=== PATIENT | male | born 1940 | race Caucasian/White ===

== ENCOUNTER 2020-01-28 07:56 | Outpatient (REF) | payer MEDICARE, SELFPAY ==
[2020-01-28 08:43] LABS: MANUAL DIFF FLAG NO
[2020-01-28 08:47] LABS: Basophils Percent Auto 0.5 % (0-2); Eosinophils Absolute Auto 0.6 X10*3/uL (0.0-0.4); Eosinophils Percent Auto 8.1 % (0-4); Hematocrit 43.6 % (42-52); Hemoglobin 14.6 g/dl (14.0-18.0); Imm Gran Abs Auto 0.02 X10*3/uL (0.00-0.03); Imm Gran Pct Auto 0.3 % (0.0-0.4); Lymphocytes Absolute Auto 0.9 X10*3/uL (1.2-4.9); Lymphocytes Percent Auto 12.3 % (20-40); Mean Corpuscular HGB Conc 33.5 g/dl (31.0-36.0); Mean Corpuscular Volume 92.6 fL (80-98); Mean Platelet Volume 9.8 fL (9.4-12.4); Monocytes Absolute Auto 0.7 X10*3/uL (0.1-1.2); Monocytes Percent Auto 8.6 % (2-11); Neutrophils Absolute Auto 5.4 X10*3/uL (2.0-8.3); Neutrophils Percent Auto 70.2 % (45-73); Platelet Count 147 X10*3/uL (160-400); Red Blood Count 4.71 X10*6/uL (4.60-5.80); Red Cell Distribution Width 13.3 % (11.0-16.0); White Blood Count 7.7 X10*3/uL (4.8-10.8)
[2020-01-28 09:14] LABS: Alanine Aminotransferase 16 U/L (0-40); Albumin Level 4.1 g/dL (3.5-5.0); Alkaline Phosphatase 67 U/L (39-117); Anion Gap 10 (12-20); Aspartate Amino Transferase 16 U/L (5-37); Bilirubin Total 0.7 mg/dL (0.0-1.0); Blood Urea Nitrogen 16 mg/dL (9-16); Calcium 8.6 mg/dL (8.4-10.2); Carbon Dioxide 29 mmol/L (22-29); Chloride 103 mmol/L (96-108); Cholesterol 102 mg/dL; Estimated Glomerular Filt Rate > 60; Glucose Fasting 113 mg/dL (60-99); HDL Cholesterol 24 mg/dL; LDL Cholesterol Calculated 62 mg/dl; Potassium 5.1 mmol/l (3.3-5.1); Sodium 137 mmol/L (135-145); Total Protein 6.3 g/dL (6.5-8.0); Triglycerides 81 mg/dL
== END 2020-01-28 07:57 | disposition home or self-care (01) ==
LOC: HO.LAB 07:56
PROVIDERS: Visit Provider Internal Medicine Medical Oncology
DX: I48.0 Paroxysmal atrial fibrillation (principal); E78.2 Mixed hyperlipidemia; I10 Essential (primary) hypertension
CPT/HCPCS: 36415; 80053; 80061; 85025

== ENCOUNTER 2020-05-11 07:51 | Outpatient (REF) | payer MEDICARE, SELFPAY ==
[2020-05-11 09:18] LABS: MANUAL DIFF FLAG NO
[2020-05-11 09:25] LABS: Basophils Percent Auto 0.5 % (0-2); Eosinophils Absolute Auto 0.7 X10*3/uL (0.0-0.4); Eosinophils Percent Auto 11.3 % (0-4); Hematocrit 42.9 % (42-52); Hemoglobin 14.3 g/dl (14.0-18.0); Imm Gran Abs Auto 0.04 X10*3/uL (0.00-0.03); Imm Gran Pct Auto 0.6 % (0.0-0.4); Lymphocytes Absolute Auto 0.9 X10*3/uL (1.2-4.9); Lymphocytes Percent Auto 13.7 % (20-40); Mean Corpuscular HGB Conc 33.3 g/dl (31.0-36.0); Mean Corpuscular Hemoglobin 31.3 pg (27.0-33.0); Mean Corpuscular Volume 93.9 fL (80-98); Mean Platelet Volume 9.9 fL (9.4-12.4); Monocytes Absolute Auto 0.6 X10*3/uL (0.1-1.2); Neutrophils Absolute Auto 4.3 X10*3/uL (2.0-8.3); Neutrophils Percent Auto 64.9 % (45-73); Platelet Count 130 X10*3/uL (160-400); Red Blood Count 4.57 X10*6/uL (4.60-5.80); Red Cell Distribution Width 13.2 % (11.0-16.0); White Blood Count 6.6 X10*3/uL (4.8-10.8)
[2020-05-11 10:05] LABS: Alanine Aminotransferase 20 U/L (0-40); Albumin Level 4.1 g/dL (3.5-5.0); Alkaline Phosphatase 65 U/L (39-117); Anion Gap 11 (12-20); Aspartate Amino Transferase 17 U/L (5-37); Bilirubin Total 0.8 mg/dL (0.0-1.0); Blood Urea Nitrogen 15 mg/dL (9-16); Calcium 8.5 mg/dL (8.4-10.2); Carbon Dioxide 28 mmol/L (22-29); Chloride 106 mmol/L (96-108); Cholesterol 104 mg/dL; Estimated Glomerular Filt Rate > 60; Glucose Random 110 mg/dL (60-115); HDL Cholesterol 24 mg/dL; LDL Cholesterol Calculated 62 mg/dl; Potassium 4.9 mmol/L (3.3-5.1); Sodium 140 mmol/L (135-145); Total Protein 6.4 g/dL (6.5-8.0); Triglycerides 94 mg/dL
== END 2020-05-11 07:52 | disposition home or self-care (01) ==
LOC: HO.LAB 07:51
PROVIDERS: PCP Internal Medicine Medical Oncology; Visit Provider Internal Medicine Medical Oncology
DX: I10 Essential (primary) hypertension (principal); E78.2 Mixed hyperlipidemia
CPT/HCPCS: 36415; 80053; 80061; 85025

== ENCOUNTER 2020-09-09 07:24 | Outpatient (REF) | payer MEDICARE, SELFPAY ==
[2020-09-09 08:01] LABS: MANUAL DIFF FLAG NO
[2020-09-09 08:05] LABS: Basophils Percent Auto 0.4 % (0-2); Eosinophils Absolute Auto 0.8 X10*3/uL (0.0-0.4); Eosinophils Percent Auto 11.8 % (0-4); Hemoglobin 15.2 g/dl (14.0-18.0); Imm Gran Abs Auto 0.05 X10*3/uL (0.00-0.03); Imm Gran Pct Auto 0.7 % (0.0-0.4); Lymphocytes Absolute Auto 0.9 X10*3/uL (1.2-4.9); Lymphocytes Percent Auto 12.9 % (20-40); Mean Corpuscular HGB Conc 33.8 g/dl (31.0-36.0); Mean Corpuscular Hemoglobin 30.6 pg (27.0-33.0); Mean Corpuscular Volume 90.7 fL (80-98); Mean Platelet Volume 9.4 fL (9.4-12.4); Monocytes Absolute Auto 0.6 X10*3/uL (0.1-1.2); Monocytes Percent Auto 8.5 % (2-11); Neutrophils Absolute Auto 4.6 X10*3/uL (2.0-8.3); Neutrophils Percent Auto 65.7 % (45-73); Platelet Count 132 X10*3/uL (160-400); Red Blood Count 4.96 X10*6/uL (4.60-5.80); Red Cell Distribution Width 13.2 % (11.0-16.0)
[2020-09-09 08:33] LABS: Alanine Aminotransferase 14 U/L (0-40); Albumin Level 4.1 g/dL (3.5-5.0); Alkaline Phosphatase 65 U/L (39-117); Anion Gap 11 (12-20); Aspartate Amino Transferase 16 U/L (5-37); Bilirubin Total 0.9 mg/dL (0.0-1.0); Blood Urea Nitrogen 11 mg/dL (9-16); Calcium 8.9 mg/dL (8.4-10.2); Carbon Dioxide 27 mmol/L (22-29); Chloride 106 mmol/L (96-108); Cholesterol 106 mg/dL; Estimated Glomerular Filt Rate > 60; Glucose Fasting 113 mg/dL (60-99); HDL Cholesterol 27 mg/dL; LDL Cholesterol Calculated 63 mg/dl; Potassium 4.9 mmol/L (3.3-5.1); Sodium 139 mmol/L (135-145); Total Protein 6.5 g/dL (6.5-8.0); Triglycerides 83 mg/dL
== END 2020-09-09 07:25 | disposition home or self-care (01) ==
LOC: HO.LAB 07:24
PROVIDERS: PCP Internal Medicine Medical Oncology; Visit Provider Internal Medicine Medical Oncology
DX: I10 Essential (primary) hypertension (principal); I48.0 Paroxysmal atrial fibrillation; E78.2 Mixed hyperlipidemia
CPT/HCPCS: 36415; 80053; 80061; 85025

== ENCOUNTER → 2020-10-06 10:00 | Outpatient (REF) | payer MEDICARE, SELFPAY ==
--- NOTE | 2020-10-06 10:04 | CA_ITS ---
Transthoracic Echocardiogram Patient (Last, First, Middle): Cholo Simmons J Gender: Male Date of : 1940 Age: 80 Procedure Date: 10/06/2020 Procedure Type: Transthoracic Echocardiogram Location: OP Height: 177.8 cm Weight: 100.7 kg BSA: 2.18 m2 Heart Rate: bpm BP: 126 / 80 mmHg Acid Retort Operator: MODESTA Referring MD: Milan Mccoy MD Symptoms: I48.1 PERSISTENT AFIB, I10 HTN, I51.7 LVH Study Quality: Fair Conclusions: - Normal left ventricular size, thickness, systolic function, and wall motion. - Normal right ventricular cavity size and systolic function. - Mildly elevated right atrial pressure. Mild pulmonary hypertension is present. Findings Left Ventricle Normal left ventricular size, thickness, systolic function, and wall motion. The visually estimated ejection fraction is between 55-60%. Diastolic function is indeterminate on the basis of available data. Right Ventricle Normal right ventricular cavity size and systolic function. Atria The left atrium is mildly dilated. The right atrium is normal in size. Aortic Valve Normal aortic valve structure and function. There is no aortic valve stenosis. There is no aortic valve regurgitation. Mitral Valve Normal mitral valve structure and function. There is trace mitral valve regurgitation. There is no mitral valve stenosis. Pulmonic Valve Normal pulmonic valve structure and function. There is trace pulmonic valve regurgitation. Tricuspid Valve Normal tricuspid valve structure. There is trace tricuspid valve regurgitation. Mildly elevated right atrial pressure. Mild pulmonary hypertension is present. Great Vessels All visible segments of the aorta are normal in size. The visualized portions of the pulmonary artery and branches are normal. Venous The inferior vena cava is dilated and collapses greater than 50% with inspiration. Pericardium/Pleural There is no evidence of pericardial effusion. Prior Study Comparison Changes noted compared to prior study dated: 10/20/2018. Mildly elevated PA pressures. Measurements 2D Linear Measurements IVSd: 1.09 0.6-0.9/0.6-1.0 cm LVIDd: 4.66 3.9-5.3/4.2-5.9 cm LVIDd Index: 2.14 2.4-3.2/2.2-3.1 cm/m2 LVIDs: 2.70 2.0-3.6 cm LVPWd: 1.00 0.7-1.1 cm Ao Root: 3.50 2.1-3.5 cm LA Diam: 4.40 2.7-3.8/3.0-4.0 cm LAIDs Index: 2.02 1.5-2.3 cm/m2 LV Mass: 214.61 67-162/88-224 g LV Mass Index: 98.44 43-95/49-115 g/m2 LVOT Diam: 2.10 3.0+(-)1.3 cm 2D Systolic Function EF 4C: 53.90 >55% EF 2C: 61.00 >55% EF BiP: 57.00 >55% Aortic Valve AoV Pk Bertram: 1.03 AoV Mn Bertram: 0.71 AoV VTI: 0.23 AoV Pk Grad: 4.00 Aov Mn Grad: 2.00 NALINI Cont.VTI: 2.79 LVOT LVOT Pk Bertram: 0.92 LVOT Mn Bertram: 0.62 LVOT VTI: 0.18 LVOT Pk Grad: 3.00 LVOT Mn Grad: 2.00 LVOT Diam: 2.10 LVOT Area: 3.46 Right Ventricle TAPSE (mm): 1.99 Tricuspid Valve TR Pk Bertram: 2.77 TR Pk Grad: 31.00 RA Press: 8.00 RVSP: 40.00 Great Vessels Aorta Ao Root-2D: 3.50 2.0-3.7 cm Ao Asc: 3.30 2.1-3.4 cm Ao Arch: 3.40 Updated in Other Vendor System with Status of Final Merrill Ordonez MD electronically signed on 10/08/2020 4:45:10 PM with status of Final
== END ==
LOC: HO.CARD 10:00
PROVIDERS: Visit Provider Internal Medicine Cardiovascular Disease
DX: I10 Essential (primary) hypertension (principal); I51.7 Cardiomegaly
CPT/HCPCS: 93306

== ENCOUNTER → 2020-11-09 12:18 | Outpatient (BNVA) | payer MEDICARE, SELFPAY | PROVIDERS: PCP Internal Medicine Medical Oncology; Visit Provider Internal Medicine Cardiovascular Disease | DX: I48.20 Chronic atrial fibrillation, unspecified (principal); I10 Essential (primary) hypertension | CPT/HCPCS: 93005; 99212 ==

== ENCOUNTER 2021-01-02 07:20 | Outpatient (REF) | payer MEDICARE, SELFPAY ==
[2021-01-02 08:07] LABS: Basophils Percent Auto 0.5 % (0-2); Imm Gran Abs Auto 0.04 X10*3/uL (0.00-0.03); Imm Gran Pct Auto 0.7 % (0.0-0.4); Red Cell Distribution Width 13.7 % (11.0-16.0)
[2021-01-02 08:09] LABS: Eosinophils Absolute Auto 0.7 X10*3/uL (0.0-0.4); Eosinophils Percent Auto 12.5 % (0-4); Hematocrit 42.7 % (42.0-52.0); Hemoglobin 14.5 g/dl (14.0-18.0); Lymphocytes Absolute Auto 0.9 X10*3/uL (1.2-4.9); Lymphocytes Percent Auto 15.7 % (20-40); Mean Corpuscular Hemoglobin 31.3 pg (27.0-33.0); Mean Corpuscular Volume 92.2 fL (80.0-98.0); Mean Platelet Volume 9.5 fL (9.4-12.4); Monocytes Absolute Auto 0.5 X10*3/uL (0.1-1.2); Monocytes Percent Auto 8.1 % (2-11); Neutrophils Absolute Auto 3.61 x10*3/uL (2.0-8.3); Neutrophils Percent Auto 62.5 % (45-73); Platelet Count 120 X10*3/uL (160-400); Red Blood Count 4.63 X10*6/uL (4.60-5.80); White Blood Count 5.8 X10*3/uL (4.8-10.8)
[2021-01-02 08:10] LABS: MANUAL DIFF FLAG NO
[2021-01-02 08:39] LABS: Alanine Aminotransferase 15 U/L (0-40); Albumin Level 3.9 g/dL (3.5-5.0); Alkaline Phosphatase 61 U/L (39-117); Anion Gap 9 (12-20); Aspartate Amino Transferase 16 U/L (5-37); Bilirubin Total 0.8 mg/dL (0.0-1.0); Blood Urea Nitrogen 17 mg/dL (9-16); Calcium 8.7 mg/dL (8.4-10.2); Carbon Dioxide 29 mmol/L (22-29); Chloride 106 mmol/L (96-108); Cholesterol 108 mg/dL; Estimated Glomerular Filt Rate > 60; Glucose Fasting 110 mg/dL (60-99); HDL Cholesterol 25 mg/dL; LDL Cholesterol Calculated 68 mg/dl; Potassium 4.7 mmol/L (3.3-5.1); Sodium 139 mmol/L (135-145); Total Protein 6.1 g/dL (6.5-8.0); Triglycerides 77 mg/dL
== END 2021-01-02 07:21 | disposition home or self-care (01) ==
LOC: HO.LAB 07:20
PROVIDERS: Absent Provider Physician Assistant Surgical; PCP Internal Medicine Medical Oncology; Visit Provider Internal Medicine Medical Oncology
DX: N20.0 Calculus of kidney (principal); I10 Essential (primary) hypertension; E66.9 Obesity, unspecified; E78.2 Mixed hyperlipidemia
CPT/HCPCS: 36415; 80053; 80061; 85025

== ENCOUNTER 2021-01-04 14:55 | Outpatient (REF) | payer MEDICARE, SELFPAY ==
[2021-01-04 16:11] LABS: Creatinine, mg/dL 88.08; Phosphorus mg/dL 44.2 mg/dL
[2021-01-04 16:21] LABS: Creatinine, mg/dL 85.31
[2021-01-04 16:25] LABS: Creatinine, 24Hr Urine 1.7 G/Day (1.0-2.0); Phosphorus, 24 Hr Urine 0.8 G/Day (0.4-1.3); Total Volume 24 Hour Urine 1875 mL; Uric Acid, mg/dL 29.5 mg/dL
[2021-01-04 16:26] LABS: Creatinine, 24Hr Urine 1.6 G/Day (1.0-2.0); Sodium 24 Hr Urine 99.4 mmol/Day (40-220); Total Volume 24 Hour Urine 1875 mL; Uric Acid, 24 Hr Urine 553.1 mg/Day (250-750)
[2021-01-06 18:22] LABS: Calcium, 24 Hr Urine 86 mg/24 h; Calcium/Creatinine Ratio 57 mg/g creat (30-210); Creatinine 24Hr Urine 1.52 g/24 h (0.50-2.15)
[2021-01-10 16:15] LABS: 24hr Urine Total Volume 1875 mL/24 h; Creatinine, 24U 1.52 g/24 h (0.50-2.15); Oxalic Acid 24 Urine 31.9 mg/24 h (3.6-38.0)
[2021-01-12 12:41] LABS: Citric Acid, 24hr Urine 658 mg/24 h (100-1300); Citric Acid/Creat Ratio 24U 426 mg/g creat (60-660)
== END 2021-01-04 14:56 | disposition home or self-care (01) ==
LOC: HO.LNP 14:55
PROVIDERS: Visit Provider Physician Assistant Surgical
DX: N20.0 Calculus of kidney (principal)
CPT/HCPCS: 82340; 82507; 83945; 84105; 84300; 84560

== ENCOUNTER 2021-04-18 06:13 | Outpatient (REF) | payer MEDICARE, SELFPAY ==
[2021-04-18 06:28] LABS: MANUAL DIFF FLAG NO
[2021-04-18 08:26] LABS: Basophils Percent Auto 0.3 % (0-2); Eosinophils Absolute Auto 0.5 X10*3/uL (0.0-0.4); Eosinophils Percent Auto 7.1 % (0-4); Hemoglobin 14.4 g/dl (14.0-18.0); Imm Gran Abs Auto 0.06 X10*3/uL (0.00-0.03); Imm Gran Pct Auto 0.9 % (0.0-0.4); Lymphocytes Absolute Auto 0.8 X10*3/uL (1.2-4.9); Lymphocytes Percent Auto 12.3 % (20-40); Mean Corpuscular HGB Conc 33.5 g/dl (31.0-36.0); Mean Corpuscular Hemoglobin 31.4 pg (27.0-33.0); Mean Corpuscular Volume 93.9 fL (80.0-98.0); Mean Platelet Volume 9.6 fL (9.4-12.4); Monocytes Absolute Auto 0.6 X10*3/uL (0.1-1.2); Monocytes Percent Auto 8.3 % (2-11); Neutrophils Absolute Auto 4.7 x10*3/uL (2.0-8.3); Neutrophils Percent Auto 71.1 % (45-73); Platelet Count 150 X10*3/uL (160-400); Red Blood Count 4.58 X10*6/uL (4.60-5.80); White Blood Count 6.6 X10*3/uL (4.8-10.8)
[2021-04-18 09:15] LABS: Alanine Aminotransferase 12 U/L (0-40); Albumin Level 3.9 g/dL (3.5-5.0); Alkaline Phosphatase 75 U/L (39-117); Anion Gap 10 (12-20); Aspartate Amino Transferase 16 U/L (5-37); Blood Urea Nitrogen 16 mg/dL (9-16); Carbon Dioxide 29 mmol/L (22-29); Chloride 106 mmol/L (96-108); Cholesterol 109 mg/dL; Estimated Glomerular Filt Rate > 60; Glucose Fasting 101 mg/dL (60-99); HDL Cholesterol 24 mg/dL; LDL Cholesterol Calculated 67 mg/dl; Potassium 4.8 mmol/L (3.3-5.1); Sodium 140 mmol/L (135-145); Total Protein 6.4 g/dL (6.5-8.0); Triglycerides 90 mg/dL
[2021-04-18 09:45] LABS: Bilirubin Total 0.8 mg/dL (0.0-1.0)
== END 2021-04-18 06:14 | disposition home or self-care (01) ==
LOC: HO.LAB 06:13
PROVIDERS: PCP Internal Medicine Medical Oncology; Visit Provider Internal Medicine Medical Oncology
DX: I10 Essential (primary) hypertension (principal); E78.2 Mixed hyperlipidemia
CPT/HCPCS: 36415; 80053; 80061; 85025

== ENCOUNTER 2021-09-14 06:07 | Outpatient (REF) | payer MEDICARE, SELFPAY ==
[2021-09-14 06:14] LABS: MANUAL DIFF FLAG NO
[2021-09-14 07:18] LABS: Basophils Percent Auto 0.7 % (0-2); Eosinophils Absolute Auto 0.6 X10*3/uL (0.0-0.4); Eosinophils Percent Auto 10.3 % (0-4); Hematocrit 42.5 % (42.0-52.0); Hemoglobin 14.5 g/dl (14.0-18.0); Imm Gran Abs Auto 0.03 X10*3/uL (0.00-0.03); Imm Gran Pct Auto 0.5 % (0.0-0.4); Lymphocytes Absolute Auto 0.9 X10*3/uL (1.2-4.9); Mean Corpuscular HGB Conc 34.1 g/dl (31.0-36.0); Mean Corpuscular Hemoglobin 31.6 pg (27.0-33.0); Mean Corpuscular Volume 92.6 fL (80.0-98.0); Monocytes Absolute Auto 0.5 X10*3/uL (0.1-1.2); Monocytes Percent Auto 9.4 % (2-11); Neutrophils Absolute Auto 3.6 x10*3/uL (2.0-8.3); Neutrophils Percent Auto 64.1 % (45-73); Platelet Count 116 X10*3/uL (160-400); Red Blood Count 4.59 X10*6/uL (4.60-5.80); Red Cell Distribution Width 13.2 % (11.0-16.0); White Blood Count 5.7 X10*3/uL (4.8-10.8)
[2021-09-14 07:54] LABS: Alanine Aminotransferase 14 U/L (0-40); Albumin Level 3.8 g/dL (3.5-5.0); Alkaline Phosphatase 65 U/L (39-117); Anion Gap 11 (12-20); Aspartate Amino Transferase 15 U/L (5-37); Bilirubin Total 0.8 mg/dL (0.0-1.0); Blood Urea Nitrogen 11 mg/dL (9-16); Calcium 8.6 mg/dL (8.4-10.2); Carbon Dioxide 25 mmol/L (22-29); Chloride 107 mmol/L (96-108); Cholesterol 102 mg/dL; Estimated Glomerular Filt Rate > 60; Glucose Fasting 108 mg/dL (60-99); HDL Cholesterol 25 mg/dL; LDL Cholesterol Calculated 58 mg/dl; Potassium 4.4 mmol/L (3.3-5.1); Sodium 139 mmol/L (135-145); Total Protein 6.3 g/dL (6.5-8.0); Triglycerides 96 mg/dL
== END 2021-09-14 06:08 | disposition home or self-care (01) ==
LOC: HO.LAB 06:07
PROVIDERS: PCP Internal Medicine Medical Oncology; Visit Provider Internal Medicine Medical Oncology
DX: I10 Essential (primary) hypertension (principal); E66.9 Obesity, unspecified; E78.2 Mixed hyperlipidemia
CPT/HCPCS: 36415; 80053; 80061; 85025

== ENCOUNTER 2021-11-12 12:31 | Outpatient (REF) | payer MEDICARE, SELFPAY ==
--- NOTE | ~2021-11-12 | XR_ITS ---
EXAMINATION: CHEST RADIOGRAPH, RIGHT KNEE CLINICAL INFORMATION: Shortness of breath and right knee pain and swelling COMPARISON: Chest radiograph 09/05/2010 TECHNIQUE: 2 view chest, 4 views right FINDINGS: Chest: Heart size within normal limits. There is no evidence of CHF. There is a suggestion of COPD with flattening of the diaphragms. Left basilar atelectasis is present. No pleural effusions or lung masses. Degenerative changes are present in the spine. The aorta is unfolded. A small hiatal hernia may be present. Right knee: Marked predominantly single compartmental degenerative changes are present in the medial compartment with marked joint space narrowing and some osteophyte formation and sclerosis. Lateral compartment is well maintained. The patellofemoral compartment appears unremarkable without joint effusion. XR/XR chest 2V IMPRESSION: 1. No acute intrathoracic disease. Question of underlying COPD 2. Degenerative changes with marked narrowing of the medial compartment and in the
[2021-11-12 14:25] LABS: B Type Natriuretic Peptide 124 pg/mL (<100)
== END 2021-11-12 12:32 | disposition home or self-care (01) ==
LOC: HO.LAB 12:31
PROVIDERS: PCP Internal Medicine Medical Oncology; Referring Provider Internal Medicine Medical Oncology; Visit Provider Internal Medicine Cardiovascular Disease
DX: R06.02 Shortness of breath (principal); I48.20 Chronic atrial fibrillation, unspecified
CPT/HCPCS: 36415; 71046; 83880; 93005; 99212

== ENCOUNTER 2021-11-12 20:27 | Emergency (ER) | payer MEDICARE, SELFPAY ==
--- NOTE | ~2021-11-12 | XR_ITS ---
EXAMINATION: CHEST RADIOGRAPH, RIGHT KNEE CLINICAL INFORMATION: Shortness of breath and right knee pain and swelling COMPARISON: Chest radiograph 09/05/2010 TECHNIQUE: 2 view chest, 4 views right FINDINGS: Chest: Heart size within normal limits. There is no evidence of CHF. There is a suggestion of COPD with flattening of the diaphragms. Left basilar atelectasis is present. No pleural effusions or lung masses. Degenerative changes are present in the spine. The aorta is unfolded. A small hiatal hernia may be present. Right knee: Marked predominantly single compartmental degenerative changes are present in the medial compartment with marked joint space narrowing and some osteophyte formation and sclerosis. Lateral compartment is well maintained. The patellofemoral compartment appears unremarkable without joint effusion. XR/XR knee LT 3V IMPRESSION: 1. No acute intrathoracic disease. Question of underlying COPD 2. Degenerative changes with marked narrowing of the medial compartment and in the
[2021-11-12 22:52] VITALS: BP 153/99; PULSE 68; RESP 18; TEMP 35.9; O2SAT 99; BMI 32.3
[2021-11-13] VITALS: BP 153/91; PULSE 71; RESP 16; TEMP 36.7; O2SAT 97
--- NOTE | 2021-11-13 00:37 | ED.GENADULT ---
HPI - General Adult General Chief complaint: General Medical Stated complaint: left knee swollen,painful Time Seen by Provider: 11/12/21 23:48 Source: patient and family Mode of arrival: ambulatory Limitations: no limitations History of Present Illness HPI narrative: This is a 81-year-old male with a history of AFib on Pradaxa, hypertension, gout who presents with left knee pain, swelling and redness since this morning. Patient denies any injury or trauma. No fevers or chills. Patient has been compliant with his Pradaxa and has not missed any doses. Of note, the patient has had complaints of shortness of breath for many months. He was seen this morning by his metal grader for this same thing. He had outpatient labs and chest x-ray. Patient tells me he was called by his Cardiology office around 18:00 and informed that his BNP was elevated and that they sent in a prescription for Lasix which he plans on starting tomorrow. Related Data Home Medications Medication Instructions Recorded Confirmed bimatoprost 0.01 % eye drops 1 drp ophthalmic (eye) DAILY 11/09/20 11/12/21 (Lumigan) dorzolamide 22.3 mg-timolol 6.8 1 drp ophthalmic (eye) BID 11/09/20 11/12/21 mg/mL eye drops finasteride 5 mg tablet 5 mg PO DAILY 11/09/20 11/12/21 multivitamin 1 tab PO DAILY 11/09/20 11/12/21 netarsudil 0.02 % eye drops 1 drp ophthalmic (eye) ONCE 11/09/20 11/12/21 (Rhopressa) omega-3 fatty acids 1,000 mg 1,000 mg PO DAILY 11/09/20 11/12/21 capsule (Fish Oil Concentrate) brimonidine 0.2 % eye drops 0 drp ophthalmic (eye) 11/12/21 11/12/21 Previous Rx's Medication Instructions Recorded dabigatran etexilate 150 mg 150 mg PO BID #180 caps 02/22/21 capsule (Pradaxa) metoprolol succinate 100 mg 100 mg PO DAILY #90 tabs 09/06/21 tablet,extended release 24 hr lisinopril 5 mg tablet 5 mg PO DAILY #90 tabs 11/09/21 furosemide 20 mg tablet (Lasix) 20 mg PO DAILY #30 tabs 11/12/21 prednisone 20 mg tablet 40 mg PO DAILY #10 tabs 11/13/21 Allergies Allergy/AdvReac Type Severity Reaction Status Date / Time Iodinated Contrast Media Allergy Severe HIVES Unverified 10/02/21 16:26 [IV Dye, Iodine Containing] IVP dye Allergy Unknown hives Uncoded 10/02/21 16:26 Review of Systems Review of Systems: Yes all other systems are reviewed and are negative Constitutional: Constitutional: Reports no additional constitutional complaints, Denies body ache(s), Denies chills, Denies fever(s), Denies headache(s) and Denies weakness Eyes: Eyes: Reports no additional eye complaints and Denies change in vision ENT: Reports system reviewed and no additional complaints, except as documented, Denies dizziness, Denies headache(s), Denies nasal congestion, Denies nasal discharge and Denies neck pain Cardiovascular: Cardiovascular: Reports no additional cardiovascular complaints, Denies chest pain, Denies leg edema and Reports dyspnea Respiratory: Respiratory: Reports no additional respiratory complaints, Denies cough and Reports dyspnea Gastrointestinal: Gastrointestinal: Reports no additional gastrointestinal complaints, Denies abdominal pain, Denies diarrhea, Denies nausea and Denies vomiting Genitourinary: Genitourinary: Denies urinary incontinence Musculoskeletal: Musculoskeletal: Reports no additional musculoskeletal complaints, Denies back pain, Reports arthralgias, Reports joint swelling, Denies neck pain, Denies numbness and Denies tingling Integumentary/Breasts: Skin/Breast: Reports system reviewed and no additional complaints, except as docu, Reports swelling, Reports erythema and Denies rash Neurologic: Reports system reviewed and no additional complaints, except as documented, Denies dizziness, Denies headache(s), Denies numbness, Denies tingling and Denies weakness [facility] Past Medical History Attestation statement: The following information was validated with the patient. Source: old records reviewed and nursing notes reviewed Medical History Chronic atrial fibrillation HTN (hypertension) Social History Social History Advance Directives: No Physical Exam ED Vital Signs: Vital Signs - 24 hr 11/12/21 22:52 11/13/21 00:00 Temperature 96.6 F L 98.1 F Pulse Rate 68 71 Respiratory Rate 18 16 Blood Pressure 153/99 H 153/91 H Pulse Oximetry 99 97 Oxygen Delivery Method Room Air Room Air BMI result Body Mass Index 32.3 Const General: cooperative, healthy appearing and comfortable Orientation/consciousness: patient oriented x3 Limitations: no limitations [facility] Head: Yes normal to inspection Ears: hearing grossly normal bilaterally Eyes General: appearance normal, both eyes and all related structures Pupils: Equal, round and reactive pupils present Neck Neck: Yes normal visual inspection Chest Chest palpation & inspection: normal inspection of the chest Resp Other: Mild tachypnea with talking Cardio Rate: regular rate Rhythm: regular rhythm Peripheral pulses: Peripheral pulses 2+ throughout GI Inspection: Yes normal to inspection Back/Spine/Pelvis Thoracic/Lumbar Spine: thoracic and lumbar spine normal to inspection Skin General skin exam: no rashes or lesions noted Neuro General: patient oriented x3 and moves all extremities Cranial nerves: Yes Equal, round and reactive pupils present Cognition (Neuro): normal cognition Gait exam (Neuro): Normal gait present Extrem Other: To the left knee there is swelling, there is warmth and there is redness. Patient has no difficulty with flexion or extension of the knee. Course Course Course Narrative: X-ray of the knee shows degenerative changes consistent with arthritis. Labs show no leukocytosis with normal inflammatory markers and elevated uric acid consistent with a gouty flare. Patient will be treated with prednisone as he is on Pradaxa and is not a candidate for colchicine or indomethacin. Recommend following a low purine diet. Follow-up with primary care as needed. I reviewed the patient's elevated BNP with him as well as his chest x-ray findings from earlier today by Dr. Mccoy. He tells me that he has a prescription for Lasix waiting at the pharmacy for him which he plans on picking up in the morning. His oxygen saturation is stable. Reviewed worrisome signs and symptoms of when to return to the emergency room. Comfortable discharge home. Medical Decision Making MDM Narrative Medical decision making narrative: 81-year-old male here with taking with left knee swelling, redness and pain. Low concern for septic joint with full range of motion Consider bursitis, gout Will obtain labs, x-ray Medical Records Medical records reviewed: Yes I reviewed the patient's medical records. Lab Data Lab results reviewed: Yes I reviewed the patient's lab results. Result diagrams: 11/13/21 01:15 Labs: Lab Results 11/13/21 11/13/21 11/13/21 Range/Units 01:15 01:15 01:15 WBC 8.0 (4.8-10.8) X10*3/uL RBC 4.72 (4.60-5.80) X10*6/uL Hgb 14.7 (14.0-18.0) g/dl Hct 42.5 (42.0-52.0) % MCV 90.0 (80.0-98.0) fL MCH 31.1 (27.0-33.0) pg MCHC 34.6 (31.0-36.0) g/dl RDW 13.2 (11.0-16.0) % Plt Count 120 L (160-400) X10*3/uL MPV 9.7 (9.4-12.4) fL Absolute Nucleated RBC 0.000 (0.0-0.012) X10*3/uL Nucleated RBC % (auto) 0.0 (0.0-0.2) /100WBC ESR 6 (0-15) MM/HR Uric Acid 7.2 H (3.4-7.0) mg/dL C-Reactive Protein 0.19 (< or = 0.50) mg/dL Imaging Data knee xray: Attestation: I personally reviewed and interpreted this imaging study as follows: Radiologist's impression: Right knee: Marked predominantly single compartmental degenerative changes are present in the medial compartment with marked joint space narrowing and some osteophyte formation and sclerosis. Lateral compartment is well maintained. The patellofemoral compartment appears unremarkable without joint effusion. Discharge Plan Discharge Clinical Impression: Gout Patient Disposition: Home, Self-Care Instructions: Low Purine Diet (ED), Gout (ED) Additional Instructions: Seek care in the ER for fever >100.4, inability to extend the knee supervisor [employer] your prescription from Dr Mccoy X-ray show some arthritis in your knee. No fluid. Labs show no signs of infection but your uric acid level is elevated which is likely from gout Prescriptions: New prednisone 20 mg tablet 40 mg PO DAILY Qty: 10 0RF No Action Pradaxa 150 mg capsule 150 mg PO BID Qty: 180 3RF metoprolol succinate 100 mg tablet extended release 24 hr 100 mg PO DAILY Qty: 90 3RF lisinopril 5 mg tablet 5 mg PO DAILY Qty: 90 0RF furosemide [Lasix] 20 mg tablet 20 mg PO DAILY Qty: 30 3RF brimonidine 0.2 % drops 0 drp ophthalmic (eye) finasteride 5 mg tablet 5 mg PO DAILY Rhopressa 0.02 % drops 1 drp ophthalmic (eye) ONCE Lumigan 0.01 % drops 1 drp ophthalmic (eye) DAILY dorzolamide-timolol 22.3-6.8 mg/mL drops 1 drp ophthalmic (eye) BID omega-3 fatty acids [Fish Oil Concentrate] 1,000 mg capsule 1,000 mg PO DAILY multivitamin Tablet 1 tab PO DAILY Referrals: Iggy Bear MD [Primary Care Provider] - 5 days
[2021-11-13 01:20] LABS: Hematocrit 42.5 % (42.0-52.0); Hemoglobin 14.7 g/dl (14.0-18.0); Mean Corpuscular HGB Conc 34.6 g/dl (31.0-36.0); Mean Corpuscular Hemoglobin 31.1 pg (27.0-33.0); Mean Platelet Volume 9.7 fL (9.4-12.4); Platelet Count 120 X10*3/uL (160-400); Red Blood Count 4.72 X10*6/uL (4.60-5.80); Red Cell Distribution Width 13.2 % (11.0-16.0)
[2021-11-13 01:49] LABS: C Reactive Protein 0.19 mg/dL (< or = 0.50); Uric Acid 7.2 mg/dL (3.4-7.0)
[2021-11-13 01:55] LABS: Erythrocyte Sedimentation Rate 6 MM/HR (0-15)
== END 2021-11-13 02:03 | disposition home or self-care (01) ==
PROVIDERS: Nurse Practitioner Family; Emergency Provider Internal Medicine; PCP Internal Medicine Medical Oncology
DX: M10.9 Gout, unspecified (principal); M25.562 Pain in left knee; I10 Essential (primary) hypertension; I48.20 Chronic atrial fibrillation, unspecified; Z79.01 Long term (current) use of anticoagulants; Z79.899 Other long term (current) drug therapy
CPT/HCPCS: 36415; 71046; 73562; 83880; 84550; 85027; 85652; 86140; 93005; 99212; 99283

== ENCOUNTER → 2021-12-13 14:29 | Outpatient (REF) | payer MEDICARE, SELFPAY ==
--- NOTE | 2021-12-13 14:32 | CA_ITS ---
Transthoracic Echocardiogram Patient (Last, First, Middle): Cholo Simmons J Gender: Male Date of : 1940 Age: 81 Procedure Date: 12/13/2021 Procedure Type: Transthoracic Echocardiogram Location: OP Height: 177.8 cm Weight: 104.33 kg BSA: 2.22 m2 Heart Rate: bpm BP: 152 / 84 mmHg Metal Filer: TANI Referring MD: Milan Mccoy MD Symptoms: R06.02 - Shortness of breath Study Quality: Adequate w contrast ECG Rhythm: Atrial Fibrillation Conclusions: - The left ventricular systolic function is normal. The visually estimated ejection fraction is between 60-65%. - There is mildly decreased right ventricular systolic function. - No obvious valvular pathology seen on this study. Findings Procedure Information Contrast agent, definity, is being given per protocol without apparent complications. Left Ventricle Normal left ventricular cavity size. There is normal left ventricular wall thickness. The left ventricular systolic function is normal. The visually estimated ejection fraction is between 60-65%. There is no evidence of regional wall motion abnormalities. Diastolic function is indeterminate on the basis of available data. Right Ventricle Normal right ventricular cavity size. There is mildly decreased right ventricular systolic function. Atria Both atria are normal in size. Aortic Valve There is a normal trileaflet aortic valve. There is no aortic valve stenosis. There is no aortic valve regurgitation. Mitral Valve The mitral valve appears normal. There is trace mitral valve regurgitation. There is no mitral valve stenosis. Pulmonic Valve The pulmonic valve is likely normal. Tricuspid Valve Normal tricuspid valve structure. There is trace tricuspid valve regurgitation. There is no evidence of pulmonary hypertension. Great Vessels The aortic annulus, sinuses of valsalva, and asc aorta are normal in size. Venous The inferior vena cava is normal in size and collapses greater than 50% with inspiration. Pericardium/Pleural There is no evidence of pericardial effusion. Prior Study Comparison Changes noted compared to prior study dated: 10/06/2020. Possibly slight change in RV systolic function based on TAPSE, but could also be technical. Recommendations, Care & Conclusions No obvious valvular pathology seen on this study. Measurements 2D Linear Measurements IVSd: 0.95 0.6-0.9/0.6-1.0 cm LVIDd: 4.79 3.9-5.3/4.2-5.9 cm LVIDd Index: 2.16 2.4-3.2/2.2-3.1 cm/m2 LVIDs: 3.54 2.0-3.6 cm LVPWd: 0.63 0.7-1.1 cm LA Diam: 4.00 2.7-3.8/3.0-4.0 cm LAIDs Index: 1.80 1.5-2.3 cm/m2 LV Mass: 155.02 67-162/88-224 g LV Mass Index: 69.83 43-95/49-115 g/m2 LVOT Diam: 2.10 3.0+(-)1.3 cm 2D Systolic Function EF 4C: 66.80 >55% EF 2C: 71.80 >55% EF BiP: 69.90 >55% Mitral Valve MV Pk E: 0.73 Aortic Valve AoV Pk Bertram: 0.95 AoV Mn Bertram: 0.70 AoV VTI: 0.18 AoV Pk Grad: 4.00 Aov Mn Grad: 2.00 NALINI Cont.VTI: 2.95 LVOT LVOT Pk Bertram: 0.84 LVOT Mn Bertram: 0.58 LVOT VTI: 0.15 LVOT Pk Grad: 3.00 LVOT Mn Grad: 2.00 LVOT Diam: 2.10 LVOT Area: 3.46 Diastolic Function MV Pk E: 0.73 Right Ventricle TAPSE (mm): 16.00 TVS' Bertram: 9.90 Tricuspid Valve TR Pk Bertram: 2.39 TR Pk Grad: 23.00 RA Press: 3.00 RVSP: 26.00 Great Vessels Aorta Sinus of Valsalva: 3.40 2.0-3.5 cm Ao Asc: 3.40 2.1-3.4 cm Pulmonary Valve PV Pk Bertram: 1.26 Peak PV Grad: 6.00 Updated in Other Vendor System with Status of Final Jose Hendrix MD electronically signed on 12/14/2021 1:51:47 PM with status of Final
== END ==
LOC: HO.CARD 14:29
PROVIDERS: PCP Internal Medicine Medical Oncology; Visit Provider Internal Medicine Cardiovascular Disease
DX: R06.02 Shortness of breath (principal)
CPT/HCPCS: 93306; Q9957

== ENCOUNTER 2021-12-25 07:34 | Outpatient (REF) | payer MEDICARE, SELFPAY ==
[2021-12-25 07:46] LABS: MANUAL DIFF FLAG NO
[2021-12-25 08:08] LABS: Basophils Percent Auto 0.5 % (0-2); Eosinophils Absolute Auto 0.4 X10*3/uL (0.0-0.4); Eosinophils Percent Auto 5.4 % (0-4); Hematocrit 42.6 % (42.0-52.0); Hemoglobin 14.5 g/dl (14.0-18.0); Imm Gran Abs Auto 0.04 X10*3/uL (0.00-0.03); Imm Gran Pct Auto 0.5 % (0.0-0.4); Lymphocytes Absolute Auto 0.9 X10*3/uL (1.2-4.9); Lymphocytes Percent Auto 11.8 % (20-40); Mean Corpuscular Hemoglobin 30.9 pg (27.0-33.0); Mean Corpuscular Volume 90.8 fL (80.0-98.0); Mean Platelet Volume 9.3 fL (9.4-12.4); Monocytes Absolute Auto 0.5 X10*3/uL (0.1-1.2); Monocytes Percent Auto 7.3 % (2-11); Neutrophils Absolute Auto 5.5 x10*3/uL (2.0-8.3); Neutrophils Percent Auto 74.5 % (45-73); Platelet Count 132 X10*3/uL (160-400); Red Blood Count 4.69 X10*6/uL (4.60-5.80); Red Cell Distribution Width 13.7 % (11.0-16.0); White Blood Count 7.4 X10*3/uL (4.8-10.8)
[2021-12-25 08:31] LABS: Alanine Aminotransferase 14 U/L (0-40); Alkaline Phosphatase 62 U/L (39-117); Anion Gap 15 (12-20); Aspartate Amino Transferase 19 U/L (5-37); Bilirubin Total 1.1 mg/dL (0.0-1.0); Blood Urea Nitrogen 13 mg/dL (9-16); Calcium 8.9 mg/dL (8.4-10.2); Carbon Dioxide 26 mmol/L (22-29); Chloride 104 mmol/L (96-108); Cholesterol 119 mg/dL; Estimated Glomerular Filt Rate > 60; Glucose Fasting 113 mg/dL (60-99); HDL Cholesterol 26 mg/dL; LDL Cholesterol Calculated 71 mg/dl; Potassium 5.1 mmol/L (3.3-5.1); Sodium 140 mmol/L (135-145); Total Protein 6.4 g/dL (6.5-8.0); Triglycerides 112 mg/dL
== END 2021-12-25 07:35 | disposition home or self-care (01) ==
LOC: HO.LAB 07:34
PROVIDERS: PCP Internal Medicine Medical Oncology; Visit Provider Internal Medicine Medical Oncology
DX: I10 Essential (primary) hypertension (principal); E66.9 Obesity, unspecified; E78.2 Mixed hyperlipidemia; D69.6 Thrombocytopenia, unspecified
CPT/HCPCS: 36415; 80053; 80061; 85025

== ENCOUNTER 2022-01-22 15:30 | Outpatient (REF) | payer MEDICARE, SELFPAY ==
[2022-01-22 17:02] LABS: Anion Gap 11 (12-20); Blood Urea Nitrogen 13 mg/dL (9-16); Calcium 9.1 mg/dL (8.4-10.2); Carbon Dioxide 29 mmol/L (22-29); Chloride 102 mmol/L (96-108); Estimated Glomerular Filt Rate > 60; Glucose Random 100 mg/dL (60-115); Potassium 4.2 mmol/L (3.3-5.1); Sodium 138 mmol/L (135-145)
[2022-01-22 17:09] LABS: B Type Natriuretic Peptide 76 pg/mL (<100)
== END 2022-01-22 15:31 | disposition home or self-care (01) ==
LOC: HO.LAB 15:30
PROVIDERS: PCP Internal Medicine Medical Oncology; Visit Provider Internal Medicine Cardiovascular Disease
DX: I11.0 Hypertensive heart disease with heart failure (principal); I50.30 Unspecified diastolic (congestive) heart failure; I48.20 Chronic atrial fibrillation, unspecified; R06.02 Shortness of breath
CPT/HCPCS: 36415; 80048; 83880; 99212

== ENCOUNTER → 2022-04-29 15:09 | Outpatient (BNVA) | payer MEDICARE, SELFPAY | PROVIDERS: PCP Internal Medicine Medical Oncology; Referring Provider Internal Medicine Medical Oncology; Visit Provider Internal Medicine Cardiovascular Disease | DX: I50.30 Unspecified diastolic (congestive) heart failure (principal); I48.20 Chronic atrial fibrillation, unspecified | CPT/HCPCS: 93005; 99212 ==

== ENCOUNTER 2022-05-09 07:22 | Outpatient (REF) | payer MEDICARE, SELFPAY ==
[2022-05-09 07:39] LABS: MANUAL DIFF FLAG NO
[2022-05-09 08:21] LABS: Basophils Percent Auto 0.4 % (0-2); Eosinophils Absolute Auto 0.6 X10*3/uL (0.0-0.4); Eosinophils Percent Auto 9.1 % (0-4); Hemoglobin 14.8 g/dl (14.0-18.0); Imm Gran Abs Auto 0.04 X10*3/uL (0.00-0.03); Imm Gran Pct Auto 0.6 % (0.0-0.4); Lymphocytes Absolute Auto 0.9 X10*3/uL (1.2-4.9); Mean Corpuscular HGB Conc 34.4 g/dl (31.0-36.0); Mean Corpuscular Hemoglobin 31.3 pg (27.0-33.0); Mean Corpuscular Volume 90.9 fL (80.0-98.0); Mean Platelet Volume 9.6 fL (9.4-12.4); Monocytes Absolute Auto 0.6 X10*3/uL (0.1-1.2); Monocytes Percent Auto 8.5 % (2-11); Neutrophils Absolute Auto 4.6 x10*3/uL (2.0-8.3); Neutrophils Percent Auto 68.4 % (45-73); Platelet Count 125 X10*3/uL (160-400); Red Blood Count 4.73 X10*6/uL (4.60-5.80); Red Cell Distribution Width 13.4 % (11.0-16.0); White Blood Count 6.7 X10*3/uL (4.8-10.8)
[2022-05-09 09:08] LABS: Alanine Aminotransferase 18 U/L (0-40); Albumin Level 3.8 g/dL (3.5-5.0); Alkaline Phosphatase 66 U/L (39-117); Anion Gap 12 (12-20); Aspartate Amino Transferase 18 U/L (5-37); Bilirubin Total 0.8 mg/dL (0.0-1.0); Blood Urea Nitrogen 15 mg/dL (9-16); Calcium 8.4 mg/dL (8.4-10.2); Carbon Dioxide 29 mmol/L (22-29); Chloride 104 mmol/L (96-108); Cholesterol 113 mg/dL; Estimated Glomerular Filt Rate > 60; Glucose Fasting 107 mg/dL (60-99); HDL Cholesterol 26 mg/dL; LDL Cholesterol Calculated 69 mg/dl; Potassium 4.5 mmol/L (3.3-5.1); Sodium 140 mmol/L (135-145); Total Protein 5.9 g/dL (6.5-8.0); Triglycerides 93 mg/dL
[2022-05-09 09:27] LABS: Prostate Specific Antigen 0.12 ng/mL (<0.05-4.0)
== END 2022-05-09 07:23 | disposition home or self-care (01) ==
LOC: HO.LAB 07:22
PROVIDERS: PCP Internal Medicine Medical Oncology; Visit Provider Internal Medicine Medical Oncology
DX: Z12.5 Encounter for screening for malignant neoplasm of prostate (principal); I10 Essential (primary) hypertension; E66.9 Obesity, unspecified; E78.2 Mixed hyperlipidemia
CPT/HCPCS: 36415; 80053; 80061; 84153; 85025

== ENCOUNTER 2022-05-10 09:33 | Outpatient (REF) | payer MEDICARE, SELFPAY ==
--- NOTE | 2022-05-10 13:08 | PFT_ITS ---
INDICATION: Shortness of breath. SPIROMETRY: FEV1 to FVC of 66% with an FEV1 of 2.3 L, which is 79% predicted, and FVC of 3.48 L, which is 86% predicted. Post bronchodilators, there was significant improvement of the FVC by 14%. The maximum voluntary ventilation 58% predicted. LUNG VOLUMES: Total lung capacity 85% predicted with an expiratory residual volume of only 11% predicted. DIFFUSION CAPACITY: DLCO 64% predicted, although it does correct to 92% when correcting for the alveolar volume. COMPARISON: None. INTERPRETATION: There is an obstructive ventilatory defect, consistent with [id number] COPD. There was also significant response to bronchodilator noted. The patient has a moderate decrease in maximum voluntary ventilation which could be secondary to deconditioning, although neuromuscular condition cannot be ruled out. Lung volumes are low normal in a significant decrease expiratory residual volume secondary to an elevated BMI. Diffusion capacity also has a mild decrease. Clinical correlation warranted. MD NAOMI Bess/MODGeorge / [id number] MTDD
== END 2022-05-10 09:34 | disposition home or self-care (01) ==
LOC: HO.RESP 09:33
PROVIDERS: PCP Internal Medicine Medical Oncology; Visit Provider Internal Medicine Cardiovascular Disease
DX: R06.02 Shortness of breath (principal)
CPT/HCPCS: 94060; 94727; 94729

== ENCOUNTER → 2022-07-18 14:51 | Outpatient (BNVA) | payer MEDICARE, SELFPAY | PROVIDERS: PCP Internal Medicine Medical Oncology; Visit Provider Hospitalist | DX: J44.9 Chronic obstructive pulmonary disease, unspecified (principal); R06.00 Dyspnea, unspecified | CPT/HCPCS: 99202 ==

== ENCOUNTER 2022-10-09 08:23 | Outpatient (AMB) | payer MEDICARE, SELFPAY ==
--- NOTE | 2022-10-09 08:27 | MHC.OFFVIS ---
Intake Vital Signs 10/09/22 08:28 Height 5 ft 10 in Weight 220 lb 0.341 oz BMI 31.6 BP 112/72 Blood Pressure Location Lt brachial Position Sitting Pulse 62 Pulse Source Monitor Intake Visit Reasons: 6 month f/u after pft Intake Note: 6 month follow up with EKG after PFT. Soccer Commentator Required: No Accompanied by: Daughter Allergies Iodinated Contrast Media [IV Dye, Iodine Containing] Allergy (Severe, Verified 10/09/22 08:29) HIVES IVP dye Allergy (Unknown, Uncoded 10/09/22 08:29) hives Medication List - Last Reconciled 10/09/22 by Milan Mccoy MD bimatoprost 0.01% (Lumigan) 1 drp ophthalmic (eye) DAILY brimonidine 0.2% 0 drps ophthalmic (eye) dabigatran etexilate (Pradaxa) 150 mg PO BID dorzolamide-timolol 22.3-6.8 mg/mL 1 drp ophthalmic (eye) BID escitalopram oxalate 10 mg PO DAILY finasteride 5 mg PO DAILY fluticasone propion-salmeterol 250-50 mcg/dose (Wixela Inhub) 1 inh inhalation Q12H 30 days furosemide 20 mg PO DAILY lisinopril 5 mg PO DAILY metoprolol succinate ER 100 mg PO DAILY multivitamin 1 tab PO DAILY netarsudil 0.02% (Rhopressa) 1 drp ophthalmic (eye) ONCE omega-3 fatty acids (Fish Oil Concentrate) 1,000 mg PO DAILY HPI HPI Comments History of Present Illness Details Cholo comes for follow-up. He has been doing well. He has no worsening symptoms. As per the daughter is lost about 10-15 lb of the last 6 months. Not had much leg edema. Denies orthopnea, PND. Does have exertional shortness of breath. Goals for short walks without any issues. No bleeding issues or neurologic events. No pulmonary issues. Denies lightheadedness, syncope. Taking all his medications. [facility] Medical History Chronic atrial fibrillation COPD (chronic obstructive pulmonary disease) Dyspnea HTN (hypertension) Surgical History History of eye surgery History of hernia repair History of right hip replacement Social History Alcohol intake: never Patient Tobacco Use Status: Former Tobacco user Quit Date: 1974 Years Smoked: 10 +/- Review of Systems Const Denies weakness ENT Denies dizziness Card Denies chest pain, Denies chest pain with activity, Denies syncope, Denies rapid heart rate, Denies pedal edema, Denies edema, Denies leg edema, Denies lightheadedness, Denies palpitations, Denies dyspnea, Denies dyspnea on exertion and Denies orthopnea Resp Denies cough, Denies dyspnea and Denies dyspnea on exertion GI Denies hematochezia and Denies change in stool character Musc Denies abnormal gait, Denies muscle cramps, Denies muscle weakness, Denies numbness, Denies radiating pain into limb and Denies tingling Neuro Denies abnormal gait, Denies dizziness, Denies syncope, Denies numbness, Denies tingling and Denies weakness Endo Denies palpitations Physical Exam Vital Signs: Last Vital Signs Pulse 62 10/09/22 08:28 BP 112/72 10/09/22 08:28 BMI result Body Mass Index 31.6 Const General: cooperative, comfortable, no acute distress, alert and awake Nutritional Appearance: obese Orientation/consciousness: patient oriented x3 Limitations: no limitations Neck Neck: Yes trachea midline, Yes supple and Yes other (Difficult to evaluate JVD) Resp Effort & Inspection: normal respiratory effort Auscultation: clear to auscultation bilaterally and crackles (Coarse ) bilateral at the base Cardio Jugular venous distension: no JVD Palpation: normal PMI Rate: regular rate Rhythm: abnormal rhythm irregularly irregular Heart sounds: S1 normal heart sound present, S2 normal heart sound present, no click, no gallops and no murmurs GI Inspection: Yes obesity Auscultation: normal bowel sounds Skin General skin exam: no rashes or lesions noted and ecchymosis Neuro General: patient oriented x3 and no focal motor deficits Extrem General: No clubbing, No cyanosis and Yes edema Psych Appearance: grossly normal Office Procedures EKG Details: EKG shows atrial fibrillation with right bundle-branch block 76539-[id number], Complete Assessment & Plan Assessment & Plan (1) (HFpEF) heart failure with preserved ejection fraction: Code(s): I50.30 - Unspecified diastolic (congestive) heart failure Plan: Heart failure preserved ejection fraction, clinically euvolemic and well compensated on current low-dose diuretic therapy. Continue the same. Encouraged to increase activity level. Heart failure management was discussed. Daily weight monitoring avoidance of salt loading was discussed in general losing weight with diet modification was discussed. Blood pressure is currently well optimized. Continue current rate control strategy for AFib. Advised to call me with worsening symptoms. Follow-up echocardiogram in 6 months time. (2) Chronic atrial fibrillation: Code(s): I48.20 - Chronic atrial fibrillation, unspecified Plan: Atrial fibrillation which is chronic and has failed rhythm control approach. Will continue rate control approach at this point time. Has tolerated metoprolol therapy well. Continue the same. Continue full oral anticoagulation, currently on Pradaxa 150 mg b.i.d.. Semi annual renal function test is recommended. Will follow up in the clinic in 6 months time, sooner p.r.n.. Thank you for allowing me to partake in his care Orders: Orders Basic Metabolic Panel Today I50.30 - Unspecified diastolic (congestive) heart failure B Type Natriuretic Peptide Today I50.30 - Unspecified diastolic (congestive) heart failure Complete Blood Count no Diff Today I50.30 - Unspecified diastolic (congestive) heart failure Coding Level of Care Code Est Pt Level 4 (41646) Diagnoses (HFpEF) heart failure with preserved ejection fraction I50.30 Chronic atrial fibrillation I48.20 CPT Codes EKG - CPT: 27567-[id number], Complete ([id number])
[2022-10-09 08:28] VITALS: BP 112/72; PULSE 62; BMI 31.6
== END 2022-10-09 08:46 | disposition home or self-care (01) ==
PROVIDERS: PCP Internal Medicine Medical Oncology; Referring Provider Internal Medicine Medical Oncology; Visit Provider Internal Medicine Cardiovascular Disease
DX: I50.30 Unspecified diastolic (congestive) heart failure (principal); I48.20 Chronic atrial fibrillation, unspecified
CPT/HCPCS: 93010; 99214

== ENCOUNTER → 2022-10-09 08:23 | Outpatient (BNVA) | payer MEDICARE, SELFPAY | PROVIDERS: PCP Internal Medicine Medical Oncology; Referring Provider Internal Medicine Medical Oncology; Visit Provider Internal Medicine Cardiovascular Disease | DX: I50.30 Unspecified diastolic (congestive) heart failure (principal); I48.20 Chronic atrial fibrillation, unspecified | CPT/HCPCS: 93005; 99212 ==

== ENCOUNTER 2022-12-11 07:43 | Outpatient (REF) | payer MEDICARE, SELFPAY | END 2022-12-11 07:44 | disposition home or self-care (01) | LOC: HO.LAB 07:43 | PROVIDERS: PCP Internal Medicine Medical Oncology; Visit Provider Internal Medicine Medical Oncology | DX: I11.0 Hypertensive heart disease with heart failure (principal); I50.9 Heart failure, unspecified; E66.9 Obesity, unspecified; N40.0 Benign prostatic hyperplasia without lower urinary tract symptoms; D69.6 Thrombocytopenia, unspecified; Z12.5 Encounter for screening for malignant neoplasm of prostate | CPT/HCPCS: 36415; 80053; 80061; 84153; 85025 ==

== ENCOUNTER 2023-01-16 15:38 | Outpatient (AMB) | payer MEDICARE, SELFPAY ==
[2023-01-16 15:48] VITALS: BP 118/60; PULSE 67; O2SAT 95; BMI 31.6
--- NOTE | 2023-01-16 15:48 | A.OFFVIS_ITS ---
Intake Vital Signs 01/16/23 15:48 Height 5 ft 10 in Weight 220 lb BMI 31.6 BP 118/60 Blood Pressure Location Lt brachial Position Sitting Pulse 67 Pulse Source Pulse Oximeter Pulse Oximetry (%) 95 Oxygen Delivery Method Room Air Intake Visit Reasons: Shortness of breath Oracle Manager Required: No Allergies Iodinated Contrast Media [IV Dye, Iodine Containing] Allergy (Severe, Verified 01/16/23 15:49) HIVES IVP dye Allergy (Unknown, Uncoded 01/16/23 15:49) hives HPI HPI Comments History of Present Illness Details The patient is a 82-year-old gentleman with known atrial fibrillation and HFPEF who is here for further evaluation for ongoing dyspnea. Patient was a long-time smoker. He also has significant allergies. He is still getting allergy shots. But in view of his ongoing dyspnea after her optimization of his cardiac medications the patient had a chest x-ray. I personally reviewed the x- ray with the family. Appears to be hyperinflated with flattened diaphragms consistent with COPD. Therefore the patient underwent pulmonary function studies sometime in May 2022 which I personally reviewed demonstrating a mild degree of COPD with significant response to bronchodilators. The patient was given a rescue inhaler he does feel that the inhaler helps. He does use it at times once or twice a day. Although with a history to fibrillation the short- acting beta agonist may be problematic with the atrial fibrillation. Also, it difficult for him to know and when to use it. I believe he will be better off with a maintenance inhaler to minimize the adverse beta effect and also to improve his compliance. During the office visit we did go for brief walking oximetry maintain a pulse ox of 96% and his heart rate was around 80 beats per minute. He did well without any significant shortness of breath. Seems like his dyspnea on exertion is mainly when going up a flight of stairs when exerting herself to a great degree. Will plan to start maintenance inhaler I did teach him and use it in the office and will follow-up sometime in the fall. If the patient has any issues prior to that he is to call the office for an earlier assessment. 01/16/2023 the patient is here for pulmonary follow-up visit. Overall the patient is doing better. He is responded well to the Wixela inhaler. He is only using it once a day. He understands he can always increase it to twice a day if his symptoms worsen. I do believe with his cardiac issue that once a day is preferred. we did be his pulmonary function studies. Again he knows he has COPD. We talked about the importance of pulmonary rehabilitation. He is not interested in in-person pulmonary rehabilitation at this time. Although he will consider online pulmonary rehabilitation. I did give more information about it. His respiratory exam is reassuring. He also had a chest x-ray back in January 2022 which was also reassuring without any disease. Therefore no further imaging warranted at this time. Will plan to follow-up sometime in late summer early fall and will repeat his pulmonary function studies at that time. If the patient has any issues prior to that he will call the office for an earlier assessment. ON LICENSE OF [facility] Medical History Chronic atrial fibrillation COPD (chronic obstructive pulmonary disease) Dyspnea HTN (hypertension) Surgical History History of eye surgery History of hernia repair History of right hip replacement Social History Alcohol intake: never Patient Tobacco Use Status: Former Tobacco user Quit Date: 1974 Years Smoked: 10 +/- Review of Systems Const Denies chills, Denies fatigue, Denies fever(s), Denies frequent falls, Denies weakness, Denies weight gain and Denies weight loss ENT Denies dizziness Card Denies chest pain, Denies leg edema, Denies lightheadedness, Denies palpitations, Denies dyspnea, Reports dyspnea on exertion, Denies orthopnea and Denies other (loss of consciousness) Resp Reports cough, Denies dyspnea and Reports dyspnea on exertion GI Denies hematochezia and Denies change in stool character Musc Denies abnormal gait, Denies muscle weakness, Denies numbness, Denies radiating pain into limb and Denies tingling Neuro Denies abnormal gait, Denies dizziness, Denies frequent falls, Denies numbness, Denies tingling and Denies weakness Endo Denies fatigue and Denies palpitations Physical Exam Vital Signs: Last Vital Signs Pulse 67 01/16/23 15:48 BP 118/60 01/16/23 15:48 Pulse Ox 95 11/16/23 15:48 Oxygen Delivery Method Room Air 01/16/23 15:48 BMI result Body Mass Index 31.6 Const General: cooperative, comfortable, no acute distress, alert and awake Nutritional Appearance: obese Orientation/consciousness: patient oriented x3 Limitations: no limitations Neck Neck: Yes trachea midline, Yes supple and Yes other (Difficult to evaluate JVD) Resp Effort & Inspection: normal respiratory effort Auscultation: no wheezes and diminished lung sounds Cardio Jugular venous distension: no JVD Palpation: normal PMI Rate: regular rate Rhythm: abnormal rhythm irregularly irregular Heart sounds: S1 normal heart sound present, S2 normal heart sound present, no click, no gallops and no murmurs GI Inspection: Yes obesity Auscultation: normal bowel sounds Skin General skin exam: no rashes or lesions noted and ecchymosis Neuro General: patient oriented x3 and no focal motor deficits Extrem General: No clubbing, No cyanosis and Yes edema Psych Appearance: grossly normal Assessment & Plan Assessment & Plan (1) COPD (chronic obstructive pulmonary disease): Code(s): J44.9 - Chronic obstructive pulmonary disease, unspecified Qualifiers: COPD type: chronic bronchitis Chronic bronchitis type: simple Qualified Code(s): J41.0 - Simple chronic bronchitis (2) Dyspnea: Code(s): R06.00 - Dyspnea, unspecified Qualifiers: Dyspnea type: dyspnea on exertion Qualified Code(s): R06.09 - Other forms of dyspnea Plan continue Wixela daily MYA as needed diuresis as tolerated start online pulmonary rehab, consider in person F/U 10-12 months with PFTs Orders: Orders PFT pulmonary function test 10 Months J41.0 - Simple chronic bronchitis Coding Level of Care Code Est Pt Level 4 (55063) Diagnoses Simple chronic bronchitis J41.0 COPD type: chronic bronchitis Chronic bronchitis type: simple Dyspnea on exertion R06.09 Dyspnea type: dyspnea on exertion Time Spent (min) 16
== END 2023-01-16 16:08 | disposition home or self-care (01) ==
PROVIDERS: PCP Internal Medicine Medical Oncology; Visit Provider Hospitalist
DX: J41.0 Simple chronic bronchitis (principal); R06.09 Other forms of dyspnea
CPT/HCPCS: 99214

== ENCOUNTER → 2023-01-16 15:38 | Outpatient (BNVA) | payer MEDICARE, SELFPAY | PROVIDERS: PCP Internal Medicine Medical Oncology; Visit Provider Hospitalist | DX: J41.0 Simple chronic bronchitis (principal); R06.09 Other forms of dyspnea | CPT/HCPCS: 99212 ==

== ENCOUNTER 2023-03-06 08:52 | Outpatient (REF) | payer MEDICARE, SELFPAY | END 2023-03-06 08:53 | disposition home or self-care (01) | LOC: HO.LAB 08:52 | PROVIDERS: PCP Internal Medicine Medical Oncology; Visit Provider Internal Medicine Medical Oncology | DX: I11.0 Hypertensive heart disease with heart failure (principal); I50.9 Heart failure, unspecified; E78.2 Mixed hyperlipidemia; D69.6 Thrombocytopenia, unspecified; R41.3 Other amnesia | CPT/HCPCS: 36415; 80053; 80061; 82607; 84443; 85025 ==

== ENCOUNTER → 2023-03-25 15:49 | Outpatient (REF) | payer MEDICARE, SELFPAY ==
--- NOTE | 2023-03-25 15:52 | CA_ITS ---
Transthoracic Echocardiogram Amended Patient (Last, First, Middle): Cholo Simmons J Gender: Male Date of : 1940 Age: 82 Procedure Date: 03/25/2023 Procedure Type: Transthoracic Echocardiogram Location: OP Height: 177.8 cm Weight: 99.79 kg BSA: 2.17 m2 Heart Rate: 68 bpm BP: 134 / 80 mmHg Call Center Receptionist: Referring MD: Milan Mccoy MD Symptoms: I50.30 - Unspecified diastolic (congestive) heart failure Study Quality: Adequate ECG Rhythm: Atrial Fibrillation Conclusions: - The left ventricular systolic function is low normal. The visually estimated ejection fraction is between 50-55%. - No obvious valvular pathology seen on this study. Findings Left Ventricle Normal left ventricular cavity size. There is mildly increased left ventricular wall thickness. The left ventricular systolic function is low normal. The visually estimated ejection fraction is between 50-55%. There is no evidence of regional wall motion abnormalities. Diastolic function is indeterminate on the basis of available data. Right Ventricle Normal right ventricular cavity size and systolic function. Atria The left atrium is mildly dilated. The right atrium is normal in size. Aortic Valve There is a normal trileaflet aortic valve. There is no aortic valve stenosis. There is no aortic valve regurgitation. Mitral Valve The mitral valve appears normal. There is no mitral valve regurgitation. There is no mitral valve stenosis. Pulmonic Valve The pulmonic valve is likely normal. Tricuspid Valve Normal tricuspid valve structure. There is trace tricuspid valve regurgitation. There is no evidence of pulmonary hypertension. Great Vessels The asc aorta is normal in size. Venous The inferior vena cava is normal in size and collapses greater than 50% with inspiration. Pericardium/Pleural There is no evidence of pericardial effusion. Prior Study Comparison Changes noted compared to prior study dated: 12/13/2021. LVEF is slightly lower. Recommendations, Care & Conclusions No obvious valvular pathology seen on this study. Measurements 2D Linear Measurements IVSd: 1.08 0.6-0.9/0.6-1.0 cm LVIDd: 4.88 3.9-5.3/4.2-5.9 cm LVIDd Index: 2.25 2.4-3.2/2.2-3.1 cm/m2 LVIDs: 3.19 2.0-3.6 cm LVPWd: 1.17 0.7-1.1 cm Ao Root: 3.50 2.1-3.5 cm LA Diam: 4.00 2.7-3.8/3.0-4.0 cm LAIDs Index: 1.84 1.5-2.3 cm/m2 LV Mass: 256.10 67-162/88-224 g LV Mass Index: 118.02 43-95/49-115 g/m2 LVOT Diam: 2.20 3.0+(-)1.3 cm 2D Volumes LA Vol: 35.50 2D Systolic Function EF 4C: 44.40 >55% EF 2C: 46.10 >55% EF BiP: 44.80 >55% Mitral Valve MV Pk E: 0.75 MV Decel Time: 161.00 E'Lateral: 12.50 E'Medial: 6.85 E/E' Med: 10.90 E/E' Lat: 6.00 PHT: 47.00 MVA PHT: 4.68 Decel Appling: 4.64 Aortic Valve AoV Pk Bertram: 0.99 AoV Mn Bertram: 0.71 AoV VTI: 0.25 AoV Pk Grad: 4.00 Aov Mn Grad: 2.00 NALINI Cont.VTI: 2.21 LVOT LVOT Pk Bertram: 0.69 LVOT Mn Bertram: 0.46 LVOT VTI: 0.15 LVOT Pk Grad: 2.00 LVOT Mn Grad: 1.00 LVOT Diam: 2.20 LVOT Area: 3.80 Diastolic Function MV Pk E: 0.75 E'Medial: 6.85 E/E' Med: 10.90 E' Laterial: 12.50 E/E' Lat: 6.00 Right Ventricle TAPSE (mm): 23.00 Tricuspid Valve TR Pk Bertram: 2.51 TR Pk Grad: 25.00 RA Press: 3.00 RVSP: 28.00 Great Vessels Aorta Ao Root-2D: 3.50 2.0-3.7 cm Ao Asc: 3.30 2.1-3.4 cm Pulmonary Valve PV Pk Bertram: 1.26 Peak PV Grad: 6.00 Updated in Other Vendor System with Status of Final Jose Hendrix MD electronically signed on 03/26/2023 11:55:29 AM with status of Final
== END ==
LOC: HO.CARD 15:49
PROVIDERS: PCP Internal Medicine Medical Oncology; Visit Provider Internal Medicine Cardiovascular Disease
DX: I11.0 Hypertensive heart disease with heart failure (principal); I50.30 Unspecified diastolic (congestive) heart failure
CPT/HCPCS: 93306

== ENCOUNTER → 2023-03-25 15:52 | Outpatient (BNV) | payer MEDICARE, SELFPAY | PROVIDERS: PCP Internal Medicine Medical Oncology; Visit Provider Internal Medicine | DX: I50.30 Unspecified diastolic (congestive) heart failure (principal) | CPT/HCPCS: 93306 ==

== ENCOUNTER 2023-04-14 15:07 | Outpatient (AMB) | payer MEDICARE, SELFPAY ==
[2023-04-14 15:11] VITALS: BP 116/76; PULSE 76; BMI 32.9
--- NOTE | 2023-04-14 15:11 | A.OFFVIS_ITS ---
Intake Vital Signs 04/14/23 15:11 Height 5 ft 10 in Weight 229 lb 4.492 oz BMI 32.9 BP 116/76 Blood Pressure Location Lt brachial Position Sitting Pulse 76 Intake Visit Reasons: 6 mth f/up Intake Note: 6 month follow-up feeling good Electronics Engineering Manager Required: No Allergies Iodinated Contrast Media [IV Dye, Iodine Containing] Allergy (Severe, Verified 01/16/23 15:49) HIVES IVP dye Allergy (Unknown, Uncoded 01/16/23 15:49) hives Medication List - Last Reconciled 04/14/23 by Milan Mccoy MD bimatoprost 0.01% (Lumigan) 1 drp ophthalmic (eye) DAILY brimonidine 0.2% 0 drps ophthalmic (eye) dabigatran etexilate 150 mg PO BID dorzolamide-timolol 22.3-6.8 mg/mL 1 drp ophthalmic (eye) BID escitalopram oxalate 10 mg PO DAILY finasteride 5 mg PO DAILY fluticasone propion-salmeterol 250-50 mcg/dose (Wixela Inhub) 1 inh inhalation Q12H 30 days furosemide 20 mg PO DAILY lisinopril 5 mg PO DAILY metoprolol succinate ER 100 mg PO DAILY multivitamin 1 tab PO DAILY netarsudil 0.02% (Rhopressa) 1 drp ophthalmic (eye) ONCE omega-3 fatty acids (Fish Oil Concentrate) 1,000 mg PO DAILY HPI HPI Comments History of Present Illness Details Cholo comes for follow-up. He is accompanied by his daughter. He said he has been gaining weight due to eating and also has not been part icipating regular physical activity. Daughter notices increasing shortness of breath. No worsening leg edema, abdominal distension, orthopnea, PND. No prolonged palpitation irregular heartbeat. Recent blood work looks within normal limits. Echocardiogram shows no significant changes [facility] Medical History Dyspnea COPD (chronic obstructive pulmonary disease) HTN (hypertension) Chronic atrial fibrillation Surgical History History of eye surgery History of right hip replacement History of hernia repair Social History Alcohol intake: never Patient Tobacco Use Status: Former Tobacco user Quit Date: 1974 Years Smoked: 10 +/- Review of Systems Const Denies chills, Denies fatigue, Denies fever(s), Denies frequent falls, Denies weakness, Denies weight gain and Denies weight loss ENT Denies dizziness Card Denies chest pain, Denies leg edema, Denies lightheadedness, Denies palpitati ons, Denies dyspnea, Denies dyspnea on exertion, Denies orthopnea and Denies other (loss of consciousness) Resp Denies cough, Denies dyspnea and Denies dyspnea on exertion GI Denies hematochezia and Denies change in stool character Musc Denies abnormal gait, Denies muscle weakness, Denies numbness, Denies radiating pain into limb and Denies tingling Neuro Denies abnormal gait, Denies dizziness, Denies frequent falls, Denies numbness, Denies tingling and Denies weakness Endo Denies fatigue and Denies palpitations Physical Exam Vital Signs: Last Vital Signs Pulse 76 04/14/23 15:11 BP 116/76 04/14/23 15:11 BMI result Body Mass Index 32.9 Const General: cooperative, comfortable, no acute distress, alert and awake Nutritional Appearance: obese Orientation/consciousness: patient oriented x3 Limitations: no limitations Neck Neck: Yes trachea midline, Yes supple and Yes other (Difficult to evaluate JVD) Resp Effort & Inspection: normal respiratory effort Auscultation: clear to auscultation bilaterally and crackles (Coarse ) bilateral at the base Cardio Jugular venous distension: no JVD Palpation: normal PMI Rate: regular rate Rhythm: abnormal rhythm irregularly irregular Heart sounds: S1 normal heart sound present, S2 normal heart sound present, no click, no gallops and no murmurs GI Inspection: Yes obesity Auscultation: normal bowel sounds Skin General skin exam: no rashes or lesions noted and ecchymosis Neuro General: patient oriented x3 and no focal motor deficits Extrem General: No clubbing, No cyanosis and Yes edema Psych Appearance: grossly normal Assessment & Plan Assessment & Plan (1) (HFpEF) heart failure with preserved ejection fraction: Code(s): I50.30 - Unspecified diastolic (congestive) heart failure Plan: Heart failure preserved ejection fraction, clinically euvolemic and well compensated. Continue current low-dose diuretic therapy. His worsening exertional shortness of breath is most likely due to deconditioning as well as weight gain. Recommend to increase his activity level to improve aerobic capacity. This will help his heart failure symptoms. Daily weight monitoring avoidance of salt loading was discussed. Additional diuretics as need be. Continue aggressive blood pressure control. Continue aggressive heart rate control. Overall goals of therapy were discussed. (2) Chronic atrial fibrillation: Code(s): I48.20 - Chronic atrial fibrillation, unspecified Plan: Chronic atrial fibrillation, rate control on metoprolol therapy. Has failed rhythm control approach. Overall symptoms have remained stable. Continue current rate control strategy. Currently on full oral anticoagulation with Pradaxa 150 mg b.i.d.. Quarterly renal function test should be pursued. Will follow up in the clinic in 6 months time, sooner p.r.n.. Thank you for allowing me to partake in his care Coding Level of Care Code Est Pt Level 4 (79845) Diagnoses (HFpEF) heart failure with preserved ejection fraction I50.30 Chronic atrial fibrillation I48.20
== END 2023-04-14 15:28 | disposition home or self-care (01) ==
PROVIDERS: PCP Internal Medicine Medical Oncology; Visit Provider Internal Medicine Cardiovascular Disease
DX: I50.30 Unspecified diastolic (congestive) heart failure (principal); I48.20 Chronic atrial fibrillation, unspecified
CPT/HCPCS: 99214

== ENCOUNTER → 2023-04-14 15:07 | Outpatient (BNVA) | payer MEDICARE, SELFPAY | PROVIDERS: PCP Internal Medicine Medical Oncology; Visit Provider Internal Medicine Cardiovascular Disease | DX: I50.30 Unspecified diastolic (congestive) heart failure (principal); I48.20 Chronic atrial fibrillation, unspecified | CPT/HCPCS: 99212 ==

== ENCOUNTER 2023-09-09 08:41 | Outpatient (REF) | payer MEDICARE, SELFPAY ==
[2023-09-09 08:56] LABS: MANUAL DIFF FLAG NO
[2023-09-09 09:29] LABS: Basophils Percent Auto 0.4 % (0-2); Eosinophils Absolute Auto 0.7 X10*3/uL (0.0-0.4); Eosinophils Percent Auto 10.2 % (0-4); Hematocrit 42.8 % (42.0-52.0); Hemoglobin 14.5 g/dl (14.0-18.0); Imm Gran Abs Auto 0.05 X10*3/uL (0.00-0.03); Imm Gran Pct Auto 0.7 % (0.0-0.4); Lymphocytes Absolute Auto 0.8 X10*3/uL (1.2-4.9); Lymphocytes Percent Auto 11.6 % (20-40); Mean Corpuscular HGB Conc 33.9 g/dl (31.0-36.0); Mean Corpuscular Hemoglobin 30.7 pg (27.0-33.0); Mean Corpuscular Volume 90.7 fL (80.0-98.0); Mean Platelet Volume 9.4 fL (9.4-12.4); Monocytes Absolute Auto 0.5 X10*3/uL (0.1-1.2); Monocytes Percent Auto 6.7 % (2-11); Neutrophils Absolute Auto 4.9 x10*3/uL (2.0-8.3); Neutrophils Percent Auto 70.4 % (45-73); Platelet Count 123 X10*3/uL (160-400); Red Blood Count 4.72 X10*6/uL (4.60-5.80); Red Cell Distribution Width 13.5 % (11.0-16.0)
[2023-09-09 10:09] LABS: Erythrocyte Sedimentation Rate 6 MM/HR (0-15)
[2023-09-09 10:12] LABS: Alanine Aminotransferase 10 U/L (0-40); Albumin Level 4.1 g/dL (3.5-5.0); Alkaline Phosphatase 67 U/L (39-117); Anion Gap 11 (12-20); Aspartate Amino Transferase 14 U/L (5-37); Bilirubin Total 0.7 mg/dL (0.0-1.0); Blood Urea Nitrogen 23 mg/dL (9-16); Calcium 8.9 mg/dL (8.4-10.2); Carbon Dioxide 27 mmol/L (22-29); Chloride 108 mmol/L (96-108); Cholesterol 115 mg/dL (<200); Estimated Glomerular Filt Rate > 60; Glucose Fasting 103 mg/dL (60-99); HDL Cholesterol 27 mg/dL (>40); LDL Cholesterol Calculated 71 mg/dL (<100); Potassium 3.9 mmol/L (3.3-5.1); Sodium 142 mmol/L (135-145); Total Protein 6.6 g/dL (6.5-8.0); Triglycerides 86 mg/dL (<150)
[2023-09-09 10:29] LABS: Free T4 (Free Thyroxine) 0.95 ng/dL (0.71-1.85); Thyroid Stimulating Hormone 2.84 uIU/mL (0.32-4.0)
[2023-09-09 11:33] LABS: Prostate Specific Antigen 0.23 ng/mL (<0.05-4.0); Vitamin B12 238 pg/mL (200-900)
== END 2023-09-09 08:42 | disposition home or self-care (01) ==
LOC: HO.LAB 08:41
PROVIDERS: PCP Internal Medicine Medical Oncology; Visit Provider Internal Medicine Medical Oncology
DX: Z00.00 Encounter for general adult medical examination without abnormal findings (principal); I10 Essential (primary) hypertension; Z12.5 Encounter for screening for malignant neoplasm of prostate; E78.2 Mixed hyperlipidemia; N40.0 Benign prostatic hyperplasia without lower urinary tract symptoms; E03.9 Hypothyroidism, unspecified
CPT/HCPCS: 36415; 80053; 80061; 82607; 84153; 84439; 84443; 85025; 85652

== ENCOUNTER 2023-10-15 08:26 | Outpatient (AMB) | payer MEDICARE, SELFPAY ==
[2023-10-15 08:28] VITALS: BP 120/80; PULSE 77; BMI 31.9
--- NOTE | 2023-10-15 08:28 | MHC.OFFVIS ---
Vital Signs 10/15/23 08:28 Height 5 ft 10 in Weight 222 lb 10.67 oz BMI 31.9 BP 120/80 Blood Pressure Location Lt brachial Position Sitting Pulse 77 Intake Visit Reasons: 6 mth f/up Intake Note: 6 month follow-up with ekg feeling ok Children'S Entertainer Required: No Vulcanizer Operator: Vulcanizer Operator Present Accompanied by: Daughter Allergies Iodinated Contrast Media [IV Dye, Iodine Containing] Allergy (Severe, Verified 01/16/23 15:49) HIVES IVP dye Allergy (Unknown, Uncoded 01/16/23 15:49) hives Medication List - Last Reconciled 10/15/23 by Milan Mccoy MD bimatoprost 0.01% (Lumigan) 1 drp ophthalmic (eye) DAILY brimonidine 0.2% 0 drps ophthalmic (eye) dabigatran etexilate 150 mg PO BID dorzolamide-timolol 22.3-6.8 mg/mL 1 drp ophthalmic (eye) BID escitalopram oxalate 10 mg PO DAILY finasteride 5 mg PO DAILY fluticasone propion-salmeterol 250-50 mcg/dose (Wixela Inhub) 1 inh inhalation Q12H 90 days furosemide 20 mg PO DAILY lisinopril 5 mg PO DAILY metoprolol succinate ER 100 mg PO DAILY multivitamin 1 tab PO DAILY netarsudil 0.02% (Rhopressa) 1 drp ophthalmic (eye) ONCE omega-3 fatty acids (Fish Oil Concentrate) 1,000 mg PO DAILY HPI Comments Details: Narciso comes for follow-up. He is accompanied by his daughter. The complain of leg swelling bilaterally mostly below knee, right greater than left. Does not wear compression stockings. Also does not exercise. He says when he goes up an incline he gets short of breath. As per the daughter he also has wheezing. Takes all his inhalers regularly. Takes his diuretics. No clear orthopnea, PND, abdominal distension. His weight has remained stable. Denies any chest pain. No lightheadedness, syncope. Taking all other medications regularly. No bleeding issues or neurologic events. Recent renal functions are within adequate limits FOR[facility]LY [facility], [facility] Medical History Dyspnea COPD (chronic obstructive pulmonary disease) HTN (hypertension) Chronic atrial fibrillation Surgical History History of eye surgery History of right hip replacement History of hernia repair Social History Alcohol intake: never Patient Tobacco Use Status: Former Tobacco user Years Smoked: 10 +/- Review of Systems Const Denies chills, Denies fatigue, Denies fever(s), Denies frequent falls, Denies weakness, Denies weight gain and Denies weight loss ENT Denies dizziness Card Denies chest pain, Denies leg edema, Denies lightheadedness, Denies palpitations, Denies dyspnea, Denies dyspnea on exertion, Denies orthopnea and Denies other (loss of consciousness) Resp Denies cough, Denies dyspnea and Denies dyspnea on exertion GI Denies hematochezia and Denies change in stool character Musc Denies abnormal gait, Denies muscle weakness, Denies numbness, Denies radiating pain into limb and Denies tingling Neuro Denies abnormal gait, Denies dizziness, Denies frequent falls, Denies numbness, Denies tingling and Denies weakness Endo Denies fatigue and Denies palpitations Physical Exam Vital Signs: Last Vital Signs Pulse 77 10/15/23 08:28 BP 120/80 10/15/23 08:28 BMI result Body Mass Index 31.9 Const General: cooperative, comfortable, no acute distress, alert and awake Nutritional Appearance: obese Orientation/consciousness: patient oriented x3 Limitations: no limitations Neck Neck: Yes trachea midline, Yes supple and Yes no JVD Resp Effort & Inspection: normal respiratory effort Auscultation: clear to auscultation bilaterally Cardio Jugular venous distension: no JVD Palpation: normal PMI Rate: regular rate Rhythm: abnormal rhythm irregularly irregular Heart sounds: S1 normal heart sound present, S2 normal heart sound present, no click, no gallops and no murmurs GI Inspection: Yes obesity Auscultation: normal bowel sounds Skin General skin exam: no rashes or lesions noted and ecchymosis Neuro General: patient oriented x3 and no focal motor deficits Extrem General: No clubbing, No cyanosis and Yes edema Psych Appearance: grossly normal Office Procedures EKG Details: EKG shows atrial fibrillation with right bundle-branch block at 77 beats per minute [id number], Complete Assessment & Plan Assessment & Plan (1) (HFpEF) heart failure with preserved ejection fraction: Code(s): I50.30 - Unspecified diastolic (congestive) heart failure Category: Medical Plan: Heart failure with preserved ejection fraction with NYHA class 2-3 symptoms. Clinically does not appear to be significantly fluid overloaded. His leg edema appears to be due to venous insufficiency. Will check BNP. Otherwise continue current furosemide dose. Importance of daily weight monitoring avoidance of salt loading was discussed. Additional diuretics as need be. Goals of therapy were discussed including avoidance of hospitalization. Understands agrees. Continue current rate control and blood pressure control. Follow-up echocardiogram 6 months time. (2) Chronic atrial fibrillation: Code(s): I48.20 - Chronic atrial fibrillation, unspecified Category: Medical Plan: Chronic atrial fibrillation, has failed rhythm control approach will continue pursue rate control approach with metoprolol therapy. Continue full oral anticoagulation has been on Pradaxa for very long time and has tolerated this well. Quarterly renal function test should be pursued. Continue aggressive blood pressure control. Encouraged to increase activity level which could explain his worsening shortness of breath. Will follow up in the clinic in 6 months time, sooner p.r.n.. Thank you for allowing me to partake in his care Orders: Orders B Type Natriuretic Peptide Today I50.30 - Unspecified diastolic (congestive) heart failure CA echo transthoracic complete 5 Months I50.30 - Unspecified diastolic (congestive) heart failure Coding Level of Care Code Est Pt Level 4 (63729) Diagnoses (HFpEF) heart failure with preserved ejection fraction I50.30 Chronic atrial fibrillation I48.20 CPT Codes EKG - CPT: 94822-Mtefnvaxyuznvikld, Complete ([id number])
== END 2023-10-15 09:29 | disposition home or self-care (01) ==
PROVIDERS: PCP Internal Medicine Medical Oncology; Visit Provider Internal Medicine Cardiovascular Disease
DX: I50.30 Unspecified diastolic (congestive) heart failure (principal); I48.20 Chronic atrial fibrillation, unspecified
CPT/HCPCS: 93010; 99214

== ENCOUNTER → 2023-10-15 08:26 | Outpatient (BNVA) | payer MEDICARE, SELFPAY | PROVIDERS: PCP Internal Medicine Medical Oncology; Visit Provider Internal Medicine Cardiovascular Disease | DX: I48.20 Chronic atrial fibrillation, unspecified (principal); I50.30 Unspecified diastolic (congestive) heart failure; R60.0 Localized edema | CPT/HCPCS: 93005; 99212 ==

== ENCOUNTER 2023-10-16 10:24 | Outpatient (REF) | payer MEDICARE, SELFPAY ==
[2023-10-16 11:59] LABS: B Type Natriuretic Peptide 77 pg/mL (<100)
== END 2023-10-16 10:25 | disposition home or self-care (01) ==
LOC: HO.LAB 10:24
PROVIDERS: PCP Internal Medicine Medical Oncology; Visit Provider Internal Medicine Cardiovascular Disease
DX: I50.30 Unspecified diastolic (congestive) heart failure (principal)
CPT/HCPCS: 36415; 83880

== ENCOUNTER 2023-12-01 15:17 | Outpatient (AMB) | payer MEDICARE, SELFPAY ==
[2023-12-01 15:25] VITALS: BP 100/60; PULSE 63; O2SAT 97; BMI 32.0
--- NOTE | 2023-12-01 15:25 | A.OFFVIS_ITS ---
Vital Signs 12/01/23 15:25 Height 5 ft 10 in Weight 222 lb 14.197 oz BMI 32.0 BP 100/60 Blood Pressure Location Lt brachial Position Sitting Pulse 63 Pulse Source Pulse Oximeter Pulse Oximetry (%) 97 Oxygen Delivery Method Room Air Intake Visit Reasons: Shortness of breath Executive Officer Required: No Allergies Iodinated Contrast Media [IV Dye, Iodine Containing] Allergy (Severe, Verified 12/01/23 15:28) HIVES IVP dye Allergy (Unknown, Uncoded 12/01/23 15:28) hives HPI Comments Details: The patient is a 83-year-old gentleman with known atrial fibrillation and HFPEF who is here for further evaluation for ongoing dyspnea. Patient was a long-time smoker. He also has significant allergies. He is still getting allergy shots. But in view of his ongoing dyspnea after her optimization of his cardiac medications the patient had a chest x-ray. I personally reviewed the x-ray with the family. Appears to be hyperinflated with flattened diaphragms consistent with COPD. Therefore the patient underwent pulmonary function studies sometime in May 2022 which I personally reviewed demonstrating a mild degree of COPD with significant response to bronchodilators. The patient was given a rescue inhaler he does feel that the inhaler helps. He does use it at times once or twice a day. Although with a history to fibrillation the short-acting beta agonist may be problematic with the atrial fibrillation. Also, it difficult for him to know and when to use it. I believe he will be better off with a maintenance inhaler to minimize the adverse beta effect and also to improve his compliance. During the office visit we did go for brief walking oximetry maintain a pulse ox of 96% and his heart rate was around 80 beats per minute. He did well without any significant shortness of breath. Seems like his dyspnea on exertion is mainly when going up a flight of stairs when exerting herself to a great degree. Will plan to start maintenance inhaler I did teach him and use it in the office and will follow-up sometime in the fall. If the patient has any issues prior to that he is to call the office for an earlier assessment. 01/16/2023 the patient is here for pulmonary follow-up visit. Overall the patient is doing better. He is responded well to the Wixela inhaler. He is only using it once a day. He understands he can always increase it to twice a day if his symptoms worsen. I do believe with his cardiac issue that once a day is preferred. we did be his pulmonary function studies. Again he knows he has COPD. We talked about the importance of pulmonary rehabilitation. He is not interested in in-person pulmonary rehabilitation at this time. Although he will consider online pulmonary rehabilitation. I did give more information about it. His respiratory exam is reassuring. He also had a chest x-ray back in January 2022 which was also reassuring without any disease. Therefore no further imaging warranted at this time. Will plan to follow-up sometime in late summer early fall and will repeat his pulmonary function studies at that time. If the patient has any issues prior to that he will call the office for an earlier assessment. 12/01/2023 the patient is here for a pulmonary follow-up visit. The patient overall has been doing well. Using the Wixela twice a day. We did look at allergy testing. His eosinophils continue to be elevated throughout the year. Therefore continuing the Wixela twice a day is very reasonable. The patient is also getting allergy shots that also been affecting beneficial. He did not perform the rehabilitation. He has been dealing with other issues. Has not had an x-ray since 2021. At this time he is asymptomatic so will hold off on any imaging. However, the patient is aware that if he develops any respiratory symptoms he can always come in for chest x-ray. I did put in the order in. Will follow in a year. If he has any issues prior to that he will call for an earlier assessment. [facility] Medical History Dyspnea COPD (chronic obstructive pulmonary disease) HTN (hypertension) Chronic atrial fibrillation Surgical History History of eye surgery History of right hip replacement History of hernia repair Social History Alcohol intake: never Patient Tobacco Use Status: Former Tobacco user Years Smoked: 10 +/- Review of Systems Const Denies chills, Denies fatigue, Denies fever(s), Denies frequent falls, Denies weakness, Denies weight gain and Denies weight loss ENT Denies dizziness Card Denies chest pain, Denies leg edema, Denies lightheadedness, Denies palpitations, Denies dyspnea, Reports dyspnea on exertion, Denies orthopnea and Denies other (loss of consciousness) Resp Reports cough, Denies dyspnea and Reports dyspnea on exertion GI Denies hematochezia and Denies change in stool character Musc Denies abnormal gait, Denies muscle weakness, Denies numbness, Denies radiating pain into limb and Denies tingling Neuro Denies abnormal gait, Denies dizziness, Denies frequent falls, Denies numbness, Denies tingling and Denies weakness Endo Denies fatigue and Denies palpitations Physical Exam Vital Signs: Last Vital Signs Pulse 63 12/01/23 15:25 BP 100/60 12/01/23 15:25 Pulse Ox 97 12/01/23 15:25 Oxygen Delivery Method Room Air 12/01/23 15:25 BMI result Body Mass Index 32.0 Const General: cooperative, comfortable, no acute distress, alert and awake Nutritional Appearance: obese Orientation/consciousness: patient oriented x3 Limitations: no limitations Neck Neck: Yes trachea midline, Yes supple and Yes other (Difficult to evaluate JVD) Resp Effort & Inspection: normal respiratory effort Auscultation: no wheezes and diminished lung sounds Cardio Jugular venous distension: no JVD Palpation: normal PMI Rate: regular rate Rhythm: abnormal rhythm irregularly irregular Heart sounds: S1 normal heart sound present, S2 normal heart sound present, no click, no gallops and no murmurs GI Inspection: Yes obesity Auscultation: normal bowel sounds Skin General skin exam: no rashes or lesions noted and ecchymosis Neuro General: patient oriented x3 and no focal motor deficits Extrem General: No clubbing, No cyanosis and Yes edema Psych Appearance: grossly normal Assessment & Plan Assessment & Plan (1) COPD (chronic obstructive pulmonary disease): Code(s): J44.9 - Chronic obstructive pulmonary disease, unspecified Category: Medical Qualifiers: COPD type: chronic bronchitis Chronic bronchitis type: simple Qualified Code(s): J41.0 - Simple chronic bronchitis (2) Dyspnea: Code(s): R06.00 - Dyspnea, unspecified Category: Medical Qualifiers: Dyspnea type: dyspnea on exertion Qualified Code(s): R06.09 - Other forms of dyspnea Plan continue Wixela BID MYA as needed diuresis as tolerated CXR F/U 10-12 months Orders: Orders XR chest 2V Today J41.0 - Simple chronic bronchitis Coding Level of Care Code Est Pt Level 4 (41432) Diagnoses Simple chronic bronchitis J41.0 COPD type: chronic bronchitis Chronic bronchitis type: simple Dyspnea on exertion R06.09 Dyspnea type: dyspnea on exertion Time Spent (min) 16
== END 2023-12-01 15:41 | disposition home or self-care (01) ==
PROVIDERS: PCP Internal Medicine Medical Oncology; Visit Provider Hospitalist
DX: J41.0 Simple chronic bronchitis (principal); R06.09 Other forms of dyspnea
CPT/HCPCS: 99214

== ENCOUNTER → 2023-12-01 15:17 | Outpatient (BNVA) | payer MEDICARE, SELFPAY | PROVIDERS: PCP Internal Medicine Medical Oncology; Visit Provider Hospitalist | DX: J41.0 Simple chronic bronchitis (principal); R06.09 Other forms of dyspnea | CPT/HCPCS: 99212 ==

== ENCOUNTER 2024-02-27 13:41 | Outpatient (REF) | payer MEDICARE, SELFPAY ==
--- NOTE | ~2024-02-27 | XR_ITS ---
EXAMINATION: XR HAND, RIGHT CLINICAL INFORMATION: Pain. COMPARISON: None available. TECHNIQUE: PA, lateral, and oblique views of the right hand. FINDINGS: Severe circumferential soft tissue swelling at the 2nd digit without radiopaque foreign body. No acute fracture or dislocation. No cortical erosion or periosteal reaction to suggest acute osteomyelitis. Rfvijoxa-qn-yjrzad joint space narrowing with marginal osteophytes within the interphalangeal joints, most prominent at the 2nd and 3rd digits. 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 No osseous erosion. XR/XR hand RT min 3V IMPRESSION: 1. Severe circumferential soft tissue swelling at the 2nd digit without radiopaque foreign body. 2. No acute fracture or dislocation. No cortical erosion or periosteal reaction to suggest acute osteomyelitis. 3. Uwyveomo-ix-stxxwl degenerative arthritis within the interphalangeal joints, most prominent at the 2nd and 3rd digits. Electronically signed by: Mark Hollins MD 02/27/2024 03:01 PM [facility]
== END 2024-02-27 13:42 | disposition home or self-care (01) ==
LOC: HO.XRAY 13:41
PROVIDERS: PCP Internal Medicine Medical Oncology; Visit Provider Internal Medicine Medical Oncology
DX: M79.644 Pain in right finger(s) (principal)
CPT/HCPCS: 73130

== ENCOUNTER 2024-03-05 14:32 | Outpatient (REF) | payer MEDICARE, SELFPAY ==
[2024-03-05 14:49] LABS: MANUAL DIFF FLAG NO
[2024-03-05 15:32] LABS: Basophils Absolute Auto 0.1 X10*3/uL (0.0-0.2); Basophils Percent Auto 0.9 % (0-2); Eosinophils Absolute Auto 0.4 X10*3/uL (0.0-0.4); Hematocrit 42.1 % (42.0-52.0); Hemoglobin 13.7 g/dl (14.0-18.0); Imm Gran Abs Auto 0.13 X10*3/uL (0.00-0.03); Imm Gran Pct Auto 1.6 % (0.0-0.4); Lymphocytes Percent Auto 12.4 % (20-40); Mean Corpuscular HGB Conc 32.5 g/dl (31.0-36.0); Mean Corpuscular Hemoglobin 30.2 pg (27.0-33.0); Mean Corpuscular Volume 92.9 fL (80.0-98.0); Mean Platelet Volume 9.4 fL (9.4-12.4); Monocytes Absolute Auto 0.7 X10*3/uL (0.1-1.2); Monocytes Percent Auto 8.5 % (2-11); Neutrophils Absolute Auto 5.9 x10*3/uL (2.0-8.3); Neutrophils Percent Auto 71.6 % (45-73); Platelet Count 133 X10*3/uL (160-400); Red Blood Count 4.53 X10*6/uL (4.60-5.80); Red Cell Distribution Width 13.3 % (11.0-16.0); White Blood Count 8.2 X10*3/uL (4.8-10.8)
[2024-03-05 16:19] LABS: PSA,Total (Free>4and<10) 0.27 ng/mL (0.00-4.00)
[2024-03-05 17:32] LABS: Alanine Aminotransferase 15 U/L (0-40); Albumin Level 3.8 g/dL (3.5-5.0); Alkaline Phosphatase 77 U/L (39-117); Anion Gap 15 (12-20); Aspartate Amino Transferase 18 U/L (5-37); Bilirubin Total 0.4 mg/dL (0.0-1.0); Blood Urea Nitrogen 18 mg/dL (9-16); Calcium 8.7 mg/dL (8.4-10.2); Carbon Dioxide 25 mmol/L (22-29); Chloride 105 mmol/L (96-108); Estimated Glomerular Filt Rate > 60; Glucose Random 138 mg/dL (60-115); Potassium 4.1 mmol/L (3.3-5.1); Sodium 141 mmol/L (135-145); Total Protein 6.4 g/dL (6.5-8.0)
== END 2024-03-05 14:33 | disposition home or self-care (01) ==
LOC: HO.LAB 14:32
PROVIDERS: PCP Internal Medicine Medical Oncology; Visit Provider Internal Medicine Medical Oncology
DX: E66.9 Obesity, unspecified (principal)
CPT/HCPCS: 36415; 80053; 84153; 85025

== ENCOUNTER → 2024-03-05 14:50 | Outpatient (REF) | payer MEDICARE, SELFPAY ==
--- NOTE | 2024-03-05 14:52 | CA_ITS ---
Transthoracic Echocardiogram Patient (Last, First, Middle): Cholo Simmons J Gender: Male Date of : 1940 Age: 83 Procedure Date: 03/05/2024 Procedure Type: Transthoracic Echocardiogram Location: OP Height: 177.8 cm Weight: 99.79 kg BSA: 2.17 m2 Heart Rate: bpm BP: 132 / 80 mmHg Men'S Designer: Referring MD: Milan Mccoy MD Body Line Finisher: Milan Mccoy MD Symptoms: I50.30 - Unspecified diastolic (congestive) heart failure Study Quality: Adequate ECG Rhythm: Atrial Fibrillation Conclusions: - 1. Low normal LV ejection fraction 50-55% 2. Mildly dilated right ventricular with preserved contractility 3. Mild biatrial enlargement 4. Normal cardiac valvular Dopplers 5. No gross pericardial effusion Findings Left Ventricle Normal left ventricular cavity size. There is normal left ventricular wall thickness. The left ventricular systolic function is low normal. The visually estimated ejection fraction is between 50-55%. Diastolic function is indeterminate on the basis of available data. Right Ventricle Mildly increased right ventricular cavity size. There is normal right ventricular systolic function. Atria Mild biatrial enlargement. There is no evidence of interatrial shunt. Aortic Valve The aortic valve structure and function is likely normal. There is no aortic valve stenosis. There is no aortic valve regurgitation. Mitral Valve There is mild anterior and posterior mitral leaflet thickening. There is trace mitral valve regurgitation. There is no mitral valve stenosis. Pulmonic Valve The pulmonic valve was not well visualized. Tricuspid Valve Likely normal tricuspid valve structure and function. There is trace tricuspid valve regurgitation. Tricuspid regurgitation envelope is inadequate for calculation of right ventricular systolic pressure. Normal right atrial pressure. Great Vessels All visible segments of the aorta are normal in size. The pulmonary artery was not well visualized. There is no dilatation of the ascending aorta measuring 3.30 cm. Pericardium/Pleural There is no evidence of pericardial effusion. Measurements 2D Linear Measurements IVSd: 1.17 0.6-0.9/0.6-1.0 cm LVIDd: 4.87 3.9-5.3/4.2-5.9 cm LVIDd Index: 2.24 2.4-3.2/2.2-3.1 cm/m2 LVIDs: 3.43 2.0-3.6 cm LVPWd: 1.16 0.7-1.1 cm Ao Root: 3.40 2.1-3.5 cm LA Diam: 4.50 2.7-3.8/3.0-4.0 cm LAIDs Index: 2.07 1.5-2.3 cm/m2 LV Mass: 268.06 67-162/88-224 g LV Mass Index: 123.53 43-95/49-115 g/m2 LVOT Diam: 2.30 3.0+(-)1.3 cm 2D Systolic Function EF 4C: 52.10 >55% EF 2C: 53.60 >55% EF BiP: 53.30 >55% Mitral Valve MV Pk E: 0.70 MV Decel Time: 201.00 E'Lateral: 14.60 E'Medial: 7.29 E/E' Med: 9.60 E/E' Lat: 4.80 PHT: 59.00 MVA PHT: 3.73 Decel Pepin: 3.48 Aortic Valve AoV Pk Bertram: 0.72 AoV Mn Bertram: 0.74 AoV VTI: 0.22 AoV Pk Grad: 2.00 Aov Mn Grad: 3.00 NALINI Cont.VTI: 2.91 LVOT LVOT Pk Bertram: 0.77 LVOT Mn Bertram: 0.52 LVOT VTI: 0.15 LVOT Pk Grad: 2.00 LVOT Mn Grad: 2.00 LVOT Diam: 2.30 LVOT Area: 4.15 Diastolic Function MV Pk E: 0.70 E'Medial: 7.29 E/E' Med: 9.60 E' Laterial: 14.60 E/E' Lat: 4.80 Right Ventricle TAPSE (mm): 19.40 TVS' Bertram: 10.00 Tricuspid Valve TR Pk Bertram: 2.26 TR Pk Grad: 20.00 Great Vessels Aorta Ao Root-2D: 3.40 2.0-3.7 cm Ao Asc: 3.30 2.1-3.4 cm Pulmonary Valve PV Pk Bertram: 1.06 Peak PV Grad: 4.00 Updated in Other Vendor System with Status of Final Milan Mccoy MD electronically signed on 03/06/2024 2:43:00 PM with status of Final
--- NOTE | 2024-03-05 16:25 | PFT_ITS ---
Indication bronchitis Spirometry [FEV1 to FVC 63%; FEV1 2.21 L; FVC 3.4 L. no significant response to bronchodilators noted.] Lung Volumes [Total lung capacity 85% predicted; expiratory reserve volume 26% predicted] Diffusion Capacity [DLCO 75% predicted] Comparisons [None] Interpretation [There is an obstructive ventilatory defect consistent with mild COPD. No significant response to bronchodilators noted. Lung volumes are normal except for expiratory reserve volume decreased secondary to an elevated BMI. Patient has a mild diffusion impairment. Clinical correlation warranted. MTDD
== END ==
LOC: HO.CARD 14:50
PROVIDERS: PCP Internal Medicine Medical Oncology; Visit Provider Internal Medicine Cardiovascular Disease
DX: J41.0 Simple chronic bronchitis (principal); I50.30 Unspecified diastolic (congestive) heart failure
CPT/HCPCS: 93306

== ENCOUNTER → 2024-03-05 14:52 | Outpatient (BNV) | payer MEDICARE, SELFPAY | PROVIDERS: PCP Internal Medicine Medical Oncology; Visit Provider Internal Medicine Cardiovascular Disease | DX: I50.30 Unspecified diastolic (congestive) heart failure (principal); I51.7 Cardiomegaly | CPT/HCPCS: 93306 ==

== ENCOUNTER → 2024-03-05 16:25 | Outpatient (BNV) | payer MEDICARE, SELFPAY | PROVIDERS: PCP Internal Medicine Medical Oncology; Visit Provider Hospitalist | DX: J41.0 Simple chronic bronchitis (principal) | CPT/HCPCS: 94060; 94727; 94729 ==

== ENCOUNTER 2024-03-22 10:00 | Emergency (ER) | payer MEDICARE, SELFPAY ==
--- NOTE | ~2024-03-22 | XR_ITS ---
EXAMINATION: XR KNEE 4 OR MORE VIEWS RIGHT HISTORY: pain, redness, swelling COMPARISON: There are no prior studies available for comparison. FINDINGS: Four views of the right knee are submitted. Osseous mineralization is normal. There is no fracture or dislocation. There is mild osteoarthritis of the medial and patellofemoral compartments with joint space narrowing and osteophyte formation. There is calcification of the popliteal artery. 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 Electronically signed by: Iggy Gupta MD 03/22/2024 11:17 AM [facility]
--- NOTE | ~2024-03-22 | XR_ITS ---
EXAMINATION: XR hip RT w PEL 1V HISTORY: pain, h/o replacement COMPARISON: Comparison is made with the prior examination dated 08/20/2010. FINDINGS: A single AP view of the pelvis and two views of the right hip are submitted. The patient is status post right total hip arthroplasty. The orthopedic elements are in anatomic alignment. There is no radiographic evidence of loosening. There is no fracture or dislocation. The soft tissues are unremarkable. XR/XR hip RT w PEL 1V IMPRESSION: Status post right total hip arthroplasty. Electronically signed by: Iggy Gupta MD 03/22/2024 11:16 AM [facility]
[2024-03-22 10:17] VITALS: BP 127/73; PULSE 81; RESP 18; TEMP 36.8; O2SAT 97; BMI 29.0
--- NOTE | 2024-03-22 10:29 | ED_ITS ---
HPI - General Adult General Chief complaint: General Medical Stated complaint: R knee infection Time Seen by Provider: 03/22/24 16:22 Source: patient and family Mode of arrival: ambulatory Limitations: no limitations History of Present Illness ED Provider: HPI narrative: Patient with history of arthritis noticed pain in the right thumb and right knee about 2 weeks ago taken the course of prednisone and feeling better currently taking a 2nd course of prednisone and swelling and pain has improved in the right knee no trauma no fever no history of gout in the past Related Data Home Medications ?Medication ?Instructions ?Recorded ?Confirmed bimatoprost 0.01 % eye drops 1 drp ophthalmic (eye) DAILY 11/09/20 10/15/23 (Lumigan) dorzolamide 22.3 mg-timolol 6.8 1 drp ophthalmic (eye) BID 11/09/20 10/15/23 mg/mL eye drops finasteride 5 mg tablet 5 mg PO DAILY 11/09/20 10/15/23 multivitamin 1 tab PO DAILY 11/09/20 10/15/23 netarsudil 0.02 % eye drops 1 drp ophthalmic (eye) ONCE 11/09/20 10/15/23 (Rhopressa) omega-3 fatty acids 1,000 mg 1,000 mg PO DAILY 11/09/20 10/15/23 capsule (Fish Oil Concentrate) brimonidine 0.2 % eye drops 0 drp ophthalmic (eye) 11/12/21 10/15/23 escitalopram oxalate 10 mg tablet 10 mg PO DAILY 10/09/22 10/15/23 Previous Rx's ?Medication ?Instructions ?Recorded metoprolol succinate 100 mg 100 mg PO DAILY #90 tabs 05/22/23 tablet,extended release 24 hr fluticasone 250 mcg-salmeterol 50 1 inh inhalation Q12H 90 days #3 ea 06/09/23 mcg/dose blistr powdr for inhalation (Wixela Inhub) lisinopril 5 mg tablet 5 mg PO DAILY #90 tabs 11/17/23 dabigatran etexilate 150 mg capsule 150 mg PO BID #180 caps 02/09/24 allopurinol 100 mg tablet 100 mg PO DAILY #30 tabs 03/22/24 furosemide 20 mg tablet 20 mg PO DAILY #90 tabs 03/22/24 Allergies Allergy/AdvReac Type Severity Reaction Status Date / Time Iodinated Contrast Media Allergy Severe HIVES Verified 03/22/24 10:20 [IV Dye, Iodine Containing] IVP dye Allergy Unknown hives Uncoded 12/01/23 15:28 Review of Systems 2 Review of Systems: Yes all other systems are reviewed and are negative [facility] Past Medical History Medical History Dyspnea COPD (chronic obstructive pulmonary disease) HTN (hypertension) Chronic atrial fibrillation Surgical History History of eye surgery History of right hip replacement History of hernia repair Social History Social History Alcohol intake: never Patient Tobacco Use Status: Former Tobacco user Years Smoked: 10 +/- Advance Directives: No Advance Directives Information Provided: Yes Physical Exam ED Vital Signs: Vital Signs - 24 hr 03/22/24 10:17 03/22/24 14:38 03/22/24 17:22 Temperature 98.2 F 97.7 F 98.5 F Pulse Rate 81 80 78 Respiratory Rate 18 16 16 Blood Pressure 127/73 122/84 136/78 Pulse Oximetry 97 97 98 Oxygen Delivery Method Room Air Room Air Room Air BMI result Body Mass Index 29.0 Appearance: Alert. Oriented X3. No acute distress. Eyes: PERRLA, No Nystagmus ENT: Pharynx normal. Oral Mucosa moist Neck: Normal inspection. Neck supple. CVS: Normal heart rate and rhythm. Pulses normal. Respiratory: No respiratory distress. Equal air entry bilateral, no wheezing/rales/rhonchi Abdomen: Soft and nontender. Bowel sounds are present, no mass palpable, no CVA tenderness Skin: Skin warm and dry. Normal skin color. Normal skin turgor. Extremities: No lower extremity edema. No calf tenderness slight tenderness in the right knee patient is able to stand without significant pain mild effusion good range of movement Neuro: Oriented X 3. No motor deficit. No sensory deficit.No cerebellar signs , cranial nerves II-XII intact Course Course Course Narrative: 1030 -- I received expect from Dr. Romero. patient recently had acute gout attack in right hand (1 wk ago), treated with NSAIDS and steroids with improvement. today presented with right knee pain/ swelling. Dr. Romero has lower suspicion for gout in right knee as he has been on treatment for this without improvement in knee swelling/ redness. he was ultimately sent here for further work up to r/o infectious process. of note, he has been off of his lasix x1 week as his prescription ran out. 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 03/22/24 10:30 03/22/24 10:30 Labs: Lab Results 03/22/24 03/22/24 Range/Units 10:30 10:31 WBC 8.1 (4.8-10.8) X10*3/uL RBC 4.20 L (4.60-5.80) X10*6/uL Hgb 13.0 L (14.0-18.0) g/dl Hct 38.3 L (42.0-52.0) % MCV 91.2 (80.0-98.0) fL MCH 31.0 (27.0-33.0) pg MCHC 33.9 (31.0-36.0) g/dl RDW 13.2 (11.0-16.0) % Plt Count 154 L (160-400) X10*3/uL MPV 9.0 L (9.4-12.4) fL Immature Gran % (Auto) 1.0 H (0.0-0.4) % Neut % (Auto) 82.4 H (45-73) % Lymph % (Auto) 6.7 L (20-40) % Wilkes % (Auto) 7.9 (2-11) % Eos % (Auto) 1.9 (0-4) % Baso % (Auto) 0.1 (0-2) % Lymph # (Auto) 0.5 L (1.2-4.9) X10*3/uL Wilkes # (Auto) 0.6 (0.1-1.2) X10*3/uL Eos # (Auto) 0.2 (0.0-0.4) X10*3/uL Baso # (Auto) 0.0 (0.0-0.2) X10*3/uL Abs Immat Gran (auto) 0.08 H (0.00-0.03) X10*3/uL Absolute Neuts (auto) 6.7 (2.0-8.3) x10*3/uL Absolute Nucleated RBC 0.000 (0.0-0.012) X10*3/uL Nucleated RBC % (auto) 0.0 (0.0-0.2) /100WBC ESR 22 H (0-15) MM/HR Sodium 141 (135-145) mmol/L Potassium 4.5 (3.3-5.1) mmol/L Chloride 106 (96-108) mmol/L Carbon Dioxide 25 (22-29) mmol/L Anion Gap 15 (12-20) BUN 19 H (9-16) mg/dL Creatinine 0.81 (0.5-1.4) mg/dL Estim Creat Clear Calc 81.3 Estimated GFR > 60 Random Glucose 102 (60-115) mg/dL Uric Acid 7.3 H (3.4-7.0) mg/dL Calcium 8.6 (8.4-10.2) mg/dL Total Bilirubin 0.5 (0.0-1.0) mg/dL AST 22 (5-37) U/L ALT 10 (0-40) U/L Alkaline Phosphatase 66 (39-117) U/L C-Reactive Protein 0.72 H (< or = 0.50) mg/dL Total Protein 6.8 (6.5-8.0) g/dL Albumin 3.8 (3.5-5.0) g/dL Influenza Type A (PCR) NEGATIVE (Negative) Influenza Type B (PCR) NEGATIVE (Negative) RSV RNA Qual (PCR) NEGATIVE (Negative) SARS-CoV-2 RNA (RT-PCR) NEGATIVE (Negative) Independent Interpretation I performed an independent interpretation of an: Plain X-Ray Radiology Impression Discussion of test interpretation with radiology: I have reviewed the radiologist's reading. Radiologist Impression: [address] [address] XRay Report Signed Patient: Cholo Simmons MR#: [id number] : 1940 Acct:[id number] Age/Sex: 83 / M ADM Date: 03/22/24 Loc: HO.ED Attending Dr: Ordering Physician: Sagrario Jiang NP Date of Service: 03/22/24 Procedure(s): XR knee RT 4V Accession Number(s): [id number] cc: Iggy Bear MD; Sagrario Jiang NP~ EXAMINATION: XR KNEE 4 OR MORE VIEWS RIGHT HISTORY: pain, redness, swelling COMPARISON: There are no prior studies available for comparison. FINDINGS: Four views of the right knee are submitted. Osseous mineralization is normal. There is no fracture or dislocation. There is mild osteoarthritis of the medial and patellofemoral compartments with joint space narrowing and osteophyte formation. There is calcification of the popliteal artery. 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 Electronically signed by: Iggy Gupta MD 03/22/2024 11:17 AM [facility] [place] Discharge Clinical Impression: Gouty arthritis Patient Disposition: Home, Self-Care Instructions: Low Purine Diet (ED), Gout (ED) Additional Instructions: Likely have gout causing the swelling and pain in the right Finished course of prednisone as prescribed by your primary care physician Ibuprofen for pain Start taking allopurinol daily Follow up with Orthopedics for further management Prescriptions: New allopurinol 100 mg tablet 100 mg PO DAILY Qty: 30 0RF No Action metoprolol succinate 100 mg tablet extended release 24 hr 100 mg PO DAILY Qty: 90 3RF fluticasone propion-salmeterol [Wixela Inhub] 250-50 mcg/dose blister with device 1 inh inhalation Q12H 90 Days Qty: 3 3RF lisinopril 5 mg tablet 5 mg PO DAILY Qty: 90 3RF dabigatran etexilate 150 mg capsule 150 mg PO BID Qty: 180 3RF furosemide 20 mg tablet 20 mg PO DAILY Qty: 90 3RF brimonidine 0.2 % drops 0 drp ophthalmic (eye) finasteride 5 mg tablet 5 mg PO DAILY Rhopressa 0.02 % drops 1 drp ophthalmic (eye) ONCE Lumigan 0.01 % drops 1 drp ophthalmic (eye) DAILY dorzolamide-timolol 22.3-6.8 mg/mL drops 1 drp ophthalmic (eye) BID omega-3 fatty acids [Fish Oil Concentrate] 1,000 mg capsule 1,000 mg PO DAILY multivitamin Tablet 1 tab PO DAILY escitalopram oxalate 10 mg tablet 10 mg PO DAILY Referrals: Nabeel Edmond MD [Physician] - 5 days Interventions: ED Discharge Assessment Last Done: 03/22/24 17:22 Discharge Date/Time: 03/22/24 17:23 Print Language: Armenian
[2024-03-22 10:36] LABS: MANUAL DIFF FLAG NO
[2024-03-22 10:51] LABS: Basophils Percent Auto 0.1 % (0-2); Eosinophils Absolute Auto 0.2 X10*3/uL (0.0-0.4); Eosinophils Percent Auto 1.9 % (0-4); Hematocrit 38.3 % (42.0-52.0); Imm Gran Abs Auto 0.08 X10*3/uL (0.00-0.03); Lymphocytes Absolute Auto 0.5 X10*3/uL (1.2-4.9); Lymphocytes Percent Auto 6.7 % (20-40); Mean Corpuscular HGB Conc 33.9 g/dl (31.0-36.0); Mean Corpuscular Volume 91.2 fL (80.0-98.0); Monocytes Absolute Auto 0.6 X10*3/uL (0.1-1.2); Monocytes Percent Auto 7.9 % (2-11); Neutrophils Absolute Auto 6.7 x10*3/uL (2.0-8.3); Neutrophils Percent Auto 82.4 % (45-73); Platelet Count 154 X10*3/uL (160-400); Red Cell Distribution Width 13.2 % (11.0-16.0); White Blood Count 8.1 X10*3/uL (4.8-10.8)
[2024-03-22 11:03] LABS: Alanine Aminotransferase 10 U/L (0-40); Albumin Level 3.8 g/dL (3.5-5.0); Alkaline Phosphatase 66 U/L (39-117); Anion Gap 15 (12-20); Aspartate Amino Transferase 22 U/L (5-37); Bilirubin Total 0.5 mg/dL (0.0-1.0); Blood Urea Nitrogen 19 mg/dL (9-16); C Reactive Protein 0.72 mg/dL (< or = 0.50); Calcium 8.6 mg/dL (8.4-10.2); Carbon Dioxide 25 mmol/L (22-29); Chloride 106 mmol/L (96-108); Creatinine Clr Calc Pharmacy 81.3; Estimated Glomerular Filt Rate > 60; Glucose Random 102 mg/dL (60-115); Potassium 4.5 mmol/L (3.3-5.1); Sodium 141 mmol/L (135-145); Total Protein 6.8 g/dL (6.5-8.0); Uric Acid 7.3 mg/dL (3.4-7.0)
[2024-03-22 11:14] LABS: Influenza A PCR NEGATIVE (Negative); Influenza B PCR NEGATIVE (Negative); Resp Syncy Virus RNA Qual PCR NEGATIVE (Negative); SARS COV2 PCR INHOUSE NEGATIVE (Negative)
[2024-03-22 11:43] LABS: Erythrocyte Sedimentation Rate 22 MM/HR (0-15)
[2024-03-22 14:38] VITALS: BP 122/84; PULSE 80; RESP 16; TEMP 36.5; O2SAT 97
[2024-03-22 17:22] VITALS: BP 136/78; PULSE 78; RESP 16; TEMP 36.9; O2SAT 98
== END 2024-03-22 17:23 | disposition home or self-care (01) ==
PROVIDERS: Nurse Practitioner Family; Emergency Provider Internal Medicine; PCP Internal Medicine Medical Oncology
DX: M10.9 Gout, unspecified (principal); M25.561 Pain in right knee; M79.644 Pain in right finger(s); I10 Essential (primary) hypertension; J44.9 Chronic obstructive pulmonary disease, unspecified; I48.91 Unspecified atrial fibrillation; Z03.818 Encounter for observation for suspected exposure to other biological agents ruled out; Z79.899 Other long term (current) drug therapy
CPT/HCPCS: 0241U; 36415; 73502; 73564; 80053; 84550; 85025; 85652; 86140; 99283

== ENCOUNTER → 2024-03-22 10:24 | Outpatient (BNV) | payer MEDICARE, SELFPAY | PROVIDERS: PCP Internal Medicine Medical Oncology; Visit Provider Radiology Diagnostic Radiology | DX: M25.561 Pain in right knee (principal); M25.551 Pain in right hip | CPT/HCPCS: 73502; 73564 ==

== ENCOUNTER 2024-04-05 09:02 | Emergency (ER) | payer MEDICARE, SELFPAY ==
--- NOTE | ~2024-04-05 | XR_ITS ---
EXAMINATION: XR CHEST 1 VIEW HISTORY: weakness COMPARISON: Comparison is made with the prior examination dated 11/12/2021. FINDINGS: Two AP portable views of the chest performed at 10:26 AM is submitted. The lungs are expanded and clear. There is no pleural effusion, pneumothorax, or pulmonary vascular congestion. The heart is normal in size. Again seen is a probable small hiatal hernia. There is degenerative disc disease of the spine. XR/XR chest 1V IMPRESSION: Probable small hiatal hernia. No acute cardiopulmonary abnormality. Electronically signed by: Iggy Gupta MD 04/05/2024 10:54 AM [facility]
--- NOTE | ~2024-04-05 | CT_ITS ---
EXAMINATION: CT HEAD WITHOUT CONTRAST CLINICAL INFORMATION: dizziness, weakness, fall COMPARISON: CT dated November 27, 2010. TECHNIQUE: Contiguous axial imaging was performed from the skull base to vertex without intravenous administration of contrast. This CT examination was performed using dose optimization techniques as appropriate, variously including the following: *Automated exposure control *Adjustment of mA and/or kV according to patient size (this includes techniques or standardized protocols for targeted exams where dose is matched to indication/reason for exam; i.e. extremities or head) *Use of iterative reconstruction technique DLP: 776 mGy-cm FINDINGS: Bony calvarium is intact. No acute intracranial hemorrhage, mass effect, midline shift, hydrocephalus or herniation. Dewitt-white matter differentiation is normal. Bilateral multifocal patchy deep periventricular white matter hypodensities involving centrum semiovale and chow radiata. Calcified plaques in the V4 segments of the vertebral arteries and the cavernous supracavernous segments both ICAs. Prominence of the extra-axial CSF spaces cerebral sulci and ventricles. Increased density in the left tympanic cavity mastoid antrum and mastoid air cells. Poor pneumatization of the mastoid air cells. Increased density in the right mastoid air cells mastoid antrum. Polypoid mucosal thickening, maxillary sinuses Probable old traumatic deformities in the nasal bones CT/CT head/brain wo IV con IMPRESSION: No acute fracture, bony calvarium. No acute intracranial hemorrhage. 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 Electronically signed by: King Craig MD 04/05/2024 10:43 AM [facility]
--- NOTE | ~2024-04-05 | CT_ITS ---
EXAMINATION: CT CERVICAL SPINE WITHOUT CONTRAST CLINICAL INFORMATION: Dizziness, weakness and fall COMPARISON: None available. TECHNIQUE: Axial 3 mm thin and reformatted 2 mm thin sagittal and coronal images of cervical spine were obtained without contrast. This CT examination was performed using dose optimization techniques as appropriate, variously including the following: *Automated exposure control *Adjustment of mA and/or kV according to patient size (this includes techniques or standardized protocols for targeted exams where dose is matched to indication/reason for exam; i.e. extremities or head) *Use of iterative reconstruction technique DLP: 1365 mGy/cm. FINDINGS: Normal cervical lordosis. The vertebral heights and alignment is normal. There is loss of C6-7 disc heights with ventral and posterior spondylosis. The disc heights are normal. The craniovertebral junction and C1-C2 alignment is normal. There is moderate left C3-4, C4-5 and C5-C6 facet joint arthropathy and hypertrophy. The prevertebral and paravertebral soft tissues are normal. Pharyngeal and tracheal airway is widely patent. Mild emphysematous changes both upper lobes but without any focal lesion. Bilateral thyroid lobes are asymmetrical but otherwise unremarkable. CT/CT cervical spine wo IV con IMPRESSION: No acute fracture or dislocation. 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 Fleischner guidelines were followed. Electronically signed by: Steve Gutiérrez MD 04/05/2024 10:58 AM [facility]
[2024-04-05 09:22] VITALS: BP 132/84; BP 133/79; PULSE 80; PULSE 84; RESP 16; TEMP 36.7; O2SAT 96; BMI 28.7
--- NOTE | 2024-04-05 09:33 | ECG_ITS ---
Test Reason : fall Blood Pressure : */* mmHG Vent. Rate : 79 BPM Atrial Rate : * BPM P-R Int : * ms QRS Dur : 140 ms QT Int : 424 ms P-R-T Axes : * 14 -12 degrees QTcB Int : 486 ms Atrial fibrillation Right bundle branch block Abnormal ECG When compared with ECG of 27-Nov-2010 15:25, Atrial fibrillation has replaced Sinus rhythm Right bundle branch block is now Present Referred By: Elda Gates Electronically Signed By: Merrill Ordonez
--- NOTE | 2024-04-05 09:35 | ED_ITS ---
HPI - General Adult General Chief complaint: Fall Stated complaint: WEAK,SLID TO FLOOR FROM BED,NO INJURY PER EMS Time Seen by Provider: 04/05/24 09:34 Source: patient, family (patient's daughter) and EMS Mode of arrival: EMS Limitations: no limitations History of Present Illness ED Provider: Elda Gates PA-C HPI narrative: Patient is an 83 year old assigned male at with a history of COPD, HFpEF, atrial fibrillation, and HTN presenting to the emergency department today after a slip and fall. Patient states that he has been feeling more dizzy / weak and woke up this morning as he was sliding out of bed. Patient denies any head strike with the incident, loss of consciousness with the incident, abdominal pain, nausea, vomiting, fever, chills, blurry vision, double vision, loss of vision, chest pain, difficulty breathing, shortness of breath, back pain, night sweats, pain with urination, increased urinary frequency, increased urinary urgency, blood in his urine or stool, syncope or a near syncopal episode, bowel incontinence, bladder incontinence, or any other complaints at this time. Relieving factors: none Exacerbating factors: none Associated symptoms: weakness Treatments prior to arrival: none Related Data Home Medications ?Medication ?Instructions ?Recorded ?Confirmed bimatoprost 0.01 % eye drops 1 drp ophthalmic-Right DAILY 11/09/20 04/05/24 (Lumigan) dorzolamide 22.3 mg-timolol 6.8 1 drp ophthalmic (eye) BID 11/09/20 04/05/24 mg/mL eye drops finasteride 5 mg tablet 5 mg PO DAILY 11/09/20 04/05/24 netarsudil 0.02 % eye drops 1 drp ophthalmic-Right DAILY 11/09/20 04/05/24 (Rhopressa) omega-3 fatty acids 1,000 mg 1,000 mg PO DAILY 11/09/20 04/05/24 capsule (Fish Oil Concentrate) brimonidine 0.2 % eye drops 1 drp ophthalmic-Right BID 11/12/21 04/05/24 escitalopram oxalate 10 mg tablet 10 mg PO DAILY 10/09/22 04/05/24 docusate sodium 100 mg capsule 100 mg PO DAILY PRN Constipation 04/05/24 04/05/24 vit C 250 mg-vit E 90 mg-zinc 40 1 tab PO BID 04/05/24 04/05/24 mg-copper 1 [id number] capsule (PreserVision AREDS-2) Previous Rx's ?Medication ?Instructions ?Recorded lisinopril 5 mg tablet 5 mg PO DAILY #90 tabs 11/17/23 dabigatran etexilate 150 mg capsule 150 mg PO BID #180 caps 02/09/24 furosemide 20 mg tablet 20 mg PO DAILY #90 tabs 03/22/24 fluticasone 250 mcg-salmeterol 50 1 inh inhalation Q12H 90 days #3 ea 04/05/24 mcg/dose blistr powdr for inhalation (Wixela Inhub) metoprolol succinate 100 mg 100 mg PO DAILY #90 tabs 04/05/24 tablet,extended release 24 hr Allergies Allergy/AdvReac Type Severity Reaction Status Date / Time Iodinated Contrast Media Allergy Severe HIVES Verified 04/05/24 09:24 [IV Dye, Iodine Containing] IVP dye Allergy Unknown hives Uncoded 04/05/24 09:24 Review of Systems 2 Constitutional: Constitutional: Reports no additional constitutional complaints, Denies chills, Denies fever(s), Denies night sweats and Reports weakness Eyes: Eyes: Reports no additional eye complaints, Denies blurry vision, Denies change in vision, Denies diplopia, Denies eye discharge, Denies loss of vision and Denies eye pain ENT: Reports dizziness Cardiovascular: Cardiovascular: Reports no additional cardiovascular complaints, Denies chest pain, Denies lightheadedness, Denies Loss of Consciousness and Denies dyspnea Respiratory: Respiratory: Reports no additional respiratory complaints and Denies dyspnea Gastrointestinal: Gastrointestinal: Reports no additional gastrointestinal complaints, Denies abdominal pain, Denies melena, Denies hematochezia, Denies change in bowel habits and Denies change in stool character Genitourinary: Genitourinary: Reports no additional male genitourinary complaints, Denies hematuria, Denies oliguria, Denies difficulty urinating, Denies dysuria, Denies urinary frequency, Denies urinary hesitancy, Denies urinary incontinence and Denies urinary urgency Musculoskeletal: Musculoskeletal: Reports no additional musculoskeletal complaints, Denies numbness and Denies tingling Neurologic: Reports dizziness, Denies loss of vision, Denies numbness, Denies tingling and Reports weakness Psychiatric: Psychiatric: Reports no additional psychiatric complaints Endocrine: Endocrine: Reports no additional endocrine complaints Hematologic/Lymphatic: Hematologic/Lymphatic: Reports no additional hematologic/lymphatic complaints Allergic/Immunologic: Allergic/Immunologic: Reports no additional allergic/immunologic complaints [facility] Past Medical History Medical History Dyspnea COPD (chronic obstructive pulmonary disease) HTN (hypertension) Chronic atrial fibrillation Surgical History History of eye surgery History of right hip replacement History of hernia repair Social History Social History Alcohol intake: never Patient Tobacco Use Status: Former Tobacco user Years Smoked: 10 +/- Smoked in Last 30 Days: No Use of substances other than those prescribed or required for medical reasons: No Advance Directives: No Advance Directives Information Provided: Yes Do you have a plan to hurt others: No Plan Physical Exam ED Vital Signs: Vital Signs - 24 hr 04/05/24 09:22 04/05/24 13:42 04/05/24 17:09 Temperature 98.0 F 98.2 F 98.2 F Pulse Rate 80 72 82 Respiratory Rate 16 18 18 Blood Pressure 133/79 126/75 137/75 Pulse Oximetry 96 98 96 Oxygen Delivery Method Room Air Room Air Room Air BMI result Body Mass Index 28.7 Const General: cooperative, no acute distress, alert and awake Nutritional Appearance: well nourished Orientation/consciousness: patient oriented x3 Limitations: no limitations [facility] Head: Yes normal to inspection and Yes atraumatic Ears: hearing grossly normal bilaterally and external ears normal General nose exam: Normal external nose present, no nasal discharge noted and no epistaxis Face and sinus: Yes normal facial exam, No abrasion and No laceration Mouth: Normal oral and palatal mucosa present, no drooling and no muffled voice Eyes General: appearance normal, both eyes and all related structures Periorbital: periorbital findings normal Eyelids: Yes eyelids normal Conjunctivae: conjunctivae normal Pupils: Equal, round and reactive pupils present EOM: EOMs intact bilaterally Neck Neck: Yes normal visual inspection, Yes full ROM and Yes no lymphadenopathy Chest Chest palpation & inspection: normal inspection of the chest Resp Effort & Inspection: normal respiratory effort and able to speak in complete sentences GI Inspection: Yes normal to inspection Neuro General: patient oriented x3 and moves all extremities Cranial nerves: Yes Equal, round and reactive pupils present Cognition (Neuro): normal cognition Extrem General: Yes normal to inspection, Yes full ROM and Yes capillary refill normal Psych Appearance: grossly normal Mental Status: mental status grossly normal Affect: normal affect Attitude: cooperative Thought process: Normal thought process present Thought content: Normal thought content present Insight: Good insight present (Psych) Medications Administered Discontinued Medications Generic Name Dose Route Start Last Admin Trade Name Freq PRN Reason Stop Dose Admin Sodium Chloride 500 mls @ 500 mls/hr 04/05/24 13:45 04/05/24 15:49 Ns IV 04/05/24 14:44 Infused .Q1H PATRICIA Infusion Medical Decision Making Medical Decision Making [facility] [place] Narrative: Patient is an 83 year old assigned male at with a history of COPD, HFpEF, atrial fibrillation, and HTN presenting to the emergency department today after a slip and fall. Patient's physical exam was unremarkable. Patient's blood work was unremarkable. Patient's urine showed no acute process. Patient's EKG was unremarkable. Patient's chest x-ray, head CT, and c-spine CT showed no acute process. I explained my physical exam findings as well as all test results to the patient and the patient's daughter. I answered all questions asked by the patient and the patient's daughter. I had a lengthy conversation with the patient and his daughter regarding disposition. Patient's daughter is in the process of readying her house for the patient to move in, including awaiting a hospital bed being delivered. Patient's daughter agreed to physical therapy and case management evaluation for the patient. Patient and the patient's daughter are unsure of their decision regarding the patient's code status at this time - will make patient full code until either a MOLST is provided or the patient expresses otherwise. Differential Diagnosis Differential Diagnoses: The differential diagnosis associated with the presentation includes Weakness Physical deconditioning Admission/Observation Consideration of admission/observation: Escalation of care including admission/observation considered Patient would have been admitted to the hospital had his work up had any findings where hospital admission was appropriate and his clinical presentation warranted hospital admission. Lab Data [facility] [place] Lab Attestation statement: I reviewed the patient's lab results. My interpretation of these results are in the [facility] Rationale portion of this note. 04/05/24 11:24 04/05/24 11:24 Labs: Lab Results 04/05/24 04/05/24 Range/Units 11:24 15:33 WBC 7.7 (4.8-10.8) X10*3/uL RBC 4.34 L (4.60-5.80) X10*6/uL Hgb 13.1 L (14.0-18.0) g/dl Hct 38.3 L (42.0-52.0) % MCV 88.2 (80.0-98.0) fL MCH 30.2 (27.0-33.0) pg MCHC 34.2 (31.0-36.0) g/dl RDW 13.7 (11.0-16.0) % Plt Count 127 L (160-400) X10*3/uL MPV 9.3 L (9.4-12.4) fL Immature Gran % (Auto) 0.7 H (0.0-0.4) % Neut % (Auto) 82.5 H (45-73) % Lymph % (Auto) 7.9 L (20-40) % Mcintosh % (Auto) 6.0 (2-11) % Eos % (Auto) 2.5 (0-4) % Baso % (Auto) 0.4 (0-2) % Lymph # (Auto) 0.6 L (1.2-4.9) X10*3/uL Mcintosh # (Auto) 0.5 (0.1-1.2) X10*3/uL Eos # (Auto) 0.2 (0.0-0.4) X10*3/uL Baso # (Auto) 0.0 (0.0-0.2) X10*3/uL Abs Immat Gran (auto) 0.05 H (0.00-0.03) X10*3/uL Absolute Neuts (auto) 6.3 (2.0-8.3) x10*3/uL Absolute Nucleated RBC 0.000 (0.0-0.012) X10*3/uL Nucleated RBC % (auto) 0.0 (0.0-0.2) /100WBC PT 13.4 H (10.9-12.4) SEC INR 1.2 H (0.9-1.1) APTT 49.4 H (26.0-36.8) SEC Sodium 139 (135-145) mmol/L Potassium 4.1 (3.3-5.1) mmol/L Chloride 108 (96-108) mmol/L Carbon Dioxide 24 (22-29) mmol/L Anion Gap 11 L (12-20) BUN 22 H (9-16) mg/dL Creatinine 0.76 (0.5-1.4) mg/dL Estim Creat Clear Calc 86.3 Estimated GFR > 60 Random Glucose 118 H (60-115) mg/dL Calcium 8.6 (8.4-10.2) mg/dL Magnesium 1.9 (1.6-2.6) mg/dL Total Bilirubin 0.7 (0.0-1.0) mg/dL AST 19 (5-37) U/L ALT 8 (0-40) U/L Alkaline Phosphatase 63 (39-117) U/L Troponin I High Sens < 2.7 (<3.5-35.0) ng/L Total Protein 6.3 L (6.5-8.0) g/dL Albumin 3.6 (3.5-5.0) g/dL Urine Color Yellow Urine Appearance Clear Urine pH 6.0 (5.0-9.0) Ur Specific Bon[place]el 1.025 (1.005-1.025) Urine Protein Trace (Neg-Trace) mg/dL Urine Glucose (UA) Negative (Negative) mg/dL Urine Ketones 15 (Negative) mg/dL Urine Blood Negative (Negative) Urine Nitrite Negative (Negative) Ur Leukocyte Esterase Negative (Negative) Influenza Type A (PCR) NEGATIVE (Negative) Influenza Type B (PCR) NEGATIVE (Negative) RSV RNA Qual (PCR) NEGATIVE (Negative) SARS-CoV-2 RNA (RT-PCR) NEGATIVE (Negative) Independent Interpretation I performed an independent interpretation of an: EKG, Plain X-Ray and CT Scan Interpretation: My interpretation is in agreement with the radiologist's impression of these imaging studies. L Report Number: [id number]: Total DLP = 776.00 mGy-cm EXAMINATION: CT HEAD WITHOUT CONTRAST CLINICAL INFORMATION: dizziness, weakness, fall COMPARISON: CT dated November 27, 2010. TECHNIQUE: Contiguous axial imaging was performed from the skull base to vertex without intravenous administration of contrast. This CT examination was performed using dose optimization techniques as appropriate, variously including the following: *Automated exposure control *Adjustment of mA and/or kV according to patient size (this includes techniques or standardized protocols for targeted exams where dose is matched to indication/reason for exam; i.e. extremities or head) *Use of iterative reconstruction technique DLP: 776 mGy-cm FINDINGS: Bony calvarium is intact. No acute intracranial hemorrhage, mass effect, midline shift, hydrocephalus or herniation. Dewitt-white matter differentiation is normal. Bilateral multifocal patchy deep periventricular white matter hypodensities involving centrum semiovale and chow radiata. Calcified plaques in the V4 segments of the vertebral arteries and the cavernous supracavernous segments both ICAs. Prominence of the extra-axial CSF spaces cerebral sulci and ventricles. Increased density in the left tympanic cavity mastoid antrum and mastoid air cells. Poor pneumatization of the mastoid air cells. Increased density in the right mastoid air cells mastoid antrum. Polypoid mucosal thickening, maxillary sinuses Probable old traumatic deformities in the nasal bones CT/CT head/brain wo IV con IMPRESSION: No acute fracture, bony calvarium. No acute intracranial hemorrhage. 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 Electronically signed by: King Craig MD 04/05/2024 10:43 AM [facility] Dictated By: King Keenan MD Signed By: Electronically signed by King Tejeda MD 04/05/24 1043 Report Number: [id number]: Total DLP = 588.00 mGy-cm EXAMINATION: CT CERVICAL SPINE WITHOUT CONTRAST CLINICAL INFORMATION: Dizziness, weakness and fall COMPARISON: None available. TECHNIQUE: Axial 3 mm thin and reformatted 2 mm thin sagittal and coronal images of cervical spine were obtained without contrast. This CT examination was performed using dose optimization techniques as appropriate, variously including the following: *Automated exposure control *Adjustment of mA and/or kV according to patient size (this includes techniques or standardized protocols for targeted exams where dose is matched to indication/reason for exam; i.e. extremities or head) *Use of iterative reconstruction technique DLP: 1365 mGy/cm. FINDINGS: Normal cervical lordosis. The vertebral heights and alignment is normal. There is loss of C6-7 disc heights with ventral and posterior spondylosis. The disc heights are normal. The craniovertebral junction and C1-C2 alignment is normal. There is moderate left C3-4, C4-5 and C5-C6 facet joint arthropathy and hypertrophy. The prevertebral and paravertebral soft tissues are normal. Pharyngeal and tracheal airway is widely patent. Mild emphysematous changes both upper lobes but without any focal lesion. Bilateral thyroid lobes are asymmetrical but otherwise unremarkable. CT/CT cervical spine wo IV con IMPRESSION: No acute fracture or dislocation. Degenerative facet joint arthropathy left C3- 4, C4-5 and C5-6 disc levels.. Fleischner guidelines were followed. Electronically signed by: Steve Gutiérrez MD 04/05/2024 10:58 AM [facility] Dictated By: Steve Gutiérrez MD Signed By: Electronically signed by Steve Gutiérrez MD 04/05/24 1058 EXAMINATION: XR CHEST 1 VIEW HISTORY: weakness COMPARISON: Comparison is made with the prior examination dated 11/12/2021. FINDINGS: Two AP portable views of the chest performed at 10:26 AM is submitted. The lungs are expanded and clear. There is no pleural effusion, pneumothorax, or pulmonary vascular congestion. The heart is normal in size. Again seen is a probable small hiatal hernia. There is degenerative disc disease of the spine. XR/XR chest 1V IMPRESSION: Probable small hiatal hernia. No acute cardiopulmonary abnormality. Electronically signed by: Iggy Gupta MD 04/05/2024 10:54 AM EST Dictated By: Iggy Gupta MD Signed By: Electronically signed by Iggy Gupta MD 04/05/24 1054 I independently interpreted this EKG and am in agreement with the below findings: Vent. Rate: 79 BPM Atrial Rate: * BPM P-R Int: * ms QRS Dur: 140 ms QT Int: 424 ms P-R-T Axes: * 14 -12 degrees QTcB Int: 486 ms Atrial fibrillation Right bundle branch block When compared with ECG of 27-Nov-2010 15:25, Atrial fibrillation has replaced Sinus rhythm Right bundle branch block is now Present Referred By: Elda Gates Electronically Signed By: Merrill Ordonez Dictated By: Merrill Ordonez MD Signed By: Electronically signed by Merrill Ordonez MD 04/05/24 1452 Radiology Impression Discussion of test interpretation with radiology: I have reviewed the radiologist's reading. Independent Historian Clinical information obtained from an independent historian. History obtained from or confirmed by: EMS (EMS provided additional history and confirmed the history provided by the patient.) and Other (patient's daughter provided additional history and confirmed the history provided by the patient.) Discharge Plan Discharge Clinical Impression: Weakness Patient Disposition: Still a Patient Prescriptions: No Action lisinopril 5 mg tablet 5 mg PO DAILY Qty: 90 3RF dabigatran etexilate 150 mg capsule 150 mg PO BID Qty: 180 3RF furosemide 20 mg tablet 20 mg PO DAILY Qty: 90 3RF metoprolol succinate 100 mg tablet extended release 24 hr 100 mg PO DAILY Qty: 90 3RF fluticasone propion-salmeterol [Wixela Inhub] 250-50 mcg/dose blister with device 1 inh inhalation Q12H 90 Days Qty: 3 0RF docusate sodium 100 mg Capsule 100 mg PO DAILY PRN (Reason: Constipation) PreserVision AREDS-2 250-90-40-1 mg Capsule 1 tab PO BID brimonidine 0.2 % drops 1 drp ophthalmic-Right BID finasteride 5 mg tablet 5 mg PO DAILY Rhopressa 0.02 % drops 1 drp ophthalmic-Right DAILY Lumigan 0.01 % drops 1 drp ophthalmic-Right DAILY dorzolamide-timolol 22.3-6.8 mg/mL drops 1 drp ophthalmic (eye) BID omega-3 fatty acids [Fish Oil Concentrate] 1,000 mg capsule 1,000 mg PO DAILY escitalopram oxalate 10 mg tablet 10 mg PO DAILY Print Language: Greenlandic
[2024-04-05 11:28] LABS: MANUAL DIFF FLAG NO
[2024-04-05 11:31] LABS: Basophils Percent Auto 0.4 % (0-2); Eosinophils Absolute Auto 0.2 X10*3/uL (0.0-0.4); Eosinophils Percent Auto 2.5 % (0-4); Hematocrit 38.3 % (42.0-52.0); Hemoglobin 13.1 g/dl (14.0-18.0); Imm Gran Abs Auto 0.05 X10*3/uL (0.00-0.03); Imm Gran Pct Auto 0.7 % (0.0-0.4); Lymphocytes Absolute Auto 0.6 X10*3/uL (1.2-4.9); Lymphocytes Percent Auto 7.9 % (20-40); Mean Corpuscular HGB Conc 34.2 g/dl (31.0-36.0); Mean Corpuscular Hemoglobin 30.2 pg (27.0-33.0); Mean Corpuscular Volume 88.2 fL (80.0-98.0); Mean Platelet Volume 9.3 fL (9.4-12.4); Monocytes Absolute Auto 0.5 X10*3/uL (0.1-1.2); Neutrophils Absolute Auto 6.3 x10*3/uL (2.0-8.3); Neutrophils Percent Auto 82.5 % (45-73); Platelet Count 127 X10*3/uL (160-400); Red Blood Count 4.34 X10*6/uL (4.60-5.80); Red Cell Distribution Width 13.7 % (11.0-16.0); White Blood Count 7.7 X10*3/uL (4.8-10.8)
[2024-04-05 11:37] LABS: INTERNATIONAL NORM RATIO 1.2 (0.9-1.1); Prothrombin Time 13.4 SEC (10.9-12.4)
[2024-04-05 11:40] LABS: Partial Thromboplastin Time 49.4 SEC (26.0-36.8)
[2024-04-05 11:51] LABS: Alanine Aminotransferase 8 U/L (0-40); Albumin Level 3.6 g/dL (3.5-5.0); Alkaline Phosphatase 63 U/L (39-117); Anion Gap 11 (12-20); Aspartate Amino Transferase 19 U/L (5-37); Bilirubin Total 0.7 mg/dL (0.0-1.0); Blood Urea Nitrogen 22 mg/dL (9-16); Calcium 8.6 mg/dL (8.4-10.2); Carbon Dioxide 24 mmol/L (22-29); Chloride 108 mmol/L (96-108); Creatinine Clr Calc Pharmacy 86.3; Estimated Glomerular Filt Rate > 60; Glucose Random 118 mg/dL (60-115); Magnesium 1.9 mg/dL (1.6-2.6); Potassium 4.1 mmol/L (3.3-5.1); Sodium 139 mmol/L (135-145); Total Protein 6.3 g/dL (6.5-8.0)
[2024-04-05 12:00] LABS: Troponin-I High Sensitivity < 2.7 ng/L (<3.5-35.0)
[2024-04-05 12:34] LABS: Influenza A PCR NEGATIVE (Negative); Influenza B PCR NEGATIVE (Negative); Resp Syncy Virus RNA Qual PCR NEGATIVE (Negative); SARS COV2 PCR INHOUSE NEGATIVE (Negative)
[2024-04-05 13:42] VITALS: BP 126/75; PULSE 72; RESP 18; TEMP 36.8; O2SAT 98
--- NOTE | 2024-04-05 13:45 | PC.NURSE ---
Pt up at side of the bed with assistance from this RN and Tech to use urinal. Pt unable to void. Bladder scan 176 ml, Elda CORONA made aware.
--- NOTE | 2024-04-05 14:00 | PHA.MEDREC ---
Pharmacy Consult ? Medication Reconciliation Pharmacy has completed the medication reconciliation, utilized list brought in with patient.
[2024-04-05] MEDS: 0.9 % Sodium Chloride 500 ML IV (14:22)
[2024-04-05 15:45] LABS: Appearance Urine Clear; Color Urine Yellow; Glucose Urine UA Negative (Negative); Leukocyte Esterase Urine Negative (Negative); Nitrite Urine Negative (Negative); Specific Gravity - Urine 1.025 (1.005-1.025); Urine Blood Negative (Negative); Urine Ketones 15 mg/dL (Negative); Urine Protein Trace mg/dL (Neg-Trace)
[2024-04-05 17:09] VITALS: BP 137/75; PULSE 82; RESP 18; TEMP 36.8; O2SAT 96
--- NOTE | 2024-04-05 18:21 | MHC.CM.ED ---
CM met with patient at the request of Elda CORONA. Pt lives alone in his own home. 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 He does not have any services. Has no DME. Pt has not driven in the past year due to visual difficulties. His HCP is at home. His daughter is his HCP-Stacey Smith ([phone]). Pt tells CM that he will move in with his daughter this week. Daughter is readying her home for her father to move in. Pt is agreeable to PT evaluation in the morning. Pt is hoping to go home, so no referrals have been placed. He may be agreeable to home services if needed. Pt states he rolled out of bed while sleeping, but then could not get himself up. CM will follow for discharge planning.
--- NOTE | 2024-04-05 19:38 | PC.NURSE ---
pt alert, able to communicate his needs, pt assisted with a walker to bathroom, pt assisted back in bed with bed alarm on.
[2024-04-05 20:46] VITALS: BP 98/61; PULSE 80; RESP 20; TEMP 36.6; O2SAT 95
[2024-04-05] MEDS: Dabigatran Etexilate Mesylate 150 MG CAPSULE PO (21:00)
[2024-04-05] MEDS: Latanoprost 0.005 % Ophth Sol 2.5 ML DROPS 1 DROP EYE-BOTH (21:02)
[2024-04-05] MEDS: Brimonidine Tartrate 0.2% Oph 5 ML BOTTLE 1 DROP EYE-RIGHT (21:03)
[2024-04-05] MEDS: Dorzolamide/Timolo 2.23%/0.68% 10 ML DRBTL 1 DROP EYE-BOTH (21:04)
--- NOTE | 2024-04-05 21:06 | PC.NURSE ---
medicated per mar.
[2024-04-05 23:14] VITALS: BP 103/57; PULSE 63; RESP 18; TEMP 36.8; O2SAT 96
--- NOTE | 2024-04-06 03:02 | PC.NURSE ---
pt given drink tolerated well, no n/v
--- NOTE | 2024-04-06 06:01 | PC.NURSE ---
Pt resting in bed, pt assisted with walker to bathroom.
[2024-04-06 06:26] VITALS: BP 110/69; PULSE 92; RESP 16; TEMP 36.3; O2SAT 95
[2024-04-06 07:12] VITALS: BP 110/69; PULSE 92; O2SAT 95
[2024-04-06] MEDS: Fluticasone/Vilanterol 100/25 BLST.W.DEV 1 PUFF INHALE (08:18)
[2024-04-06 08:20] VITALS: PULSE 87; RESP 18; O2SAT 95
[2024-04-06 08:30] VITALS: BP 121/76; PULSE 80; RESP 18; O2SAT 98
[2024-04-06] MEDS: Dorzolamide/Timolo 2.23%/0.68% 10 ML DRBTL 1 DROP EYE-BOTH ×2 (08:31→20:46)
[2024-04-06] MEDS: Escitalopram Oxalate 10 MG TABLET PO (08:32)
[2024-04-06] MEDS: Metoprolol Succinate ER 100 MG TAB.ER.24H PO (08:32)
[2024-04-06] MEDS: Finasteride 5 MG TABLET PO (08:33)
[2024-04-06] MEDS: Furosemide 20 MG TABLET PO (08:33)
[2024-04-06] MEDS: lisinopriL 5 MG TABLET PO (08:33)
[2024-04-06] MEDS: Dabigatran Etexilate Mesylate 150 MG CAPSULE PO ×2 (08:33→20:39)
[2024-04-06] MEDS: Brimonidine Tartrate 0.2% Oph 5 ML BOTTLE 1 DROP EYE-RIGHT ×2 (08:34→20:39)
--- NOTE | 2024-04-06 09:08 | MHC.CM.PN ---
Addendum entered by Dionne Sky 04/06/24 10:02: All 3 acute rehabs have denied the pt as he lacks the medical complexity for an acute rehab stay. This CM called pts daughter Stacey to update her, she states she plans to pick him up and bring him home today around 5:30pm. She will be staying with him at his home tonight and tomorrow night, and plans for him to move in with her this . Stacey would like VNA services set up for her father, [facility]. Addendum entered by Dionne Sky 04/06/24 09:16: Per pts request, this CM called and spoke with his daughter Stacey to update her, acute rehab recommendations and facility options reviewed with her, she states [facility] would be her first choice due to a more convenient location for her. Acute rehab referrals have been placed, awaiting bed offers at this time. Original Note: PT has evaluated pt and are recommending acute rehab. This CM met with pt to discuss acute rehab and review the options. Pt is agreeable this CM placing acute rehab referrals and then reviewing bed options with him.
[2024-04-06 13:40] VITALS: BP 116/83; PULSE 72; RESP 16; O2SAT 99
[2024-04-06 17:08] LABS: MANUAL DIFF FLAG NO
--- NOTE | 2024-04-06 17:12 | MHC.CM.ED ---
Family feels patient is more confused today. Concerns about taking him home. Will place referrals for private pay STR. Pt does not have a qualifying stay for medicare. Referrals given to daughter for local [place] private pay home care. Referral to [facility] made. ANA LILIA on hold via [facility]. Pt will remain overnight. Ultimately, patient will be moving into his daughter's home. She is working on home care services, hospital bed etc. Suggested she consider FMLA. CM will follow for safe discharge plan.
[2024-04-06 17:15] LABS: Basophils Percent Auto 0.3 % (0-2); Eosinophils Absolute Auto 0.2 X10*3/uL (0.0-0.4); Hematocrit 38.6 % (42.0-52.0); Hemoglobin 12.9 g/dl (14.0-18.0); Imm Gran Abs Auto 0.03 X10*3/uL (0.00-0.03); Imm Gran Pct Auto 0.4 % (0.0-0.4); Lymphocytes Absolute Auto 0.9 X10*3/uL (1.2-4.9); Lymphocytes Percent Auto 11.9 % (20-40); Mean Corpuscular HGB Conc 33.4 g/dl (31.0-36.0); Mean Corpuscular Hemoglobin 29.9 pg (27.0-33.0); Mean Corpuscular Volume 89.6 fL (80.0-98.0); Mean Platelet Volume 9.2 fL (9.4-12.4); Monocytes Absolute Auto 0.7 X10*3/uL (0.1-1.2); Monocytes Percent Auto 9.3 % (2-11); Neutrophils Absolute Auto 5.4 x10*3/uL (2.0-8.3); Neutrophils Percent Auto 75.1 % (45-73); Platelet Count 138 X10*3/uL (160-400); Red Blood Count 4.31 X10*6/uL (4.60-5.80); Red Cell Distribution Width 13.6 % (11.0-16.0); White Blood Count 7.2 X10*3/uL (4.8-10.8)
[2024-04-06 17:28] LABS: Alanine Aminotransferase 7 U/L (0-40); Albumin Level 3.5 g/dL (3.5-5.0); Alkaline Phosphatase 62 U/L (39-117); Anion Gap 15 (12-20); Aspartate Amino Transferase 22 U/L (5-37); Bilirubin Total 0.7 mg/dL (0.0-1.0); Blood Urea Nitrogen 14 mg/dL (9-16); Calcium 8.6 mg/dL (8.4-10.2); Carbon Dioxide 26 mmol/L (22-29); Chloride 104 mmol/L (96-108); Creatinine Clr Calc Pharmacy 76.3; Estimated Glomerular Filt Rate > 60; Glucose Random 104 mg/dL (60-115); Lipase 16 U/L (8-78); Potassium 4.3 mmol/L (3.3-5.1); Sodium 141 mmol/L (135-145); Total Protein 6.1 g/dL (6.5-8.0)
--- NOTE | 2024-04-06 19:16 | PC.NURSE ---
Patient arrived to the [facility] at 1745 in hospital bed with family at bedside. Patient's daughter brought requested eyedrops Rhopressa, pharmacy was called and made aware, and medication was picked up by pharmacy informatics manager. Patient did not have dinner in ED, kitchen called and tray ordered. Patient offered no complaints, resting in bed, daughter at bedside.
[2024-04-06] MEDS: Latanoprost 0.005 % Ophth Sol 2.5 ML DROPS 1 DROP EYE-BOTH (20:48)
[2024-04-06 21:33] VITALS: BP 128/76; PULSE 78; RESP 15; TEMP 36.2; O2SAT 95
[2024-04-07 05:54] VITALS: BP 148/75; PULSE 78; RESP 16; TEMP 36.7; O2SAT 96
[2024-04-07] MEDS: Dabigatran Etexilate Mesylate 150 MG CAPSULE PO ×2 (10:32→22:50)
[2024-04-07] MEDS: Escitalopram Oxalate 10 MG TABLET PO (10:32)
[2024-04-07 10:33] VITALS: BP 148/75
[2024-04-07] MEDS: Furosemide 20 MG TABLET PO (10:33)
[2024-04-07] MEDS: Finasteride 5 MG TABLET PO (10:33)
[2024-04-07] MEDS: Dorzolamide/Timolo 2.23%/0.68% 10 ML DRBTL 1 DROP EYE-BOTH ×2 (10:35→22:50)
[2024-04-07] MEDS: NETARSUDIL 0.02% 1 EACH EYE-RIGHT ×2 (10:35→22:50)
[2024-04-07] MEDS: Brimonidine Tartrate 0.2% Oph 5 ML BOTTLE 1 DROP EYE-RIGHT ×2 (10:36→22:50)
[2024-04-07 10:46] VITALS: BP 148/75; PULSE 78
[2024-04-07] MEDS: Metoprolol Succinate ER 100 MG TAB.ER.24H PO (10:46)
[2024-04-07] MEDS: lisinopriL 5 MG TABLET PO (10:46)
--- NOTE | 2024-04-07 10:55 | MHC.CM.ED ---
Patient remains in ER overflow. Received telephone call from daughter, Stacey. Stacey is concerned about patient getting confused at night in the hospital and the potential of the same thing happening at a short term rehab. Stacey wants patient to d/c to her home: [address]. Alejandro has arranged for a hospital bed to be delivered tomorrow afternoon. That is the earliest delivery is available. Stacey is also arranging private pay help for home. Patient can safely d/c home with Stacey on Friday. Dirk AZEVEDO booked for 04/09 at 10am. [facility] with chart. Patient, Stacey, Dwight RN and Dionne VALLE aware. Ela BROWN made aware. Continue to monitor for d/c needs.
--- NOTE | 2024-04-07 11:14 | PC.NURSE ---
pt lay in bed in the dark for the first couple hours [id number]. pt was awake and confused, holding phone and daughter had just called and he did not answer, he said that someone was blocking the calls, i answered the call for him the next time and he spoke briefly with his daughter. and now sitting up watching tv , medicated as ordered, plan to go to daughters home friday per case management
[2024-04-07 18:22] VITALS: BP 113/68; PULSE 73; RESP 18; TEMP 37.1; O2SAT 96
--- NOTE | 2024-04-07 21:07 | PC.NURSE ---
hx of dementia/mental status at baseline, breathing easy/non labored. waiting for placement.
[2024-04-07] MEDS: Latanoprost 0.005 % Ophth Sol 2.5 ML DROPS 1 DROP EYE-BOTH (22:50)
--- NOTE | 2024-04-08 05:11 | PC.NURSE ---
assisted to bedside commode without incident. calm/pleasant to staff. bed alarm on for safety. to be dc to daughter's home on friday with VNA
[2024-04-08 06:19] VITALS: BP 142/70; PULSE 87; RESP 16; TEMP 36.7; O2SAT 97
[2024-04-08 08:25] VITALS: PULSE 69; RESP 16; O2SAT 95
[2024-04-08] MEDS: Fluticasone/Vilanterol 100/25 BLST.W.DEV 1 PUFF INHALE (08:25)
[2024-04-08] MEDS: Furosemide 20 MG TABLET PO (08:38)
[2024-04-08] MEDS: lisinopriL 5 MG TABLET PO (08:38)
[2024-04-08] MEDS: Finasteride 5 MG TABLET PO (08:38)
--- NOTE | 2024-04-08 08:51 | PC.NURSE ---
Awaiting missing 09:00 Metoprolol, Escitalopram, Alphagan eye drops, Pradaxa, Cosopt eye drops per pharmacy at this time.
[2024-04-08] MEDS: Escitalopram Oxalate 10 MG TABLET PO (10:21)
[2024-04-08] MEDS: Dorzolamide/Timolo 2.23%/0.68% 10 ML DRBTL 1 DROP EYE-BOTH ×2 (10:21→21:14)
[2024-04-08] MEDS: Brimonidine Tartrate 0.2% Oph 5 ML BOTTLE 1 DROP EYE-RIGHT ×2 (10:21→21:14)
[2024-04-08] MEDS: Metoprolol Succinate ER 100 MG TAB.ER.24H PO (10:21)
[2024-04-08] MEDS: Dabigatran Etexilate Mesylate 150 MG CAPSULE PO ×2 (10:21→21:14)
[2024-04-08 14:26] VITALS: BP 99/55; PULSE 79; RESP 16; TEMP 36.5; O2SAT 96
--- NOTE | 2024-04-08 18:11 | PC.NURSE ---
Patient was assisted to the bathroom, one assist with walker, needed help getting up from the recliner and toilet, ambulated steadily, daughter at beside concerted that patient is c/o chest congestion, runny nose and cough, states symptoms are new. Provider notified. Daughter also requested for patient to shower, but was informed that patient was not steady to be able to shower alone and we did not have extra staff in overflow to be able to stay with patient in the shower (leaving all other patients unattended) daughter was inquiring if maybe arrangement can be made for the shower in the morning before discharge. Plan is to discharge at 1000. Daughter was advised that her request will be reported to the overnight staff but no guarantee can be given it will be possible due to safety or staffing.
--- NOTE | 2024-04-08 19:15 | PC.NURSE ---
Report taken from Letty WEBBER assumed care of pt at 1900. A&O skin pwd respirations even unlabored. Assisted minimally from bedside chair to bed. Offers no complaints. Plan for dc home tomorrow. Will continue to monitor.
[2024-04-08 19:36] LABS: Influenza A PCR POSITIVE (Negative); Influenza B PCR NEGATIVE (Negative); Resp Syncy Virus RNA Qual PCR NEGATIVE (Negative); SARS COV2 PCR INHOUSE NEGATIVE (Negative)
[2024-04-08] MEDS: Latanoprost 0.005 % Ophth Sol 2.5 ML DROPS 1 DROP EYE-BOTH (21:14)
[2024-04-08 22:00] VITALS: BP 119/61; PULSE 91; RESP 20; TEMP 36.7; O2SAT 95
--- NOTE | 2024-04-08 23:21 | PC.NURSE ---
Pt resting in bed eyes closed, skin pwd respirations even unlabored, plan to dc home tomorrow am via BLS at 1000. Will continue to monitor for additional needs.
--- NOTE | 2024-04-09 03:54 | PC.NURSE ---
Pt continues to rest in bed eyes closed, skin pwd respirations even unlabored. Ambulatory earlier to bathroom with steady gait, returned to bed without incident.
[2024-04-09 04:51] VITALS: BP 135/74; PULSE 89; RESP 18; TEMP 36.3; O2SAT 93
[2024-04-09 08:58] VITALS: BP 109/67; PULSE 94; RESP 16; TEMP 36; O2SAT 94
[2024-04-09] MEDS: NETARSUDIL 0.02% 1 EACH EYE-RIGHT (08:59)
--- NOTE | 2024-04-09 08:59 | MHC.CM.ED ---
Patient remains in ER overflow. Will d/c home with daughter to [address] [place] via BLS at 10am. [facility] is with chart. Patient, daughter Marci Ibarra RN and Dionne VALLE aware. NA also made aware. Continue to monitor for d/c needs.
[2024-04-09] MEDS: Dorzolamide/Timolo 2.23%/0.68% 10 ML DRBTL 1 DROP EYE-BOTH (09:00)
[2024-04-09] MEDS: Brimonidine Tartrate 0.2% Oph 5 ML BOTTLE 1 DROP EYE-RIGHT (09:01)
[2024-04-09] MEDS: lisinopriL 5 MG TABLET PO (09:02)
[2024-04-09] MEDS: Furosemide 20 MG TABLET PO (09:02)
[2024-04-09] MEDS: Finasteride 5 MG TABLET PO (09:02)
[2024-04-09] MEDS: Metoprolol Succinate ER 100 MG TAB.ER.24H PO (09:29)
[2024-04-09] MEDS: Escitalopram Oxalate 10 MG TABLET PO (09:29)
[2024-04-09] MEDS: Dabigatran Etexilate Mesylate 150 MG CAPSULE PO (09:29)
--- NOTE | 2024-04-09 09:59 | PC.NURSE ---
assumed care of patient at 0700, patient slept most of morning, woke patient up for breakfast, ate about 75% of breakfast tray. patient medicated per MAY. patient ambulated with steady gait and walker standby assist to the bathroom. PRODUCT SAFETY CONSULTANT washed patient up, patient was changed into personal clothes for d/c. IV removed from patient right hand. EMS given report and patient eye drops for dc. patient transferred onto ems stretcher.
[2024-04-09 10:02] VITALS: BP 109/67; PULSE 94; RESP 16; TEMP 36; O2SAT 94
--- NOTE | 2024-04-09 10:22 | PC.NURSE ---
patient daughter presented at 1015 am looking for patient, she was notified that patient had left on planned bls transfer at 10am. patient daughter became upset with this nurse for dc patient, patient daughter directed to ED case management for assistance. per prev notes in patient chart, daughter was notified about planned bls transfer at 10am. unsure why patient daughter showed up at 10:15.
== END 2024-04-09 10:24 | disposition home or self-care (01) ==
PROVIDERS: Physician Assistant; Physician Assistant Medical; Emergency Provider Emergency Medicine; PCP Internal Medicine Medical Oncology
DX: S09.90XA Unspecified injury of head, initial encounter (principal); R42 Dizziness and giddiness; M54.2 Cervicalgia; R51.9 Headache, unspecified; R53.1 Weakness; R41.0 Disorientation, unspecified; I48.91 Unspecified atrial fibrillation; I10 Essential (primary) hypertension; R26.81 Unsteadiness on feet; I45.10 Unspecified right bundle-branch block; J44.9 Chronic obstructive pulmonary disease, unspecified; W06.XXXA Fall from bed, initial encounter; Y93.9 Activity, unspecified; Y92.003 Bedroom of unspecified non-institutional (private) residence as the place of occurrence of the external cause; Y99.8 Other external cause status; Z87.891 Personal history of nicotine dependence; Z79.899 Other long term (current) drug therapy; Z79.01 Long term (current) use of anticoagulants; Z03.818 Encounter for observation for suspected exposure to other biological agents ruled out
CPT/HCPCS: 0241U; 36415; 70450; 71045; 72125; 80053; 81003; 83690; 83735; 84484; 85025; 85610; 85730; 93005; 94640; 96360; 97162; 99285

== ENCOUNTER → 2024-04-05 09:33 | Outpatient (BNV) | payer MEDICARE, SELFPAY | PROVIDERS: Emergency Provider Emergency Medicine; PCP Internal Medicine Medical Oncology; Visit Provider Radiology Diagnostic Radiology | DX: M46.92 Unspecified inflammatory spondylopathy, cervical region (principal); R42 Dizziness and giddiness; R53.1 Weakness; W19.XXXA Unspecified fall, initial encounter | CPT/HCPCS: 72125 ==

== ENCOUNTER → 2024-04-05 09:33 | Outpatient (BNV) | payer MEDICARE, SELFPAY | PROVIDERS: Emergency Provider Emergency Medicine; PCP Internal Medicine Medical Oncology; Visit Provider Internal Medicine Cardiovascular Disease | DX: R94.31 Abnormal electrocardiogram [ECG] [EKG] (principal) | CPT/HCPCS: 93010 ==

== ENCOUNTER 2024-04-22 14:28 | Outpatient (AMB) | payer MEDICARE, SELFPAY ==
--- NOTE | 2024-04-22 15:19 | MHC.OFFVIS ---
Vital Signs 04/22/24 15:23 Height 5 ft 10 in Weight 205 lb 0.478 oz BMI 29.4 BP 110/70 Blood Pressure Location Lt brachial Position Sitting Pulse 89 Pulse Source Pulse Oximeter Intake Visit Reasons: 6m follow up Intake Note: 6 mth f/up Funeral Car Driver Required: No Accompanied by: Daughter Allergies Iodinated Contrast Media [IV Dye, Iodine Containing] Allergy (Severe, Verified 04/05/24 09:24) HIVES IVP dye Allergy (Unknown, Uncoded 04/05/24 09:24) hives Medication List - Last Reconciled 04/22/24 by Milan Mccoy MD allopurinol 100 mg PO DAILY bimatoprost 0.01% (Lumigan) 1 drp ophthalmic-Right DAILY brimonidine 0.2% 1 drp ophthalmic-Right BID dabigatran etexilate 150 mg PO BID docusate sodium 100 mg PO DAILY PRN dorzolamide-timolol 22.3-6.8 mg/mL 1 drp ophthalmic (eye) BID escitalopram oxalate 10 mg PO DAILY finasteride 5 mg PO DAILY fluticasone propion-salmeterol 250-50 mcg/dose (Wixela Inhub) 1 inh inhalation Q12H 90 days furosemide 20 mg PO DAILY lisinopril 5 mg PO DAILY metoprolol succinate ER 100 mg PO DAILY netarsudil 0.02% (Rhopressa) 1 drp ophthalmic-Right DAILY omega-3 fatty acids (Fish Oil Concentrate) 1,000 mg PO DAILY vit C,T-Lk-vwcob-lutein-zeaxan 250-90-40-1 mg (PreserVision AREDS-2) 1 tab PO BID HPI Comments Details: Narciso comes for follow-up. Recently had accident any ruled out of bed and could not get himself up and was hospitalized for about a week. Since then as per the daughter he he was moved in with her but she was noticed gradual decline in overall health. He has had difficulty with walking and holding himself up. He has not had any falls. He denies any clear cardiovascular symptoms. He has not had any significant worsening orthopnea, PND, leg edema. No prolonged palpitation irregular heartbeat. Echocardiogram at shown preserved LV ejection fraction with mildly dilated right ventricle with preserved contractile function. No bleeding issues or neurologic events. [facility] Medical History Dyspnea COPD (chronic obstructive pulmonary disease) HTN (hypertension) Chronic atrial fibrillation Surgical History History of eye surgery History of right hip replacement History of hernia repair Social History Alcohol intake: never Patient Tobacco Use Status: Former Tobacco user Years Smoked: 10 +/- Review of Systems Const Denies chills, Denies fatigue, Denies fever(s), Denies frequent falls, Denies weakness, Denies weight gain and Denies weight loss ENT Denies dizziness Card Denies chest pain, Denies leg edema, Denies lightheadedness, Denies palpitations, Denies dyspnea and Denies dyspnea on exertion Resp Denies cough, Denies dyspnea and Denies dyspnea on exertion GI Denies hematochezia Musc Denies abnormal gait, Denies muscle weakness, Denies numbness, Denies radiating pain into limb and Denies tingling Neuro Denies abnormal gait, Denies dizziness, Denies frequent falls, Denies numbness, Denies tingling and Denies weakness Endo Denies fatigue and Denies palpitations Physical Exam Vital Signs: Last Vital Signs Pulse 89 04/22/24 15:23 BP 110/70 04/22/24 15:23 BMI result Body Mass Index 29.4 Const General: cooperative, comfortable, no acute distress, alert and awake Nutritional Appearance: obese Orientation/consciousness: patient oriented x3 Limitations: no limitations Neck Neck: Yes trachea midline, Yes supple and Yes no JVD Resp Effort & Inspection: normal respiratory effort Auscultation: clear to auscultation bilaterally and crackles bilateral (Bases, clears with coughing) Cardio Jugular venous distension: no JVD Palpation: normal PMI Rate: regular rate Rhythm: abnormal rhythm irregularly irregular Heart sounds: S1 normal heart sound present, S2 normal heart sound present, no click, no gallops and no murmurs GI Inspection: Yes obesity Auscultation: normal bowel sounds Skin General skin exam: no rashes or lesions noted and ecchymosis Neuro General: patient oriented x3 and no focal motor deficits Extrem General: No clubbing, No cyanosis and Yes edema Psych Appearance: grossly normal Assessment & Plan Assessment & Plan (1) Chronic atrial fibrillation: Code(s): I48.20 - Chronic atrial fibrillation, unspecified Category: Medical Plan: Chronic rate control atrial fibrillation, currently rate control on therapy with metoprolol. Continue the same. Has failed rhythm control approach. Continue full oral anticoagulation, currently on dabigatran 150 mg b.i.d.. Quarterly renal function test should be pursued. (2) (HFpEF) heart failure with preserved ejection fraction: Code(s): I50.30 - Unspecified diastolic (congestive) heart failure Category: Medical Plan: Heart failure preserved ejection fraction, clinically euvolemic and well compensated current low-dose diuretic therapy. Continue the same. Daily weight monitoring avoidance salt loading was discussed. Additional diuretics as need be. Continue rate control as above. Continue aggressive blood pressure control. Heart failure management discussed. His main issue currently deconditioning related to hospitalization has encouraged to increase activity level as tolerated without falling. Follow up in the clinic in 6 months time, sooner p.r.n.. Thank you for allowing me to partake in his care Coding Level of Care Code Est Pt Level 4 (66040) Complex EM visit Add On G2211 Diagnoses Chronic atrial fibrillation I48.20 (HFpEF) heart failure with preserved ejection fraction I50.30
[2024-04-22 15:23] VITALS: BP 110/70; PULSE 89; BMI 29.4
--- OUTSIDE RECORDS SUMMARY | 2024-04-22 15:42 | XMS_ITS | Patient Health Record ---
[facility] Address [address] [place] [address] Care Team Providers Care Logistics Manager Name Role Phone Iggy Bear MD Primary Care Provider Unavailab Manda Cherry Unavailable [phone] Alexi Zuñiga Unavailable [phone] Allergies Allergen (clinical drug ingredient) Drug/Non Drug Allergy documented on EMR Reaction Allergy Type Onset Date Status IVP (uncoded) hard time breathing Allergy Active Reason For Referral No Information Medications Medication SIG (Take, Route, Frequency, Duration) Notes Start Date End Date Status Lumigan 0.01 % Ophthalmic for 50 Days Active Rhopressa 0.02 % Ophthalmic for 90 Days Active Prazolamine 01/10/2023 Active Brimonidine Tartrate 0.2 % PLACE 1 DROP INTO LEFT EYE TWICE A DAY Ophthalmic for 90 Days Active Ciclopirox Olamine 0.77 % 1 application to affected area Externally Twice a day to effected areas on feet for 30 days Active Fish Oil 01/10/2023 Active Voltaren 1 % as directed Externally Active Aredia 01/10/2023 Not-Sidin g Escitalopram Oxalate 10 MG TAKE 1 TABLET BY MOUTH EVERY DAY FOR 30 DAYS Oral for 90 Days Active Finasteride 5 MG TAKE 1 TABLET BY KEAGAN TH EVERY DAY Oral for 90 Days Active Pradaxa 01/10/2023 Active Lisinopril 5 MG Oral for 90 Days Active Metoprolol Succinate ER 100 MG Oral for 90 Days Active Social History Tobacco Use: Social History Observation Description Date Details (start date - stop date) Former Smoker NA - NA Tobacco Use/Smoking Question Answer Notes Are you a: former smoker Additional Findings: Tobacco Non-User Current no n-smoker Alcohol Screen Question Answer Notes Did you have a drink containing alcohol in the p ast year? No Points 0 Interpretation Negative Tobacco use other than smoking: Question Answer Notes Are you an other tobacco user? 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, bilateral legs (I70.203) Active confirmed Problem Acquired hallux valgus (09796982) Hallux valgus (acquired), right foot (M20.11) Active confirmed Problem Atherosclerosis of alturas artery of both lower extremities, with unspecified presence of clinical manifestation (I70.203) Active confirmed Q7(A), Q8(2B), Q9(1B,2C ) Vital Signs Height 5 ft 10 in in 01/26/2024 Weight 220 lbs 01/26/2024 BMI 31.56 kg/m2 01/26/2024 Procedures Procedure Date Ordered Date Performed Result Body Sit e 25113-ZAWX SKIN LESIONS, OVER 4 04/23/2023 N/A 26986-NAJN SKIN LESIONS, OVER 4 07/24/2023 N/A 05023-RIIJKVW NAIL, 6 OR MORE 01/26/2024 N/A 33363-HTRQ SKIN LESIONS, OVER 4 01/26/2024 N/A Encounters Encounter Location Date Provider Diagnosis [address] [address] 04/23/2023 Alexi Zuñiga Tinea unguium B35.1 ; Pain in right toe(s) M79.674 ; Pain in left toe(s) M79.675 ; Skin disease L98.9 ; Unspecified atherosclerosis of alturas arteries of extremities, bilateral legs I70.203 and Tinea pedis B35.[address] [address] 07/24/2023 Alexi Zuñiag Tinea unguium B35.1 ; Pain in right toe(s) M79.674 ; Pain in left toe(s) M79.675 ; Skin disease L98.9 ; Unspecified atherosclerosis of alturas arteries of extremities, bilateral legs I70.203 ; Tinea pedis B35.3 and Hallux valgus (acquired), right foot M20.[address] [facility] [address] 10/22/2023 Alexi Zuñiga Tinea unguium B35.1 ; Pain in right toe(s) M79.674 ; Pain in left toe(s) M79.675 ; Skin disease L98.9 ; Unspecified atherosclerosis of alturas arteries of extremities, bilateral legs I70.203 ; Tinea pedis B35.3 and Hallux valgus (acquired), right foot M20.11 [facility] [address] 01/26/2024 Manda White Atherosclerosis of alturas artery of both lower extremities, with unspecified presence of clinical manifestation I70.203 ; Tinea unguium B35.1 ; Pain in right toe(s) M79.674 and Pain in left toe(s) M79.675 Assessments Encounter Date Diagnosis (ICD Code) Assessment Notes Treatment Notes Treatment Clinical Notes Section Notes 04/23/2023 Tinea unguium (ICD-10 - B35.1) 04/23/2023 Pain in right toe(s) (ICD-10 - M79.674) 07/24/2023 Tinea unguium (ICD-10 - B35.1) 07/24/2023 Pain in right toe(s) (ICD-10 - M79.674) 10/22/2023 Tinea unguium (ICD-10 - B35.1) 10/22/2023 Pain in right toe(s) (ICD-10 - M79.674) 01/26/2024 Atherosclerosis of alturas artery of both lower extremities, with unspecified presence of clinical manifestation (ICD-10 - I70.203) Q7(A), Q8(2B), Q9(1B,2C) 01/26/2024 Tinea unguium (ICD-10 - B35.1) 10/22/2023 Pain in left toe(s) (ICD-10 - M79.675) 07/24/2023 Pain in left toe(s) (ICD-10 - M79.675) 04/23/2023 Pain in left toe(s) (ICD-10 - M79.675) 04/23/2023 Skin disease (ICD-10 - L98.9) 07/24/2023 Skin disease (ICD-10 - L98.9) 10/22/2023 Skin disease (ICD-10 - L98.9) 01/26/2024 Pain in right toe(s) (ICD-10 - M79.674) 01/26/2024 Pain in left toe(s) (ICD-10 - M79.675) 10/22/2023 Unspecified atherosclerosis of alturas arteries of extremities, bilateral legs (ICD-10 - I70.203) 04/23/2023 Unspecified atherosclerosis of alturas arteries of extremities, bilateral legs (ICD-10 - I70.203) 07/24/2023 Unspecified atherosclerosis of alturas arteries of extremities, bilateral legs (ICD-10 - I70.203) 04/23/2023 Tinea pedis (ICD-10 - B35.3) 10/22/2023 Tinea pedis (ICD-10 - B35.3) 07/24/2023 Tinea pedis (ICD-10 - B35.3) 10/22/2023 Hallux valgus (acquired), right foot (ICD-10 - M20.11) 07/24/2023 Hallux valgus (acquired), right foot (ICD-10 - M20.11) Plan Of Treatment Pending Test Test Name Order Date 77283-YLUEFFN NAIL, 6 OR MORE 01/26/2024 01891-HQEZ SKIN LESIONS, OVER 4 01/26/20 21998-OGYP SKIN LESIONS, OVER 4 04/23/19 85839-THLT SKIN LESIONS, OVER 4 07/24/19 24 Next Appt Details Provider Name:Main Kirkpatrick , 04/27/2024 03:30:00 PM, [address] [place] [address], [phone], Insurance Providers Payer Name Payer Address Payer Phone Subscriber Number Group Number Insured Name Patient Relationship to Insured Coverage Start Date Coverage End Date Medicare National [employer] [address] [place] [address] [id number] Cholo Campa Self - patient is the insured Net Transmit & Receive [place] [employer] [address] [place], [place] [address] [id number] Cholo Campa Self - patient is the insured Medical (General) History Medical History History ICD Code Arthritis Back,Hip,and Knee pain Broken bones Cataracts Glaucoma Heart disease Macular degeneration Numbness Measles Mumps Chicken pox Joint implants/screws Surgical History Surgery Date(Month/Year) hip replacement laser eye surgery
--- OUTSIDE RECORDS SUMMARY | 2024-04-22 15:43 | XMS_ITS ---
Author Organization Iggy Bear III, MD Address [address] [place] [address] [place] [address] Care Team Providers Care Product Steward Name Role Phone Iggy Bear Primary Care Provider REASON FOR VISIT Needs call back from Social History Sex Assigned At : Social History Observation Description Sex Assigned At Male Encounters Encounter Location Date Provider Diagnosis Iggy Bear III, MD [address] [place] [address] [place] [address] 04/16/2024 Iggy Bear Plan Of Treatment Next Appt Details Provider Name:Iggy Bear, 07/07/2024 04:00:00 PM, [address] [place] [address] [place], [address], Progress Notes * Cholo ROCKDOB:[birth year] (83 yo M)Acc No.[id number]:04/16/2024 Patient:?Cholo ROCK :1940???Age:83 Y???Sex:Male Phone: Address:[place], [address] * true * Date:? Generated for Printi le/Concepción/eTransmitting on:?04/22/2024 03:42 PM EST
--- OUTSIDE RECORDS SUMMARY | 2024-04-22 15:43 | XMS_ITS ---
Author Organization Iggy Bear III, MD Address [address] [address] Care Team Providers Care Director Traffic And Planning Name Role Phone Iggy Bear Primary Care Provider [phone] REASON FOR VISIT Message Social History Sex Assigned At : Social History Observation Description Sex Assigned At Male Encounters Encounter Location Date Provider Diagnosis Iggy Bear III, MD [address] [place] [address] [place] [address] 04/12/2024 Iggy Bear Plan Of Treatment Next Appt Details Provider Name:Iggy Bear, 07/07/2024 04:00:00 PM, [address] [place] [address] [place], [address], Progress Notes * Cholo ROCKDOB:[birth year] (83 yo M)Acc No.[id number]:04/12/2024 Patient:?Cholo ROCK :1940???Age:83 Y???Sex:Male Phone: Address:[place], [address] * true * Date:? Generated for Printi le/Concepción/eTransmitting on:?04/22/2024 03:43 PM EST
--- OUTSIDE RECORDS SUMMARY | 2024-04-22 15:43 | XMS_ITS ---
Author Organization [facility] Address [address] [place] [address] Care Team Providers Care Waterfront Director Name Role Phone Iggy Bear MD Primary Care Provider Unavailab Manda Cherry Unavailable [phone] Alexi Zuñiga Unavailable [phone] REASON FOR VISIT Painful nail(s) aggrevated by shoes and causing difficulty standing/walking. Medications Medication SIG (Take, Route, Frequency, Duration) Notes Start Date End Date Status Voltaren 1 % as directed Externally Active Ciclopirox Olamine 0.77 % 1 application to affected area Externally Twice a day to effected areas on feet for 30 days Active Encounters Encounter Location Date Provider Diagnosis [facility] [address] [place] [address] 10/23/2023 Alexi Zuñiga Tinea unguium B35.1 ; Pain in right toe(s) M79.674 ; Pain in left toe(s) M79.675 ; Skin disease L98.9 ; Unspecified atherosclerosis of crow arteries of extremities, bilateral legs I70.203 ; [...] (ICD-10 - L98.9) 10/23/2023 Unspecified atherosclerosis of crow arteries of extremities, bilateral legs (ICD-10 - I70.203) 10/23/2023 Tinea pedis (ICD-10 - B35.3) 10/23/2023 Hallux valgus (acquired), right foot (ICD-10 - M20.11) Plan Of Treatment Medication Medication Name Sig Start Date Stop Date Notes Voltaren 1 % as directed Externally Ciclopirox Olamine 0.77 % 1 application to affected area Externally Twice a day to effected areas on feet for 30 days Next Appt Details Follow Up: 3 Months, Reason: Provider Name:Main Kirkpatrick , 04/27/2024 03:30:00 PM, [address] [place] [address], [phone], Procedure Notes * Category Sub-Category Detail Notes [...] as necessary. Patient chooses, no pharmaceutical tx (48579) Keratoma Treatment Parring or Cutting o f Benign Hyperkeratotic Lesion(s) 82753 ( More than 4 Lesions ) - The Benign hyperkeratotic lesions, as described above were pared, and/or cut utilizing a sterile 15 blade, tissue nippers, and/or dremel, Q8 Progress Notes * Cholo OVALLEDOB:[birth year] (83 yo M)Acc No.[id number]:10/23/2023 Progress Note Patient:?Cholo OVALLE Provider:?Alexi Zuñiga DPM :1940???Age:83 Y???Sex:Male Kenneth e:10/23/2023 Address:[address] [place], [place] [id number] Pcp:Iggy Bear MD Subjective: * Chief Complaints: * ???1. Painful nail(s) aggrev ated by shoes and causing difficulty standing/walking.. * HPI: ???Painful Nails:?Pt States Last PCP Visit:?Date:?06/02/2023 ???Skin problems:?Nature:?discolored , dryness , itching.?Location:?B/L , Forefoot , Midfoot , Heel/Rearfoot.?Duration:?several months.?Onset/Cause:?unknown.?Course:?worse.?Severity/Quality:?moderate.?Foot Pain:?Nature:?aching.?Location:?Great toe joint, RIGHT.?Duration:?1 week.?Onset:?unknown, denies trauma.?Course:?intermittent.?Aggravated:?increased pain in am or after rest.?Treatments:?none.?Severity/Quality:?mild.? * ROS:?General/Constitutional:?Nausea?denies.?Vomiting?denies.?Hunger Thirst?denies.?Loss appetite?denies.?Chills?denies.?Fatigue?denies.?Fever?denies.?Night Sweats?denies.?Unexplained weight loss?denies.?Unexplained weight gain?denies.?HEENTM:?Dentures?denies.?Dizziness?denies.?Glasses/contacts?admits.?Retinopathy?de nies.?Blurred/double vision?denies.?TMJ?denies.?Discharge/drainage?denies.?Implants?denies.?Sore throat?denies.?Dental implants?denies.?Hard of hearing ?admits.?Difficulty chewing/swallowing/speaking?denies.?Nose bleeds?denies.?Sore mouth?denies.?Respiratory:?On Oxygen?denies.?Pneumonia/pleurisy?denies.?Bronchitis?denies.?Emphysema?denies.?C oughing?denies.?Cough blood?denies.?Shortness of breath?admits.?Wheezing?admits.?Cardiovascular:?Pacemaker?denies.?MVP?denies.?WPW?denies.?CHF?denies.?Heart attack?denies.?Septal defect?denies.?Rapid beat?denies.?Chest pain ?denies.?Atrial Fib.?admits.?Murmur/Palpitations?denies.?Gastrointestinal:?Hemorrhoids?denies.?Stomach/Abdominal pain?denies.?Dark blood stool?denies.?Irritable bowel ?denies.?Constipation?denies.?Diarrhea?denies.?Hematology:?Swelling?denies.?Clots?denies.?Varicose Veins?denies.?Bruising?denies.?Bleeding problem?denies.?Genitourinary:?Blood urine?denies.?Frequent/Painfu/urination/bladder control?denies.?Kidney stones?admits.?Infection (UTI)?denies.?Nephropathy?denies.?sex trans dis (STD)?denies.?Prostate?denies.?Musculoskeletal:?Hammertoes?denies.?Bunions?denies.?Back Pain?denies.?Muscle Cramps/ Resting?denies.?Muscle cramps / walking?denies.?Generalized aches and pains?admits.?Weakness?denies.?Integ.:?Crooks?denies.?Scars?denies.?Corns/calluses?denies.?Ingrown nails?denies.?Painful nails?denies.?Open Sores?denies.?Rashes?denies.?Neurologic:?Difficulty sleeping?denies.?Brain disorder?denies.?Numbness?admits.?Balance trouble?denies.?Confusion?denies.?Fainting/blackouts?denies.?Tingling?denies.?Tr emors?denies.? * Medical History:? Objective: * Vitals:? * Examination: ???Nails: ?NAILS are:?elongated,overgrown,dystrophic,greater than 3mm thick,discolored and friable with crumbly malodorous subungual debris, with pain on palpation, 1-5 B/L.?General Examination: ?GENERAL APPEARANCE:?pleasant, alert, well nourished, well developed, well hydrated, with good attention to hygene/body habitus, and in no acute distress.?ORIENTED:?person,place, and time.?Neurological: ?SENSORY:?neurological exam reveals intact sensorium, pain sensation normal, vibration sensation intact, pinprick sensation is normal in the lower extremities, anesthesia, burning, tingling, B/L, Neurological exam demonstrates pop dorsum right first mtpj.?Vascular: ?DP PULSES (B):?0/4, B/L.?PT PULSES (B):?0/4, B/L.?CAPILLARY FILL TIME:?delayed, all digits, B/L.?TROPHIC CONDITION-TEXTURE/ELASTICITY/TURGOR/HAIR GROWTH (B):?decreased, B/L.?EDEMA (C):?absent, B/L.?TELANGECTASIA:?absent, B/L.?Dermatologic: ?SKIN FINDINGS:?Skin shows sign(s) of, erythema, scaling, in a moccasin fashion, no fissure(s) present, B/L , Skin exam reveals Keratotic lesion(s) located at , Plantar , Heel(s) , Midfoot , Forefoot , B/L.?Orthopedic: ?MUSCLE STRENGTH:?5/5 all groups in a symmetrical fashion , B/L.? Assessment: * Assessment: 1.?Tinea unguium - B35.1 (Pr imary)???2.?Pain in right toe(s) - M79.674???3.?Pain in left toe(s) - M79.675???4.?Skin disease - L98.9???5.?Unspecified atherosclerosis of crow arteries of extremities, bilateral legs - I70.203???6.?Tinea pedis - B35.3???7.?Hallux valgus (acquired), right foot - M20.11??? Plan: * Treatment: 2.?Tinea pedis? Start Ciclopirox Olamine Cream, 0.77 %, 1 application to affected area, Externally, Twice a day to effected areas on feet, 30 days, 90, Refills 2.?? * Procedures:?Debride Nail 6-10:?Nail debridement?Nail debridement performed extensively to reduce/remove overall nail length and girth, subungual debris, and necrotic tissue, by manual and electrical means with use of a nail nipper and/or dremel, to more viable healthy nail plate or bed tissue 6-10. Silver nitrate used for any petechial bleeding as necessary. Patient chooses, no pharmaceutical tx (31162).?Keratoma Treatment:?Parring or Cutting of Benign Hyperkeratotic Lesion(s)?03088 ( More than 4 Lesions ) - The Benign hyperkeratotic lesions, as described above were pared, and/or cut utilizing a sterile 15 blade, tissue nippers, and/or dremel, Q8.? * Procedure Codes:?06933 DEBRI DE NAIL, 6 OR MORE, Modifiers: XS , 73536 TRIM SKIN LESIONS, OVER 4, Modifiers: XS * Follow Up:?3 Months * Images: * The named appointment provid er may or may not be the originator of this progress note, and it is not deemed complete until electronically signed by the appointment provider. Sign off status: Pending * Provider:Jnoas Zuñiga DPM Date:? 024 Generated for Deena lujan/Concepción/Krystal on:?04/22/2024 03:43 PM EST History and Physical Notes * [...] RIG HT Duration: 1 week Onset: unknown, cayetano hartley ma Course: intermittent Aggravated: increased pain in am [...]
--- OUTSIDE RECORDS SUMMARY | 2024-04-22 15:43 | XMS_ITS ---
Author Organization [facility] Address [address] [facility] [place] [address] Care Team Providers Care Manager Community Relations Name Role Phone Iggy Bear MD Primary Care Provider Unavailab Manda Cherry Unavailable [phone] Alexi Zuñiga Unavailable [phone] Allergies Allergen (clinical drug ingredient) Drug/Non Drug Allergy documented on EMR Reaction Allergy Type Onset Date Status IVP (uncoded) hard time breathing Allergy Active REASON FOR VISIT Painful nail(s) aggrevated by shoes and causing difficulty standing/walking. Medications Medication SIG (Take, Route, Frequency, Duration) Notes Start Date End Date Status Rhopressa 0.02 % Ophthalmic for 90 Days Active Ciclopirox Olamine 0.77 % 1 application to affected area Externally Twice a day to effected areas on feet for 30 days Active Brimonidine Tartrate 0.2 % PLACE 1 DROP INTO LEFT EYE TWICE A DAY Ophthalmic for 90 Days Active Lumigan 0.01 % Ophthalmic for 50 Days Active Prazolamine 01/10/2023 Active Escitalopram Oxalate 10 MG TAKE 1 TABLET BY MOUTH EVERY DAY FOR 30 DAYS Oral for 90 Days Active Fish Oil 01/10/2023 Active Finasteride 5 MG TAKE 1 TABLET BY KEAGAN TH EVERY DAY Oral for 90 Days Active Pradaxa 01/10/2023 Active Aredia 01/10/2023 Not-Takin g Lisinopril 5 MG Oral for 90 Days Active Metoprolol Succinate ER 100 MG Oral for 90 Days Active Voltaren 1 % as directed Externally Active Social History Tobacco Use: Social History [...] Are you an other tobacco user? 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, bilateral legs I70.203 ; Tinea pedis B35.3 and Hallux valgus (acquired), right foot M20.11 Assessments Encounter Date Diagnosis (ICD Code) Assessment Notes Treatment Notes Treatment Clinical Notes Section Notes 10/22/2023 Tinea unguium (ICD-10 - B35.1) 10/22/2023 Pain in right toe(s) (ICD-10 - M79.674) 10/22/2023 Pain in left toe(s) (ICD-10 - M79.675) 10/22/2023 Skin disease (ICD-10 - L98.9) 10/22/2023 Unspecified atherosclerosis of algaaciq arteries of extremities, bilateral legs (ICD-10 - I70.203) 10/22/2023 Tinea pedis (ICD-10 - B35.3) 10/22/2023 Hallux valgus (acquired), right foot (ICD-10 - M20.11) Plan Of Treatment Medication Medication Name Sig Start Date Stop Date Notes Ciclopirox Olamine 0.77 % 1 application to affected area Externally Twice a day to effected areas on feet for 30 days Voltaren 1 % as directed Externally Next Appt Details Follow Up: 3 Months, Reason: Provider Name:Main Kirkpatrick , 04/27/2024 03:30:00 PM, [address] [place], [address], Procedure Notes * Category Sub-Category Detail Notes [...] as necessary. Patient chooses, no pharmaceutical tx (76749) Keratoma Treatment Parring or Cutting o f Benign Hyperkeratotic Lesion(s) 12133 ( More than 4 Lesions ) - The Benign hyperkeratotic lesions, as described above were pared, and/or cut utilizing a sterile 15 blade, tissue nippers, and/or dremel, Q8 Progress Notes * Cholo OVALLEDOB:[birth year] (83 yo M)Acc No.[id number]:10/22/2023 Progress Note Patient:?Cholo Ovalle Provider:?Alexi Zuñiga DPM :1940???Age:83 Y???Sex:Male Kenneth e:10/22/2023 Address:[address] [place] [address] [id number] Pcp:Iggy Bear MD Subjective: * Chief Complaints: * ??? Painful nail(s) aggrevat ed by shoes and causing difficulty standing/walking. * HPI: ???Painful Nails:?Pt States Last PCP Visit:?Date:?06/02/2023 ???Skin problems:?Nature:?discolored , dryness , itching.?Location:?B/L , Forefoot , Midfoot , Heel/Rearfoot.?Duration:?several months.?Onset/Cause:?unknown.?Course:?worse.?Severity/Quality:?moderate.?Foot Pain:?Nature:?aching.?Location:?Great toe joint, RIGHT.?Duration:?1 week.?Onset:?unknown, denies trauma.?Course:?intermittent.?Aggravated:?increased pain in am or after rest.?Treatments:?none.?Severity/Quality:?mild.? * ROS:?General/Constitutional:?Nausea?denies, denies.?Vomiting?denies, denies.?Hunger Thirst?denies, denies.?Loss appetite?denies, denies.?Chills?denies, denies.?Fatigue?denies, denies.?Fever?denies, denies.?Night Sweats denies, denies.?Unexplained weight loss?denies, denies.?Unexplained weight gain?denies, denies.?HEENTM:?Dentures?denies, denies.?Dizziness?denies, denies.?Glasses/contacts?admits, admits.?Retinopathy?denies, denies.?Blurred/double vision?denies, denies.?TMJ?denies, denies.?Discharge/drainage?denies, denies.?Implants?denies, denies.?Sore throat?denies, denies.?Dental implants?denies, denies.?Hard of hearing ?admits, admits.?Difficulty chewing/swallowing/speaking?denies, denies.?Nose bleeds?denies, denies.?Sore mouth?denies, denies.?Respiratory:?On Oxygen?denies, denies.?Pneumonia/pleurisy?denies, denies.?Bronchitis?denies, denies.?Emphysema?denies, denies.?Coughing?denies, denies.?Cough blood?denies, denies.?Shortness of breath?admits, admits.?Wheezing?admits, admits.?Cardiovascular:?Pacemaker?denies, denies.?MVP?denies, denies.?WPW?denies, denies.?CHF?denies, denies.?Heart attack?denies, denies.?Septal defect?denies, denies.?Rapid beat?denies, denies.?Chest pain ?denies, denies.?Atrial Fib.?admits, admits.?Murmur/Palpitations?denies, denies.?Gastrointestinal:?Hemorrhoids?denies, denies.?Stomach/Abdominal pain?denies, denies.?Dark blood stool?denies, denies.?Irritable bowel ?denies, denies.?Constipation?denies, denies.?Diarrhea?denies, denies.?Hematology:?Swelling?denies, denies.?Clots?denies, denies.?Varicose Veins?denies, denies.?Bruising?denies, denies.?Bleeding problem?denies, denies.?Genitourinary:?Blood urine?denies, denies.?Frequent/Painfu/urination/bladder control?denies, denies.?Kidney stones?admits, admits.?Infection (UTI)?denies, denies.?Nephropathy?denies, denies.?sex trans dis (STD)?denies, denies.?Prostate?denies, denies.?Musculoskeletal:?Hammertoes?denies, denies.?Bunions?denies, denies.?Back Pain?denies, denies.?Muscle Cramps/ Resting?denies, denies.?Muscle cramps / walking?denies, denies.?Generalized aches and pains?admits, admits.?Weakness?denies, denies.?Integ.:?Crooks?denies, denies.?Scars?denies, denies.?Corns/calluses?denies, denies.?Ingrown nails?denies, denies.?Painful nails?denies, denies.?Open Sores?denies, denies.?Rashes?denies, denies.?Neurologic:?Difficulty sleeping?denies, denies.?Brain disorder?denies, denies.?Numbness?admits, admits.?Balance trouble?denies, denies.?Confusion?denies, denies.?Fainting/blackouts?denies, denies.?Tingling?denies, denies.?Tremors?denies, denies.? * Medical History:? * Surgical History:?hip replac ement * Hospitalization/Major Diagno stic Procedure:?Denies Past Hospitalization * Family History:?Mother: dece ased.?Father: , stroke.? * Social History:?Tobacco Use:?Tobacco Use/Smoking?Are you a:?former smoker ?Additional Findings: Tobacco Non-User?Current non-smoker ?Tobacco use other than smoking?Are you an other tobacco user??No ???Drugs/Alcohol:?Drugs?Have you used drugs other than those for medical reasons in the past 12 months??No ?Alcohol Screen?Did you have a drink containing alcohol in the past year??No ?Points?0 ?Interpretation?Negative ???Miscellaneous:?Caffeine: yes, 1-2 cups per day. ?Children: yes, 1. ?Exercise: yes, walking. ?Marital status: single. ?Occupation: Retired, machine shop space operations. * Medications:?TakingCiclopiro x Olamine 0.77 % Cream 1 application to affected area Externally Twice a day to effected areas on feetPrazolamine Brimonidine Tartrate 0.2 % Solution PLACE 1 DROP INTO LEFT EYE TWICE A DAY Ophthalmic Lumigan 0.01 % Solution Ophthalmic Rhopressa 0.02 % Solution Ophthalmic Lisinopril 5 MG Tablet Oral Metoprolol Succinate ER 100 MG Tablet Extended Release 24 Hour Oral Finasteride 5 MG Tablet TAKE 1 TABLET BY MOUTH EVERY DAY Oral Pradaxa Escitalopram Oxalate 10 MG Tablet TAKE 1 TABLET BY MOUTH EVERY DAY FOR 30 DAYS Oral Fish Oil Voltaren 1 % Gel as directed Externally Taking Ciclopirox Olamine 0.77 % Cream 1 application to affected area Externally Twice a day to effected areas on feetTaking Prazolamine Taking Brimonidine Tartrate 0.2 % Solution PLACE 1 DROP INTO LEFT EYE TWICE A DAY Ophthalmic Taking Lumigan 0.01 % Solution Ophthalmic Taking Rhopressa 0.02 % Solution Ophthalmic Taking Lisinopril 5 MG Tablet Oral Taking Metoprolol Succinate ER 100 MG Tablet Extended Release 24 Hour Oral Taking Finasteride 5 MG Tablet TAKE 1 TABLET BY MOUTH EVERY DAY Oral Taking Pradaxa Taking Escitalopram Oxalate 10 MG Tablet TAKE 1 TABLET BY MOUTH EVERY DAY FOR 30 DAYS Oral Taking Fish Oil Taking Voltaren 1 % Gel as directed Externally Not-Taking/PRNAredia Medication List reviewed and reconciled with the patientNot-Taking/PRN Aredia Medication List reviewed and reconciled with the patient * Allergies:?IVP: hard time br eathingyes[Allergies Verified] Objective: * Vitals:?Ht: 5 ft 10 in, Wt:2 20, BMI:31.56, Shoe size:9.5. * Examination: ???Nails: ?NAILS are:?elongated,overgrown,dystrophic,greater than 3mm [...] demonstrates pop dorsum right first mtpj.?Vascular: ?DP PULSES:?0/4, B/L.?PT PULSES:?0/4, B/L.?CAPILLARY FILL TIME:?delayed, all digits, B/L.?HAIR GROWTH/TEXTURE/ELASTICITY/TURGOR:?decreased, B/L.?EDEMA:?absent, B/L.?TELANGECTASIA:?absent, B/L.?Dermatologic: ?SKIN FINDINGS:?Skin shows sign(s) of, erythema, scaling, in a moccasin fashion, no fissure(s) present, B/L , Skin exam reveals Keratotic lesion(s) located at , Plantar , Heel(s) , Midfoot , Forefoot , B/L.?Orthopedic: ?MUSCLE STRENGTH:?5/5 all groups in a symmetrical fashion , B/L.? Assessment: * Assessment: 1.?Tinea unguium - B35.1 (Pr imary)?2.?Pain in right toe(s) - M79.674?3.?Pain in left toe(s) - M79.675?4.?Skin disease - L98.9?5.?Unspecified atherosclerosis of algaaciq arteries of extremities, bilateral legs - I70.203?6.?Tinea pedis - B35.3?7.?Hallux valgus (acquired), right foot - M20.11? Plan: * Treatment: 2.?Tinea pedis? Start Ciclopirox [...] as necessary. Patient chooses, no pharmaceutical tx (81798).?Keratoma Treatment:?Parring or Cutting of Benign Hyperkeratotic Lesion(s)?94287 ( More than 4 Lesions ) - The Benign hyperkeratotic lesions, as described above were pared, and/or cut utilizing a sterile 15 blade, tissue nippers, and/or dremel, Q8.? * Procedure Codes:?58494 DEBRI DE NAIL, 6 OR MORE, Modifiers: XS 65382 TRIM SKIN LESIONS, OVER 4, Modifiers: XS * Follow Up:?3 Months * Images: * Sign off status: Completed true * Provider:?Alexi Zuñiga DPM Date:? 024 Generated for Deena lujan/Concepción/eTmelonie on:?04/22/2024 03:43 PM EST History and Physical [...] RIG HT Duration: 1 week Onset: unknown, maryies naeem lou Course: intermittent Aggravated: increased pain [...]
--- OUTSIDE RECORDS SUMMARY | 2024-04-22 15:43 | XMS_ITS ---
Author Organization Iggy Bear III, MD Address [address] [facility] [address] Care Team Providers Care Grinder Set Up Operator Thread Name Role Phone Iggy Bear Primary Care Provider REASON FOR VISIT Message Social History Sex Assigned At : Social History Observation Description Sex Assigned At Male Encounters Encounter Location Date Provider Diagnosis Iggy Bear III, MD [address] [place] [address] [place] [address] 04/22/2024 Iggy Bear Plan Of Treatment Next Appt Details Provider Name:Iggy Bear, 07/07/2024 04:00:00 PM, [address] [place] [address] [place], [address], Progress Notes * Abel MUNIR Cholo Maria MDOB:[birth year] (83 yo M)Acc No.[id number]:04/22/2024 Patient:? MUNIR Cholo J :1940???Age:83 Y???Sex:Male Phone: Address:[place], [address] * * Date:?
--- OUTSIDE RECORDS SUMMARY | 2024-04-22 15:43 | XMS_ITS ---
Author Organization [facility] Address [address] [facility] [place] [address] Care Team Providers Care Paper Rewinder Operator Name Role Phone Iggy Bear MD Primary Care Provider UnavailManda Metcalf Unavailable [phone] Allergies Allergen (clinical drug ingredient) Drug/Non Drug Allergy documented on EMR Reaction Allergy Type Onset Date Status IVP (uncoded) hard time breathing Allergy Active REASON FOR VISIT Pcp-11/24, At Risk Footcare, Painful Nail(s) aggravated by shoes and causing difficulty standing/walking. Medications Medication SIG (Take, Route, Frequency, Duration) Notes Start Date End Date Status Rhopressa 0.02 % Ophthalmic for 90 Days Active Finasteride 5 MG TAKE 1 TABLET BY KEAGAN TH EVERY DAY Oral for 90 Days Active Pradaxa 01/10/2023 Active Lisinopril 5 MG Oral for 90 Days Active Metoprolol Succinate ER 100 MG Oral for 90 Days Active Lumigan 0.01 % Ophthalmic for 50 Days Active Prazolamine 01/10/2023 Active Brimonidine Tartrate 0.2 % PLACE 1 DROP INTO LEFT EYE TWICE A DAY Ophthalmic for 90 Days Active Ciclopirox Olamine 0.77 % 1 application to affected area Externally Twice a day to effected areas on feet for 30 days Active Voltaren 1 % as directed Externally Active Fish Oil 01/10/2023 Active Aredia 01/10/2023 Not-Takin g Escitalopram Oxalate 10 MG TAKE 1 TABLET BY MOUTH EVERY DAY FOR 30 DAYS Oral for 90 Days Active Social History Tobacco Use: Social History Observation Description Date Details (start date - stop date) Former Smoker NA - NA Tobacco Use/Smoking Question Answer Notes Are you a: former smoker Additional Findings: Tobacco Non-User Current no n-smoker Tobacco use other than smoking: Question Answer Notes Are you an other tobacco user? No Problems Problem Type SNOMED Code ICD Code Onset Dates Problem Status W/U Status Risk Notes Problem Atherosclerosis of morongo artery of both lower extremities, with unspecified presence of clinical manifestation (I70.203) Active confirmed Q7(A), Q8(2B), Q9(1B,2C) Vital Signs Height 5 ft 10 in in 01/26/2024 Weight 220 lbs 01/26/2024 BMI 31.56 kg/m2 01/26/2024 Procedures Procedure Date Ordered Date Performed Result Body Sit e 68901-BPVWFXB NAIL, 6 OR MORE 01/26/2024 N/A 70405-KCVU SKIN LESIONS, OVER 4 01/26/2024 N/A Encounters Encounter Location Date Provider Diagnosis [facility] [address] [place] [address] 01/26/2024 Manda Baileyaker Atherosclerosis of morongo artery of both lower extremities, with unspecified presence of clinical manifestation I70.203 ; Tinea unguium B35.1 ; Pain in right toe(s) M79.674 and Pain in left toe(s) M79.675 Assessments Encounter Date Diagnosis (ICD Code) Assessment Notes Treatment Notes Treatment Clinical Notes Section Notes 01/26/2024 Atherosclerosis of morongo artery of both lower extremities, with unspecified presence of clinical manifestation (ICD-10 - I70.203) Q7(A), Q8(2B), Q9(1B,2C) 01/26/2024 Tinea unguium (ICD-10 - B35.1) 01/26/2024 Pain in right toe(s) (ICD-10 - M79.674) 01/26/2024 Pain in left toe(s) (ICD-10 - M79.675) Plan Of Treatment Pending Test Test Name Order Date 14421-XFJBHMW NAIL, 6 OR MORE 01/26/2024 74911-PEUC SKIN LESIONS, OVER 4 01/26/20 24 Next Appt Details Follow Up: prn, Reason: Provider Name:Main Kirkpatrick , 04/27/2024 03:30:00 PM, [address] [place] [address], [phone], Procedure Notes * Category Sub-Category Detail Notes Debride Nail 6-10 Nail debridement Performance o f this nail treatment by a nonprofessional would put this patients foot and overall health at risk. Therefore, debridement to affected nail(s), as described in exam, was performed extensively to reduce/remove overall nail length, girth, thickness, subungual debris, and necrotic tissue, by manual and/or electrical means through the use of a nail nipper and/or dremel-type tool and cutter grinder, to a more viable healthy nail plate or bed tissue 6-10 nails in total. Silver nitrate was used for any petechial bleeding as necessary. Definitive antifungal treatment options, both pharmaceutical and surgical, have been reviewed and discussed with the patient. The patient solely prefers the use of intermittent/as needed professional debridement services for their nail condition and understands the need for additional periodic treatments to maintain effectiveness in symptomatic relief - 16742 Keratoma Treatment Parring or Cutting o f Benign Hyperkeratotic Lesion(s) (-57) More than 4 Lesions - The Benign hyperkeratotic lesions, ( 7) in total, locations as stated and described in exam, were pared, and/or cut utilizing a sterile 15 blade, tissue nippers, and/or power dremel instrumentation - 92103, Q8 Progress Notes * Cholo OVALLEDOB:[birth year] (83 yo M)Acc No.[id number]:01/26/2024 Progress Note Patient:?Cholo OVALLE Provider:?Manda White DPM :1940???Age:83 Y???Sex:Male Kenneth e:01/26/2024 Address:[address] [place], [place] [id number] Pcp:Iggy Bear MD Subjective: * Chief Complaints: * ???Pcp-11/24At Risk Footcare Painful Nail(s) aggravated by shoes and causing difficulty standing/walking. * HPI: ???At Risk footcare:?Pt States Last PCP Visit:?Date?11/13/2023 * ROS:?General/Constitutional:?Nausea?denies.?Vomiting?denies.?Hunger Thirst?denies.?Loss appetite?denies.?Chills?denies.?Fatigue?denies.?Fever?denies.?Night Sweats?denies.?Unexplained weight loss?denies.?Unexplained weight gain?denies.?HEENTM:?Dentures?denies.?Dizziness?denies.?Glasses/contacts?admits.?Retinopathy?de nies.?Blurred/double vision?denies.?TMJ?denies.?Discharge/drainage?denies.?Implants?denies.?Sore throat?denies.?Dental implants?denies.?Hard of hearing ?admits.?Difficulty chewing/swallowing/speaking?denies.?Nose bleeds?denies.?Sore mouth?denies.?Respiratory:?On Oxygen?denies.?Pneumonia/pleurisy?denies.?Bronchitis?denies.?Emphysema?denies.?C oughing?denies.?Cough blood?denies.?Shortness of breath?admits.?Wheezing?admits.?Cardiovascular:?Pacemaker?denies.?MVP?denies.?WPW?denies.?CHF?denies.?Heart attack?denies.?Septal defect?denies.?Rapid beat?denies.?Chest pain ?denies.?Atrial Fib.?admits.?Murmur/Palpitations?denies.?Gastrointestinal:?Hemorrhoids?denies.?Stomach/Abdominal pain?denies.?Dark blood stool?denies.?Irritable bowel ?denies.?Constipation?denies.?Diarrhea?denies.?Hematology:?Swelling?denies.?Clots?denies.?Varicose Veins?denies.?Bruising?denies.?Bleeding problem?denies.?Genitourinary:?Blood urine?denies.?Frequent/Painfu/urination/bladder control?denies.?Kidney stones?admits.?Infection (UTI)?denies.?Nephropathy?denies.?sex trans dis (STD)?denies.?Prostate?denies.?Musculoskeletal:?Hammertoes?denies.?Bunions?denies.?Back Pain?denies.?Muscle Cramps/ Resting?denies.?Muscle cramps / walking?denies.?Generalized aches and pains?admits.?Weakness?denies.?Integ.:?Crooks?denies.?Scars?denies.?Corns/calluses?denies.?Ingrown nails?denies.?Painful nails?denies.?Open Sores?denies.?Rashes?denies.?Neurologic:?Difficulty sleeping?denies.?Brain disorder?denies.?Numbness?admits.?Balance trouble?denies.?Confusion?denies.?Fainting/blackouts?denies.?Tingling?denies.?Tr emors?denies.? * Medical History:? * Surgical History:?hip replac ement laser eye surgery * Hospitalization/Major Diagno stic Procedure:?Denies Past Hospitalization * Family History:?Mother: dece ased.?Father: , stroke.? * Social History:?Tobacco Use:?Tobacco Use/Smoking?Are you a:?former smoker ?Additional Findings: Tobacco Non-User?Current non-smoker ?Tobacco use other than smoking?Are you an other tobacco user??No * Medications:?TakingCiclopiro x Olamine 0.77 % Cream 1 application to affected area Externally Twice a day to effected areas on feet Voltaren 1 % Gel as directed Externally Prazolamine Brimonidine Tartrate 0.2 % Solution PLACE 1 [...] DAY FOR 30 DAYS Oral Fish Oil Taking Ciclopirox Olamine 0.77 % Cream 1 application to affected area Externally Twice a day to effected areas on feet Taking Voltaren 1 % Gel as directed Externally Taking Prazolamine Taking Brimonidine Tartrate 0.2 % Solution [...] FOR 30 DAYS Oral Taking Fish Oil Not-Taking/PRNAredia Medication List reviewed and reconciled with the patientNot-Taking/PRN Aredia Medication List reviewed and reconciled with the patient * Allergies:?IVP: hard time br eathingyes[Allergies Verified] Objective: * Vitals:?Ht: 5 ft 10 in, Wt: 220, BMI: 31.56, Shoe size: 9.5, Ht-cm: 177.8 cm, Wt-k.79 kg. * Examination: ???Vascular: ?DP PULSES(B):?0/4, B/L.?PT PULSES(B):?0/4, B/L.?CAPILLARY FILL TIME:?delayed, all digits, B/L.?TROPHIC CONDITION-TEXTURE/ELASTICITY/TURGOR/HAIR GROWTH(B):?decreased,fragile, thin, shiny skin,?with sparse to absent hair growth, B/L.?EDEMA(C):?absent, B/L.?TELANGECTASIA:?absent, B/L.?Nails: ?NAILS are:?Elongated, overgrown, dystrophic, lytic, greater than 3mm thick, discolored and friable with crumbly malodorous subungual debris, with pain on palpation, 1-5 B/L.?Dermatologic: ?SKIN FINDINGS:?Skin exam reveals keratotic lesion(s) located at, SUB 5th MTBase, B/L, plantar heels bilateral, Lateral rearfoot, LEFT, sub 1st metatarsal head B/L.? Assessment: * Assessment: 1.?Atherosclerosis of morongo artery of both lower extremities, with unspecified presence of clinical manifestation - I70.203 (Primary)???Notes :Q7(A), Q8(2B), Q9(1B,2C)???2.?Tinea unguium - B35.1???3.?Pain in right toe(s) - M79.674???4.?Pain in left toe(s) - M79.675??? Plan: * Treatment: 2.?Tinea unguium?Procedure: 13254-WINRFSZ NAIL, 6 OR MORE * Procedures:?Debride Nail 6-10:?Nail debridement?Performance of this nail treatment by a nonprofessional would put this patients foot and overall health at risk. Therefore, debridement to affected nail(s), as described in exam, was performed extensively to reduce/remove overall nail length, girth, thickness, subungual debris, and necrotic tissue, by manual and/or electrical means through the use of a nail nipper and/or dremel-type tool and cutter grinder, to a more viable healthy nail plate or bed tissue 6-10 nails in total. Silver nitrate was used for any petechial bleeding as necessary. Definitive antifungal treatment options, both pharmaceutical and surgical, have been reviewed and discussed with the patient. The patient solely prefers the use of intermittent/as needed professional debridement services for their nail condition and understands the need for additional periodic treatments to maintain effectiveness in symptomatic relief - 16167.?Keratoma Treatment:?Parring or Cutting of Benign Hyperkeratotic Lesion(s)?(-57) More than 4 Lesions - The Benign hyperkeratotic lesions, ( 7) in total, locations as stated and described in exam, were pared, and/or cut utilizing a sterile 15 blade, tissue nippers, and/or power dremel instrumentation - 81735, Q8.? * Procedure Codes:?68065 DEBRI DE NAIL, 6 OR MORE, Modifiers: XS 42237 TRIM SKIN LESIONS, OVER 4, Modifiers: XS * Follow Up:?prn * Images: * Sign off status: Completed true * Provider:?Manda White DPM Date:?03/27/2023 Generated for Memei ng/Faxochitlg/eTransmitting on:?04/22/2024 03:42 PM EST History and Physical Notes * HPI (History of Present Illness) Category Sub-Category Detail Notes Category Not es At Risk footcare Pt States Last PCP Visit: Date: Examination Category Sub-Category Detail Notes Category Not es Vascular DP PULSES (B): 0/4, B/L PT PULSES (B): 0/4, B/L CAPILLARY FILL TIME: delayed, all digits , B/L TROPHIC CONDITION-TEXTURE/ELASTICITY/TURGOR/HAIR GROWTH (B): decreased,fragile, thin, shiny skin, wit h sparse to absent hair growth, B/L EDEMA (C): absent, B/L TELANGECTASIA: absent, B/L Nails NAILS are: Elongated, overg rown, dystrophic, lytic, greater than 3mm thick, discolored and friable with crumbly malodorous subungual debris, with pain on palpation, 1-5 B/L Dermatologic SKIN FINDINGS: Skin exam reveal s keratotic lesion(s) located at, SUB 5th MTBase, B/L, plantar heels bilateral, Lateral rearfoot, LEFT, sub 1st metatarsal head B/L
== END 2024-04-22 15:45 | disposition home or self-care (01) ==
PROVIDERS: PCP Internal Medicine Medical Oncology; Visit Provider Internal Medicine Cardiovascular Disease
DX: I48.20 Chronic atrial fibrillation, unspecified (principal); I50.30 Unspecified diastolic (congestive) heart failure
CPT/HCPCS: 99214; G2211

== ENCOUNTER → 2024-04-22 14:28 | Outpatient (BNVA) | payer MEDICARE, SELFPAY | PROVIDERS: PCP Internal Medicine Medical Oncology; Visit Provider Internal Medicine Cardiovascular Disease | DX: I48.20 Chronic atrial fibrillation, unspecified (principal); I50.30 Unspecified diastolic (congestive) heart failure | CPT/HCPCS: 99212 ==

== ENCOUNTER 2024-09-30 08:11 | Outpatient (REF) | payer MEDICARE, SELFPAY ==
--- OUTSIDE RECORDS SUMMARY | 2024-07-07 12:00 | XMS_ITS ---
Author Organization Iggy Bear III, MD Address [address] [place] [place] [address] Care Team Providers Care Student Admissions Clerk Name Role Phone Iggy Bear Primary Care [...] Date Provider Diagnosis Iggy Bear III, MD [address] [place] [address] [place] [address] 07/07/2024 Iggy Bear Chronic obstructive pulmonary disease, [...] Reason: ov review labs Provider Name:Iggy Bear, 10/07/2024 10:30:00 AM, [address] [facility] [place], [place], [address], Provider Name:Iggy Bear, 07/13/2025 04:00:00 PM, [address] [facility] [place], [place], [address], Progress Notes * Cholo ROCKDOB:[birth year] (83 yo M)Acc No.[id number]:07/07/2024 Progress Notes Patient: Cholo MORENO Provider: Loc Bear MD :1940 A ge:83 Y S ex:Male Date:07/07/2024 Phone: Address:[address] [place] [address] [place] Subjective: * Chief Complaints: * A nnual [...] M inimal Depression C OVID-19 Screening: [place] [place]. Questions H ave [...] and incarcerated left inguinal hernia, Dr. Smith, [facility] 01/2019double cataract surgery 01/2019glaucoma surgery 03/05/2022Trabeculectomy with Mitomycin and +/- 5FU 03/2022 * Hospitalization/Major Diagno stic Procedure: g out, knee, C * Family History: F ather: 73 yrs, Multiple myocardial infarctions, stroke, coronary artery disease, emphysema, atrial fibrillation, worked at [employer]. M other: 88 yrs, Alzheimer's disease. C [...] 07/07/2024 Generated for Memei le/Concepción/eTransmitting on: 0 09/30/2024 08:20 AM EDT History and Physical Notes * [...]
--- OUTSIDE RECORDS SUMMARY | 2024-09-30 08:21 | XMS_ITS | Patient Health Record ---
[facility] Organization [facility] Address [address] [place] [address] Care Team Providers Care Chief Environmental Commitment Officer Name Role Phone Iggy Bear MD Primary Care Provider Unavailab Manda Cherry Unavailable [phone] Alexi Zuñiga Unavailable [phone] Main Kir[place] Unavailable [phone] Allergies Allergen (clinical drug ingredient) Drug/Non Drug Allergy documented on EMR Reaction Allergy Type Onset Date Status IVP (uncoded) hard time breathing Allergy Active Reason For Referral No Information Medications Medication SIG (Take, Route, Frequency, Duration) Notes Start Date End Date Status Furosemide Active Ketoconazole 2 % 1 application Apply a thin layer of cream externally Twice a day to scaling areas on feet including between the toes; Duration: 30 days 08/04/2024 Active Brimonidine Tartrate 0.2 % PLACE 1 DROP INTO LEFT EYE TWICE A DAY Ophthalmic; Duration: 90 Days Active Wixela Inhub Active Ciclopirox Olamine 0.77 % 1 application Externally Twice a day to skin of feet including between the toes; Duration: 30 days Active Dorzolamide HCl Acti ve Aredia 01/10/2023 Not-Anabel g Escitalopram Oxalate 10 MG TAKE 1 TABLET BY MOUTH EVERY DAY FOR 30 DAYS Oral; Duration: 90 Days Active Allopurinol 100 MG TAKE ONE TABLET BY MOUTH DAILY Oral; Duration: 30 Days Active Metoprolol Succinate ER 100 MG Oral; Duration: 90 Days Acti ve Finasteride 5 MG TAKE 1 TABLET BY KEAGAN TH EVERY DAY Oral; Duration: 90 Days Active Rhopressa 0.02 % Ophthalmic; Duration : 90 Days Active Lisinopril 5 MG Oral; Duration: 90 Days Active Lumigan 0.01 % Ophthalmic; Duration : 50 Days Active Social History Tobacco Use: Social History Observation Description Date Details (start date - stop date) Never Smoker NA - NA Tobacco use other than smoking: Question Answer Notes Are you an other tobacco user? No Tobacco Control (Standard) Question Answer Notes Tobacco use: Nonsmoker Additional Findings: Tobacco non-user Current no nsmoker AUDIT-C (Standard) Question Answer Notes Did you have a drink containing alcohol in the p ast year? No Points 0 Interpretation Negative Problems Problem Type SNOMED Code ICD Code Onset Dates Problem Status W/U Status Risk Notes Problem Bilateral atherosclerosis of arteries of lower limbs (disorder) ([id number] ) Atherosclerosis of telida artery of both lower extremities, with unspecified presence of clinical manifestation (I70.203) Active confirmed Q7(A), Q8(2B), Q9(1B,2 C) Vital Signs Blood pressure diastolic 70 mm Hg 04/27/2024 Height 5 ft 10 in in 04/27/2024 Blood pressure systolic 130 mm Hg 04/27/2024 Weight 204 lbs 04/27/2024 BMI 29.27 kg/m2 04/27/2024 Procedures Procedure Date Ordered Date Performed Result Body Sit e 04463-RBGAEBL NAIL, 6 OR MORE 01/26/2024 N/A 50222-LFXO SKIN LESIONS, OVER 4 01/26/2024 N/A 56185-UPUGEQL NAIL, 6 OR MORE 04/27/2024 N/A 05065-IYYZ SKIN LESIONS, OVER 4 04/27/2024 N/A 09981-DBNHTJY NAIL, 6 OR MORE 08/04/2024 N/A 07568-BFJC SKIN LESIONS, OVER 4 08/04/2024 N/A Encounters Encounter Location Date Provider Diagnosis [facility] [address] [place] [address] 10/22/2023 Alexi Zuñiga Tinea unguium B35.1 ; Pain in right toe(s) M79.674 ; Pain in left toe(s) M79.675 ; Skin disease L98.9 ; Unspecified atherosclerosis of telida arteries of extremities, bilateral legs I70.203 ; Tinea pedis B35.3 and Hallux valgus (acquired), right foot M20.[address] [address] 01/26/2024 Manda White Atherosclerosis of telida artery of both lower extremities, with unspecified presence of clinical manifestation I70.203 ; Tinea unguium B35.1 ; Pain in right toe(s) M79.674 and Pain in left toe(s) M79.[address] [address] 04/27/2024 Main Casimiro Atherosclerosis of telida artery of both lower extremities, with unspecified presence of clinical manifestation I70.203 ; Tinea unguium B35.1 ; Pain in right toe(s) M79.674 ; Pain in left toe(s) M79.675 and Tinea pedis of both feet B35.[address] [address] 08/04/2024 Manda White Atherosclerosis of telida artery of both lower extremities, with unspecified presence of clinical manifestation I70.203 ; Tinea unguium B35.1 ; Pain in right toe(s) M79.674 ; Pain in left toe(s) M79.675 and Tinea pedis of both feet B35.3 Assessments Encounter Date Diagnosis (ICD Code) Assessment Notes Treatment Notes Treatment Clinical Notes Section Notes 10/22/2023 Tinea unguium (ICD-10 - B35.1) 10/22/2023 Pain in right toe(s) (ICD-10 - M79.674) 01/26/2024 Atherosclerosis of telida artery of both lower extremities, with unspecified presence of clinical manifestation (ICD-10 - I70.203) Q7(A), Q8(2B), Q9(1B,2C) 04/27/2024 Atherosclerosis of telida artery of both lower extremities, with unspecified presence of clinical manifestation (ICD-10 - I70.203) Q7(A), Q8(2B), Q9(1B,2C) 08/04/2024 Atherosclerosis of telida artery of both lower extremities, with unspecified presence of clinical manifestation (ICD-10 - I70.203) Q7(A), Q8(2B), Q9(1B,2C) 08/04/2024 Tinea unguium (ICD-10 - B35.1) 04/27/2024 Tinea unguium (ICD-10 - B35.1) 01/26/2024 Tinea unguium (ICD-10 - B35.1) 10/22/2023 Pain in left toe(s) (ICD-10 - M79.675) 10/22/2023 Skin disease (ICD-10 - L98.9) 01/26/2024 Pain in right toe(s) (ICD-10 - M79.674) 04/27/2024 Pain in right toe(s) (ICD-10 - M79.674) 08/04/2024 Pain in right toe(s) (ICD-10 - M79.674) 04/27/2024 Pain in left toe(s) (ICD-10 - M79.675) 08/04/2024 Pain in left toe(s) (ICD-10 - M79.675) 01/26/2024 Pain in left toe(s) (ICD-10 - M79.675) 10/22/2023 Unspecified atherosclerosis of telida arteries of extremities, bilateral legs (ICD-10 - I70.203) 10/22/2023 Tinea pedis (ICD-10 - B35.3) 04/27/2024 Tinea pedis of both feet (ICD-10 - B35.3) 08/04/2024 Tinea pedis of both feet (ICD-10 - B35.3) 10/22/2023 Hallux valgus (acquired), right foot (ICD-10 - M20.11) Plan Of Treatment Pending Test Test Name Order Date 61752-YQVKXWA NAIL, 6 OR MORE 01/26/2024 70181-NNIVVTX NAIL, 6 OR MORE 04/27/2024 81985-ZUOSYIG NAIL, 6 OR MORE 08/04/2024 63389-KZCA SKIN LESIONS, OVER 4 08/05/19 47011-SDON SKIN LESIONS, OVER 4 04/27/19 16698-XMEX SKIN LESIONS, OVER 4 01/26/20 29635-DIKZ SKIN LESIONS, OVER 4 04/23/19 77961-TYMH SKIN LESIONS, OVER 4 07/24/19 Next Appt Details Provider Name:Manda ramirez, 01/03/2025 03:30:00 PM, [address] [facility], [place], [address], Insurance Providers Payer Name Payer Address Payer Phone Subscriber Number Group Number Insured Name Patient Relationship to Insured Coverage Start Date Coverage End Date Medicare National [employer] [address] [place] [address] [id number] Cholo Campa Self - patient is the insured [employer] [address] [place] [address] [id number] Cholo Campa Self - patient is the insured Medical (General) History Medical History History ICD Code Arthritis Back,Hip,and Knee pain Broken bones Cataracts Glaucoma Heart disease Macular degeneration Numbness Measles Mumps Chicken pox Joint implants/screws Surgical History Surgery Date(Month/Year) hip replacement laser eye surgery
[2024-09-30 08:35] LABS: MANUAL DIFF FLAG NO
[2024-09-30 08:57] LABS: Hematocrit 40.6 % (42.0-52.0); Hemoglobin 13.8 g/dl (14.0-18.0); Imm Gran Abs Auto 0.05 X10*3/uL (0.00-0.03); Imm Gran Pct Auto 0.7 % (0.0-0.4); Lymphocytes Absolute Auto 0.9 X10*3/uL (1.2-4.9); Mean Corpuscular HGB Conc 34.0 g/dl (31.0-36.0); Mean Corpuscular Hemoglobin 29.4 pg (27.0-33.0); Mean Corpuscular Volume 86.6 fL (80.0-98.0); NRBC Abs Auto 0.000 X10*3/uL (0.0-0.012); NRBC Pct Auto 0.0 /100WBC (0.0-0.2); Platelet Count 135 X10*3/uL (160-400); Red Blood Count 4.69 X10*6/uL (4.60-5.80); White Blood Count 6.7 X10*3/uL (4.8-10.8)
[2024-09-30 09:22] LABS: Alanine Aminotransferase 17 U/L (0-40); Albumin Level 4.2 g/dL (3.5-5.0); Alkaline Phosphatase 86 U/L (39-117); Anion Gap 11 (12-20); Aspartate Amino Transferase 17 U/L (5-37); B Type Natriuretic Peptide 110 pg/mL (<100); Blood Urea Nitrogen 18 mg/dL (9-16); Calcium 8.7 mg/dL (8.4-10.2); Carbon Dioxide 27 mmol/L (22-29); Chloride 106 mmol/L (96-108); Cholesterol 105 mg/dL (<200); Estimated Glomerular Filt Rate > 60; HDL Cholesterol 27 mg/dL (>40); Potassium 3.9 mmol/L (3.3-5.1); Sodium 140 mmol/L (135-145); Total Protein 6.8 g/dL (6.5-8.0); Triglycerides 94 mg/dL (<150)
[2024-09-30 09:39] LABS: Prostate Specific Antigen 0.10 ng/mL (<0.05-4.0)
== END 2024-09-30 08:12 | disposition home or self-care (01) ==
LOC: HO.LAB 08:11
PROVIDERS: PCP Internal Medicine Medical Oncology; Visit Provider Internal Medicine Medical Oncology
DX: I48.21 Permanent atrial fibrillation (principal); N40.0 Benign prostatic hyperplasia without lower urinary tract symptoms; I50.9 Heart failure, unspecified; J44.9 Chronic obstructive pulmonary disease, unspecified; E66.9 Obesity, unspecified; D69.6 Thrombocytopenia, unspecified
CPT/HCPCS: 36415; 80053; 80061; 83880; 84153; 85025

== ENCOUNTER 2024-10-08 11:35 | Outpatient (REF) | payer MEDICARE, SELFPAY ==
--- OUTSIDE RECORDS SUMMARY | 2024-07-07 12:00 | XMS_ITS ---
Author Organization Iggy Bear III, MD Address [address] [place] [address] Care Team Providers Care Diving Fisher Name Role Phone Iggy Bear Primary Care [...] Date Provider Diagnosis Iggy Bear III, MD [address] [place] [address] [place] [address] 07/07/2024 Iggy Bear Chronic obstructive pulmonary disease, [...] Provider Name:Iggy Bear, 01/12/2025 04:00:00 PM, [address] [facility] [place], [place], [address], Provider Name:Iggy Bear, 07/13/2025 04:00:00 PM, [address] [facility] [place], [place], [address], Progress Notes * Cholo ROCKDOB:[birth year] (83 yo M)Acc No.[id number]:07/07/2024 Progress Notes Patient: Cholo MORENO Provider: Loc Bear MD :1940 A ge:83 Y S ex:Male Date:07/07/2024 Phone: Address:[address] [place] [address] [place], [place] Subjective: * Chief Complaints: * A nnual [...] M inimal Depression C OVID-19 Screening[place] [facility] [place]. Questions H ave [...] and incarcerated left inguinal hernia, Dr. Smith, [facility] 01/2019double cataract surgery 01/2019glaucoma surgery 03/05/2022Trabeculectomy with Mitomycin and +/- 5FU 03/2022 * Hospitalization/Major Diagno stic Procedure: g out, knee, C * Family History: F ather: 73 yrs, Multiple myocardial infarctions, stroke, coronary artery disease, emphysema, atrial fibrillation, worked at [employer]. M other: 86 yrs, Alzheimer's disease. C [...] 07/07/2024 Generated for Memei le/Concepción/eTransmitting on: 0 10/08/2024 11:38 AM EDT History and Physical Notes * HPI [...]
--- NOTE | ~2024-10-08 | XR_ITS ---
EXAMINATION: XR SHOULDER 2 OR MORE VIEWS RIGHT HISTORY: PAIN IN RIGHT SHOULDER COMPARISON: There are no prior studies available for comparison. FINDINGS: Four views of the right shoulder are submitted. Osseous mineralization is normal. There is no fracture or dislocation. There is severe osteoarthritis of the glenohumeral and acromioclavicular joints with joint space narrowing and osteophyte formation. The soft tissues are unremarkable. XR/XR shoulder RT min 2V IMPRESSION: Severe osteoarthritis of the right shoulder as described. Electronically signed by: Iggy Gupta MD 10/08/2024 01:29 PM EDT
--- OUTSIDE RECORDS SUMMARY | 2024-10-08 11:38 | XMS_ITS | Patient Health Record ---
Author Organization [facility] Address [address] [place] [address] Care Team Providers Care Fresh Foods Clerk Name Role Phone Iggy Bear MD Primary Care Provider Unavailab Manda Cherry Unavailable [phone] Alexi Zuñiga Unavailable [phone] Main Kirkpatrick Unavailable [phone] Allergies Allergen (clinical drug ingredient) Drug/Non Drug [...] atherosclerosis of arteries of lower limbs (disorder) (19148923368633152 ) Atherosclerosis of [place] artery of both lower extremities, with unspecified presence of clinical manifestation (I70.203) Active confirmed Q7(A), Q8(2B), Q9(1B,2 C) Vital Signs Blood pressure diastolic 70 mm Hg 04/27/2024 Height 5 ft 10 in in 04/27/2024 Blood pressure systolic 130 mm Hg 04/27/2024 Weight 204 lbs 04/27/2024 BMI 29.27 kg/m2 04/27/2024 Procedures Procedure Date Ordered Date Performed Result Body Sit e 92031-NTWZQPM NAIL, 6 OR MORE 01/26/2024 N/A 57452-JQFA SKIN LESIONS, OVER 4 01/26/2024 N/A 53074-HXCXOII NAIL, 6 OR MORE 04/27/2024 N/A 34481-GCVR SKIN LESIONS, OVER 4 04/27/2024 N/A 60061-EGYNRZT NAIL, 6 OR MORE 08/04/2024 N/A 75575-GKOY SKIN LESIONS, OVER 4 08/04/2024 N/A Encounters Encounter Location Date Provider Diagnosis [facility] [address] [place] [address] 10/22/2023 Alexi Zuñiga Tinea unguium B35.1 ; Pain in right toe(s) M79.674 ; Pain in left toe(s) M79.675 ; Skin disease L98.9 ; Unspecified atherosclerosis of [place] arteries of extremities, bilateral legs I70.203 ; Tinea pedis B35.3 and Hallux valgus (acquired), right foot M20.[address] [address] 01/26/2024 Manda White Atherosclerosis of [place] artery of both lower extremities, with unspecified presence of clinical manifestation I70.203 ; Tinea unguium B35.1 ; Pain in right toe(s) M79.674 and Pain in left toe(s) M79.[address] [address] 04/27/2024 Main Casimiro Atherosclerosis of [place] artery of both lower extremities, with unspecified presence of clinical manifestation I70.203 ; Tinea unguium B35.1 ; Pain in right toe(s) M79.674 ; Pain in left toe(s) M79.675 and Tinea pedis of both feet B35.[address] [address] 08/04/2024 Manda White Atherosclerosis of [place] artery of both lower extremities, with unspecified [...] toe(s) (ICD-10 - M79.674) 01/26/2024 Atherosclerosis of [place] artery of both lower extremities, with unspecified presence of clinical manifestation (ICD-10 - I70.203) Q7(A), Q8(2B), Q9(1B,2C) 04/27/2024 Atherosclerosis of [place] artery of both lower extremities, with unspecified presence of clinical manifestation (ICD-10 - I70.203) Q7(A), Q8(2B), Q9(1B,2C) 08/04/2024 Atherosclerosis of [place] artery of both lower extremities, with unspecified [...] (ICD-10 - M79.675) 10/22/2023 Unspecified atherosclerosis of [place] arteries of extremities, bilateral legs (ICD-10 - I70.203) 10/22/2023 Tinea pedis (ICD-10 - B35.3) 04/27/2024 Tinea pedis of both feet (ICD-10 - B35.3) 08/04/2024 Tinea pedis of both feet (ICD-10 - B35.3) 10/22/2023 Hallux valgus (acquired), right foot (ICD-10 - M20.11) Plan Of Treatment Pending Test Test Name Order Date 05290-KYWUNNQ NAIL, 6 OR MORE 01/26/2024 53454-ZVNPFTE NAIL, 6 OR MORE 04/27/2024 61711-CPKDQCZ NAIL, 6 OR MORE 08/04/2024 41687-WWSE SKIN LESIONS, OVER 4 08/05/19 06230-KFMM SKIN LESIONS, OVER 4 04/27/19 23405-NHGQ SKIN LESIONS, OVER 4 01/26/20 74465-CFCY SKIN LESIONS, OVER 4 04/23/19 49509-MRJG SKIN LESIONS, OVER 4 07/24/19 Next Appt Details Provider Name:Manda ramirez, 01/03/2025 03:30:00 PM, [address] [facility] [address] [facility], [place], [address], Insurance Providers Payer Name Payer Address Payer Phone Subscriber Number Group Number Insured Name Patient Relationship to Insured Coverage Start Date Coverage End Date Medicare National Govt Svcs Inc [address] [place] [address] [id number] Cholo Campa Self - patient is the insured [employer] Blue Shield [address] [place] [address] [phone] [id number] Cholo Campa Self - patient is the insured Medical (General) History Medical History History ICD Code Arthritis Back,Hip,and Knee pain Broken bones Cataracts Glaucoma Heart disease Macular degeneration Numbness Measles Mumps Chicken pox Joint implants/screws Surgical History Surgery Date(Month/Year) hip replacement laser eye surgery
== END 2024-10-08 11:36 | disposition home or self-care (01) ==
LOC: HO.XRAY 11:35
PROVIDERS: PCP Internal Medicine Medical Oncology; Visit Provider Internal Medicine Medical Oncology
DX: M25.511 Pain in right shoulder (principal)
CPT/HCPCS: 73030

== ENCOUNTER → 2024-10-08 11:42 | Outpatient (BNV) | payer MEDICARE, SELFPAY | PROVIDERS: PCP Internal Medicine Medical Oncology; Visit Provider Radiology Diagnostic Radiology | DX: M19.011 Primary osteoarthritis, right shoulder (principal) | CPT/HCPCS: 73030 ==

== ENCOUNTER 2024-10-15 13:16 | Outpatient (AMB) | payer MEDICARE, SELFPAY ==
--- OUTSIDE RECORDS SUMMARY | 2024-07-07 12:00 | XMS_ITS ---
Author Organization Iggy Bear III, MD Address [address] [place] [address] Care Team Providers Care Circus Trainer Name Role Phone Iggy Bear Primary Care Provider Allergies Allergen (clinical drug [...] Date Provider Diagnosis Iggy Bear III, MD [address] [place] [address] [place] [address] 07/07/2024 Iggy Bear Chronic obstructive pulmonary disease, [...] Months, Reason: ov review labs Provider Name:Iggy Bear, 01/12/2025 04:00:00 PM, [address] [facility] [place], [place], [address], Provider Name:Iggy Bear, 07/13/2025 04:00:00 PM, [address] [facility] [place], [place], [address], Progress Notes * Cholo ROCKDOB:[birth year] (83 yo M)Acc No.[id number]:07/07/2024 Progress Notes Patient: Cholo MORENO Provider: Loc Bear MD :1940 A ge:83 Y S ex:Male Date:07/07/2024 Phone: Address:[address] [place] [address] [place], [place] Subjective: * Chief Complaints: * A nnual [...] M inimal Depression C OVID-19 [place] [facility] [place]. Questions H ave [...] polyp 2004colonoscopy, 2009colonoscopy, , rectal tubular adenoma 2014tonsillectomy double hernia surgery 01/2019repair of umbilical hernia and incarcerated left inguinal hernia, Dr. Smith, [facility] 01/2019double cataract surgery 01/2019glaucoma surgery 03/05/2022Trabeculectomy with Mitomycin and +/- 5FU 03/2022 * Hospitalization/Major Diagno stic Procedure: g out, knee, C * Family History: F ather: 73 yrs, Multiple myocardial infarctions, stroke, coronary artery disease, emphysema, atrial fibrillation, worked at [employer]. M other: 88 yrs, Alzheimer's disease. [...] oints 0 I nterpretation N egative H shaka is and has 2 children, Dontae and [...] Bear MD Date: 0 07/07/2024 Generated for Memei le/Concepción/eTransmitting on: 0 10/15/2024 01:18 PM EDT History and Physical Notes * [...] had two or more falls in the year?: No Fall Risk Assessment:: One fall [...]
--- NOTE | 2024-10-15 13:19 | MHC.OFFVIS ---
Vital Signs 10/15/24 13:22 Height 5 ft 10 in Weight 203 lb 11.314 oz BMI 29.2 BP 110/66 Blood Pressure Location Rt brachial Position Sitting Pulse 64 Pulse Source Pulse Oximeter Intake Visit Reasons: 6 mth fu Intake Note: 6 mth f/up Lace Weaver Required: No Accompanied by: Daughter Allergies Iodinated Contrast Media (IV Dye, Iodine Containing) Allergy (Severe, Verified 04/05/24 09:24) HIVES IVP dye Allergy (Unknown, Uncoded 04/05/24 09:24) hives Medication List - Last Reconciled 10/15/24 by Solitario Baca NP allopurinol 100 mg PO DAILY bimatoprost 0.01% (Lumigan) 1 drp ophthalmic-Right DAILY brimonidine 0.2% 1 drp ophthalmic-Right BID dabigatran etexilate 150 mg PO BID docusate sodium 100 mg PO DAILY PRN dorzolamide-timolol 22.3-6.8 mg/mL 1 drp ophthalmic (eye) BID escitalopram oxalate 10 mg PO DAILY finasteride 5 mg PO DAILY fluticasone propion-salmeterol 250-50 mcg/dose (Wixela Inhub) 1 inh inhalation Q12H 90 days furosemide 20 mg PO DAILY lisinopril 5 mg PO DAILY metoprolol succinate ER 100 mg PO DAILY netarsudil 0.02% (Rhopressa) 1 drp ophthalmic-Right DAILY omega-3 fatty acids (Fish Oil Concentrate) 1,000 mg PO DAILY vit C,S-On-aejbx-lutein-zeaxan 250-90-40-1 mg (PreserVision AREDS-2) 1 tab PO BID HPI Comments Details: This is an 84-year-old male patient coming in for a follow-up visit, accompanied by his daughter. Patient with a history of hypertension, chronic AFib, and HFpEF. Today, patient notes that he has been feeling fatigued most of the time and gets worse with exertion. Patient also notes that he has been getting some shortness of breath with exertion. Patient mostly sedentary as he uses a walker. Patient is otherwise denying any exertional chest pain, palpitations, dizziness, orthopnea, PND, leg edema, presyncope, or syncope. Patient is reporting compliance with all his medications. [facility] Medical History Dyspnea COPD (chronic obstructive pulmonary disease) HTN (hypertension) Chronic atrial fibrillation Surgical History History of eye surgery History of right hip replacement History of hernia repair Social History Alcohol intake: never Patient Tobacco Use Status: Former Tobacco user Years Smoked: 10 +/- Review of Systems Const Denies chills, Denies fatigue, Denies fever(s), Denies frequent falls, Denies weakness, Denies weight gain and Denies weight loss ENT Denies dizziness Card Denies chest pain, Denies leg edema, Denies lightheadedness, Denies palpitations, Denies dyspnea and Denies dyspnea on exertion Resp Denies cough, Denies dyspnea and Denies dyspnea on exertion GI Denies hematochezia Musc Denies abnormal gait, Denies muscle weakness, Denies numbness, Denies radiating pain into limb and Denies tingling Neuro Denies abnormal gait, Denies dizziness, Denies frequent falls, Denies numbness, Denies tingling and Denies weakness Endo Denies fatigue and Denies palpitations Physical Exam Vital Signs: Last Vital Signs Pulse 64 10/15/24 13:22 BP 110/66 10/15/24 13:22 BMI result Body Mass Index 29.2 Const General: cooperative, comfortable and no acute distress Orientation/consciousness: patient oriented x3 HEENT Head: Yes normal to inspection Neck Neck: Yes normal visual inspection, Yes trachea midline and Yes supple Chest Chest palpation & inspection: normal inspection of the chest Resp Effort & Inspection: normal respiratory effort Auscultation: clear to auscultation bilaterally, no crackles, no rales, no rhonchi and no wheezes Cardio Jugular venous distension: no JVD Palpation: normal PMI Rate: regular rate Rhythm: abnormal rhythm Heart sounds: S1 normal heart sound present, S2 normal heart sound present, no click, no gallops, no murmurs and no rubs Peripheral pulses: Peripheral pulses 2+ throughout GI Inspection: Yes normal to inspection Palpation (GI): Soft to palpation Auscultation: normal bowel sounds Skin General skin exam: no rashes or lesions noted Neuro General: patient oriented x3 Extrem General: Yes normal to inspection, No no pedal edema and No calf tenderness Psych Appearance: grossly normal Mental Status: mental status grossly normal Speech and movement: Normal speech and movement present Assessment & Plan Assessment & Plan (1) SOB (shortness of breath) on exertion: Code(s): R06.02 - Shortness of breath Category: Medical Plan: Given patient's reported signs of shortness of breath and fatigue, we will proceed with a myocardial perfusion study with the pharmacologic agent to look for ischemic changes. Patient uses a walker at baseline and will not be able to walk on treadmill. Further treatment based on findings. (2) Fatigue: Code(s): R53.83 - Other fatigue Category: Medical Plan: Recent labs showing baseline anemia and otherwise stable labs. As above. (3) (HFpEF) heart failure with preserved ejection fraction: Code(s): I50.30 - Unspecified diastolic (congestive) heart failure Category: Medical Plan: 03/05/2024-echo study showed a low-normal LV systolic function with an ejection fraction between 50-55%, mildly dilated RV with preserved contractility, mild biatrial enlargement. Clinically euvolemic. Continue low-dose Lasix therapy. Discussed signs and symptoms to watch for with heart failure. Advised low-salt diet, daily weight monitoring, and wearing compression socks. (4) Chronic atrial fibrillation: Code(s): I48.20 - Chronic atrial fibrillation, unspecified Category: Medical Plan: History of chronic AFib who has previously failed rhythm control. Continue Pradaxa for full anticoagulation therapy. No reported signs of bleeding or falls. Currently on rate control with metoprolol, continue this. Recent kidney function is stable. (5) HTN (hypertension): Code(s): I10 - Essential (primary) hypertension Category: Medical Plan: Blood pressure today stable. Continue current regimen. Advised monitoring blood pressures at home with a goal less than 130/80. Advised heart healthy diet, regular exercise as tolerated, med compliance, and management of vascular risk factors. Follow up after the stress test. In the interim, patient will call the office with any concerns or change in symptoms. This note was generated using voice recognition software. While every effort has been made to ensure accuracy and proper locker plant attendant, there may be occasional errors that could affect the content or meaning of the described symptoms. Orders: Orders CA lexiscan stress w faustino Today R06.02 - Shortness of breath, R53.83 - Other fatigue NM cardiolite stress test Today R06.02 - Shortness of breath, R07.2 - Precordial pain, R53.83 - Other fatigue Coding Level of Care Code Est Pt Level 4 (04934) Complex EM visit Add On G2211 Diagnoses SOB (shortness of breath) on exertion R06.02 Fatigue R53.83 (HFpEF) heart failure with preserved ejection fraction I50.30 Chronic atrial fibrillation I48.20 HTN (hypertension) I10 Time Spent (min) 32 Comment Time spent in reviewing the chart, test results, assessment, counseling and documentation.
--- OUTSIDE RECORDS SUMMARY | 2024-10-15 13:19 | XMS_ITS | Patient Health Record ---
Author Organization [facility] Address [address] [facility] [place] [address] Care Team Providers Care Instrument Repair Technician Name Role Phone Iggy Bear MD Primary Care Provider Unavailab Manda Cherry Unavailable [phone] Alexi Zuñiga Unavailable [phone] Main Kirkpatrick Unavailable [phone] Allergies Allergen (clinical drug ingredient) Drug/Non Drug [...] atherosclerosis of arteries of lower limbs (disorder) (97570814183150792 ) Atherosclerosis of [place] artery of both lower extremities, with unspecified presence of clinical manifestation (I70.203) Active confirmed Q7(A), Q8(2B), Q9(1B,2 C) Vital Signs Blood pressure diastolic 70 mm Hg 04/27/2024 Height 5 ft 10 in in 04/27/2024 Blood pressure systolic 130 mm Hg 04/27/2024 Weight 204 lbs 04/27/2024 BMI 29.27 kg/m2 04/27/2024 Procedures Procedure Date Ordered Date Performed Result Body Sit e 61968-OILAQUK NAIL, 6 OR MORE 01/26/2024 N/A 72144-POFS SKIN LESIONS, OVER 4 01/26/2024 N/A 76376-WJHUFGJ NAIL, 6 OR MORE 04/27/2024 N/A 39586-DEWT SKIN LESIONS, OVER 4 04/27/2024 N/A 55269-IMYIUWV NAIL, 6 OR MORE 08/04/2024 N/A 91139-AVIV SKIN LESIONS, OVER 4 08/04/2024 N/A Encounters Encounter Location Date Provider Diagnosis [facility] [address] [place] [address] 10/22/2023 Alexi Zuñiga Tinea unguium B35.1 ; Pain in right toe(s) M79.674 ; Pain in left toe(s) M79.675 ; Skin disease L98.9 ; Unspecified atherosclerosis of [place] arteries of extremities, bilateral legs I70.203 ; Tinea pedis B35.3 and Hallux valgus (acquired), right foot M20.[address] [address] 01/26/2024 Manda White Atherosclerosis of [place] artery of both lower extremities, with unspecified presence of clinical manifestation I70.203 ; Tinea unguium B35.1 ; Pain in right toe(s) M79.674 and Pain in left toe(s) M79.[address] [address] 04/27/2024 Main Casimiro Atherosclerosis of [place] artery of both lower extremities, with unspecified presence of clinical manifestation I70.203 ; Tinea unguium B35.1 ; Pain in right toe(s) M79.674 ; Pain in left toe(s) M79.675 and Tinea pedis of both feet B35.[address] [address] 08/04/2024 Manda White Atherosclerosis of [place] artery of both lower extremities, with unspecified [...] toe(s) (ICD-10 - M79.674) 01/26/2024 Atherosclerosis of [place] artery of both lower extremities, with unspecified presence of clinical manifestation (ICD-10 - I70.203) Q7(A), Q8(2B), Q9(1B,2C) 04/27/2024 Atherosclerosis of [place] artery of both lower extremities, with unspecified presence of clinical manifestation (ICD-10 - I70.203) Q7(A), Q8(2B), Q9(1B,2C) 08/04/2024 Atherosclerosis of [place] artery of both lower extremities, with unspecified [...] (ICD-10 - M79.675) 10/22/2023 Unspecified atherosclerosis of [place] arteries of extremities, bilateral legs (ICD-10 - I70.203) 10/22/2023 Tinea pedis (ICD-10 - B35.3) 04/27/2024 Tinea pedis of both feet (ICD-10 - B35.3) 08/04/2024 Tinea pedis of both feet (ICD-10 - B35.3) 10/22/2023 Hallux valgus (acquired), right foot (ICD-10 - M20.11) Plan Of Treatment Pending Test Test Name Order Date 66362-VHGLZOR NAIL, 6 OR MORE 01/26/2024 86838-VTFHBUN NAIL, 6 OR MORE 04/27/2024 06245-FYAXJYQ NAIL, 6 OR MORE 08/04/2024 98256-EFYI SKIN LESIONS, OVER 4 08/05/19 80707-QAIG SKIN LESIONS, OVER 4 04/27/19 93418-BIID SKIN LESIONS, OVER 4 01/26/20 88098-AFRS SKIN LESIONS, OVER 4 04/23/19 74574-IEEE SKIN LESIONS, OVER 4 07/24/19 Next Appt Details Provider Name:Manda ramirez, 01/03/2025 03:30:00 PM, [address] [facility], [place], [address], Insurance Providers Payer Name Payer Address Payer Phone Subscriber Number Group Number Insured Name Patient Relationship to Insured Coverage Start Date Coverage End Date Medicare National Govt Svcs Inc [address] [place] [address] [id number] Cholo Campa Self - patient is the insured [employer] Blue Shield [address] [place] [address] [phone] [id number] Cholo Campa Self - patient is the insured Medical (General) History Medical History History ICD Code Arthritis Back,Hip,and Knee pain Broken bones Cataracts Glaucoma Heart disease Macular degeneration Numbness Measles Mumps Chicken pox Joint implants/screws Surgical History Surgery Date(Month/Year) hip replacement laser eye surgery
[2024-10-15 13:22] VITALS: BP 110/66; PULSE 64; BMI 29.2
== END 2024-10-15 13:52 | disposition home or self-care (01) ==
LOC: HO.HCS 13:16
PROVIDERS: PCP Internal Medicine Medical Oncology; Visit Provider Nurse Practitioner Family
DX: R06.02 Shortness of breath (principal); R53.83 Other fatigue; I50.30 Unspecified diastolic (congestive) heart failure; I48.20 Chronic atrial fibrillation, unspecified; I10 Essential (primary) hypertension
CPT/HCPCS: 99214; G2211

== ENCOUNTER → 2024-10-15 13:16 | Outpatient (BNVA) | payer MEDICARE, SELFPAY | PROVIDERS: PCP Internal Medicine Medical Oncology; Visit Provider Nurse Practitioner Family | DX: I11.0 Hypertensive heart disease with heart failure (principal); I50.30 Unspecified diastolic (congestive) heart failure; I48.20 Chronic atrial fibrillation, unspecified; R06.02 Shortness of breath; R53.83 Other fatigue | CPT/HCPCS: 99212 ==

== ENCOUNTER 2024-11-18 14:39 | Outpatient (AMB) | payer MEDICARE, SELFPAY ==
--- NOTE | 2024-11-18 14:44 | A.OFFVIS_ITS ---
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 The patient states that his symptoms have gotten somewhat worse over the last few months. He thinks that he may have fallen onto his right shoulder several months ago. He reports weakness when lifting his right hand above shoulder height. He has been doing gentle stretching exercises on his own. Allergies Iodinated Contrast Media (IV Dye, Iodine Containing) Allergy (Severe, Verified 11/18/24 14:51) HIVES IVP dye Allergy (Unknown, Uncoded 11/18/24 14:51) hives Medication List - Last Reconciled 11/18/24 by Kody Emanuel MD allopurinol 100 mg PO DAILY bimatoprost 0.01% (Lumigan) 1 drp ophthalmic-Right DAILY brimonidine 0.2% 1 drp ophthalmic-Right BID dabigatran etexilate 150 mg PO BID docusate sodium 100 mg PO DAILY PRN dorzolamide-timolol 22.3-6.8 mg/mL 1 drp ophthalmic (eye) BID escitalopram oxalate 10 mg PO DAILY finasteride 5 mg PO DAILY fluticasone propion-salmeterol 250-50 mcg/dose (Wixela Inhub) 1 inh inhalation Q12H 90 days furosemide 20 mg PO DAILY lisinopril 5 mg PO DAILY metoprolol succinate ER 100 mg PO DAILY netarsudil 0.02% (Rhopressa) 1 drp ophthalmic-Right DAILY omega-3 fatty acids (Fish Oil Concentrate) 1,000 mg PO DAILY vit C,Z-Yk-vlcyp-lutein-zeaxan 250-90-40-1 mg (PreserVision AREDS-2) 1 tab PO BID PFSH Medical History Dyspnea COPD (chronic obstructive pulmonary disease) HTN (hypertension) Chronic atrial fibrillation Surgical History History of eye surgery History of right hip replacement History of hernia repair Social History (Updated 11/18/24 @ 14:54 by Janie F Derek, RMA) Alcohol intake: never Patient Tobacco Use Status: Former Tobacco user Years Smoked: 10 +/- Current occupational status: retired Current occupation: right hand dominant Physical Exam Vital Signs: BMI result Body Mass Index 29.1 Const Other: Well-nourished well-developed very friendly male awake alert and oriented x3 in no acute distress Extrem Other: Bilateral upper extremity examination shows good capillary refill, no skin lesions noted, normal sensation light touch Right shoulder examination shows decreased active and passive range of motion when compared to his left shoulder, 4/5 strength with supraspinatus testing, positive impingement signs, no instability Office Procedures AMB Joint Injection/Aspiration Joint Injection/Aspiration Primary Site: right shoulder Prep: site was prepped using aseptic technique Injected: 40 mg of, DepoMedrol and 1% plain lidocaine Procedure: The patient tolerated the procedure well Coding 19843 - Large joint Procedure code (CPT) selection complete Results Reviewed Results Reviewed: X-rays of the patient's right shoulder show severe acromioclavicular joint narrowing, moderate glenohumeral joint degenerative changes, a type 2 acromion, no acute bony abnormalities Assessment & Plan Assessment & Plan (1) Impingement syndrome of right shoulder: Code(s): M75.41 - Impingement syndrome of right shoulder Category: Medical Plan Mr. Rock presents with right shoulder pain and stiffness due to impingement syndrome, glenohumeral joint arthritis and possible rotator cuff tearing. I had a lengthy discussion with the patient regarding the treatment options. The risks and benefits of a right shoulder cortisone injection were discussed at length with the patient. The patient wished to proceed. He tolerated the injection well. He will continue with his home stretching program. He will contact me prior to his follow-up appointment in 2-3 months should any questions or concerns arise. Feel free to call me at any time should questions regarding his orthopedic management arise. Thank you very much for asking me to see this very friendly gentleman. I spent 22 minutes in reviewing the patient's records and imaging studies, seeing the patient and documenting in the medical record. Orders: Orders AMB Joint Injection/Aspiration 11/18/24 M75.41 - Impingement syndrome of right shoulder Coding Level of Care Code New Pt Level 3 (86371) Complex EM visit Add On G2211 Diagnoses Impingement syndrome of right shoulder M75.41 CPT Codes Coding - Large joint: - Large joint ([id number])
[2024-11-18 14:45] VITALS: BMI 29.1
== END 2024-11-18 15:17 | disposition home or self-care (01) ==
LOC: HO.HOS 14:39
PROVIDERS: PCP Internal Medicine Medical Oncology; Visit Provider Orthopaedic Surgery
DX: M75.41 Impingement syndrome of right shoulder (principal)
CPT/HCPCS: 20610; 99203

== ENCOUNTER → 2024-11-18 14:39 | Outpatient (BNVA) | payer MEDICARE, SELFPAY | PROVIDERS: PCP Internal Medicine Medical Oncology; Visit Provider Orthopaedic Surgery | DX: M75.41 Impingement syndrome of right shoulder (principal) | CPT/HCPCS: 20610; 99202; J1010; J2003 ==

== ENCOUNTER 2024-11-22 15:24 | Outpatient (AMB) | payer MEDICARE, SELFPAY ==
--- OUTSIDE RECORDS SUMMARY | 2024-06-21 13:30 | XMS_ITS ---
Progress note - 06/21/2024 Created on: November 22, 2024 Cholo Rock
[2024-11-22 15:30] VITALS: BP 126/64; PULSE 64; O2SAT 97; BMI 29.3
--- NOTE | 2024-11-22 15:30 | A.OFFVIS_ITS ---
Vital Signs 11/22/24 15:30 Height 5 ft 10 in Weight 203 lb 14.841 oz BMI 29.3 BP 126/64 Blood Pressure Location Lt brachial Position Sitting Pulse 64 Pulse Source Pulse Oximeter Pulse Oximetry (%) 97 Oxygen Delivery Method Room Air Intake Visit Reasons: Shortness of breath Lab Animal Technologist Required: No Accompanied by: Self / Same As Patient Allergies Iodinated Contrast Media (IV Dye, Iodine Containing) Allergy (Severe, Verified 11/22/24 15:34) HIVES IVP dye Allergy (Unknown, Uncoded 11/18/24 14:51) hives HPI Comments Details: The patient is a 84-year-old gentleman with known atrial fibrillation and HFPEF who is here for further evaluation for ongoing dyspnea. Patient was a long-time smoker. He also has significant allergies. He is still getting allergy shots. But in view of his ongoing dyspnea after her optimization of his cardiac medications the patient had a chest x-ray. I personally reviewed the x-ray with the family. Appears to be hyperinflated with flattened diaphragms consistent with COPD. Therefore the patient underwent pulmonary function studies sometime in May 2022 which I personally reviewed demonstrating a mild degree of COPD with significant response to bronchodilators. The patient was given a rescue inhaler he does feel that the inhaler helps. He does use it at times once or twice a day. Although with a history to fibrillation the short-acting beta agonist may be problematic with the atrial fibrillation. Also, it difficult for him to know and when to use it. I believe he will be better off with a maintenance inhaler to minimize the adverse beta effect and also to improve his compliance. During the office visit we did go for brief walking oximetry maintain a pulse ox of 96% and his heart rate was around 80 beats per minute. He did well without any significant shortness of breath. Seems like his dyspnea on exertion is mainly when going up a flight of stairs when exerting herself to a great degree. Will plan to start maintenance inhaler I did teach him and use it in the office and will follow-up sometime in the fall. If the patient has any issues prior to that he is to call the office for an earlier assessment. 01/16/2023 the patient is here for pulmonary follow-up visit. Overall the patient is doing better. He is responded well to the Wixela inhaler. He is only using it once a day. He understands he can always increase it to twice a day if his symptoms worsen. I do believe with his cardiac issue that once a day is preferred. we did be his pulmonary function studies. Again he knows he has COPD. We talked about the importance of pulmonary rehabilitation. He is not interested in in-person pulmonary rehabilitation at this time. Although he will consider online pulmonary rehabilitation. I did give more information about it. His respiratory exam is reassuring. He also had a chest x-ray back in January 2022 which was also reassuring without any disease. Therefore no further imaging warranted at this time. Will plan to follow-up sometime in late summer early fall and will repeat his pulmonary function studies at that time. If the patient has any issues prior to that he will call the office for an earlier assessment. 12/01/2023 the patient is here for a pulmonary follow-up visit. The patient overall has been doing well. Using the Wixela twice a day. We did look at allergy testing. His eosinophils continue to be elevated throughout the year. Therefore continuing the Wixela twice a day is very reasonable. The patient is also getting allergy shots that also been affecting beneficial. He did not perform the rehabilitation. He has been dealing with other issues. Has not had an x-ray since 2021. At this time he is asymptomatic so will hold off on any imaging. However, the patient is aware that if he develops any respiratory symptoms he can always come in for chest x-ray. I did put in the order in. Will follow in a year. If he has any issues prior to that he will call for an earlier assessment. 11/22/2024 the patient is here for pulmonary follow-up visit. The patient overall has been doing okay. He does complain of being fatigued and tired and dyspneic. He did see Cardiology in the going to be doing a nuclear stress test. In the meantime he continues uses inhalers with good effect. He denies any adverse effects to the inhalers and he takes them on a regular basis. He rinses his mouth after the Wixela. We did review his last chest x-ray demonstrating likely a hiatal hernia. And we also looked at some previous CT scans of the cervical neck that he had back over the winter time after a fall and his parenchyma of the lungs demonstrate some degree of emphysema. Based on his ongoing so symptoms fatigue and shortness breath will go ahead and request an overnight oximetry to assess for any significant nocturnal hypoxia. He will continue with his current respiratory therapy. Will follow-up in 8-12 months if he has if just prior to this call for an clear assessment. [facility] Medical History Dyspnea COPD (chronic obstructive pulmonary disease) HTN (hypertension) Chronic atrial fibrillation Surgical History History of eye surgery History of right hip replacement History of hernia repair Social History Alcohol intake: never Patient Tobacco Use Status: Former Tobacco user Years Smoked: 10 +/- Current occupational status: retired Current occupation: right hand dominant Review of Systems Const Denies chills, Reports fatigue, Denies fever(s), Denies frequent falls, Denies weakness, Denies weight gain and Denies weight loss ENT Denies dizziness Card Denies chest pain, Denies leg edema, Denies lightheadedness, Denies palpitations, Denies dyspnea, Reports dyspnea on exertion, Denies orthopnea and Denies other (loss of consciousness) Resp Reports cough, Denies dyspnea and Reports dyspnea on exertion GI Denies hematochezia and Denies change in stool character Musc Denies abnormal gait, Denies muscle weakness, Denies numbness, Denies radiating pain into limb and Denies tingling Neuro Denies abnormal gait, Denies dizziness, Denies frequent falls, Denies numbness, Denies tingling and Denies weakness Endo Reports fatigue and Denies palpitations Physical Exam Vital Signs: Last Vital Signs Pulse 64 11/22/24 15:30 BP 126/64 11/22/24 15:30 Pulse Ox 97 11/22/24 15:30 Oxygen Delivery Method Room Air 11/22/24 15:30 BMI result Body Mass Index 29.3 Const General: cooperative, comfortable, no acute distress, alert and awake Nutritional Appearance: obese Orientation/consciousness: patient oriented x3 Limitations: no limitations Neck Neck: Yes trachea midline, Yes supple and Yes other (Difficult to evaluate JVD) Chest Chest palpation & inspection: normal inspection of the chest Resp Effort & Inspection: normal respiratory effort Auscultation: no wheezes and diminished lung sounds Cardio Jugular venous distension: no JVD Palpation: normal PMI Rate: regular rate Rhythm: abnormal rhythm irregularly irregular Heart sounds: S1 normal heart sound present, S2 normal heart sound present, no click, no gallops and no murmurs GI Inspection: Yes obesity Auscultation: normal bowel sounds Skin General skin exam: no rashes or lesions noted and ecchymosis Neuro General: patient oriented x3 and no focal motor deficits Extrem General: No clubbing, No cyanosis and Yes edema Psych Appearance: grossly normal Assessment & Plan Assessment & Plan (1) COPD (chronic obstructive pulmonary disease): Code(s): J44.9 - Chronic obstructive pulmonary disease, unspecified Category: Medical Qualifiers: COPD type: chronic bronchitis Chronic bronchitis type: simple Qualified Code(s): J41.0 - Simple chronic bronchitis (2) Dyspnea: Code(s): R06.00 - Dyspnea, unspecified Category: Medical Qualifiers: Dyspnea type: dyspnea on exertion Qualified Code(s): R06.09 - Other forms of dyspnea Plan continue Wixela BID MYA as needed diuresis as tolerated overnight oximetry on RA F/U 10-12 months Orders: Orders Overnight Pulse Oximetry Today J41.0 - Simple chronic bronchitis Coding Level of Care Code Est Pt Level 4 (54541) Complex EM visit Add On G2211 Diagnoses Simple chronic bronchitis J41.0 COPD type: chronic bronchitis Chronic bronchitis type: simple Dyspnea on exertion R06.09 Dyspnea type: dyspnea on exertion Time Spent (min) 16
== END 2024-11-22 16:29 | disposition home or self-care (01) ==
LOC: HO.HPS 15:25
PROVIDERS: PCP Internal Medicine Medical Oncology; Visit Provider Hospitalist
DX: J41.0 Simple chronic bronchitis (principal); R06.09 Other forms of dyspnea
CPT/HCPCS: 99214; G2211

== ENCOUNTER → 2024-11-22 15:24 | Outpatient (BNVA) | payer MEDICARE, SELFPAY | PROVIDERS: PCP Internal Medicine Medical Oncology; Visit Provider Hospitalist | DX: J41.0 Simple chronic bronchitis (principal); R06.09 Other forms of dyspnea | CPT/HCPCS: 99212 ==

== ENCOUNTER 2024-12-29 11:21 | Outpatient (REF) | payer MEDICARE, SELFPAY ==
--- OUTSIDE RECORDS SUMMARY | 2023-10-23 05:00 | XMS_ITS ---
Author Organization [facility] Address [address] [place] [address] Care Team Providers Care Bicycle Fitter Name Role Phone Iggy Bear MD Primary Care Provider Unavailab Manda Cherry Unavailable [phone] Alexi Moffett Unavailable [phone] REASON FOR VISIT Painful nail(s) aggrevated by shoes and causing difficulty standing/walking. Medications Medication SIG (Take, Route, Frequency, Duration) Notes Start Date End Date Status Voltaren 1 % as directed Externally Active Ciclopirox Olamine 0.77 % 1 application to affected area Externally Twice a day to effected areas on feet; Duration: 30 days Active Encounters Encounter Location Date Provider Diagnosis [facility] [address] [place] [address] 10/23/2023 Alexi Moffett Tinea unguium B35.1 ; Pain in right toe(s) M79.674 ; Pain in left toe(s) M79.675 ; Skin disease L98.9 ; Unspecified atherosclerosis of [place] arteries of extremities, bilateral legs I70.203 ; [...] (ICD-10 - L98.9) 10/23/2023 Unspecified atherosclerosis of [place] arteries of extremities, bilateral legs (ICD-10 - [...] Follow Up: 3 Months, Reason: Provider Name:Manda Baileyene ramirez, 01/03/2025 03:30:00 PM, [address] [place] [address], [phone], Procedure Notes * Category Sub-Category Detail Notes [...] as necessary. Patient chooses, no pharmaceutical tx (15501) Keratoma Treatment Parring or Cutting o f Benign Hyperkeratotic Lesion(s) 17663 ( More than 4 Lesions ) - The Benign hyperkeratotic lesions, as described above were pared, and/or cut utilizing a sterile 15 blade, tissue nippers, and/or dremel, Q8 Progress Notes * Cholo OVALLEDOB:[birth year] (84 yo M)Acc No.[id number]:10/23/2023 Progress Note Patient: Cholo BUTLER Provider: Nicci Zuñiga DPM :1940 A ge:83 Y S ex:Male Date:10/23/2023 Address:[address] [place], [place] [id number] Pcp:Iggy Bear MD Subjective: * Chief Complaints: [...] ardiovascular: Pacemaker d enies. M REAL ESTATE UTILIZATION OFFICER d enies. W PW d enies. C [...] - L98.9? 5. U nspecified atherosclerosis of [place] arteries of extremities, bilateral legs - I70.203 [...] as necessary. Patient chooses, no pharmaceutical tx (93843). K eratoma Treatment: Parring or Cutting of Benign Hyperkeratotic Lesion(s) 1 1057 ( More than 4 Lesions ) - The Benign hyperkeratotic lesions, as described above were pared, and/or cut utilizing a sterile 15 blade, tissue nippers, and/or dremel, Q8. * Procedure Codes: 1 1721 DEBRIDE NAIL, 6 OR MORE, Modifiers: XS , 02539 TRIM SKIN LESIONS, OVER 4, Modifiers: XS * Follow Up: 3 Months * Images: * The named appointment provid er may or may not be the originator of this progress note, and it is not deemed complete until electronically signed by the appointment provider. Sign off status: Pending * Provider: Nicci Zuñiga DPM Date: 0 10/23/2023 Generated for Deena lujan/Concepción/Krystal on: 1 02:34 PM EDT History and Physical Notes * HPI (History [...]
--- OUTSIDE RECORDS SUMMARY | 2024-04-09 09:20 | XMS_ITS ---
Author Organization Iggy Bear III, MD Address [address] [place] [address] Care Team Providers Care Traffic Recorder Name Role Phone Dr. Iggy Bear III Primary Care Provider REASON FOR VISIT [place] [facility] Social History Sex Assigned At : Social History Observation Description Sex Assigned At Male Encounters Encounter Location Date Provider Diagnosis Iggy Bear III, MD [address] [place] [address] [place] [address] 04/09/2024 Iggy Bear Plan Of Treatment Next Appt Details Provider Name:Iggy Bear , 01/12/2025 04:00:00 PM, [address] [place] [address] [place], [address], Provider Name:Iggy Bear , 07/13/2025 04:00:00 PM, [address] [place] [address] [place], [address], Progress Notes * Cholo ROCK Maria MDOB:[birth year] (83 yo M)Acc No.[id number]:04/09/2024 Patient: Cholo MORENO :1940 A ge:83 Y S ex:Male Phone: Address:[place], [address] * true * Date: Generated for Printi ng/Faxing/eTransmitting on: 02:35 PM EDT
--- OUTSIDE RECORDS SUMMARY | 2024-04-09 11:43 | XMS_ITS ---
Author Organization Iggy Bear III, MD Address [address] [place] [address] Care Team Providers Care Economic Research Analyst Name Role Phone Dr. Iggy Bear III Primary Care Provider REASON FOR VISIT ? Medication Social History Sex Assigned At : Social History Observation Description Sex Assigned At Male Encounters Encounter Location Date Provider Diagnosis Iggy Bear III, MD [address] [place] [address] [place] [address] 04/09/2024 Iggy Bear Plan Of Treatment Next Appt Details Provider Name:Iggy Bear , 01/12/2025 04:00:00 PM, [address] [place] [address] [place], [address], Provider Name:Iggy Bear , 07/13/2025 04:00:00 PM, [address] [place] [address] [place], [address], Progress Notes * ST. BAEZRECholo Maria MDOB:08/01 (83 yo M)Acc No.[id number]:04/09/2024 Patient: Cholo MORENO :1940 A ge:83 Y S ex:Male Phone: Address:[place], [address] * true * Date: Generated for Printi ng/Faxing/eTransmitting on: 02:33 PM EDT
--- OUTSIDE RECORDS SUMMARY | 2024-04-12 05:09 | XMS_ITS ---
Author Organization Iggy Bear III, MD Address [address] [place] [address] Care Team Providers Care Real Estate Broker Associate Name Role Phone Dr. Iggy Bear III Primary Care Provider REASON FOR VISIT Message Social History Sex Assigned At : Social History Observation Description Sex Assigned At Male Encounters Encounter Location Date Provider Diagnosis Iggy Bear III, MD [address] [place] [address] [place] [address] 04/12/2024 Iggy Bear Plan Of Treatment Next Appt Details Provider Name:Iggy Bear , 01/12/2025 04:00:00 PM, [address] [place] [address] [place], [address], Provider Name:Iggy Bear , 07/13/2025 04:00:00 PM, [address] [place] [address] [place], [address], Progress Notes * Cholo ROCK Maria MDOB:[birth year] (83 yo M)Acc No.[id number]:04/12/2024 Patient: Cholo MORENO :1940 A ge:83 Y S ex:Male Phone: Address:[place], [address] * true * Date: Generated for Printi ng/Faxing/eTransmitting on: 02:33 PM EDT
--- OUTSIDE RECORDS SUMMARY | 2024-04-12 10:11 | XMS_ITS ---
Author Organization Iggy Bear III, MD Address [address] [place] [address] Care Team Providers Care Energy Systems Engineer Name Role Phone Dr. Iggy Bear III Primary Care Provider [phone] REASON FOR VISIT Message Social History Sex Assigned At : Social History Observation Description Sex Assigned At Male Encounters Encounter Location Date Provider Diagnosis Iggy Bear III, MD [address] [place] [address] [place] [address] 04/12/2024 Iggy Bear Plan Of Treatment Next Appt Details Provider Name:Iggy Bear , 01/12/2025 04:00:00 PM, [address] [place] [address] [place], [address], Provider Name:Iggy Bear , 07/13/2025 04:00:00 PM, [address] [place] [address] [place], [address], Progress Notes * Cholo ROCK Maria MDOB:[birth year] (83 yo M)Acc No.[id number]:04/12/2024 Patient: Cholo MORENO :1940 A ge:83 Y S ex:Male Phone: Address:[place], [address] * true * Date: Generated for Printi ng/Faxing/eTransmitting on: 02:34 PM EDT
--- OUTSIDE RECORDS SUMMARY | 2024-04-16 05:04 | XMS_ITS ---
Author Organization Iggy Bear III, MD Address [address] [place] [address] Care Team Providers Care Pattern Keeper Name Role Phone Dr. Iggy Bear III Primary Care Provider REASON FOR VISIT Needs call back from Social History Sex Assigned At : Social History Observation Description Sex Assigned At Male Encounters Encounter Location Date Provider Diagnosis Iggy Bear III, MD [address] [place] [address] [place] [address] 04/16/2024 Iggy Bear Plan Of Treatment Next Appt Details Provider Name:Iggy Bear , 01/12/2025 04:00:00 PM, [address] [place] [address] [place], [address], Provider Name:Iggy Bear , 07/13/2025 04:00:00 PM, [address] [place] [address] [place], [address], Progress Notes * Cholo ROCK Maria MDOB:[birth year] (83 yo M)Acc No.[id number]:04/16/2024 Patient: Cholo MORENO :1940 A ge:83 Y S ex:Male Phone: Address:[place], [address] * true * Date: Generated for Printi ng/Faxing/eTransmitting on: 02:34 PM EDT
--- OUTSIDE RECORDS SUMMARY | 2024-04-22 05:55 | XMS_ITS ---
Author Organization Iggy Bear III, MD Address [address] [place] [address] Care Team Providers Care Division Leader Name Role Phone Dr. Iggy Bear III Primary Care Provider REASON FOR VISIT Message Social History Sex Assigned At : Social History Observation Description Sex Assigned At Male Encounters Encounter Location Date Provider Diagnosis Iggy Bear III, MD [address] [place] [address] [place] [address] 04/22/2024 Iggy Bear Plan Of Treatment Next Appt Details Provider Name:Iggy Bear , 01/12/2025 04:00:00 PM, [address] [place] [address] [place], [address], Provider Name:Iggy Bear , 07/13/2025 04:00:00 PM, [address] [place] [address] [place], [address], Progress Notes * Cholo ROCK Maria MDOB:[birth year] (83 yo M)Acc No.[id number]:04/22/2024 Patient: Cholo MORENO :1940 A ge:83 Y S ex:Male Phone: Address:[place], [address] * true * Date: Generated for Printi ng/Faxing/eTransmitting on: 02:35 PM EDT
--- OUTSIDE RECORDS SUMMARY | 2024-06-21 13:30 | XMS_ITS ---
Author Organization Iggy Bear III, MD Address [address] [place] [address] Care Team Providers Care [employer] Teacher Name Role Phone Dr. Iggy Bear III Primary Care Provider REASON FOR VISIT Annual Exam Social History Sex Assigned At : Social History Observation Description Sex Assigned At Male Encounters Encounter Location Date Provider Diagnosis Iggy Bear III, MD [address] [place] [address] [place] [address] 06/21/2024 Iggy Bear Plan Of Treatment Next Appt Details Provider Name:Iggy Bear , 01/12/2025 04:00:00 PM, [address] [place] [address] [place], [address], Provider Name:Iggy Bear , 07/13/2025 04:00:00 PM, [address] [place] [address] [place], [address], Progress Notes * Cholo ROCKDOB:[birth year] (84 yo M)Acc No.[id number]:06/21/2024 Progress Notes Patient: Cholo MORENO Provider: Loc Bear MD :1940 A ge:83 Y S ex:Male Date:06/21/2024 Phone: Address:[phone] Subjective: * Chief Complaints: * 1 . [...] 06/21/2024 Generated for Deena lujan/Concepción/Krystal on: 1 02:34 PM EDT
--- OUTSIDE RECORDS SUMMARY | 2024-07-07 12:00 | XMS_ITS ---
Author Organization Iggy Bear III, MD Address [address] [place] [address] Care Team Providers Care Driller'S Assistant Name Role Phone Dr. Iggy Bear III Primary Care Provider [phone] Allergies Allergen (clinical drug ingredient) Drug/Non Drug [...] Provider Diagnosis Iggy Bear III, MD [address] [place] [address] [place] [address] 07/07/2024 Iggy Bear Chronic obstructive pulmonary disease, [...] ov review labs Provider Name:Iggy Bear , 01/12/2025 04:00:00 PM, [address] [facility] [place], [place], [address], Provider Name:Iggy Bear , 07/13/2025 04:00:00 PM, [address] [place] [address] [place], [place], [address], Progress Notes * Cholo ROCKDOB:[birth year] (83 yo M)Acc No.[id number]:07/07/2024 Progress Notes Patient: Cholo MORENO Provider: Loc Bear MD :1940 A ge:83 Y S ex:Male Date:07/07/2024 Phone: Address:[address] [place] [address] [place] Subjective: * Chief Complaints: * A nnual [...] M inimal Depression C OVID-19 Screening: apr [facility] fell out of bed. Questions H ave [...] and incarcerated left inguinal hernia, Dr. Smith, [facility] 01/2019double cataract surgery 01/2019glaucoma surgery 03/05/2022Trabeculectomy with Mitomycin and +/- 5FU 03/2022 * Hospitalization/Major Diagno stic Procedure: g out, knee, C * Family History: F ather: 73 yrs, Multiple myocardial infarctions, stroke, coronary artery disease, emphysema, atrial fibrillation, worked at [employer]. M other: 88 yrs, Alzheimer's disease. [...] MD Date: 0 07/07/2024 Generated for Printi ng/Concepción/eTransmitting on: 1 02:33 PM EDT History and Physical Notes * [...]
--- OUTSIDE RECORDS SUMMARY | 2024-10-07 06:30 | XMS_ITS ---
Author Organization Iggy Bear III, MD Address [address] [place] [address] Care Team Providers Care Vice President Regulatory Name Role Phone Dr. Iggy Bear III [...] Provider Speciality Internal M edicine Referred Provider Ela Dixon [facility] er, Orthopedic Surgeons Referred Provider [facility]ty [facility] General Notes Miguel Rothman 10/2024 04:16:57 PM [...] Problem Status W/U Status Risk Notes Problem 129906897 Overweight (E66.3) Active confirmed His body mass index is 29. He has lost 4 pounds. He has lost 15 pounds since March of this year. We discussed diet and nutrition. His weight will be carefully followed. Problem 1701843 Umbilical hernia without obstruction and without gangrene (K42.9) Active confirmed This is an asymptomatic problem at this time will be observed. There has been no change in this lesion. Problem 977051881 Paroxysmal atrial fibrillation (I48.0) Active confirmed He has had no episodes of tachycardia recently. He has been compliant with his regimen and will come to the office in the near future. Problem [id number] Pain in right shoulder (M25.511) Active confirmed X-ray of the shoulder has been ordered and he was referred back to his orthopedist Vital Signs Temperature 97 degrees Fahrenheit 10/07/2024 Blood pressure systolic 118 mm Hg 10/08/19 25 Blood pressure diastolic 60 mm Hg 025 Heart Rate 60 /min 10/07/2024 Respiratory Rate 15 /min 10/07/2024 Height 70 in 10/07/2024 Weight 204 lbs 10/07/2024 BMI 29.27 kg/m2 10/07/2024 Oximetry 98 % 10/07/2024 Encounters Encounter Location Date Provider Diagnosis Iggy Bear III, MD [address] [place] [address] [address] [place], [place] [address] 10/07/2024 Iggy Bear Pain in right should [...] 10/07/2024 10/07/2024, Consult and Treat, Orthopedic Surgeons [facility] Next Appt Details Follow Up: 3 Months, Reason: ov Provider Name:Iggy Bear , 01/12/2025 04:00:00 PM, [address] [place] [address] [address], [place], [address], Provider Name:Iggy Bear , 07/13/2025 04:00:00 PM, [address] [place] [address] [address], [place], [address], Progress Notes * [facility] Cholo JDOB:[birth year] (84 yo M)Acc No.[id number]:10/07/2024 Progress Notes Patient: Cholo MORENO Provider: Loc Bear MD :1940 A ge:84 Y S ex:Male Date:10/07/2024 Phone: Address:[address] [place], [place] [id number] Subjective: * Chief Complaints: * N ephrolithiasisCOPDChronic [...] and incarcerated left inguinal hernia, Dr. Smith, [facility] 01/2019double cataract surgery 01/2019glaucoma surgery 03/05/2022Trabeculectomy with Mitomycin and +/- 5FU 03/2022 * Hospitalization/Major Diagno stic Procedure: g out, knee, C * Family History: F ather: 73 yrs, Multiple myocardial infarctions, stroke, coronary artery disease, emphysema, atrial fibrillation, worked at [employer]. M other: 88 yrs, Alzheimer's disease. C [...] 08:55 AM 09:04 AM Order Date 09/30/2024 09/09/202303/06/2023 Triglycerides 94 (Ref Range: <150 mg/dL) 86 [...] 76 (Ref Range: <100 pg/mL) * Lab:[facility] [place]. Pane l Fast * Collection Date 09/30/2024 [...] Examination: G eneral Examination: GENERAL APPEARANCE: p edith, well nourished, well developed, in no acute [...] MD Date: 0 10/07/2024 Generated for Deena lujan/Concepción/eTransmitting on: 1 02:34 PM EDT History and [...] Referred Provider Not es 10/07/2024 Iggy Bear [facility], Orthopedic Surgeons Consult and Treat
--- OUTSIDE RECORDS SUMMARY | 2024-10-13 09:37 | XMS_ITS ---
Author Organization Iggy Bear III, MD Address [address] [place] [address] Care Team Providers Care Pediatric Acute Care Unit Nurse Name Role Phone Dr. Iggy Bear III Primary Care Provider [phone] REASON FOR VISIT told patient to call Social History Sex Assigned At : Social History Observation Description Sex Assigned At Male Encounters Encounter Location Date Provider Diagnosis Iggy Bear III, MD [address] [place] [address] [place] [address] 10/13/2024 Iggy Bear Plan Of Treatment Next Appt Details Provider Name:Iggy Bear , 01/12/2025 04:00:00 PM, [address] [place] [address] [place], [address], Provider Name:Iggy Bear , 07/13/2025 04:00:00 PM, [address] [place] [address] [place], [address], Progress Notes * Cholo ROCK Maria MDOB:[birth year] (84 yo M)Acc No.[id number]:10/13/2024 Patient: Cholo MORENO :1940 A ge:84 Y S ex:Male Phone: Address:[place], [address] Subjective: * Chief Complaints: * D rAbel told patient to call * Medical History: * Surgical History: * Hospitalization/Major Diagno stic Procedure: * Medications: Objective: * Vitals: * Physical Examination: Assessment: Plan: * Treatment: * Procedure Codes: * true * Date: Generated for Deena lujan/Concepción/Krystal on: 02:34 PM EDT
[2024-12-29 11:45] LABS: MANUAL DIFF FLAG NO
[2024-12-29 12:27] LABS: Hematocrit 41.5 % (42.0-52.0); Hemoglobin 13.7 g/dl (14.0-18.0); Imm Gran Abs Auto 0.04 X10*3/uL (0.00-0.03); Imm Gran Pct Auto 0.6 % (0.0-0.4); Lymphocytes Absolute Auto 1.0 X10*3/uL (1.2-4.9); Mean Corpuscular HGB Conc 33.0 g/dl (31.0-36.0); Mean Corpuscular Hemoglobin 29.8 pg (27.0-33.0); Mean Corpuscular Volume 90.4 fL (80.0-98.0); NRBC Abs Auto 0.000 X10*3/uL (0.0-0.012); NRBC Pct Auto 0.0 /100WBC (0.0-0.2); Platelet Count 147 X10*3/uL (160-400); Red Blood Count 4.59 X10*6/uL (4.60-5.80); White Blood Count 7.1 X10*3/uL (4.8-10.8)
[2024-12-29 13:02] LABS: Alanine Aminotransferase 13 U/L (0-40); Albumin Level 4.5 g/dL (3.5-5.0); Alkaline Phosphatase 85 U/L (39-117); Anion Gap 12 (12-20); Aspartate Amino Transferase 20 U/L (5-37); Blood Urea Nitrogen 16 mg/dL (9-16); Calcium 9.0 mg/dL (8.4-10.2); Carbon Dioxide 29 mmol/L (22-29); Chloride 103 mmol/L (96-108); Cholesterol 116 mg/dL (<200); Estimated Glomerular Filt Rate > 60; HDL Cholesterol 32 mg/dL (>40); Potassium 4.5 mmol/L (3.3-5.1); Sodium 139 mmol/L (135-145); Total Protein 7.1 g/dL (6.5-8.0); Triglycerides 58 mg/dL (<150)
[2024-12-29 13:10] LABS: NT Pro B Type Natriuretic Pept 980.2 pg/mL (<300)
--- OUTSIDE RECORDS SUMMARY | 2024-12-29 14:35 | XMS_ITS | Patient Health Record ---
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, with unspecified presence of clinical manifestation (I70.203) Active confirmed Q7(A), Q8(2B), Q9(1B,2 C) Vital Signs Blood pressure diastolic 70 mm Hg 04/27/2024 Height 5 ft 10 in in 04/27/2024 Blood pressure systolic 130 mm Hg 04/27/2024 Weight 204 lbs 04/27/2024 BMI 29.27 kg/m2 04/27/2024 Procedures Procedure Date Ordered Date Performed Result Body Sit e 84963-VLIBNHT NAIL, 6 OR MORE 01/26/2024 N/A 32896-MIYK SKIN LESIONS, OVER 4 01/26/2024 N/A 62381-VTRLPNC NAIL, 6 OR MORE 04/27/2024 N/A 95868-OBLJ SKIN LESIONS, OVER 4 04/27/2024 N/A 37602-YSCDHGP NAIL, 6 OR MORE 08/04/2024 N/A 92630-MPUO SKIN LESIONS, OVER 4 08/04/2024 N/A Encounters Encounter Location Date Provider Diagnosis [facility] [address] 01/26/2024 Manda White 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, with unspecified presence of clinical manifestation I70.203 ; Tinea unguium B35.1 ; Pain in right toe(s) M79.674 and Pain in left toe(s) M79.675 [facility] [address] 04/27/2024 Main Kirkpatrick 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, with unspecified presence of clinical manifestation I70.203 ; Tinea unguium B35.1 ; Pain in right toe(s) M79.674 ; Pain in left toe(s) M79.675 and Tinea pedis of both feet B35.3 [facility] [place] [address] [place] [address] 08/04/2024 Manda White 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, with unspecified presence of clinical manifestation I70.203 ; Tinea unguium B35.1 ; Pain in right toe(s) M79.674 ; Pain in left toe(s) M79.675 and Tinea pedis of both feet B35.3 Assessments Encounter Date Diagnosis (ICD Code) Assessment Notes Treatment Notes Treatment Clinical Notes Section Notes 01/26/2024 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, with unspecified presence of clinical manifestation (ICD-10 - I70.203) Q7(A), Q8(2B), Q9(1B,2C) 04/27/2024 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, with unspecified presence of clinical manifestation (ICD-10 - I70.203) Q7(A), Q8(2B), Q9(1B,2C) 08/04/2024 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, with unspecified presence of clinical manifestation (ICD-10 - I70.203) Q7(A), Q8(2B), Q9(1B,2C) 08/04/2024 Tinea unguium (ICD-10 - B35.1) 04/27/2024 Tinea unguium (ICD-10 - B35.1) 01/26/2024 Tinea unguium (ICD-10 - B35.1) 01/26/2024 Pain in right toe(s) (ICD-10 - M79.674) 04/27/2024 Pain in right toe(s) (ICD-10 - M79.674) 08/04/2024 Pain in right toe(s) (ICD-10 - M79.674) 04/27/2024 Pain in left toe(s) (ICD-10 - M79.675) 08/04/2024 Pain in left toe(s) (ICD-10 - M79.675) 01/26/2024 Pain in left toe(s) (ICD-10 - M79.675) 04/27/2024 Tinea pedis of both feet (ICD-10 - B35.3) 08/04/2024 Tinea pedis of both feet (ICD-10 - B35.3) Plan Of Treatment Pending Test Test Name Order Date 80092-TQZQRWH NAIL, 6 OR MORE 01/26/2024 97938-YXEJDAV NAIL, 6 OR MORE 04/27/2024 08065-RVTWHJH NAIL, 6 OR MORE 08/04/2024 36425-QXWQ SKIN LESIONS, OVER 4 08/05/19 59060-VQYC SKIN LESIONS, OVER 4 04/27/19 61509-LOGQ SKIN LESIONS, OVER 4 01/26/20 47170-UMXJ SKIN LESIONS, OVER 4 04/23/19 89324-OGFF SKIN LESIONS, OVER 4 07/24/19 Next Appt Details Provider Name:Manda Lewis james, 01/03/2025 03:30:00 PM, [address] [place], [address], Insurance Providers Payer Name Payer Address Payer Phone Subscriber Number Group Number Insured Name Patient Relationship to Insured Coverage Start Date Coverage End Date Medicare [employer] [address] [place] [address] [id number] Cholo Campa Self - patient is the insured [employer] [address] [place] [address] [id number] Cholo Campa Self - patient is the insured Medical (General) History Medical History History ICD Code Arthritis Back,Hip,and Knee pain Broken bones Cataracts Glaucoma Heart disease Macular degeneration Numbness Measles Mumps Chicken pox Joint implants/screws Surgical History Surgery Date(Month/Year) hip replacement laser eye surgery
--- OUTSIDE RECORDS SUMMARY | 2024-12-29 14:36 | XMS_ITS | Patient Health Record ---
Author Organization Iggy Bear III, MD Address [address] [place] [address] [place] [address] Care Team Providers Care Small Business Representative Name Role Phone Dr. Iggy Bear III Primary Care Provider Allergies Allergen (clinical drug ingredient) Drug/Non Drug Allergy documented on EMR Reaction Allergy Type Onset Date Status No Known Food Allergy Unknown Drug Allergy Active Iodinated contrast media (substance) Iodinated Diagnostic Agents Unknown Drug Allergy Active Results Component Value Reference Range Notes XR hand RT min 3V Reviewed date:03/02/2024 05:48:01 PM Interpretation: Performing Lab: Notes/Report: [facility] [address] [place] [address] XRay Report Signed Patient: Cholo Simmons MR#: [id number] : 1940 Acct:[id number] Age/Sex: 83 / M ADM Date: 02/27/24 Loc: HO.XRAY Attending Dr: Iggy Bear MD Ordering Physician: Iggy Bear MD Date of Service: 02/27/24 Procedure(s): XR hand RT min 3V Accession Number(s): [id number] cc: Iggy Bear MD EXAMINATION: XR HAND, RIGHT CLINICAL INFORMATION: Pain. COMPARISON: None available. TECHNIQUE: PA, lateral, and oblique views of the right hand. FINDINGS: Severe circumferential soft tissue swelling at the 2nd digit without radiopaque foreign body. No acute fracture or dislocation. No cortical erosion or periosteal reaction to suggest acute osteomyelitis. Yyhtgtkt-pj-vofvgr joint space narrowing with marginal osteophytes within the interphalangeal joints, most prominent at the 2nd and 3rd digits. 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 No osseous erosion. XR/XR hand RT min 3V IMPRESSION: 1. Severe circumferential soft tissue swelling at the 2nd digit without radiopaque foreign body. 2. No acute fracture or dislocation. No cortical erosion or periosteal reaction to suggest acute osteomyelitis. 3. Slwgpffx-fx-lfzbad degenerative arthritis within the interphalangeal joints, most prominent at the 2nd and 3rd digits. Electronically signed by: Mark Hollins MD 02/27/2024 03:01 PM EST Dictated By: Mark Hollins MD Signed By: <Electronically signed by Mark Hollins MD in OV> 02/27/24 1501 DD/ 1347 TD/TT: 02/27/24 1359 Donor Services Manager: [place] [address] XRay Report Signed Patient: Loc Simmons MR#: [id number] : 1940 Acct:[id number] Age/Sex: 83 / M ADM Date: 02/27/24 Loc: HO.XRAY Attending Dr: Iggy Bear MD Ordering Physician: Iggy Bear MD Date of Service: 02/27/24 Procedure(s): XR an d RT min 3V Accession Number(s): [id number] cc: Iggy Bear MD EXAMINATION: XR HAND, RIGHT CLINICAL INFORMATION: Pain. COMPARISON: None available. TECHNIQUE: PA, lateral, and obl ique views of the right hand. FINDINGS: Severe circumferenti al soft tissue swelling at the 2nd digit without radiopaque foreign b dennis. No acute fracture or dislocation. No cortical erosion or periostea l reaction to suggest acute osteomyelitis. Cnbubrkb-qr-prgfxv j oint space narrowing with marginal osteophytes within the interphalangeal joints, most prominent at the 2nd and 3rd digits. 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 No osseous erosion. X R/XR hand RT min 3V IMPRESSION: 1. Severe circumfere ntial soft tissue swelling at the 2nd digit without radiopaque foreign body. 2. No acute fracture or dislocation. No cortical erosion or periosteal reaction to suggest acute osteomyelitis. 3. Iiyhidjy-px-iszih e degenerative arthritis within the interphalangeal joints, most promine nt at the 2nd and 3rd digits. Electronically gwendolyn d by: Mark Hollins MD 02/27/2024 03:[address] [facility] Dictated By: Mark Hollins MD Signed By: <Electronically signed by Mark Hollins MD in OV> 02/27/24 1501 DD/ 1347 TD/TT: 02/27/24 1359 Donor Services Manager: SR Complete Blood Count Auto Di ff Reviewed date:03/25/2024 06:29:04 AM Interpretation: Performing Lab:[facility], [address] [place] [phone] Notes/Report: White Blood Count 8.2 4.8-10.8 X10*3/uL Red Blood Count 4.53 4.60-5.80 X10*6/uL Hemoglobin 13.7 14.0-18.0 g/dl Hematocrit 42.1 42.0-52.0 % Mean Corpuscular Volume 92.9 80.0-98.0 fL Mean Corpuscular Hemoglobin 30.2 27.0-33.0 pg Mean Corpuscular HGB Conc 32.5 31.0-36.0 g/dl Red Cell Distribution Width 13.3 11.0-16.0 % Platelet Count 133 160-400 X10*3/uL Mean Platelet Volume 9.4 9.4-12.4 fL Neutrophils Percent Auto 71.6 45-73 % Imm Gran Pct Auto 1.6 0.0-0.4 % Lymphocytes Percent Auto 12.4 20-40 % Monocytes Percent Auto 8.5 2-11 % Eosinophils Percent Auto 5.0 0-4 % Basophils Percent Auto 0.9 0-2 % NRBC Pct Auto 0.0 0.0-0.2 /100WBC Neutrophils Absolute Auto 5.9 2.0-8. 3 x10*3/uL Imm Gran Abs Auto 0.13 0.00-0.03 X10*3/uL Lymphocytes Absolute Auto 1.0 1.2-4. 9 X10*3/uL Monocytes Absolute Auto 0.7 0.1-1.2 X10*3/uL Eosinophils Absolute Auto 0.4 0.0-0. 4 X10*3/uL Basophils Absolute Auto 0.1 0.0-0.2 X10*3/uL NRBC Abs Auto 0.000 0.0-0.012 X10*3/uL Comprehensive Met. Panel Reviewed date:03/25/2024 06:29:05 AM Interpretation: Performing Lab:[address] [address] Notes/Report: Sodium 141 135-145 mmol/L Potassium 4.1 3.3-5.1 mmol/L Chloride 105 96-108 mmol/L Carbon Dioxide 25 22-29 mmol/L Anion Gap 15 12-20 Blood Urea Nitrogen 18 9-16 mg/dL Creatinine 0.90 0.5-1.4 mg/dL Estimated Glomerular Filt Rate > 60 Chronic Kidney Disease: Estimated GFR < 60 mL/min/1.73m2 Severe Kidney Disease: Estimated GFR < 15 mL/min/1.73m2 Glucose Random 138 60-115 mg/dL Calcium 8.7 8.4-10.2 mg/dL Bilirubin Total 0.4 0.0-1.0 mg/dL Aspartate Amino Transferase 18 5-37 U/L Alanine Aminotransferase 15 0-40 U/L Total Protein 6.4 6.5-8.0 g/dL Albumin Level 3.8 3.5-5.0 g/dL Alkaline Phosphatase 77 39-117 U/L PSA,Total (Free>4and<10) Reviewed date:03/25/2024 06:29:05 AM Interpretation: Performing Lab:[address] [address] Notes/Report: PSA,Total (Free>4and<10) 0.27 0.00-4.00 ng/mL A Free PSA was not performed: The percentage of Free PSA can be used to enhance the differentiation of prostate cancer from benign prostatic disease in subjects whose PSA levels are between 4.0 and 10.0 ng/mL. For subjects whose PSA levels are below 4.0 or above 10.0 ng/mL, the risk of prostate cancer is determined on the basis of the PSA alone. Therefore the % Free PSA is recommended only for those subjects whose PSA levels are between 4.0 and 10.0 ng/mL. PSA methodology: Almaraz Alinity i Chemiluminescent Microparticle Immunoassay (CMIA) Complete Blood Count Auto Di ff Reviewed date:03/25/2024 06:29:04 AM Interpretation: Performing Lab:[address] [address] Notes/Report: White Blood Count 8.1 4.8-10.8 X10*3/uL Red Blood Count 4.20 4.60-5.80 X10*6/uL Hemoglobin 13.0 14.0-18.0 g/dl Hematocrit 38.3 42.0-52.0 % Mean Corpuscular Volume 91.2 80.0-98.0 fL Mean Corpuscular Hemoglobin 31.0 27.0-33.0 pg Mean Corpuscular HGB Conc 33.9 31.0-36.0 g/dl Red Cell Distribution Width 13.2 11.0-16.0 % Platelet Count 154 160-400 X10*3/uL Mean Platelet Volume 9.0 9.4-12.4 fL Neutrophils Percent Auto 82.4 45-73 % Imm Gran Pct Auto 1.0 0.0-0.4 % Lymphocytes Percent Auto 6.7 20-40 % Monocytes Percent Auto 7.9 2-11 % Eosinophils Percent Auto 1.9 0-4 % Basophils Percent Auto 0.1 0-2 % NRBC Pct Auto 0.0 0.0-0.2 /100WBC Neutrophils Absolute Auto 6.7 2.0-8. 3 x10*3/uL Imm Gran Abs Auto 0.08 0.00-0.03 X10*3/uL Lymphocytes Absolute Auto 0.5 1.2-4. 9 X10*3/uL Monocytes Absolute Auto 0.6 0.1-1.2 X10*3/uL Eosinophils Absolute Auto 0.2 0.0-0. 4 X10*3/uL Basophils Absolute Auto 0.0 0.0-0.2 X10*3/uL NRBC Abs Auto 0.000 0.0-0.012 X10*3/uL Erythrocyte Sedimentation Ra te Reviewed date:03/25/2024 06:29:04 AM Interpretation: Performing Lab:[facility], [address] [place] [phone] Notes/Report: Erythrocyte Sedimentation Rate 22 0-15 MM/HR Patients with polycythemia and many hemoglobin abnormalities may have depressed sed rates whereas patients with anemia may have elevated sed rates. Comprehensive Met. Panel Reviewed date:03/25/2024 06:29:04 AM Interpretation: Performing Lab:[facility], [address] [place] [phone] Notes/Report: Sodium 141 135-145 mmol/L Potassium 4.5 3.3-5.1 mmol/L Chloride 106 96-108 mmol/L Carbon Dioxide 25 22-29 mmol/L Anion Gap 15 12-20 Blood Urea Nitrogen 19 9-16 mg/dL Creatinine 0.81 0.5-1.4 mg/dL Creatinine Clr Calc Pharmacy 81.3 eGFR (calculated from the MDRD study equation) and eCrCl (calculated from the Cockcroft-Gault equation) are based on different parameters and may not yield comparable results. If eCrCl result is absurd, please check patient's height/weight. Estimated Glomerular Filt Rate > 60 Chronic Kidney Disease: Estimated GFR < 60 mL/min/1.73m2 Severe Kidney Disease: Estimated GFR < 15 mL/min/1.73m2 Glucose Random 102 60-115 mg/dL Calcium 8.6 8.4-10.2 mg/dL Bilirubin Total 0.5 0.0-1.0 mg/dL Aspartate Amino Transferase 22 5-37 U/L Alanine Aminotransferase 10 0-40 U/L Total Protein 6.8 6.5-8.0 g/dL Albumin Level 3.8 3.5-5.0 g/dL Alkaline Phosphatase 66 39-117 U/L Uric Acid Reviewed date:03/25/2024 06:29:04 AM Interpretation: Performing Lab:[facility], [address] [place] [phone] Notes/Report: Uric Acid 7.3 3.4-7.0 mg/dL C Reactive Protein Reviewed date:03/25/2024 06:29:04 AM Interpretation: Performing Lab:[facility], [address] [place] [phone] Notes/Report: C Reactive Protein 0.72 < or = 0.50 mg/dL SARS-CoV2/FLU/RSV Reviewed date:03/25/2024 06:29:04 AM Interpretation: Performing Lab:[facility], [address] [place] [phone] Notes/Report: Influenza A PCR NEGATIVE Negative Influenza B PCR NEGATIVE Negative Resp Syncy Virus RNA Qual PCR NEGATIVE Negative SARS COV2 PCR INHOUSE NEGATIVE Negative All test results must be correlated with clinical findings. Negative results do not preclude SARS-CoV2, influenza A virus, influenza B virus and/or RSV infection and should not be used as the sole basis for treatment or other patient management decisions. Negative results must be combined with clinical observations, patient history, and epidemiological information. This test has not been evaluated for monitoring treatment of infection. This test has been authorized by the FDA under an Emergency Use Authorization (EUA) for use by authorized laboratories. Testing performed on the [employer] GeneXpert utilizing real-time RT-PCR. All SARS CoV2 and positive influenza A/B results are reported to [facility]. XR hip RT w PEL1V Reviewed date:03/25/2024 06:29:04 AM Interpretation: Performing Lab: Notes/Report: [address] [address] XRay Report Signed Patient: Cholo Simmons MR#: [id number] : 1940 Acct:[id number] Age/Sex: 83 / M ADM Date: 03/22/24 Loc: .ED Attending Dr: Ordering Physician: Sagrario Jiang NP Date of Service: 03/22/24 Procedure(s): XR hip RT w PEL 1V Accession Number(s): [id number] cc: Iggy Bear MD; Sagrario Jiang NP EXAMINATION: XR hip RT w PEL 1V HISTORY: pain, h/o replacement COMPARISON: Comparison is made with the prior examination dated 08/20/2010. FINDINGS: A single AP view of the pelvis and two views of the right hip are submitted. The patient is status post right total hip arthroplasty. The orthopedic elements are in anatomic alignment. There is no radiographic evidence of loosening. There is no fracture or dislocation. The soft tissues are unremarkable. XR/XR hip RT w PEL 1V IMPRESSION: Status post right total hip arthroplasty. Electronically signed by: Iggy Gupta MD 03/22/2024 11:16 AM EST RP Dictated By: Iggy Gupta MD Signed By: <Electronically signed by Iggy Gupta MD in OV> 03/22/24 1116 DD/ 1040 TD/TT: 03/22/24 1050 Donor Services Manager: [address] [address] XRay Report Signed Patient: Loc Simmons MR#: [id number] : 1940 Acct:[id number] Age/Sex: 83 / M ADM Date: 03/22/24 Loc: HO.ED Attending Dr: Ordering Physician: Sagrario Jiang NP Date of Service: 03/22/24 Procedure(s): XR hip RT w PEL 1V Accession Number(s): [id number] cc: Iggy Bear MD; Sagrario Jiang NP EXAMINATION: XR hip RT w PEL 1V HISTORY: pain, h/o replacement COMPARISON: Comparis on is made with the prior examination dated 08/20/2010. FINDINGS: A single A P view of the pelvis and two views of the right hip are submitted. T he patient is status post right total hip arthroplasty. The orthopedic elements are in anatomic alignment. There is no radiogra phic evidence of loosening. There is no fracture or dislocation. The sof t tissues are unremarkable. X R/XR hip RT w PEL 1V IMPRESSION: Status post right to brittny hip arthroplasty. Electronically gwendolyn d by: Iggy Gupta MD 03/22/2024 11:16 AM EST RP Dictated By: Iggy Gupta MD Signed By: <Electronically signed by Iggy Gupta MD in OV> 03/22/24 1116 DD/ 1040 TD/TT: 03/22/24 1050 Donor Services Manager: XR knee RT 4V Reviewed date:03/25/2024 06:29:04 AM Interpretation: Performing Lab: Notes/Report: [address] [address] XRay Report Signed Patient: Cholo Simmons MR#: [id number] : 1940 Acct:[id number] Age/Sex: 83 / M ADM Date: 03/22/24 Loc: HO.ED Attending Dr: Ordering Physician: Sagrario Jiang NP Date of Service: 03/22/24 Procedure(s): XR knee RT 4V Accession Number(s): [id number] cc: Iggy Bear MD; Sagrario Jiang NP EXAMINATION: XR KNEE 4 OR MORE VIEWS RIGHT HISTORY: pain, redness, swelling COMPARISON: There are no prior studies available for comparison. FINDINGS: Four views of the right knee are submitted. Osseous mineralization is normal. There is no fracture or dislocation. There is mild osteoarthritis of the medial and patellofemoral compartments with joint space narrowing and osteophyte formation. There is calcification of the popliteal artery. 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 Electronically signed by: Iggy Gupta MD 03/22/2024 11:17 AM EST Dictated By: Iggy Gupta MD Signed By: <Electronically signed by Iggy Gupta MD in OV> 03/22/24 1117 DD/ 1040 TD/TT: 03/22/24 1050 Donor Services Manager: [address] [address] XRay Report Signed Patient: Loc Simmons MR#: [id number] : 1940 Acct:[id number] Age/Sex: 83 / M ADM Date: 03/22/24 Loc: HO.ED Attending Dr: Ordering Physician: Sagrario Jiang NP Date of Service: 03/22/24 Procedure(s): XR kne e RT 4V Accession Number(s): [id number] cc: Iggy Bear MD; Sagrario Jiang NP EXAMINATION: XR KNEE 4 OR MORE VIEWS RIGHT HISTORY: pain, redne ss, swelling COMPARISON: There ar e no prior studies available for comparison. FINDINGS: Four views of the [facility] knee are submitted. Osseous mineralization is normal. There is no fracture or dislocation. There is mild osteoarthritis of th e medial and patellofemoral compartments with joint space narrowing and osteophyte formation. There is calcification of the popliteal artery. 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 Electronically gwendolyn d by: Iggy Gupta MD 03/22/2024 11:17 AM EST Dictated By: Iggy Gupta MD Signed By: <Electronically signed by Iggy Gupta MD in OV> 03/22/24 1117 DD/ 1040 TD/TT: 03/22/24 1050 Donor Services Manager: EARL GONZALES w/[employer] Reviewed date:04/09/2024 09:15:21 AM Interpretation: Performing Lab:[facility], [address] [place] [phone] Notes/Report: [id number] Urine, Clean Catch Color Urine Yellow Appearance Urine Clear PH 6.0 5.0-9.0 Glucose Urine UA Negative Negative mg/dL Urine Blood Negative Negative Specific [place] - Urine 1.025 1.005-1.025 Urine Protein Trace Neg-Trace mg/dL Urine Ketones 15 Negative mg/dL Nitrite Urine Negative Negative Leukocyte Esterase Urine Negative Negative CT cervical spine wo con Reviewed date:04/09/2024 09:15:21 AM Interpretation: Performing Lab: Notes/Report: [address] [address] [address] Scan Report Signed Patient: Cholo Simmons MR#: [id number] : 1940 Acct:[id number] Age/Sex: 83 / M ADM Date: 04/05/24 Loc: HO.ED Attending Dr: Ordering Physician: Elda Gates Date of Service: 04/05/24 Procedure(s): CT cervical spine wo IV con Accession Number(s): [id number] cc: Iggy Bear MD; Elda Gates Report Number: [id number]: Total DLP = 588.00 mGy-cm EXAMINATION: CT CERVICAL SPINE WITHOUT CONTRAST CLINICAL INFORMATION: Dizziness, weakness and fall COMPARISON: None available. TECHNIQUE: Axial 3 mm thin and reformatted 2 mm thin sagittal and coronal images of cervical spine were obtained without contrast. This CT examination was performed using dose optimization techniques as appropriate, variously including the following: *Automated exposure control *Adjustment of mA and/or kV according to patient size (this includes techniques or standardized protocols for targeted exams where dose is matched to indication/reason for exam; i.e. extremities or head) *Use of iterative reconstruction technique DLP: 1365 mGy/cm. FINDINGS: Normal cervical lordosis. The vertebral heights and alignment is normal. There is loss of C6-7 disc heights with ventral and posterior spondylosis. The disc heights are normal. The craniovertebral junction and C1-C2 alignment is normal. There is moderate left C3-4, C4-5 and C5-C6 facet joint arthropathy and hypertrophy. The prevertebral and paravertebral soft tissues are normal. Pharyngeal and tracheal airway is widely patent. Mild emphysematous changes both upper lobes but without any focal lesion. Bilateral thyroid lobes are asymmetrical but otherwise unremarkable. CT/CT cervical spine wo IV con IMPRESSION: No acute fracture or dislocation. 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 Fleischner guidelines were followed. Electronically signed by: Steve Gutiérrez MD 04/05/2024 10:[address] [facility] Dictated By: Steve Gutiérrez MD Signed By: <Electronically signed by Steve Gutiérrez MD in OV> 04/05/24 1058 DD/ 0957 TD/TT: 04/05/24 1022 Donor Services Manager: [address] [address] [address] Scan Report Signed Patient: Loc Simmons MR#: [id number] : 1940 Acct:[id number] Age/Sex: 83 / M ADM Date: 04/05/24 Loc: HO.ED Attending Dr: Ordering Physician: Elda Gates Date of Service: 04/05/24 Procedure(s): CT cer vical spine wo IV con Accession Number(s): [id number] cc: Iggy Bear MD; Elda Gates Report Number: [id number]: Total DLP = 588.00 mGy-cm EXAMINATION: CT CERVICAL SPINE WI THOUT CONTRAST CLINICAL INFORMATION: Dizziness, weakness and fall COMPARISON: None available. TECHNIQUE: Axial 3 mm thin and reformatted 2 mm thin sagittal and coronal images of cervical spine we re obtained without contrast. This CT examination was performed using dose optimization techniques as appropriate, various ly including the following: *Automated exposure control *Adjustment of mA an d/or kV according to patient size (this includes techniques or standardized protocols for targeted exams where dose is matched to indication/reason for exam; i.e. extremities or head) *Use of iterative reconstruction technique DLP: 1365 mGy/cm. FINDINGS: Normal cervical lord osis. The vertebral heights and alignment is normal. There is los s of C6-7 disc heights with ventral and posterior spondylosis. The dis c heights are normal. The craniovertebral junction and C1-C2 alignment is normal. There is moderate left C3-4, C4-5 and C5-C6 facet joint arthropathy and hypertrophy. The prevertebral and paravertebral soft tissues are normal. Pharyngeal and tracheal airway is widely patent. Mi ld emphysematous changes both upper lobes but without any focal le jose. Bilateral thyroid lobes are asymmetrical but otherwise unremarkable. C T/CT cervical spine wo IV con IMPRESSION: No acute fracture or dislocation. 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 Fleischner guideline s were followed. Electronically gwendolyn d by: Steve Gutiérrez MD 04/05/2024 10:[address] [facility] Dictated By: Mr bruce Gutiérrez MD Signed By: <Electronically signed by Steve Gutiérrez MD in OV> 04/05/24 1058 DD/ 0957 TD/TT: 04/05/24 1022 Donor Services Manager: IRMA CT head/brain wo con Reviewed date:04/09/2024 09:15:21 AM Interpretation: Performing Lab: Notes/Report: [address] [address] [address] Scan Report Signed Patient: Cholo Simmons MR#: [id number] : 1940 Acct:[id number] Age/Sex: 83 / M ADM Date: 04/05/24 Loc: HO.ED Attending Dr: Ordering Physician: Elda Gates Date of Service: 04/05/24 Procedure(s): CT head/brain wo IV con Accession Number(s): [id number] cc: Iggy Bear MD; Elda Gates Report Number: [id number]: Total DLP = 776.00 mGy-cm EXAMINATION: CT HEAD WITHOUT CONTRAST CLINICAL INFORMATION: dizziness, weakness, fall COMPARISON: CT dated November 27, 2010. TECHNIQUE: Contiguous axial imaging was performed from the skull base to vertex without intravenous administration of contrast. This CT examination was performed using dose optimization techniques as appropriate, variously including the following: *Automated exposure control *Adjustment of mA and/or kV according to patient size (this includes techniques or standardized protocols for targeted exams where dose is matched to indication/reason for exam; i.e. extremities or head) *Use of iterative reconstruction technique DLP: 776 mGy-cm FINDINGS: Bony calvarium is intact. No acute intracranial hemorrhage, mass effect, midline shift, hydrocephalus or herniation. Dewitt-white matter differentiation is normal. Bilateral multifocal patchy deep periventricular white matter hypodensities involving centrum semiovale and chow radiata. Calcified plaques in the V4 segments of the vertebral arteries and the cavernous supracavernous segments both ICAs. Prominence of the extra-axial CSF spaces cerebral sulci and ventricles. Increased density in the left tympanic cavity mastoid antrum and mastoid air cells. Poor pneumatization of the mastoid air cells. Increased density in the right mastoid air cells mastoid antrum. Polypoid mucosal thickening, maxillary sinuses Probable old traumatic deformities in the nasal bones CT/CT head/brain wo IV con IMPRESSION: No acute fracture, bony calvarium. No acute intracranial hemorrhage. 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 Electronically signed by: King Craig MD 04/05/2024 10:[address] [facility] Dictated By: King Keenan MD Signed By: <Electronically signed by King Tejeda MD in OV> 04/05/24 1043 DD/ 0933 TD/TT: 04/05/24 1022 Donor Services Manager: [address] [address] [address] Scan Report Signed Patient: Loc Simmons MR#: [id number] : 1940 Acct:[id number] Age/Sex: 83 / M ADM Date: 04/05/24 Loc: HO.ED Attending Dr: Ordering Physician: Elda Gates Date of Service: 04/05/24 Procedure(s): CT head/brain wo IV con Accession Number(s): [id number] cc: Iggy Bear MD; Elda Gates Report Number: [id number]: Total DLP = 776.00 mGy-cm EXAMINATION: CT HEAD WITHOUT CONTRAST CLINICAL INFORMATION: dizziness, weakness, fall COMPARISON: CT dated November 022010. TECHNIQUE: Contiguous axial jina ging was performed from the skull base to vertex without intravenous administration of contrast. This CT examination was performed using dose optimization techniques as appropriate, various ly including the following: *Automated exposure control *Adjustment of mA an d/or kV according to patient size (this includes techniques or standardized protocols for targeted exams where dose is matched to indication/reason for exam; i.e. extremities or head) *Use of iterative reconstruction technique DLP: 776 mGy-cm FINDINGS: Bony calvarium is intact. No acute intracrania l hemorrhage, mass effect, midline shift, hydrocephalus or herniation. Dewitt-white matter differentiation is normal. Bilateral multifocal patchy deep periventricular white matter hypodensities involv ing centrum semiovale and chow radiata. Calcified plaques in the V4 segments of the vertebral arteries and the cavernous supracaver nous segments both ICAs. Prominence of the extra-axial CSF spaces cerebral sulci and ventricles. Increased density in the left tympanic cavity mastoid antrum and mastoid air cells. P oor pneumatization of the mastoid air cells. Increased density in the right mastoid air cells mastoid antrum. Polypoid mucosal thickening, maxillary sinuses Probable old traumat ic deformities in the nasal bones C T/CT head/brain wo IV con IMPRESSION: No acute fracture, b alan calvarium. No acute intracrania l hemorrhage. Consider small vesse l occlusive disease and global cerebral atrophy. Electronically gwendolyn d by: King Craig MD 04/05/2024 10:43 AM EST RP Dictated By: King Preston MD Signed By: <Electronically signed by King Tejeda MD in OV> 04/05/24 1043 DD/ 0933 TD/TT: 04/05/24 1022 Donor Services Manager: XR chest 1V Reviewed date:04/09/2024 09:15:21 AM Interpretation: Performing Lab: Notes/Report: [address] [address] XRay Report Signed Patient: Cholo Simmons MR#: [id number] : 1940 Acct:[id number] Age/Sex: 83 / M ADM Date: 04/05/24 Loc: HO.ED Attending Dr: Ordering Physician: Elda Gates Date of Service: 04/05/24 Procedure(s): XR chest 1V Accession Number(s): [id number] cc: Iggy Bear MD; Elda Gates EXAMINATION: XR CHEST 1 VIEW HISTORY: weakness COMPARISON: Comparison is made with the prior examination dated 11/12/2021. FINDINGS: Two AP portable views of the chest performed at 10:26 AM is submitted. The lungs are expanded and clear. There is no pleural effusion, pneumothorax, or pulmonary vascular congestion. The heart is normal in size. Again seen is a probable small hiatal hernia. There is degenerative disc disease of the spine. XR/XR chest 1V IMPRESSION: Probable small hiatal hernia. No acute cardiopulmonary abnormality. Electronically signed by: Iggy Gupta MD 04/05/2024 10:54 AM EST RP Dictated By: Iggy Gupta MD Signed By: <Electronically signed by Iggy Gupta MD in OV> 04/05/24 1054 DD/ 1030 TD/TT: 04/05/24 1035 Donor Services Manager: [address] [address] XRay Report Signed Patient: Loc Simmons MR#: [id number] : 1940 Acct:[id number] Age/Sex: 83 / M ADM Date: 04/05/24 Loc: HO.ED Attending Dr: Ordering Physician: Elda Gates Date of Service: 04/05/24 Procedure(s): XR chest 1V Accession Number(s): [id number] cc: Iggy Bear MD; Elda Gates EXAMINATION: XR CHES T 1 VIEW HISTORY: weakness COMPARISON: Comparis on is made with the prior examination dated 11/12/2021. FINDINGS: Two AP por table views of the chest performed at 10:26 AM is submitted. The lungs are expanded and clear. There is no pleural effusion, pneumothor ax, or pulmonary vascular congestion. The heart is normal in size. Agai n seen is a probable small hiatal hernia. There is degenerative disc di sease of the spine. X R/XR chest 1V IMPRESSION: Probable small hiata l hernia. No acute cardiopulmonary abnormality. Electronically gwendolyn d by: Iggy Gupta MD 04/05/2024 10:[address] [facility] Dictated By: Iggy Gupta MD Signed By: <Electronically signed by Iggy Gupta MD in OV> 04/05/24 1054 DD/ 1030 TD/TT: 04/05/24 1035 Donor Services Manager: Complete Blood Count Auto Di ff Reviewed date:04/09/2024 09:15:21 AM Interpretation: Performing Lab:[facility], [address] [place] [phone] Notes/Report: White Blood Count 7.2 4.8-10.8 X10*3/uL Red Blood Count 4.31 4.60-5.80 X10*6/uL Hemoglobin 12.9 14.0-18.0 g/dl Hematocrit 38.6 42.0-52.0 % Mean Corpuscular Volume 89.6 80.0-98.0 fL Mean Corpuscular Hemoglobin 29.9 27.0-33.0 pg Mean Corpuscular HGB Conc 33.4 31.0-36.0 g/dl Red Cell Distribution Width 13.6 11.0-16.0 % Platelet Count 138 160-400 X10*3/uL Mean Platelet Volume 9.2 9.4-12.4 fL Neutrophils Percent Auto 75.1 45-73 % Imm Gran Pct Auto 0.4 0.0-0.4 % Lymphocytes Percent Auto 11.9 20-40 % Monocytes Percent Auto 9.3 2-11 % Eosinophils Percent Auto 3.0 0-4 % Basophils Percent Auto 0.3 0-2 % NRBC Pct Auto 0.0 0.0-0.2 /100WBC Neutrophils Absolute Auto 5.4 2.0-8. 3 x10*3/uL Imm Gran Abs Auto 0.03 0.00-0.03 X10*3/uL Lymphocytes Absolute Auto 0.9 1.2-4. 9 X10*3/uL Monocytes Absolute Auto 0.7 0.1-1.2 X10*3/uL Eosinophils Absolute Auto 0.2 0.0-0. 4 X10*3/uL Basophils Absolute Auto 0.0 0.0-0.2 X10*3/uL NRBC Abs Auto 0.000 0.0-0.012 X10*3/uL Comprehensive Met. Panel Reviewed date:04/09/2024 09:15:21 AM Interpretation: Performing Lab:[facility], [address] [place] [phone] Notes/Report: Sodium 141 135-145 mmol/L Potassium 4.3 3.3-5.1 mmol/L Chloride 104 96-108 mmol/L Carbon Dioxide 26 22-29 mmol/L Anion Gap 15 12-20 Blood Urea Nitrogen 14 9-16 mg/dL Creatinine 0.86 0.5-1.4 mg/dL Creatinine Clr Calc Pharmacy 76.3 eGFR (calculated from the MDRD study equation) and eCrCl (calculated from the Cockcroft-Gault equation) are based on different parameters and may not yield comparable results. If eCrCl result is absurd, please check patient's height/weight. Estimated Glomerular Filt Rate > 60 Chronic Kidney Disease: Estimated GFR < 60 mL/min/1.73m2 Severe Kidney Disease: Estimated GFR < 15 mL/min/1.73m2 Glucose Random 104 60-115 mg/dL Calcium 8.6 8.4-10.2 mg/dL Bilirubin Total 0.7 0.0-1.0 mg/dL Aspartate Amino Transferase 22 5-37 U/L Alanine Aminotransferase 7 0-40 U/L Total Protein 6.1 6.5-8.0 g/dL Albumin Level 3.5 3.5-5.0 g/dL Alkaline Phosphatase 62 39-117 U/L Lipase Reviewed date:04/09/2024 09:15:21 AM Interpretation: Performing Lab:[address] [address] Notes/Report: Lipase 16 8-78 U/L SARS-CoV2/FLU/RSV Reviewed date:04/09/2024 09:15:20 AM Interpretation: Performing Lab:[address] [address] Notes/Report: Influenza A PCR POSITIVE Negative Influenza B PCR NEGATIVE Negative Resp Syncy Virus RNA Qual PCR NEGATIVE Negative SARS COV2 PCR INHOUSE NEGATIVE Negative All test results must be correlated with clinical findings. Negative results do not preclude SARS-CoV2, influenza A virus, influenza B virus and/or RSV infection and should not be used as the sole basis for treatment or other patient management decisions. Negative results must be combined with clinical observations, patient history, and epidemiological information. This test has not been evaluated for monitoring treatment of infection. This test has been authorized by the FDA under an Emergency Use Authorization (EUA) for use by authorized laboratories. Testing performed on the [employer] GeneXpert utilizing real-time RT-PCR. All SARS CoV2 and positive influenza A/B results are reported to [facility]. Complete Blood Count Auto Di ff Reviewed date:10/01/2024 02:13:32 PM Interpretation: Performing Lab:[address] [address] Notes/Report: White Blood Count 6.7 4.8-10.8 X10*3/uL Red Blood Count 4.69 4.60-5.80 X10*6/uL Hemoglobin 13.8 14.0-18.0 g/dl Hematocrit 40.6 42.0-52.0 % Mean Corpuscular Volume 86.6 80.0-98.0 fL Mean Corpuscular Hemoglobin 29.4 27.0-33.0 pg Mean Corpuscular HGB Conc 34.0 31.0-36.0 g/dl Red Cell Distribution Width 13.9 11.0-16.0 % Platelet Count 135 160-400 X10*3/uL Mean Platelet Volume 9.5 9.4-12.4 fL Neutrophils Percent Auto 69.4 45-73 % Imm Gran Pct Auto 0.7 0.0-0.4 % Lymphocytes Percent Auto 14.1 20-40 % Monocytes Percent Auto 7.3 2-11 % Eosinophils Percent Auto 8.1 0-4 % Basophils Percent Auto 0.4 0-2 % NRBC Pct Auto 0.0 0.0-0.2 /100WBC Neutrophils Absolute Auto 4.6 2.0-8. 3 x10*3/uL Imm Gran Abs Auto 0.05 0.00-0.03 X10*3/uL Lymphocytes Absolute Auto 0.9 1.2-4. 9 X10*3/uL Monocytes Absolute Auto 0.5 0.1-1.2 X10*3/uL Eosinophils Absolute Auto 0.5 0.0-0. 4 X10*3/uL Basophils Absolute Auto 0.0 0.0-0.2 X10*3/uL NRBC Abs Auto 0.000 0.0-0.012 X10*3/uL Comprehensive [place]. Panel Fa st Reviewed date:10/01/2024 02:13:32 PM Interpretation: Performing Lab:[facility], [address] [place] [phone] Notes/Report: Sodium 140 135-145 mmol/L Potassium 3.9 3.3-5.1 mmol/L Chloride 106 96-108 mmol/L Carbon Dioxide 27 22-29 mmol/L Anion Gap 11 12-20 Blood Urea Nitrogen 18 9-16 mg/dL Creatinine 1.05 0.5-1.4 mg/dL Estimated Glomerular Filt Rate > 60 Chronic Kidney Disease: Estimated GFR < 60 mL/min/1.73m2 Severe Kidney Disease: Estimated GFR < 15 mL/min/1.73m2 Glucose Fasting 96 60-99 mg/dL Calcium 8.7 8.4-10.2 mg/dL Bilirubin Total 0.6 0.0-1.0 mg/dL Aspartate Amino Transferase 17 5-37 U/L Alanine Aminotransferase 17 0-40 U/L Total Protein 6.8 6.5-8.0 g/dL Albumin Level 4.2 3.5-5.0 g/dL Alkaline Phosphatase 86 39-117 U/L B Type Natriuretic Peptide Reviewed date:10/01/2024 02:13:32 PM Interpretation: Performing Lab:[facility], [address] [place] [phone] Notes/Report: B Type Natriuretic Peptide 110 <100 pg/mL Lipid Panel Reviewed date:10/01/2024 02:13:32 PM Interpretation: Performing Lab:[facility], [address] [place] [phone] Notes/Report: Triglycerides 94 <150 mg/dL Desirable Triglyceride: less than 150 mg/dL Borderline High Triglyceride 150-199 mg/dL High Triglyceride: 200-499 mg/dL Very High Triglyceride: greater than or equal to 5OO mg/dL Cholesterol 105 <200 mg/dL Desirable Cholesterol: less than 200 mg/dL Borderline High Cholesterol: 200-239 mg/dL High Cholesterol: greater than 239 mg/dL LDL Cholesterol Calculated 60 <100 mg/dL Desirable LDL: less than 100 mg/dL Near Optimal/Above Optimal LDL: 110-129 mg/dL Borderline High LDL: 130-159 mg/dL High LDL: 160-189 mg/dL Very High LDL: greater than or equal to 190 mg/dL HDL Cholesterol 27 >40 mg/dL Desirable HDL: greater than 40 mg/dL Note: This HDL assay may give artificially low results in patients with liver disease. Prostate Specific Antigen Reviewed date:10/01/2024 02:13:32 PM Interpretation: Performing Lab:[facility], [address] [place] [phone] Notes/Report: Prostate Specific Antigen 0.10 <0.05-4.0 ng/mL PSA methodology: Almaraz Alinity i Chemiluminescent Microparticle Immunoassay (CMIA) XR shoulder RT min 2V (Not y et reviewed by provider) Interpretation: Performing Lab: Notes/Report: [address] [address] XRay Report Signed Patient: Cholo Simmons MR#: [id number] : 1940 Acct:[id number] Age/Sex: 84 / M ADM Date: 10/08/24 Loc: YAMINI Attending Dr: Iggy Bear MD Ordering Physician: Iggy Bear MD Date of Service: 10/08/24 Procedure(s): XR shoulder RT min 2V Accession Number(s): [id number] cc: Iggy Bear MD EXAMINATION: XR SHOULDER 2 OR MORE VIEWS RIGHT HISTORY: PAIN IN RIGHT SHOULDER COMPARISON: There are no prior studies available for comparison. FINDINGS: Four views of the right shoulder are submitted. Osseous mineralization is normal. There is no fracture or dislocation. There is severe osteoarthritis of the glenohumeral and acromioclavicular joints with joint space narrowing and osteophyte formation. The soft tissues are unremarkable. XR/XR shoulder RT min 2V IMPRESSION: Severe osteoarthritis of the right shoulder as described. Electronically signed by: Iggy Gupta MD 10/08/2024 01:29 PM EDT Dictated By: Iggy Gupta MD Signed By: <Electronically signed by Iggy Gupta MD in OV> 10/08/24 1329 DD/ 1155 TD/TT: 10/08/24 1205 Donor Services Manager: [place] [address] XRay Report Signed Patient: Loc Simmons MR#: [id number] : 1940 Acct:[id number] Age/Sex: 84 / M ADM Date: 10/08/24 Loc: YAMINI Attending Dr: Iggy Bear MD Ordering Physician: Iggy Bear MD Date of Service: 10/08/24 Procedure(s): XR eliot ulder RT min 2V Accession Number(s): [id number] cc: Iggy Bear MD EXAMINATION: XR SHOU LDER 2 OR MORE VIEWS RIGHT HISTORY: PAIN IN RIG HT SHOULDER COMPARISON: There ar e no prior studies available for comparison. FINDINGS: Four views of the ri ght shoulder are submitted. Osseous mineralization is normal. There is no fracture or dislocation. There is severe osteoarthritis of th e glenohumeral and acromioclavicular joints with joint space narrowin g and osteophyte formation. The soft tissues are unremarkable. X R/XR shoulder RT min 2V IMPRESSION: Severe osteoarthriti s of the right shoulder as described. Electronically gwendolyn d by: Iggy Gupta MD 10/08/2024 01:29 PM EDT RP Dictated By: Iggy Gupta MD Signed By: <Electronically signed by Iggy Gupta MD in OV> 10/08/24 1329 DD/ 1155 TD/TT: 10/08/24 1205 Donor Services Manager: Reason For Referral Reason Consult and Treat Severe Gout Pain Diagnosis 1 Acute idiopathic gou t of right hand (M10.041) Diagnosis 2 Osteoarthritis invol ving multiple joints on both sides of body (M15.9) Diagnosis 3 Gout (M10.9) Diagnosis 4 Knee pain (M25.569) Referral Organization Iggy Bear III, MD Referring Provider First Name Iggy Referring Provider Last Name Chema Referring Provider Speciality Internal edicine Referred Provider [facility] Referred Provider Specialty Rheumatology General Notes Kelley Winter 03/29/2024 11:37:45 AM > Referral and last progress notes were faxed Referral Priority Routine Referral Appointment Date 06/21/2024 Reason Consult and Treat Diagnosis 1 Pain in right should er (M25.511) Referral Organization Iggy Bear III, MD Referring Provider First Name Iggy Referring Provider Last Name Bear Referring Provider Speciality Internal edicine Referred Provider [facility] er[facility] Sur[facility] Referred Provider [facility] General Notes Miguel Rothman 10/2024 04:16:57 PM > Referral Faxed, Kelley Winter 10/13/2024 02:17:20 PM > Refaxed referral Referral Priority Routine Medications Medication SIG (Take, Route, Frequency, Duration) Notes Start Date End Date Status Lisinopril 5 MG 1 tablet Orally Once a day Active Finasteride 5 MG TAKE 1 TABLET BY KEAGAN TH EVERY DAY Active Escitalopram Oxalate 10 MG TAKE 1 TABLET BY MOUTH DAILY Active Rhopressa 0.02 % 1 drop into affected eye in the evening Ophthalmic Once a day Active Allopurinol 100 MG 1 tablet Orally Once a day 04/06/2024 Active Stool Softener Activ e Dorzolamide HCl-Timolol Mal 22.3-6.8 MG/ML 1 drop into affected eye Ophthalmic Twice a day Active Pradaxa 150 MG 1 capsule Orally Twi ce a day Active Wixela Inhub 250-50 MCG/ACT Inhalation Active Furosemide 20 MG 1 tablet Orally Once a day Active Fish Oil 1200 MG 1 capsule Orally Onc e a day Active predniSONE 20 MG 1 tablet Orally Once a day 02/27/2024 Active Lumigan 0.01 % 1 drop into affected eye in the evening Ophthalmic Once a day Active Brimonidine Tartrate 0.2 % 1 drop into a ffected eye Ophthalmic every 8 hrs Active Metoprolol Succinate 100 MG Orally Active Immunizations Vaccine Route Administration Date Status Comme nts FLuzone HD PF Unknown 12/10/2021 Administered COVID PFIZER Unknown 04/28/2020 Administered COVID PFIZER Unknown 01/24/2021 Administered COVID PFIZER Unknown 04/07/2020 Administered PCV13 Unknown 12/19/2015 Administered COVID- 19 Vaccine Unknown 01/28/2022 Administered Tetanus and Diphtheria Toxoids Adsorbed IM Intramuscular 11/01/2022 Administered Influenza, quad Unknown 01/09/2023 Administered Social History Tobacco Use: Social History Observation [...] Problem Status W/U Status Risk Notes Problem 9467515 Former smoker (Z87.891) Active confirmed He is highly motivated not to smoke and has a plan to prevent relapse in times of stress. Problem 904645751 Overweight (E66.3) Active confirmed His body mass index is 29. He has lost 4 pounds. He has lost 15 pounds since March of this year. We discussed diet and nutrition. His weight will be carefully followed. Problem 627812999433228 Obesity (BMI 30.0-34.9) (E66.9) Active confirmed His body mass index remains 31.9. We reviewed his diet and nutrition. We made a plan to lose weight at a rate of 1/2 pound per week. We discussed his diet and nutrition at length. Problem 829456830 Thrombocytopeni a (D69.6) Active confirmed His platelet count is slightly low at 135,000. He has had no bleeding. He remains anticoagulated. Problem Hypothyroidism (04186788) Hypothyroidism, unspecified (E03.9) Active confirmed No change in hi s medications was made. Comprehensive blood work has been ordered. Problem 608377010 Mixed hyperlipidemia (E78.2) Active confirmed His lipids are currently stable and no change in his regimen was made today. Problem 318714760 Paroxysmal atrial fibrillation (I48.0) Active confirmed He has had no episodes of tachycardia recently. He has been compliant with his regimen and will come to the office in the near future. Problem 77641630190740728 Pain in right shoulder (M25.511) Active confirmed X-ray of the shoulder has been ordered and he was referred back to his orthopedist Problem Gout (53797708) Gout (M10.9) Active confirmed Problem Benign prostatic hyperplasia (996429029) BPH (benign prostatic hyperplasia) (N40.0) Active confirmed He rises only once a night which is an improvement. We have put in place lifestyle modifications and reduce nocturnal. No change his medication was made. Problem 62282433 Chronic obstructive pulmonary disease, unspecified COPD type (J44.9) Active confirmed He is not smoking. He is breathing room air comfortably today with a satisfactory oxygen saturation of 97% Problem 898888013 Erectile dysfunction, unspecified erectile dysfunction type (N52.9) Active confirmed He has medication for this problem which is effective. He has had no side effects. Problem 423012431 Anticoagulated (Z79.01) Active confirmed He continues on anticoagulant with no bruising or bleeding. I have advised him to avoid aspirin. Problem 76946756 Essential hypertension (I10) Active confirmed His blood pressure is currently stable and no change in his regimen was made.The value was 118/60. Problem 85668580 Obstructive sleep apnea (G47.33) Active confirmed He says he does not have a CPAP machine at this time. I have discussed trying to obtain one. Problem 08395089 Nephrolithiasis (N20.0) Active confirmed He has had no episodes of renal colic recently. Problem 9410145 Umbilical hernia without obstruction and without gangrene (K42.9) Active confirmed This is an asymptomatic problem at this time will be observed. There has been no change in this lesion. Problem 156500823 Left inguinal hernia (K40.90) Active confirmed The large le ft umbilical hernia was repaired in 2019 at [facility] by Dr. Smith. It has not relapsed.A remains asymptomatic. Problem 860667095 Benign prostatic hyperplasia without lower urinary tract symptoms (N40.0) Active confirmed He has been rising from sleep twice a night to urinate. We discussed lifestyle modifications that could be made to reduce nocturia. 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 He will be seen prior to that. Problem 252816718 Adenomatous polyp (D36.9) Active confirmed I recommend th at he have the colonoscopy every 5 years. Problem 91852319 Chronic congestive heart failure, unspecified heart failure type (I50.9) Active confirmed His lung sounds were decreased today but today were clear. There was no wheezing or rales. He had no peripheral edema. The CHF is well compensated at this point. No change in his regimen as needed. 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 If necessary he will return to see an ear, nose and throat physician. Problem 399949726 Permanent atrial fibrillation (I48.21) Active confirmed His heart rate was irregularly irregular but at a controlled rate. He was not dyspneic at rest. He is taking his anticoagulant. Vital Signs Heart Rate 60 /min 10/07/2024 Temperature 97 degrees Fahrenheit 10/07/2024 Respiratory Rate 15 /min 10/07/2024 Oximetry 98 % 10/07/2024 Blood pressure diastolic 60 mm Hg 10/07/2024 Height 70 in 10/07/2024 Blood pressure systolic 118 mm Hg 10/07/2024 Weight 204 lbs 10/07/2024 BMI 29.27 kg/m2 10/07/2024 Encounters Encounter Location Date Provider Diagnosis Iggy Bear III, MD [address] [place] [address] [place] [address] 02/27/2024 Iggy Bear Obesity (BMI 30.0-34 .9) E66.9 ; Acute idiopathic gout of right hand M10.041 ; Essential hypertension I10 ; Former smoker Z87.891 ; Obstructive sleep apnea G47.33 ; Paroxysmal atrial fibrillation I48.0 ; Anticoagulated Z79.01 ; Chronic congestive heart failure, unspecified heart failure type I50.9 and Chronic obstructive pulmonary disease, unspecified COPD type J44.9 Iggy Bear III, MD [address] [place] [address] [place] [address] 03/01/2024 Iggy Bear Obesity (BMI 30.0-34 .9) E66.9 ; Acute idiopathic gout of right hand M10.041 ; Chronic obstructive pulmonary disease, unspecified COPD type J44.9 ; Nephrolithiasis N20.0 ; Left inguinal hernia K40.90 ; Permanent atrial fibrillation I48.21 and Chronic congestive heart failure, unspecified heart failure type I50.9 Iggy Bear III, MD [address] [place] [address] [place] [address] 03/22/2024 Iggy Bear Obesity (BMI 30.0-34 .9) E66.9 ; Cellulitis of left knee L03.116 ; Essential hypertension I10 and Former smoker Z87.891 Iggy Bear III, MD [address] [place] [address] [place] [address] 07/07/2024 Iggy Bear Chronic obstructive pulmonary disease, unspecified COPD type J44.9 ; Permanent atrial fibrillation I48.21 ; Chronic congestive heart failure, unspecified heart failure type I50.9 ; Thrombocytopenia D69.6 ; Benign prostatic hyperplasia without lower urinary tract symptoms N40.0 ; Former smoker Z87.891 ; Obstructive sleep apnea G47.33 ; Umbilical hernia without obstruction and without gangrene K42.9 and Hypothyroidism, unspecified E03.9 Iggy Bear III, MD [address] [place] [address] [place] [address] 10/07/2024 Iggy Bear Pain in right should [...] heart failure type I50.9 and 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 Iggy Bear III, MD [address] [place] [address] [place] [address] 01/14/2024 Iggy Bear III, MD [address] [place] [address] [place] [address] 02/12/2024 Iggy Bear III, MD [address] [place] [address] [place] [address] 02/12/2024 Iggy Bear III, MD [address] [place] [address] [place] [address] 03/19/2024 Iggy Bear III, MD [address] [place] [address] [place] [address] 03/23/2024 Iggy Bear III, MD [address] [place] [address] [place] [address] 03/26/2024 Iggy Bear III, MD [address] [place] [address] [place] [address] 04/06/2024 Iggy Bear III, MD [address] [place] [address] [place] [address] 04/09/2024 Iggy Bear III, MD [address] [place] [address] [place] [address] 04/09/2024 Iggy Bear III, MD [address] [place] [address] [place] [address] 04/12/2024 Iggy Bear III, MD [address] [place] [address] [place] [address] 04/12/2024 Iggy Bear III, MD [address] [place] [address] [place] [address] 04/16/2024 Iggy Bear III, MD [address] [place] [address] [place] [address] 04/22/2024 Iggy Bear III, MD [address] [place] [address] [address] [place] [address] 10/13/2024 Iggy Bear Assessments Encounter Date Diagnosis (ICD Code) Assessment Notes T reatment Notes Treatment Clinical Notes 02/27/2024 Obesity (BMI 30.0-34 .9) (ICD-10 - E66.9) His body mass index remains 31.9. We reviewed his diet and nutrition. We made a plan to lose weight at a rate of 1/2 pound per week. We discussed his diet and nutrition at length. 02/27/2024 Acute idiopathic gou t of right hand (ICD-10 - M10.041) This appears to be acute gout of the right second finger PIP joint edema of the entire finger and dorsum of the right hand. He was treated with prednisone. He will call me immediately if anything worsens. He will use his left hand for the activities of daily living. A follow-up visit was arranged in 72 hours. 03/01/2024 Obesity (BMI 30.0-34 .9) (ICD-10 - E66.9) His body mass index remains 31.9. We reviewed his diet and nutrition. We made a plan to lose weight at a rate of 1/2 pound per week. We discussed his diet and nutrition at length. 03/01/2024 Acute idiopathic gou t of right hand (ICD-10 - M10.041) This appears to be acute gout of the right second finger PIP joint edema of the entire finger and dorsum of the right hand. He was treated with prednisone. He will call me immediately if anything worsens. He will use his left hand. He reports the pain is beginning to improve. 03/22/2024 Obesity (BMI 30.0-34 .9) (ICD-10 - E66.9) His body mass index remains 31.9. We reviewed his diet and nutrition. We made a plan to lose weight at a rate of 1/2 pound per week. We discussed his diet and nutrition at length. 03/22/2024 Cellulitis of left k nee (ICD-10 - L03.116) He was referred to the emergency room or urgent x-rays blood work aspiration of the joint and orthopedic consultation 07/07/2024 Chronic obstructive pulmonary disease, unspecified COPD type (ICD-10 - J44.9) He is not smoking. He is breathing room air comfortably today with a satisfactory oxygen saturation of 97% 07/07/2024 Permanent atrial fibrillation (ICD-10 - I48.21) His heart rate was irregularly irregular but at a controlled rate. He was not dyspneic at rest. He is taking his anticoagulant. 10/07/2024 Paroxysmal atrial fibrillation (ICD-10 - I48.0) He has had no episodes of tachycardia recently. He has been compliant with his regimen and will come to the office in the near future. 10/07/2024 Pain in right should er (ICD-10 - M25.511) X-ray of the shoulder has been ordered and he was referred back to his orthopedist 02/27/2024 Essential hypertensi on (ICD-10 - I10) His blood pressure is 118/73. It is well controlled and no changes are negative. 03/01/2024 Chronic obstructive pulmonary disease, unspecified COPD type (ICD-10 - J44.9) He saw a spine specialist recently and was placed on a maintenance inhaler for COPD. He finds this very useful. He was comfortable today, breathing room air.He has had no exacerbations. He remains a nonsmoker. 03/22/2024 Essential hypertensi on (ICD-10 - I10) His blood pressure is currently stable and no change in his regimen was made. 07/07/2024 Chronic congestive h eart failure, unspecified heart failure type (ICD-10 - I50.9) His lung sounds were decreased today but today were clear. There was no wheezing or rales. He had no peripheral edema. The CHF is well compensated at this point. No change in his regimen as needed. 10/07/2024 Former smoker (ICD-1 0 - Z87.891) He is highly motivated not to smoke and has a plan to prevent relapse in times of stress. 02/27/2024 Former smoker (ICD-1 0 - Z87.891) He is highly motivated not to smoke and has a plan to prevent relapse in times of stress. 03/01/2024 Nephrolithiasis (ICD -10 - N20.0) He has had no episodes of renal colic recently. 03/22/2024 Former smoker (ICD-1 0 - Z87.891) He is highly motivated not to smoke and has a plan to prevent relapse in times of stress. 07/07/2024 Thrombocytopenia (IC D-10 - D69.6) Comprehensive blood work will be done in the near future. He has had no bleeding. He has had mild thrombocytopenia chronically in the past without bleeding. He remains anticoagulated. 10/07/2024 Essential hypertensi on (ICD-10 - I10) His blood pressure is currently stable and no change in his regimen was made.The value was 118/60. 02/27/2024 Obstructive sleep ap tami (ICD-10 - G47.33) He says he does not have a CPAP machine at this time. I have discussed trying to obtain one. 03/01/2024 Left inguinal hernia (ICD-10 - K40.90) The large left umbilical hernia was repaired in 2019 at [facility] by Dr. Smith. It has not relapsed.A remains asymptomatic. 07/07/2024 Benign prostatic hyperplasia without lower urinary tract symptoms (ICD-10 - N40.0) He has been rising from sleep twice a night to urinate. We discussed lifestyle modifications that could be made to reduce nocturia. 10/07/2024 Obstructive sleep ap tami (ICD-10 - G47.33) He says he does not have a CPAP machine at this time. I have discussed trying to obtain one. 02/27/2024 Paroxysmal atrial fibrillation (ICD-10 - I48.0) He has had no episodes of tachycardia recently. He has been compliant with his regimen and will come to the office in the near future. 03/01/2024 Permanent atrial fibrillation (ICD-10 - I48.21) He saw the newspaper photographer in April 2022. No change in his medications was made. His rate was controlled. 07/07/2024 Former smoker (ICD-1 0 - Z87.891) He is highly motivated not to smoke and has a plan to prevent relapse in times of stress. 10/07/2024 Benign prostatic hyperplasia without lower urinary tract symptoms (ICD-10 - N40.0) He has been rising from sleep twice a night to urinate. We discussed lifestyle modifications that could be made to reduce nocturia. 02/27/2024 Anticoagulated (ICD- 10 - Z79.01) He continues on anticoagulant with no bruising or bleeding. I have advised him to avoid aspirin. 03/01/2024 Chronic congestive h eart failure, unspecified heart failure type (ICD-10 - I50.9) His congestive heart failure is now well controlled and no change in his regimen was made. I recommended aggressive weight loss, regular exercise and sodium restriction. He continues on the furosemide to reduce the peripheral edema. 07/07/2024 Obstructive sleep ap tami (ICD-10 - G47.33) He says he does not have a CPAP machine at this time. I have discussed trying to obtain one. 10/07/2024 Anticoagulated (ICD- 10 - Z79.01) He continues on anticoagulant with no bruising or bleeding. I have advised him to avoid aspirin. 02/27/2024 Chronic congestive h eart failure, unspecified heart failure type (ICD-10 - I50.9) His congestive heart failure is now well controlled and no change in his regimen was made. I recommended aggressive weight loss, regular exercise and sodium restriction. He continues on the furosemide to reduce the peripheral edema. 07/07/2024 Umbilical hernia wit hout obstruction and without gangrene (ICD-10 - K42.9) This is an asymptomatic problem at this time will be observed. There has been no change in this lesion. 10/07/2024 Umbilical hernia wit hout obstruction and without gangrene (ICD-10 - K42.9) This is an asymptomatic problem at this time will be observed. There has been no change in this lesion. 02/27/2024 Chronic obstructive pulmonary disease, unspecified COPD type (ICD-10 - J44.9) He saw a spine specialist recently and was placed on a maintenance inhaler for COPD. He finds this very useful. He was comfortable today, breathing room air.He has had no exacerbations. He remains a nonsmoker. 07/07/2024 Hypothyroidism, unspecified (ICD-10 - E03.9) No change in his medications was made. Comprehensive blood work has been ordered. 10/07/2024 Thrombocytopenia (IC D-10 - D69.6) His [...] nose and throat physician. Plan Of Treatment Pending Test Test Name Order Date PROFILE, FASTING (COMPREHENSIVE METABOLI C) 10/01/2021 PROFILE, FASTING (COMPREHENSIVE METABOLI C) 06/17/2023 PROFILE, FASTING (COMPREHENSIVE METABOLI C) 12/16/2022 PROFILE, FASTING (COMPREHENSIVE METABOLI C) 06/03/2019 PROFILE, FASTING (COMPREHENSIVE METABOLI C) 09/01/2018 PROFILE, FASTING (COMPREHENSIVE METABOLI C) 03/31/2018 PROFILE, FASTING (COMPREHENSIVE METABOLI C) 09/11/2020 PROFILE, FASTING (COMPREHENSIVE METABOLI C) 09/11/2022 PROFILE, FASTING (COMPREHENSIVE METABOLI C) 06/01/2021 PROFILE, FASTING (COMPREHENSIVE METABOLI C) 09/17/2023 PROFILE, FASTING (COMPREHENSIVE METABOLI C) 02/08/2022 PROFILE, FASTING (COMPREHENSIVE METABOLI C) 10/07/2024 PROFILE, FASTING (COMPREHENSIVE METABOLI C) 07/07/2024 PROFILE, FASTING (COMPREHENSIVE METABOLI C) 10/04/2019 PROFILE, FASTING (COMPREHENSIVE METABOLI C) 06/12/2020 PROFILE, FASTING (COMPREHENSIVE METABOLI C) 01/12/2021 PROFILE, RANDOM (COMPREHENSIVE METABOLIC ) 12/17/2023 PROFILE, RANDOM (COMPREHENSIVE METABOLIC ) 02/07/2020 GLUCOSE,RANDOM 01/19/2019 LIPID PANEL 06/12/2020 LIPID PANEL 01/12/2021 LIPID PANEL 10/01/2021 LIPID PANEL 06/03/2019 LIPID PANEL 09/01/2018 LIPID PANEL 03/31/2018 LIPID PANEL 02/07/2020 LIPID PANEL 09/11/2022 LIPID PANEL 10/04/2019 FREE T4 (FT4) 06/17/2023 TSH (THYROID STIMULATING HORMONE) 2022 TSH (THYROID STIMULATING HORMONE) 2023 BRAIN NATRIURETIC PEPTIDE (BNP) 10/08/19 25 BRAIN NATRIURETIC PEPTIDE (BNP) 07/08/19 25 PSA, TOTAL 07/07/2024 PSA, TOTAL 12/17/2023 PSA, TOTAL 06/17/2023 PSA, TOTAL 03/31/2018 PSA, TOTAL 09/11/2022 PSA, TOTAL 02/08/2022 CBC w DIFF 02/08/2022 CBC w DIFF 10/07/2024 CBC w DIFF 10/04/2019 CBC w DIFF 06/12/2020 CBC w DIFF 07/07/2024 CBC w DIFF 01/12/2021 CBC w DIFF 10/01/2021 CBC w DIFF 12/16/2022 CBC w DIFF 06/03/2019 CBC w DIFF 09/11/2020 CBC w DIFF 09/01/2018 CBC w DIFF 02/07/2020 CBC w DIFF 06/01/2021 CBC w DIFF 09/17/2023 CBC w DIFF 03/31/2018 CBC w DIFF 09/11/2022 CBC w DIFF 01/19/2019 SED RATE (ESR) 06/17/2023 VITAMIN D 25-OH TOTAL 03/31/2018 CBC WITH AUTO DIFF 06/17/2023 CBC WITH AUTO DIFF 12/17/2023 Lipid Panel 02/08/2022 Lipid Panel 06/17/2023 Lipid Panel 10/07/2024 Lipid Panel 07/07/2024 Lipid Panel 12/16/2022 Lipid Panel 09/11/2020 Lipid Panel 06/01/2021 Lipid Panel 09/17/2023 Vitamin B12 06/17/2023 Vitamin B12 12/16/2022 XR shoulder RT min 2V 10/07/2024 XR shoulder RT min 2V 10/08/2024 Next Appt Details Provider Name:Iggy Bear , 01/12/2025 04:00:00 PM, [address] [place] [address] [address], [address], [place], [address], Provider Name:Iggy Bear , 07/13/2025 04:00:00 PM, [address] [place] [address] [address], [place], [address], Insurance Providers Payer Name Payer Address Payer Phone Subscriber Number Group Number Insured Name Patient Relationship to Insured Coverage Start Date Coverage End Date MEDICARE NGS [address] [place] [phone] [id number] [place] Self - patient is the insured [facility] [address] [place], [place] [id number] [place] Self - patient is the insured Medical (General) History Medical History History ICD Code Erectile dysfunction, unspecified erecti le dysfunction type N52.9 Glaucoma, unspecified glaucoma type, uns pecified laterality H40.9 Umbilical hernia without obstruction and without gangrene K42.9 Hypertension, unspecified type I10 1997. Left hydroureter 2010. Cystic hydrocele, Dr. Natarajan 2015 opacification left midd le ear and mastoid, left mastoid meningoencephalocoele paroxysmal atrial fibrillation, August former smoker, 1974 obesity hyperlipidemia anticoagulated with pradaxa adenomatous colonic polyps BPH obstructive sleep apnea. 2010 2017. Negative stress test The patient is taking the anticoagulant Pradaxa. Surgical History Surgery Date(Month/Year) Trabeculectomy with Mitomycin and +/- 5F U 03/2022 glaucoma surgery 03/05/2022 double cataract surgery 01/2019 repair of umbilical hernia a nd incarcerated left inguinal hernia, Dr. Smith, [facility] 01/2019 double hernia surgery 01/2019 tonsillectomy colonoscopy, , rectal tubular adenoma 2014 colonoscopy, 2009 colonoscopy, , rectal polyp 20 05 colonoscopy, 1999 colonoscopy 1980 right ureter lithotripsy 2011 right total hip replacement, Dr RAJAN K ruschel 09/2011 POLYPECTOMY [id number] RIGHT ESWL 03/13/2011 Hospitalization History Reason Date(Month/Year) gout, knee, [facility]
== END 2024-12-29 11:22 | disposition home or self-care (01) ==
LOC: HO.LAB 11:21
PROVIDERS: PCP Internal Medicine Medical Oncology; Visit Provider Internal Medicine Medical Oncology
DX: I10 Essential (primary) hypertension (principal); N40.0 Benign prostatic hyperplasia without lower urinary tract symptoms; E78.2 Mixed hyperlipidemia; I48.0 Paroxysmal atrial fibrillation; D69.6 Thrombocytopenia, unspecified; E66.9 Obesity, unspecified
CPT/HCPCS: 36415; 80053; 80061; 83880; 85025

== ENCOUNTER 2025-02-03 14:57 | Outpatient (AMB) | payer MEDICARE, SELFPAY ==
--- NOTE | 2025-02-03 15:01 | MHC.OFFVIS ---
Vital Signs 02/03/25 15:06 Height 5 ft 10 in Weight 203 lb BMI 29.1 Intake Visit Reasons: Right shoulder pain and weakness Intake Note: Cholo 84 yr old male presents with complaints of progressively worsening right shoulder pain and weakness. The patient did have a cortisone injection given into his right shoulder at his last visit which gave him minimal relief. The patient's right shoulder pain and weakness have gotten worse over the last year in spite of continued non operative treatments. He has failed the last 6 weeks of conservative treatment which has included Tylenol, anti-inflammatory medicines, physical therapy exercises and a home exercise program. The patient reports difficulty lifting his right hand above shoulder height. At this point his right shoulder pain and weakness or interfering with his activities of daily living and his ability to sleep well through the night. Allergies Iodinated Contrast Media (IV Dye, Iodine Containing) Allergy (Severe, Verified 02/03/25 15:07) HIVES IVP dye Allergy (Unknown, Uncoded 02/03/25 15:07) hives Medication List - Last Reconciled 02/03/25 by Kody Emanuel MD allopurinol 100 mg PO DAILY bimatoprost 0.01% (Lumigan) 1 drp ophthalmic-Right DAILY brimonidine 0.2% 1 drp ophthalmic-Right BID dabigatran etexilate 150 mg PO BID docusate sodium 100 mg PO DAILY PRN dorzolamide-timolol 22.3-6.8 mg/mL 1 drp ophthalmic (eye) BID escitalopram oxalate 10 mg PO DAILY finasteride 5 mg PO DAILY fluticasone propion-salmeterol 250-50 mcg/dose (Wixela Inhub) 1 inh inhalation Q12H 90 days furosemide 20 mg PO DAILY lisinopril 5 mg PO DAILY metoprolol succinate ER 100 mg PO DAILY netarsudil 0.02% (Rhopressa) 1 drp ophthalmic-Right DAILY omega-3 fatty acids (Fish Oil Concentrate) 1,000 mg PO DAILY vit C,T-He-jnxav-lutein-zeaxan 250-90-40-1 mg (PreserVision AREDS-2) 1 tab PO BID PFSH Medical History Dyspnea COPD (chronic obstructive pulmonary disease) HTN (hypertension) Chronic atrial fibrillation Surgical History History of eye surgery History of right hip replacement History of hernia repair Social History Alcohol intake: never Patient Tobacco Use Status: Former Tobacco user Years Smoked: 10 +/- Current occupational status: retired Current occupation: right hand dominant Physical Exam Vital Signs: BMI result Body Mass Index 29.1 Extrem Other: Right shoulder examination shows decreased range of motion when compared to his left shoulder, 4 out of 5 strength with supraspinatus testing, positive impingement signs, no instability Results Reviewed Results Reviewed: x-rays of the patient's right shoulder show severe acromioclavicular joint narrowing, a type 2 acromion, mild to moderate glenohumeral joint degenerative changes Assessment & Plan Assessment & Plan (1) Rotator cuff insufficiency of right shoulder: Code(s): M25.311 - Other instability, right shoulder Category: Medical Plan Mr. Rock Presents with right shoulder pain and weakness due to impingement syndrome and possible rotator cuff tearing. Thus, I will send the patient for an MRI of his right shoulder for further evaluation. I will see him back once the MRI is completed to discuss the findings and treatment options. Feel free to call me at any time should questions regarding his orthopedic management arise. I spent 20 minutes in reviewing the patient's records and imaging studies, seeing the patient and documenting in the medical record. Orders: Orders MR shoulder RT wo con Today M25.311 - Other instability, right shoulder Coding Level of Care Code Est Pt Level 3 (42716) Complex visit Add On G2211 Diagnoses Rotator cuff insufficiency of right shoulder M25.311
[2025-02-03 15:06] VITALS: BMI 29.1
== END 2025-02-03 15:25 | disposition home or self-care (01) ==
LOC: HO.HOS 14:58
PROVIDERS: PCP Internal Medicine Medical Oncology; Visit Provider Orthopaedic Surgery
DX: M25.311 Other instability, right shoulder (principal)
CPT/HCPCS: 99213; G2211

== ENCOUNTER → 2025-02-03 14:57 | Outpatient (BNVA) | payer MEDICARE, SELFPAY | PROVIDERS: PCP Internal Medicine Medical Oncology; Visit Provider Orthopaedic Surgery | DX: M25.511 Pain in right shoulder (principal); M25.311 Other instability, right shoulder | CPT/HCPCS: 99212 ==

== ENCOUNTER 2025-02-27 17:13 | Outpatient (REF) | payer MEDICARE, SELFPAY ==
--- OUTSIDE RECORDS SUMMARY | 2023-10-23 04:00 | XMS_ITS ---
Author Organization [facility] Address [address] [place] [address] Care Team Providers Care Manager Orange Name Role Phone Iggy Bear MD Primary Care Provider Unavailab Manda Cherry Unavailable [phone] Alexi Moffett Unavailable [phone] REASON FOR VISIT Painful nail(s) aggrevated by shoes and causing difficulty standing/walking. Medications Medication SIG (Take, Route, Frequency, Duration) Notes Start Date End Date Status Voltaren 1 % as directed Externally Active Ciclopirox Olamine 0.77 % 1 application to affected area Externally Twice a day to effected areas on feet; Duration: 30 days Active Encounters Encounter Location Date Provider Diagnosis [facility] [address] [place] [address] 10/23/2023 Alexi Moffett Tinea unguium B35.1 ; Pain in right toe(s) M79.674 ; Pain in left toe(s) M79.675 ; Skin disease L98.9 ; Unspecified atherosclerosis of [place] arteries of extremities, bilateral legs I70.203 ; Tinea pedis B35.3 and Hallux valgus (acquired), right foot M20.11 Assessments Encounter Date Diagnosis (ICD Code) Assessment Notes Treatment Notes Treatment Clinical Notes Section Notes 10/23/2023 Tinea unguium (ICD-10 - B35.1) 10/23/2023 Pain in right toe(s) (ICD-10 - M79.674) 10/23/2023 Pain in left toe(s) (ICD-10 - M79.675) 10/23/2023 Skin disease (ICD-10 - L98.9) 10/23/2023 Unspecified atherosclerosis of [place] arteries of extremities, bilateral legs (ICD-10 - I70.203) 10/23/2023 Tinea pedis (ICD-10 - B35.3) 10/23/2023 Hallux valgus (acquired), right foot (ICD-10 - M20.11) Plan Of Treatment Medication Medication Name Sig Start Date Stop Date Notes Voltaren 1 % as directed Externally Ciclopirox Olamine 0.77 % 1 application to affected area Externally Twice a day to effected areas on feet; Duration: 30 days Next Appt Details Follow Up: 3 Months, Reason: Provider Name:Manda ramirez, 04/11/2025 09:15:00 AM, [address] [place] [address], [phone], Procedure Notes * Category Sub-Category Detail Notes Debride Nail 6-10 Nail debridement Nail debridem ent performed extensively to reduce/remove overall nail length and girth, subungual debris, and necrotic tissue, by manual and electrical means with use of a nail nipper and/or dremel, to more viable healthy nail plate or bed tissue 6-10. Silver nitrate used for any petechial bleeding as necessary. Patient chooses, no pharmaceutical tx (52788) Keratoma Treatment Parring or Cutting o f Benign Hyperkeratotic Lesion(s) 65987 ( More than 4 Lesions ) - The Benign hyperkeratotic lesions, as described above were pared, and/or cut utilizing a sterile 15 blade, tissue nippers, and/or dremel, Q8 Progress Notes * Cholo OVALLEDOB:[birth year] (84 yo M)Acc No.[id number]:10/23/2023 Progress Note Patient: Cholo BUTLER Provider: Nicci Zuñiga DPM :1940 A ge:83 Y S ex:Male Date:10/23/2023 Address:[address] [place], [place] [id number] Pcp:Iggy Bear MD Subjective: * Chief Complaints: * 1 . Painful nail(s) aggrevated by shoes and causing difficulty standing/walking.. * HPI: P ainful Nails: Pt States Last PCP Visit: D ate: 0 06/02/2023 S kin problems: Nature: d iscolored , dryness , itching. Location: B /L , Forefoot , Midfoot , Heel/Rearfoot. Duration: s everal months. Onset/Cause: u nknown. Course: w orse. Severity/Quality: m oderate. F oot Pain: Nature: a allison. Location: G reat toe joint, RIGHT. Duration: 1 week. Onset: u nknown, denies trauma. Course: i ntermittent. Aggravated: i ncreased pain in am or after rest. Treatments: n one. Severity/Quality: m ild. * ROS: G eneral/Constitutional: Nausea d enies. V omiting d enies. H hugo Thirst d enies. L oss appetite d enies. C hills d enies. F atigue d enies.?Fever d enies. N ight Sweats d enies. U nexplained weight loss d enies. U nexplained weight gain d enies. H EENTM: Dentures d enies. D izziness d enies. G lasses/contacts a dmits. R etinopathy d enies. B lurred/double vision d enies. T MJ?denies. D ischarge/drainage d enies. I mplants d enies. S ore throat d enies. D ental implants d enies. H michaelle of hearing a dmits. D ifficulty chewing/swallowing/speaking d enies. N ose bleeds d enies. S ore mouth d enies. ? R espiratory: On Oxygen d enies. P neumonia/pleurisy d enies.?Bronchitis d enies. E mphysema d enies. C oughing d enies. C ough blood?denies. S hortness of breath a dmits. W heezing a dmits. C ardiovascular: Pacemaker d enies. M MAIL DISTRIBUTION CLERK d enies. W PW d enies. C HF d enies. H eart attack d enies. S eptal defect d enies. R apid beat d enies. C hest pain d enies. A trial Fib. a dmits. M urmur/Palpitations d enies. G astrointestinal: Hemorrhoids d enies. S tomach/Abdominal pain d enies. D ark blood stool d enies. I rritable bowel d enies. C onstipation d enies. D iarrhea d enies. H ematology: Swelling d enies. C lots d enies. V aricose Veins d enies. B ruising d enies. B leeding problem d enies. G enitourinary: Blood urine d enies. F requent/Painfu/urination/bladder control d enies. K idney stones a dmits. I nfection (UTI) d enies. N ephropathy d enies. s ex trans dis (STD) d enies. P rostate d enies. M usculoskeletal: Hammertoes d enies. B unions d enies. B ack Pain d enies. M uscle Cramps/ Resting d enies. M uscle cramps / walking d enies.?Generalized aches and pains a dmits. W eakness d enies. I nteg.: Crooks d enies. S cars d enies. C orns/calluses?denies. I ngrown nails d enies. P ainful nails d enies. O pen Sores d enies. R ashes d enies. N eurologic: Difficulty sleeping d enies. B rain disorder d enies. N umbness a dmits. B alance trouble d enies. C onfusion d enies. F ainting/blackouts d enies. T ingling d enies. T remors d enies. * Medical History: Objective: * Vitals: * Examination: N ails: NAILS are: e longated,overgrown,dystrophic,greater than 3mm thick,discolored and friable with crumbly malodorous subungual debris, with pain on palpation, 1-5 B/L. G eneral Examination: GENERAL APPEARANCE: p leasant, alert, well nourished, well developed, well hydrated, with good attention to hygene/body habitus, and in no acute distress. ORIENTED: p erson,place, and time. N eurological: SENSORY: n eurological exam reveals intact sensorium, pain sensation normal, vibration sensation intact, pinprick sensation is normal in the lower extremities, anesthesia, burning, tingling, B/L, Neurological exam demonstrates pop dorsum right first mtpj.? V ascular: DP PULSES (B): 0 /4, B/L. PT PULSES (B): 0 /4, B/L. CAPILLARY FILL TIME: d elayed, all digits, B/L. TROPHIC CONDITION-TEXTURE/ELASTICITY/TURGOR/HAIR GROWTH (B):?decreased, B/L. EDEMA (C): a bsent, B/L. TELANGECTASIA: a bsent, B/L. D ermatologic: SKIN FINDINGS: S kin shows sign(s) of, erythema, scaling, in a moccasin fashion, no fissure(s) present, B/L , Skin exam reveals Keratotic lesion(s) located at , Plantar , Heel(s) , Midfoot , Forefoot , B/L. O rthopedic: MUSCLE STRENGTH: 5 /5 all groups in a symmetrical fashion , B/L. Assessment: * Assessment: 1. T inea unguium - B35.1 (Primary) 2 . P ain in right toe(s) - M79.674? 3. P ain in left toe(s) - M79.675 4 . S kin disease - L98.9? 5. U nspecified atherosclerosis of [place] arteries of extremities, bilateral legs - I70.203 6 . T inea pedis - B35.3 7 . H allux valgus (acquired), right foot - M20.11 Plan: * Treatment: 2. T inea pedis Start Ciclopirox Olamine Cream, 0.77 %, 1 application to affected area, Externally, Twice a day to effected areas on feet, 30 days, 90, Refills 2. * Procedures: D ebride Nail 6-10: Nail debridement N ail debridement performed extensively to reduce/remove overall nail length and girth, subungual debris, and necrotic tissue, by manual and electrical means with use of a nail nipper and/or dremel, to more viable healthy nail plate or bed tissue 6-10. Silver nitrate used for any petechial bleeding as necessary. Patient chooses, no pharmaceutical tx (11666). K eratoma Treatment: Parring or Cutting of Benign Hyperkeratotic Lesion(s) 1 1057 ( More than 4 Lesions ) - The Benign hyperkeratotic lesions, as described above were pared, and/or cut utilizing a sterile 15 blade, tissue nippers, and/or dremel, Q8. * Procedure Codes: 1 1721 DEBRIDE NAIL, 6 OR MORE, Modifiers: XS , 63594 TRIM SKIN LESIONS, OVER 4, Modifiers: XS * Follow Up: 3 Months * Images: * The named appointment provid er may or may not be the originator of this progress note, and it is not deemed complete until electronically signed by the appointment provider. Sign off status: Pending * Provider: Nicci Zuñiga DPM Date: 0 10/23/2023 Generated for Deena lujan/Concepción/Krystal on: 1 04/30/2024 05:18 PM EST History and Physical Notes * HPI (History of Present Illness) Category Sub-Category Detail Notes Category Not es Painful Nails Pt States Last PCP Visit: Date:: 06/02/2023 Skin problems Nature: discolored , dryness , itch ing Location: B/L , Forefoot , Mid foot , Heel/Rearfoot Duration: several months Onset/Cause: unknown Course: worse Severity/Quality: moderate Foot Pain Nature: aching Location: Great toe joint, RIG HT Duration: 1 week Onset: unknown, denies naeem lou Course: intermittent Aggravated: increased pain in am or after rest Treatments: none Severity/Quality: mild Examination Category Sub-Category Detail Notes Category Not es Neurological SENSORY: neurological exa m reveals intact sensorium, pain sensation normal, vibration sensation intact, pinprick sensation is normal in the lower extremities, anesthesia, burning, tingling, B/L, Neurological exam demonstrates pop dorsum right first mtpj Dermatologic SKIN FINDINGS: Skin shows sign( s) of, erythema, scaling, in a moccasin fashion, no fissure(s) present, B/L , Skin exam reveals Keratotic lesion(s) located at , Plantar , Heel(s) , Midfoot , Forefoot , B/L Orthopedic MUSCLE STRENGTH: 5/5 all groups in a symmetrical fashion , B/L General Examination GENERAL APPEARANCE: pleasant , alert, well nourished, well developed, well hydrated, with good attention to hygene/body habitus, and in no acute distress ORIENTED: person,place, and ti me Vascular DP PULSES (B): 0/4, B/L PT PULSES (B): 0/4, B/L CAPILLARY FILL TIME: delayed, all digits , B/L TROPHIC CONDITION-TEXTURE/ELASTICITY/TUR GOR/HAIR GROWTH (B): decreased, B/L EDEMA (C): absent, B/L TELANGECTASIA: absent, B/L Nails NAILS are: elongated,overgr own,dystrophic,greater than 3mm thick,discolored and friable with crumbly malodorous subungual debris, with pain on palpation, 1-5 B/L
--- OUTSIDE RECORDS SUMMARY | 2024-04-09 10:43 | XMS_ITS ---
Author Organization gIgy Bear III, MD Address [address] [place] [address] Care Team Providers Care Edge Molder Name Role Phone Dr. Iggy Bear III Primary Care Provider REASON FOR VISIT ? Medication Social History Sex Assigned At : Social History Observation Description Sex Assigned At Male Encounters Encounter Location Date Provider Diagnosis Iggy Bear III, MD [address] [place] [place] [address] [place] [address] 04/09/2024 Iggy Bear Plan Of Treatment Next Appt Details Provider Name:Iggy Bear , 03/30/2025 04:00:00 PM, [address] [place] [place] [address] [place], [address], Provider Name:Iggy Bear , 07/13/2025 04:00:00 PM, [address] [place] [place] [address] [place], [address], Progress Notes * TORI Cholo Maria MDOB:[birth year] (83 yo M)Acc No.[id number]:04/09/2024 Patient: Cholo MORENO :1940 A ge:83 Y S ex:Male Phone: Address:[place], [address] * true * Date: Generated for Printi ng/Faxing/eTransmitting on: 04/30/2024 05:17 PM EST
--- OUTSIDE RECORDS SUMMARY | 2024-04-12 04:09 | XMS_ITS ---
Author Organization Iggy Bear III, MD Address [address] [place] [address] Care Team Providers Care Septic Tank Cleaner Name Role Phone Dr. Iggy Bear III Primary Care Provider [phone] REASON FOR VISIT Message Social History Sex Assigned At : Social History Observation Description Sex Assigned At Male Encounters Encounter Location Date Provider Diagnosis Iggy Bear III, MD [address] [place] [address] [place] [address] 04/12/2024 Iggy Bear Plan Of Treatment Next Appt Details Provider Name:Iggy Bear , 03/30/2025 04:00:00 PM, [address] [place] [address] [place], [address], Provider Name:Iggy Bear , 07/13/2025 04:00:00 PM, [address] [place] [address] [place], [address], Progress Notes * Cholo VALLEDOB:[birth year]01 (83 yo M)Acc No.[id number]:04/12/2024 Patient: Cholo MORENO :1940 A ge:83 Y S ex:Male Phone: Address: [place], [address] * true * Date: Generated for Printi ng/Faxochitlg/eTransmitting on: 04/30/2024 05:17 PM EST
--- OUTSIDE RECORDS SUMMARY | 2024-04-12 09:11 | XMS_ITS ---
Author Organization Iggy Bear III, MD Address [address] [place] [address] Care Team Providers Care Occasional Babysitter Name Role Phone Dr. Iggy Bear III Primary Care Provider REASON FOR VISIT Message Social History Sex Assigned At : Social History Observation Description Sex Assigned At Male Encounters Encounter Location Date Provider Diagnosis Iggy Bear III, MD [address] [place] [address] [place] [address] 04/12/2024 Iggy Bear Plan Of Treatment Next Appt Details Provider Name:Iggy Bear , 03/30/2025 04:00:00 PM, [address] [place] [address] [place], [address], Provider Name:Iggy Bear , 07/13/2025 04:00:00 PM, [address] [place] [address] [place], [address], Progress Notes * Cholo VALLEDOB:[birth year]01 (83 yo M)Acc No.[id number]:04/12/2024 Patient: Cholo MORENO :1940 A ge:83 Y S ex:Male Phone: Address: [place], [address] * true * Date: Generated for Printi ng/Faxochitlg/eTransmitting on: 04/30/2024 05:18 PM EST
--- OUTSIDE RECORDS SUMMARY | 2024-04-16 04:04 | XMS_ITS ---
Author Organization Iggy Bear III, MD Address [address] [facility] [place] [address] Care Team Providers Care Public Health Specialist Name Role Phone Dr. Iggy Bear III Primary Care Provider REASON FOR VISIT Needs call back from Social History Sex Assigned At : Social History Observation Description Sex Assigned At Male Encounters Encounter Location Date Provider Diagnosis Iggy Bear III, MD [address] [place] [address] [place] [address] 04/16/2024 Iggy Bear Plan Of Treatment Next Appt Details Provider Name:Iggy Bear , 03/30/2025 04:00:00 PM, [address] [place] [address] [place], [address], Provider Name:Iggy Bear , 07/13/2025 04:00:00 PM, [address] [place] [address] [place], [address], Progress Notes * Cholo ROCK JDOB:[birth year] (83 yo M)Acc No.[id number]:04/16/2024 Patient: Cholo MORENO :1940 A ge:83 Y S ex:Male Phone: Address:[place], [address] * true * Date: Generated for Printi ng/Faxing/eTransmitting on: 04/30/2024 05:17 PM EST
--- OUTSIDE RECORDS SUMMARY | 2024-04-22 04:55 | XMS_ITS ---
Author Organization Iggy Bear III, MD Address [address] [place] [address] Care Team Providers Care Hazmat Tanker Driver Name Role Phone Dr. Iggy Bear III Primary Care Provider [phone] REASON FOR VISIT Message Social History Sex Assigned At : Social History Observation Description Sex Assigned At Male Encounters Encounter Location Date Provider Diagnosis Iggy Bear III, MD [address] [place] [address] [place] [address] 04/22/2024 Iggy Bear Plan Of Treatment Next Appt Details Provider Name:Iggy Bear , 03/30/2025 04:00:00 PM, [address] [place] [address] [place], [address], Provider Name:Iggy Bear , 07/13/2025 04:00:00 PM, [address] [place] [address] [place], [address], Progress Notes * Cholo VALLEDOB:[birth year] (83 yo M)Acc No.[id number]:04/22/2024 Patient: Cholo MORENO :1940 A ge:83 Y S ex:Male Phone: Address: [place], [address] * true * Date: Generated for Printi ng/Faxochitlg/eTransmitting on: 04/30/2024 05:18 PM EST
--- OUTSIDE RECORDS SUMMARY | 2024-06-21 12:30 | XMS_ITS ---
Author Organization Iggy Bear III, MD Address [address] [place] [address] Care Team Providers Care Venue Coordinator Name Role Phone Dr. Iggy Bear III Primary Care Provider REASON FOR VISIT Annual Exam Social History Sex Assigned At : Social History Observation Description Sex Assigned At Male Encounters Encounter Location Date Provider Diagnosis Iggy Bear III, MD [address] [place] [address] [place] [address] 06/21/2024 Iggy Bear Plan Of Treatment Next Appt Details Provider Name:Iggy Bear , 03/30/2025 04:00:00 PM, [address] [place] [address] [place], [address], Provider Name:Iggy Bear , 07/13/2025 04:00:00 PM, [address] [place] [address] [place], [address], Progress Notes * Cholo ROCK Maria MDOB:[birth year] (84 yo M)Acc No.[id number]:06/21/2024 Progress Notes Patient: Cholo MORENO Provider: Loc [...] 06/21/2024 Generated for Deena lujan/Concepción/Krystal on: 1 04/30/2024 05:17 PM EST
--- OUTSIDE RECORDS SUMMARY | 2024-07-07 11:00 | XMS_ITS ---
Author Organization Iggy Bear III, MD Address [address] [place] [address] Care Team Providers Care Youth Worker Name Role Phone Dr. Iggy Bear [...] Provider Diagnosis Iggy Bear III, MD [address] [place] [address] [place] [address] 07/07/2024 Iggy Bear Chronic obstructive pulmonary disease, [...] Name:Iggy Bear , 03/30/2025 04:00:00 PM, [address] [facility] [address], [place], [address], Provider Name:Iggy Bear , 07/13/2025 04:00:00 PM, [address] [facility] [address], [place], [address], Progress Notes * Cholo ROCKDOB:[birth year] (83 yo M)Acc No.[id number]:07/07/2024 Progress Notes Patient: Cholo MORENO Provider: Loc Bear MD :1940 A ge:83 Y S ex:Male Date:07/07/2024 Phone: Address:[address] [place] [address] [place], [place] Subjective: * Chief Complaints: * A nnual [...] M inimal Depression C OVID-19 Screening: apr [facility] [place] out of bed. Questions H ave [...] and incarcerated left inguinal hernia, Dr. Smith, [facility] 01/2019double cataract surgery 01/2019glaucoma surgery 03/05/2022Trabeculectomy with Mitomycin and +/- 5FU 03/2022 * Hospitalization/Major Diagno stic Procedure: g out, knee, C * Family History: F ather: 73 yrs, Multiple myocardial infarctions, stroke, coronary artery disease, emphysema, atrial fibrillation, worked at [employer]. M other: 86 yrs, Alzheimer's [...] 07/07/2024 Generated for Printi le/Concepción/eTransmitting on: 1 04/30/2024 05:17 PM EST History and Physical Notes * [...]
--- OUTSIDE RECORDS SUMMARY | 2024-10-07 05:30 | XMS_ITS ---
Author Organization Iggy Bear III, MD Address [address] [place] [address] Care Team Providers Care Restaurant Manager Name Role Phone Dr. Iggy Bear III Primary Care Provider [phone] Allergies Allergen (clinical drug ingredient) Drug/Non Drug Allergy documented on EMR Reaction Allergy Type Onset Date Status No Known Food Allergy Unknown Drug Allergy Active Iodinated contrast media (substance) Iodinated Diagnostic Agents Unknown Drug Allergy Active Reason For Referral Reason Consult and Treat Diagnosis 1 Pain in right should er (M25.511) Referral Organization Iggy Bear III, MD Referring Provider First Name Iggy Referring Provider Last Name Chema Referring Provider Speciality Internal M edicine Referred Provider [place] [facility] er, Orthopedic Surgeons Referred Provider Specialty [facility] [place] General Notes Miguel Rothman 10/2024 04:16:57 PM > Referral Faxed, Kelley Winter 10/13/2024 02:17:20 PM > Refaxed referral Referral Priority Routine REASON FOR VISIT Nephrolithiasis, COPD, Chronic atrial fibrillation, CHF, Thrombocytopenia, Hypertension, Hyperlipidemia, Obstructive sleep apnea, Benign prostatic hypertrophy, Anticoagulated, Hypothyroid, Meningoencephalocele, Gout, Peripheral edema Medications Medication SIG (Take, Route, Frequency, Duration) Notes Start Date End Date Status Lisinopril 5 MG 1 tablet Orally Once a day Active Rhopressa 0.02 % 1 drop into affected eye in the evening Ophthalmic Once a day Active Stool Softener Activ e predniSONE 20 MG 1 tablet Orally Once a day 02/27/2024 Active Brimonidine Tartrate 0.2 % 1 drop into a ffected eye Ophthalmic every 8 hrs Active Finasteride 5 MG TAKE 1 TABLET BY KEAGAN TH EVERY DAY Active Dorzolamide HCl-Timolol Mal 22.3-6.8 MG/ML 1 drop into affected eye Ophthalmic Twice a day Active Pradaxa 150 MG 1 capsule Orally Twi ce a day Active Wixela Inhub 250-50 MCG/ACT Inhalation Active Furosemide 20 MG 1 tablet Orally Once a day Active Escitalopram Oxalate 10 MG TAKE 1 TABLET BY MOUTH DAILY Active Allopurinol 100 MG 1 tablet Orally Once a day 04/06/2024 Active Fish Oil 1200 MG 1 capsule Orally Onc e a day Active Lumigan 0.01 % 1 drop into affected eye in the evening Ophthalmic Once a day Active Metoprolol Succinate 100 MG Orally Active Social History Tobacco Use: Social History [...] Additional Findings: Tobacco non-user Ex-cigaret te smoker Problems Problem Type SNOMED Code ICD Code Onset Dates Problem Status W/U Status Risk Notes Problem [id number] Umbilical hernia without obstruction and without gangrene (K42.9) Active confirmed This is an asymptomatic problem at this time will be observed. There has been no change in this lesion. Vital Signs Temperature 97 degrees Fahrenheit 10/07/2024 Blood pressure systolic 118 mm Hg 10/08/19 25 Blood pressure diastolic 60 mm Hg 025 Heart Rate 60 /min 10/07/2024 Respiratory Rate 15 /min 10/07/2024 Height 70 in 10/07/2024 Weight 204 lbs 10/07/2024 BMI 29.27 kg/m2 10/07/2024 Oximetry 98 % 10/07/2024 Encounters Encounter Location Date Provider Diagnosis Iggy Bear III, MD [address] [place] [address] [address] [place], [place] [address] 10/07/2024 Iggy Bear Pain in right should er M25.511 ; Paroxysmal atrial fibrillation I48.0 ; Former smoker Z87.891 ; Essential hypertension I10 ; Obstructive sleep apnea G47.33 ; Benign prostatic hyperplasia without lower urinary tract symptoms N40.0 ; Anticoagulated Z79.01 ; Umbilical hernia without obstruction and without gangrene K42.9 ; Thrombocytopenia D69.6 ; Overweight E66.3 ; Hypothyroidism, unspecified E03.9 ; Chronic congestive heart failure, unspecified heart failure type I50.9 and 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 He has been compliant with his regimen and will come to the office in the near future. 10/07/2024 Former smoker (ICD-1 0 - Z87.891) He is highly motivated not to smoke and has a plan to prevent relapse in times of stress. 10/07/2024 Essential hypertensi on (ICD-10 - I10) His blood pressure is currently stable and no change in his regimen was made.The value was 118/60. 10/07/2024 Obstructive sleep ap tami (ICD-10 - G47.33) He says he does not have a CPAP machine at this time. I have discussed trying to obtain one. 10/07/2024 Benign prostatic hyperplasia without lower urinary tract symptoms (ICD-10 - N40.0) He has been rising from sleep twice a night to urinate. We discussed lifestyle modifications that could be made to reduce nocturia. 10/07/2024 Anticoagulated (ICD- 10 - Z79.01) He continues on anticoagulant with no bruising or bleeding. I have advised him to avoid aspirin. 10/07/2024 Umbilical hernia wit hout obstruction and without gangrene (ICD-10 - K42.9) This is an asymptomatic problem at this time will be observed. There has been no change in this lesion. 10/07/2024 Thrombocytopenia (IC D-10 - D69.6) His platelet count is slightly low at 135,000. He has had no bleeding. He remains anticoagulated. 10/07/2024 Overweight (ICD-10 - E66.3) His body mass index is 29. He has lost 4 pounds. He has lost 15 pounds since March of this year. We discussed diet and nutrition. His weight will be carefully followed. 10/07/2024 Hypothyroidism, unspecified (ICD-10 - E03.9) No change in his medications was made. Comprehensive blood work has been ordered. 10/07/2024 Chronic congestive h eart failure, unspecified heart failure type (ICD-10 - I50.9) His lung sounds were decreased today but today were clear. There was no wheezing or rales. He had no peripheral edema. The CHF is well compensated at this point. No change in his regimen as needed. 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 If necessary he will return to see an ear, nose and throat physician. Plan Of Treatment Medication Medication Name Sig Start Date Stop Date Notes Lisinopril 5 MG 1 tablet Orally Once a day Rhopressa 0.02 % 1 drop into affected eye in the evening Ophthalmic Once a day Stool Softener predniSONE 20 MG 1 tablet Orally Once a day 02/27/2024 Brimonidine Tartrate 0.2 % 1 drop into a ffected eye Ophthalmic every 8 hrs Finasteride 5 MG TAKE 1 TABLET BY KEAGAN TH EVERY DAY Dorzolamide HCl-Timolol Mal 22.3-6.8 MG/ML 1 drop into affected eye Ophthalmic Twice a day Pradaxa 150 MG 1 capsule Orally Twice a day Wixela Inhub 250-50 MCG/ACT Inhalation Furosemide 20 MG 1 tablet Orally Once a day Escitalopram Oxalate 10 MG TAKE 1 TABLET BY MOUTH DAILY Allopurinol 100 MG 1 tablet Orally Once a day 04/06/2024 Fish Oil 1200 MG 1 capsule Orally Once a day Lumigan 0.01 % 1 drop into affected eye in the evening Ophthalmic Once a day Metoprolol Succinate 100 MG Orally Pending Test Test Name Order Date PROFILE, FASTING (COMPREHENSIVE METABOLI C) 10/07/2024 BRAIN NATRIURETIC PEPTIDE (BNP) 10/08/19 25 CBC w DIFF 10/07/2024 Lipid Panel 10/07/2024 XR shoulder RT min 2V 10/07/2024 Referrals Referral Date Details 10/07/2024 10/07/2024, Consult and Treat, [facility] Next Appt Details Follow Up: 3 Months, Reason: ov Provider Name:Iggy Bear , 03/30/2025 04:00:00 PM, [address] [place] [address] DR, [address], [place], [address], Provider Name:gIgy Bear , 07/13/2025 04:00:00 PM, [address], [place], [address], Progress Notes * Cholo ROCKDOB:[birth year] (84 yo M)Acc No.[id number]:10/07/2024 Progress Notes Patient: Cholo MORENO Provider: Loc Bear MD :1940 A ge:84 Y S ex:Male Date:10/07/2024 Phone: Address: [place], [place] Subjective: * Chief Complaints: * N ephrolithiasisCOPDChronic atrial fibrillationCHFThrombocytopeniaHypertensionHyperlipidemiaObstructive sleep apneaBenign prostatic hypertrophyAnticoagulatedHypothyroidMeningoencephaloceleGoutPeripheral edema * HPI: C OVID-19 Screening: He returns to the office for a scheduled visit for medical management of numerous issues. He remains generally weak but ambulatory slowly with a walker. His peripheral edema has resolved and he has lost 4 pounds since his last visit. He has lost 15 pounds since March 2024.He was in a slow controlled atrial fibrillation today. He is anticoagulated and has had no bleeding. He was breathing room air comfortably. Denied any abdominal pain. He has had no renal colic. His BNP is 110. His platelet count is 135,000. He has had no gout. His mental status is unchanged. He remains very forgetful and week. He is cared for primarily by his daughter who was with him today. His vital signs were stable. He has sleep apnea but does not wish to have a CPAP machine as he says he would not be able to use it and he would find it intolerable. His daughter has agreed percent statement.He complained is pain in the right shoulder. Pain is localized on the outer portion of the humerus to convexly of the shoulder. He has marketed limitation in elevation and there is pain who contraction of the triceps muscle. It appeared to be tendinitis. X-ray was ordered he was referred to orthopedics for definitive treatment and diagnosis. Questions H ave you had any new onset fever, chills, cough, congestion, sore throat, shortness of breath, muscle aches? N o * ROS: G eneral/Constitutional: pain o nly normal aches and pains. C hills d enies.?Fatigue a dmits. F ever d enies. E NT: Decreased hearing i n both ears. R espiratory: Cough d enies. C ardiovascular: Chest pain with exertion d enies. D yspnea on exertion?with moderate activity. S hortness of breath w ith exertion. G astrointestinal: Constipation o ccasional. D ecreased appetite d enies. D iarrhea d enies. H eartburn d enies. N ausea d enies. R ectal bleeding d enies. V omiting d enies. H ematology: bruising d enies. p etechiae d enies. S wollen glands n one have been noted. G enitourinary: Frequent urination t wice a night. M usculoskeletal: Muscle aches d enies. P ainful joints d enies. S ciatica d enies. W eakness t hat is generalized. S kin: Itching d enies. R ernesto d enies. S kin lesion(s)?denies. N eurologic: Difficulty speaking d enies. D izziness d enies.?Headache d enies. L ow back pain d enies. P sychiatric: Depressed mood d enies. * Medical History: * Surgical History: R IGHT ESWL 03/13/2011POLYPECTOMY 1980-2004right total hip replacement, Dr RAJAN Kruschel 09/2011right ureter lithotripsy 2012colonoscopy 1980colonoscopy, 1999colonoscopy, , rectal polyp 2004colonoscopy, 2009colonoscopy, , rectal tubular adenoma 2015tonsillectomy double hernia surgery 01/2019repair of umbilical hernia and incarcerated left inguinal hernia, Dr. Smith, [facility] 01/2019double cataract surgery 01/2019glaucoma surgery 03/05/2022Trabeculectomy with Mitomycin and +/- 5FU 03/2022 * Hospitalization/Major Diagno stic Procedure: g out, knee, [facility] * Family History: F ather: 73 yrs, Multiple myocardial infarctions, stroke, coronary artery disease, emphysema, atrial fibrillation, worked at [employer]. M other: 86 yrs, Alzheimer's disease. C hildren: alive. S iblings: alive. 1 brother(s) - healthy. 1 son(s) [...] dditional Findings: Tobacco non-user E x-cigarette smoker H shaka is and has 2 children, Dontae and Sarah, who are in good health. He has no grandchildren. He retired in 2008. 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 * Medications: T akingAllopurinol 100 MG Tablet 1 tablet Orally Once a day Escitalopram Oxalate 10 MG Tablet TAKE 1 TABLET BY MOUTH DAILY Lumigan 0.01 % Solution 1 drop into [...] Tablet 1 tablet Orally Once a day Medication List reviewed and reconciled with the patientTaking Allopurinol 100 MG Tablet 1 tablet Orally Once a day Taking Escitalopram Oxalate 10 MG Tablet TAKE 1 TABLET BY MOUTH DAILY Taking Lumigan 0.01 % Solution 1 drop into [...] Tablet 1 tablet Orally Once a day Medication List reviewed and reconciled with the patient * Allergies: I odinated Diagnostic Agents: AllergyNo Known Food Allergyno[Allergies Verified] Objective: * Vitals: H t: 70, Wt:204, BMI:29.27, BP:118/60, HR:60, RR:15, Temp:97, Oxygen sat %:98, Wt- k.53. * P ast Orders: Lab:Lipid Panel * Collection Date 09/30/2024 09/09/2023 03/06/2023 Collection Time 08:33 AM 08:55 AM 09:04 AM Order Date 09/30/2024 09/09/2023 03/06/2023 Triglycerides 94 (Ref Range: <150 mg/dL) 86 (Ref Range: <150 mg/dL) 77 (Ref Range: <150 mg/dL) Cholesterol 105 (Ref Range: <200 mg/dL) 115 (Ref Range: <200 mg/dL) 118 (Ref Range: <200 mg/dL) LDL Cholesterol Calculated 60 (Ref Range: <100 mg/dL) 71 (Ref Range: <100 mg/dL) 75 (Ref Range: <100 mg/dL) HDL Cholesterol 27 L (Ref Range: >40 mg/dL) 27 L (Ref Range: >40 mg/dL) 28 L (Ref Range: >40 mg/dL) * Lab:B Type Natriuretic Pepti de * Collection Date 09/30/2024 10/16/2023 01/22/2022 Collection Time 08:33 AM 10:33 AM 03:54 PM Order Date 09/30/2024 10/16/2023 01/22/2022 B Type Natriuretic Peptide 110 H (Ref Range: <100 pg/mL) 77 (Ref Range: <100 pg/mL) 76 (Ref Range: <100 pg/mL) * Lab:Comprehensive Broadbent. Pane l Fast * Collection Date 09/30/2024 09/09/2023 03/06/2023 Collection Time 08:33 AM 08:55 AM 09:04 AM Order Date 09/30/2024 09/09/2023 03/06/2023 Sodium 140 (Ref Range: 135-145 mmol/L) 142 (Ref Range: 135-145 mmol/L) 142 (Ref Range: 135-145 mmol/L) Bilirubin Total 0.6 (Ref Range: 0.0-1.0 mg/dL) 0.7 (Ref Range: 0.0-1.0 mg/dL) 0.9 (Ref Range: 0.0-1.0 mg/dL) Aspartate Amino Transferase 17 (Ref Range: 5-37 U/L) 14 (Ref Range: 5-37 U/L) 15 (Ref Range: 5-37 U/L) Alanine Aminotransferase 17 (Ref Range: 0-40 U/L) 10 (Ref Range: 0-40 U/L) 10 (Ref Range: 0-40 U/L) Total Protein 6.8 (Ref Range: 6.5-8.0 g/dL) 6.6 (Ref Range: 6.5-8.0 g/dL) 6.6 (Ref Range: 6.5-8.0 g/dL) Albumin Level 4.2 (Ref Range: 3.5-5.0 g/dL) 4.1 (Ref Range: 3.5-5.0 g/dL) 3.9 (Ref Range: 3.5-5.0 g/dL) Alkaline Phosphatase 86 (Ref Range: 39-117 U/L) 67 (Ref Range: 39-117 U/L) 71 (Ref Range: 39-117 U/L) Potassium 3.9 (Ref Range: 3.3-5.1 mmol/L) 3.9 (Ref Range: 3.3-5.1 mmol/L) 4.4 (Ref Range: 3.3-5.1 mmol/L) Chloride 106 (Ref Range: 96-108 mmol/L) 108 (Ref Range: 96-108 mmol/L) 105 (Ref Range: 96-108 mmol/L) Carbon Dioxide 27 (Ref Range: 22-29 mmol/L) 27 (Ref Range: 22-29 mmol/L) 30 H (Ref Range: 22-29 mmol/L) Anion Gap 11 L (Ref Range: 12-20) 11 L (Ref Range: 12-20) 11 L (Ref Range: 12-20) Blood Urea Nitrogen 18 H (Ref Range: 9-16 mg/dL) 23 H (Ref Range: 9-16 mg/dL) 22 H (Ref Range: 9-16 mg/dL) Creatinine 1.05 (Ref Range: 0.5-1.4 mg/dL) 1.01 (Ref Range: 0.5-1.4 mg/dL) 1.03 (Ref Range: 0.5-1.4 mg/dL) Estimated Glomerular Filt Rate > 60 > 60 > 60 Glucose Fasting 96 (Ref Range: 60-99 mg/dL) 103 H (Ref Range: 60-99 mg/dL) 111 H (Ref Range: 60-99 mg/dL) Calcium 8.7 (Ref Range: 8.4-10.2 mg/dL) 8.9 (Ref Range: 8.4-10.2 mg/dL) 9.0 (Ref Range: 8.4-10.2 mg/dL) * Lab:Complete Blood Count Aut o Diff * Collection Date 09/30/2024 04/06/2024 03/22/2024 Collection Time 08:33 AM 05:03 PM 10:30 AM Order Date 09/30/2024 04/06/2024 03/22/2024 White Blood Count 6.7 (Ref Range: 4.8-10.8 X10*3/uL) 7.2 (Ref Range: 4.8-10.8 X10*3/uL) 8.1 (Ref Range: 4.8-10.8 X10*3/uL) Red Blood Count 4.69 (Ref Range: 4.60-5.80 X10*6/uL) 4.31 L (Ref Range: 4.60-5.80 X10*6/uL) 4.20 L (Ref Range: 4.60-5.80 X10*6/uL) Hemoglobin 13.8 L (Ref Range: 14.0-18.0 g/dl) 12.9 L (Ref Range: 14.0-18.0 g/dl) 13.0 L (Ref Range: 14.0-18.0 g/dl) Hematocrit 40.6 L (Ref Range: 42.0-52.0 %) 38.6 L (Ref Range: 42.0-52.0 %) 38.3 L (Ref Range: 42.0-52.0 %) Mean Corpuscular Volume 86.6 (Ref Range: 80.0-98.0 fL) 89.6 (Ref Range: 80.0-98.0 fL) 91.2 (Ref Range: 80.0-98.0 fL) Mean Corpuscular Hemoglobin 29.4 (Ref Range: 27.0-33.0 pg) 29.9 (Ref Range: 27.0-33.0 pg) 31.0 (Ref Range: 27.0-33.0 pg) Mean Corpuscular HGB Conc 34.0 (Ref Range: 31.0-36.0 g/dl) 33.4 (Ref Range: 31.0-36.0 g/dl) 33.9 (Ref Range: 31.0-36.0 g/dl) Red Cell Distribution Width 13.9 (Ref Range: 11.0-16.0 %) 13.6 (Ref Range: 11.0-16.0 %) 13.2 (Ref Range: 11.0-16.0 %) Platelet Count 135 L (Ref Range: 160-400 X10*3/uL) 138 L (Ref Range: 160-400 X10*3/uL) 154 L (Ref Range: 160-400 X10*3/uL) Mean Platelet Volume 9.5 (Ref Range: 9.4-12.4 fL) 9.2 L (Ref Range: 9.4-12.4 fL) 9.0 L (Ref Range: 9.4-12.4 fL) Neutrophils Percent Auto 69.4 (Ref Range: 45-73 %) 75.1 H (Ref Range: 45-73 %) 82.4 H (Ref Range: 45-73 %) Imm Gran Pct Auto 0.7 H (Ref Range: 0.0-0.4 %) 0.4 (Ref Range: 0.0-0.4 %) 1.0 H (Ref Range: 0.0-0.4 %) Lymphocytes Percent Auto 14.1 L (Ref Range: 20-40 %) 11.9 L (Ref Range: 20-40 %) 6.7 L (Ref Range: 20-40 %) Monocytes Percent Auto 7.3 (Ref Range: 2-11 %) 9.3 (Ref Range: 2-11 %) 7.9 (Ref Range: 2-11 %) Eosinophils Percent Auto 8.1 H (Ref Range: 0-4 %) 3.0 (Ref Range: 0-4 %) 1.9 (Ref Range: 0-4 %) Basophils Percent Auto 0.4 (Ref Range: 0-2 %) 0.3 (Ref Range: 0-2 %) 0.1 (Ref Range: 0-2 %) NRBC Pct Auto 0.0 (Ref Range: 0.0-0.2 /100WBC) 0.0 (Ref Range: 0.0-0.2 /100WBC) 0.0 (Ref Range: 0.0-0.2 /100WBC) Neutrophils Absolute Auto 4.6 (Ref Range: 2.0-8.3 x10*3/uL) 5.4 (Ref Range: 2.0-8.3 x10*3/uL) 6.7 (Ref Range: 2.0-8.3 x10*3/uL) Imm Gran Abs Auto 0.05 H (Ref Range: 0.00-0.03 X10*3/uL) 0.03 (Ref Range: 0.00-0.03 X10*3/uL) 0.08 H (Ref Range: 0.00-0.03 X10*3/uL) Lymphocytes Absolute Auto 0.9 L (Ref Range: 1.2-4.9 X10*3/uL) 0.9 L (Ref Range: 1.2-4.9 X10*3/uL) 0.5 L (Ref Range: 1.2-4.9 X10*3/uL) Monocytes Absolute Auto 0.5 (Ref Range: 0.1-1.2 X10*3/uL) 0.7 (Ref Range: 0.1-1.2 X10*3/uL) 0.6 (Ref Range: 0.1-1.2 X10*3/uL) Eosinophils Absolute Auto 0.5 H (Ref Range: 0.0-0.4 X10*3/uL) 0.2 (Ref Range: 0.0-0.4 X10*3/uL) 0.2 (Ref Range: 0.0-0.4 X10*3/uL) Basophils Absolute Auto 0.0 (Ref Range: 0.0-0.2 X10*3/uL) 0.0 (Ref Range: 0.0-0.2 X10*3/uL) 0.0 (Ref Range: 0.0-0.2 X10*3/uL) NRBC Abs Auto 0.000 (Ref Range: 0.0-0.012 X10*3/uL) 0.000 (Ref Range: 0.0-0.012 X10*3/uL) 0.000 (Ref Range: 0.0-0.012 X10*3/uL) * Lab:Prostate Specific Antige n * Collection Date 09/30/2024 09/09/2023 12/11/2022 Collection Time 08:33 AM 08:55 AM 08:16 AM Order Date 09/30/2024 09/09/2023 12/11/2022 Prostate Specific Antigen 0.10 (Ref Range: <0.05-4.0 ng/mL) 0.23 (Ref Range: <0.05-4.0 ng/mL) 0.13 (Ref Range: <0.05-4.0 ng/mL) * Examination: G eneral Examination: GENERAL APPEARANCE: p leasant, well nourished, well developed, in no acute distress, calm and relaxed: overweight: elderly man. HEAD: a traumatic, normocephalic. EYES: e keshawn, perrla, anicteric, conjugate. EARS: n ormal. NOSE: s eptum intact. ORAL CAVITY: n [...] sounds normal, no ascites, no organomegaly, no mass: overweight, Umbilical hernia which is not incarcerated. RECTAL EXAM: n ot examined. MUSCULOSKELETAL: e xtremities unremarkable, no clubbing, cyanosis or edema, Mild decreased range of motion lumbar spine, no peripheral edema noted, Significant pain to range of motion right shoulder is significantly decreased elevation. PERIPHERAL PULSES: n ormal. NEUROLOGIC: a lert and oriented, cranial nerves 2-12 grossly intact, deep tendon reflexes 2+ symmetrical, motor strength normal upper and lower extremities, sensory exam intact. PSYCH: a lert, oriented: speech diminished output, volume, Forgetful. Assessment: * Assessment: 1. P aroxysmal atrial fibrillation - I48.0 (Primary) N otes :He has had no episodes of tachycardia recently. He has been compliant with his regimen and will come to the office in the near future. 2 . P ain in right shoulder - M25.511 N otes :X-ray of the shoulder has been ordered and he was referred back to his orthopedist 3 . F ormer smoker - Z87.891 N otes :He is highly motivated not to smoke and has a plan to prevent relapse in times of stress. 4 . E ssential hypertension - I10 N otes :His blood pressure is currently stable and no change in his regimen was made.The value was 118/60. 5 . O bstructive sleep apnea - G47.33 N otes :He says he does not have a CPAP machine at this time. I have discussed trying to obtain one. 6 . B enign prostatic hyperplasia without lower urinary tract symptoms - N40.0? Notes :He has been rising from sleep twice a night to urinate. We discussed lifestyle modifications that could be made to reduce nocturia. 7 . A nticoagulated - Z79.01 N otes :He continues on anticoagulant with no bruising or bleeding. I have advised him to avoid aspirin. 8 . U mbilical hernia without obstruction and without gangrene - K42.9 ? N otes :This is an asymptomatic problem at this time will be observed. There has been no change in this lesion. 9 . T hrombocytopenia - D69.6 N otes :His platelet count is slightly low at 135,000. He has had no bleeding. He remains anticoagulated. 1 0. O verweight - E66.3 N otes :His body mass index is 29. He has lost 4 pounds. He has lost 15 pounds since March of this year. We discussed diet and nutrition. His weight will be carefully followed. 1 1. H ypothyroidism, unspecified - E03.9 N otes :No change in his medications was made. Comprehensive blood work has been ordered. 1 2. C hronic congestive heart failure, unspecified heart failure type - I50.9? Specify :His lung sounds were decreased but clear and there was no wheezing or rales. I did not see peripheral edema. His congestive heart failure seems well compensated at this point. N otes :His lung sounds were decreased today but today were clear. There was no wheezing or rales. He had no peripheral edema. The CHF is well compensated at this point. No change in his regimen as needed. 1 3. 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 If necessary he will return to see an ear, nose and throat physician. Plan: * Treatment: 2. O thers Continue Allopurinol Tablet, 100 MG, [...] 1 tablet, Orally, Once a day. * Labs: * L ab: PROFILE, FASTING (COMPREHENSIVE METABOLIC) L ab: BRAIN NATRIURETIC PEPTIDE (BNP) L ab: CBC w DIFF L ab: Lipid Panel * Procedure Codes: 9 4760 MEASURE BLOOD OXYGEN LEVEL * Preventive Medicine: Counseling: C are goal follow-up plan: Counseling for abnormal BMI given Y es Above Normal BMI Follow-up D ietary management education, guidance, and counseling, Dietary needs education S moking/Tobacco Use Patient counseled on the dangers of tobacco use and urged to quit. 0 10/07/2024 * Follow Up: 3 Months (Reason: ov) * Images: * Sign off status: Completed true * Provider: Loc Bear MD Date: 0 10/07/2024 Generated for Deena lujan/Concepción/Nedsmitting on: 1 04/30/2024 05:17 PM EST History and Physical Notes * HPI (History of Present Illness) Category Sub-Category Detail Notes COVID-19 Screening Questions Have you had any new onset fever, chills, cough, congestion, sore throat, shortness of breath, muscle aches?: No Examination Category Sub-Category Detail Notes General Examination GENERAL APPEARANCE: pleasant , well nourished, well developed, in no acute distress, calm and relaxed: overweight: elderly man HEAD: atraumatic, normocep halic EYES: eomi, perrla, anicte cheryl, conjugate EARS: normal NOSE: septum intact NECK/THYROID: no jugular venous di stention, no carotid bruit, thyroid normal HEART: no clicks, gallops, murmurs, or rubs, irregular rhythm, S1, S2 normal, no s3, or vascular bruits LUNGS: clear to auscultatio n ABDOMEN: bowel sounds normal, no ascites, no organomegaly, no mass: overweight, Umbilical hernia which is not incarcerated NEUROLOGIC: alert and oriented, cranial nerves 2-12 grossly intact, deep tendon reflexes 2+ symmetrical, motor strength normal upper and lower extremities, sensory exam intact SKIN: no suspicious lesion s, anicteric PERIPHERAL PULSES: normal BREASTS: no masses palpable b ilaterally MUSCULOSKELETAL: extremities unremark able, no clubbing, cyanosis or edema, Mild decreased range of motion lumbar spine, no peripheral edema noted, Significant pain to range of motion right shoulder is significantly decreased elevation LYMPH NODES: no enlarged lymph no gray,spleen normal RECTAL EXAM: not examined PSYCH: alert, oriented: spe ech diminished output, volume, Forgetful ORAL CAVITY: normal, unremarkable Consultation Request Notes Referral Date Referring Provider Referred Provider Not es 10/07/2024 Iggy Bear [facility], Orthopedic Surgeons Consult and Treat
--- OUTSIDE RECORDS SUMMARY | 2024-10-13 08:37 | XMS_ITS ---
Author Organization Iggy Bear III, MD Address [address] [address] Care Team Providers Care Vice President Of Brand Management Name Role Phone Dr. Iggy Bear III Primary Care Provider REASON FOR VISIT told patient to call Social History Sex Assigned At : Social History Observation Description Sex Assigned At Male Encounters Encounter Location Date Provider Diagnosis Iggy Bear III, MD [address] [place] [address] [place] [address] 10/13/2024 Iggy Bear Plan Of Treatment Next Appt Details Provider Name:Iggy Bear , 03/30/2025 04:00:00 PM, [address] [place] [address] [place], [address], Provider Name:Iggy Bear , 07/13/2025 04:00:00 PM, [address] [place] [address] [place], [address], Progress Notes * Cholo ROCK JDOB:[birth year] (84 yo M)Acc No.[id number]:10/13/2024 Patient: Cholo MORENO :1940 A ge:84 Y S ex:Male Phone: Address: [place], [address] Subjective: * Chief Complaints: * D rAbel told patient to call * Medical History: * Surgical History: * Hospitalization/Major Diagno stic Procedure: * Medications: Objective: * Vitals: * Physical Examination: Assessment: Plan: * Treatment: * Procedure Codes: * true * Date: Generated for Deena lujan/Concepción/Krystal on: 04/30/2024 05:18 PM EST
--- OUTSIDE RECORDS SUMMARY | 2025-01-12 11:00 | XMS_ITS ---
Author Organization Iggy Bear III, MD Address [address] [place] [address] Care Team Providers Care Flow Nurse Name Role Phone Dr. Iggy Bear III Primary Care Provider [phone] Allergies Allergen (clinical drug ingredient) Drug/Non Drug [...] Date Provider Diagnosis Iggy Bear III, MD [address] [place] [address] [place] [address] 01/12/2025 Iggy Bear Permanent atrial fibrillation I48.21 [...] Name:Iggy Bear , 03/30/2025 04:00:00 PM, [address] [facility] [address], [place], [address], Provider Name:Iggy Bear , 07/13/2025 04:00:00 PM, [address] [facility] [address], [place], [address], Progress Notes * Cholo ROCKDOB:[birth year] (84 yo M)Acc No.[id number]:01/12/2025 Progress Notes Patient: Cholo MORENO Provider: Loc Bear MD :1940 A ge:84 Y S ex:Male Date:01/12/2025 Phone: Address:[address] [place] [address], [phone] Subjective: * Chief Complaints: * C OPDAtrial [...] and incarcerated left inguinal hernia, Dr. Smith, [facility] 01/2019double cataract surgery 01/2019glaucoma surgery 03/05/2022Trabeculectomy with Mitomycin and +/- 5FU 03/2022 * Hospitalization/Major Diagno stic Procedure: g out, knee, [facility] * Family History: F ather: 73 yrs, Multiple myocardial infarctions, stroke, coronary artery disease, emphysema, atrial fibrillation, worked at [employer]. M other: 86 yrs, Alzheimer's disease. C [...] He retired in 2008. 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 * Medications: T [...] 11:43 AM)?ValueReference Range?NT Pro B Type Natriuretic Bcps707.2H<300 - pg/mL * Examination: G eneral Examination: [...] Date: 03/14/2024 Generated for Memei le/Concepción/eTransmitting on: 04/30/2024 05:17 PM EST History and Physical [...]
--- NOTE | ~2025-02-27 | MR_ITS ---
CLINICAL HISTORY: M25.311 - Other instability, right shoulder Exam: Nonenhanced MRI of the right shoulder. Comparison: Radiographs dated 10/08/2024. Rotator cuff: Supraspinatus tendinosis is present with suggestion of the small partial-thickness intrasubstance or bursal surface tear near the anterior margin of the its insertion onto the greater tuberosity of the humerus (9; 12 and 13). No full-thickness tear. Infraspinatus tendon appears grossly intact. Subscapularis tendon may reveal some mild partial-thickness articular surface tearing (6; 14 and 15, and 10; 15 and 16). No full-thickness tear. Glenoid labrum: There is diffuse glenoid labral degeneration. Otherwise, no definable focal glenoid labral tear is appreciated. Bicipital tendon: Bicipital tendon is within its expected position in the intertubercular groove. There is thickening and mild heterogeneity of the intra-articular segment of the bicipital tendon (for example, 6; 13-15), compatible with fairly significant tendinosis. The bicipital anchor appears to be intact. Acromioclavicular joint: Moderate to advanced degenerative disease with some inferior acromioclavicular spurring. Joint space and soft tissues: Moderate-sized glenohumeral joint effusion. There is fluid within the acromioclavicular joint space as well. There are advanced glenohumeral osteoarthritic changes. Incidental note is made of a partially imaged lipoma within anterior aspect of the pectoralis muscle measuring up to 5.7 x 3.6 cm cross-sectional dimension (measured on 6; 29). Impression: 1. Supraspinatus tendinosis with likely small partial-thickness intrasubstance or bursal surface tear of the anterior margin of the its insertion onto the greater tuberosity of the humerus. No full-thickness tear. 2. Possible mild articular surface partial-thickness tearing of the subscapularis tendon. No full-thickness tear. 3. Tendinosis involving the intra-articular segment of the bicipital tendon. No definable tear. 4. Degenerative changes as described above. 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 This document has been electronically signed by: Froylan Cruz MD on 03/01/2025 14:32:38
--- OUTSIDE RECORDS SUMMARY | 2025-02-27 17:18 | XMS_ITS | Patient Health Record ---
Author Organization [facility] Address [address] [place] [address] Care Team Providers Care Retail Service Technician Name Role Phone Iggy Bear MD Primary Care Provider UnavailManda Metcalf Unavailable [phone] Main [facility] Unavailable [phone] Allergies Allergen (clinical drug ingredient) Drug/Non Drug Allergy documented on EMR Reaction Allergy Type Onset Date Status IVP (uncoded) hard time breathing Allergy Active Reason For Referral No Information Medications Medication SIG (Take, Route, Frequency, Duration) Notes Start Date End Date Status Allopurinol 100 MG TAKE ONE TABLET BY MOUTH DAILY Oral; Duration: 30 Days Active Wixela Inhub Active Ciclopirox Olamine 0.77 % 1 application Externally Twice a day to skin of feet including between the toes; Duration: 30 days Active Brimonidine Tartrate 0.2 % PLACE 1 DROP INTO LEFT EYE TWICE A DAY Ophthalmic; Duration: 90 Days Active Lumigan 0.01 % Ophthalmic; Duration : 50 Days Active Clotrimazole-Betamethason e 1-0.05 % 1 application to affected area Externally Twice a day to affected areas on feet; Duration: 30 days 01/03/2025 Active Dorzolamide HCl Acti ve Aredia 01/10/2023 Not-Takin g Furosemide Active Ketoconazole 2 % 1 application Apply a thin layer of cream externally Twice a day to scaling areas on feet including between the toes; Duration: 30 days 08/04/2024 Active Metoprolol Succinate ER 100 MG Oral; Duration: 90 Days Acti ve Finasteride 5 MG TAKE 1 TABLET BY KEAGAN TH EVERY DAY Oral; Duration: 90 Days Active Rhopressa 0.02 % Ophthalmic; Duration : 90 Days Active Lisinopril 5 MG Oral; Duration: 90 Days Active Escitalopram Oxalate 10 MG TAKE 1 TABLET BY MOUTH EVERY DAY FOR 30 DAYS Oral; Duration: 90 Days Active Immunizations Vaccine Route Administration Date Status Comme nts Influenza Unknown 01/03/2025 Administered Social History Tobacco Use: Social History [...] atherosclerosis of arteries of lower limbs (disorder) ([id number] ) Atherosclerosis of [place] artery of both lower extremities, with unspecified presence of clinical manifestation (I70.203) Active confirmed Q7(A), Q8(2B), Q9(1B,2 C) Vital Signs Blood pressure diastolic 65 mm Hg 01/03/2025 Height 5 ft 10 in in 01/03/2025 Blood pressure systolic 128 mm Hg 01/03/2025 Weight 204 lbs 01/03/2025 BMI 29.27 kg/m2 01/03/2025 Procedures Procedure Date Ordered Date Performed Result Body Sit e 06382-BGSBKVW NAIL, 6 OR MORE 04/27/2024 N/A 63972-KVCJ SKIN LESIONS, OVER 4 04/27/2024 N/A 78914-EVPHBLD NAIL, 6 OR MORE 08/04/2024 N/A 88244-BGJL SKIN LESIONS, OVER 4 08/04/2024 N/A 61171-QCISDZO NAIL, 6 OR MORE 01/03/2025 N/A 68806-TNBH SKIN LESIONS, OVER 4 01/03/2025 N/A Encounters Encounter Location Date Provider Diagnosis [facility] [place] [address] [place] [address] 04/27/2024 Main Kirkpatrick Atherosclerosis of [place] artery of both lower extremities, with unspecified presence of clinical manifestation I70.203 ; Tinea unguium B35.1 ; Pain in right toe(s) M79.674 ; Pain in left toe(s) M79.675 and Tinea pedis of both feet B35.[address] [address] 08/04/2024 Manda White Atherosclerosis of [place] artery of both lower extremities, with unspecified presence of clinical manifestation I70.203 ; Tinea unguium B35.1 ; Pain in right toe(s) M79.674 ; Pain in left toe(s) M79.675 and Tinea pedis of both feet B35.[address] [address] 01/03/2025 Manda White Atherosclerosis of [place] artery of both lower extremities, with unspecified presence of clinical manifestation I70.203 ; Tinea unguium B35.1 ; Pain in right toe(s) M79.674 ; Pain in left toe(s) M79.675 and Tinea pedis of both feet B35.[address] [address] 01/03/2025 Manda Christopher Assessments Encounter Date Diagnosis (ICD Code) Assessment Notes Treatment Notes Treatment Clinical Notes Section Notes 04/27/2024 Atherosclerosis of [place] artery of both lower extremities, with unspecified presence of clinical manifestation (ICD-10 - I70.203) Q7(A), Q8(2B), Q9(1B,2C) 08/04/2024 Atherosclerosis of [place] artery of both lower extremities, with unspecified presence of clinical manifestation (ICD-10 - I70.203) Q7(A), Q8(2B), Q9(1B,2C) 01/03/2025 Atherosclerosis of [place] artery of both lower extremities, with unspecified presence of clinical manifestation (ICD-10 - I70.203) Q7(A), Q8(2B), Q9(1B,2C) 01/03/2025 Tinea unguium (ICD-10 - B35.1) 08/04/2024 Tinea unguium (ICD-10 - B35.1) 04/27/2024 Tinea unguium (ICD-10 - B35.1) 04/27/2024 Pain in right toe(s) (ICD-10 - M79.674) 08/04/2024 Pain in right toe(s) (ICD-10 - M79.674) 01/03/2025 Pain in right toe(s) (ICD-10 - M79.674) 01/03/2025 Pain in left toe(s) (ICD-10 - M79.675) 04/27/2024 Pain in left toe(s) (ICD-10 - M79.675) 08/04/2024 Pain in left toe(s) (ICD-10 - M79.675) 04/27/2024 Tinea pedis of both feet (ICD-10 - B35.3) 01/03/2025 Tinea pedis of both feet (ICD-10 - B35.3) 08/04/2024 Tinea pedis of both feet (ICD-10 - B35.3) Plan Of Treatment Pending Test Test Name Order Date 75561-IBNLLAI NAIL, 6 OR MORE 01/26/2024 40712-YYJPXUF NAIL, 6 OR MORE 04/27/2024 55359-CNUARON NAIL, 6 OR MORE 08/04/2024 11050-LJFTHOH NAIL, 6 OR MORE 01/03/2025 01252-YKES SKIN LESIONS, OVER 4 01/04/20 25 05981-BAXJ SKIN LESIONS, OVER 4 08/05/19 29971-PIVC SKIN LESIONS, OVER 4 04/27/19 84705-YCDV SKIN LESIONS, OVER 4 01/26/20 24 15273-PBIX SKIN LESIONS, OVER 4 04/23/19 24 58418-QHPE SKIN LESIONS, OVER 4 07/24/19 24 Next Appt Details Provider Name:Manda Lewis james, 04/11/2025 09:15:00 AM, [address] [facility], [place], [address], Insurance Providers Payer Name Payer Address Payer Phone Subscriber Number Group Number Insured Name Patient Relationship to Insured Coverage Start Date Coverage End Date Medicare National [employer] [address] [facility] [place] [place] [address] [id number] Cholo Campa Self - patient is the insured [employer] [facility] [address] [place] [address] [phone] [id number] Lokesh Cholo Self - patient is the insured Medical (General) History Medical History History ICD Code Arthritis Back,Hip,and Knee pain Broken bones Cataracts Glaucoma Heart disease Macular degeneration Numbness Measles Mumps Chicken pox Joint implants/screws Surgical History Surgery Date(Month/Year) hip replacement laser eye surgery
--- OUTSIDE RECORDS SUMMARY | 2025-02-27 17:19 | XMS_ITS | Patient Health Record ---
Author Organization Iggy Bear III, MD Address [address] [place] [address] Care Team Providers Care Shuttler Car Name Role Phone Dr. Iggy Bear III Primary Care Provider Allergies Allergen (clinical drug ingredient) Drug/Non Drug Allergy documented on EMR Reaction Allergy Type Onset Date Status No Known Food Allergy Unknown Drug Allergy Active Iodinated contrast media (substance) Iodinated Diagnostic Agents Unknown Drug Allergy Active Results Component Value Reference Range Notes Complete Blood Count Auto Di ff Reviewed date:03/25/2024 06:29:04 AM Interpretation: Performing Lab:[facility], [address] [place] [phone] Notes/Report: White Blood Count 8.2 4.8-10.8 X10*3/uL [...] 0.0 0.0-0.2 /100WBC Neutrophils Absolute Auto 5.9 2.0-8.3 x10*3/u L Imm Gran Abs Auto 0.13 0.00-0.03 X10*3/uL Lymphocytes Absolute Auto 1.0 1.2-4.9 X10*3/u L Monocytes Absolute Auto 0.7 0.1-1.2 X10*3/uL Eosinophils Absolute Auto 0.4 0.0-0.4 X10*3/u L Basophils Absolute Auto 0.1 0.0-0.2 X10*3/uL NRBC Abs Auto 0.000 0.0-0.012 X10*3/uL Comprehensive Met. Panel Reviewed date:03/25/2024 06:29:05 AM Interpretation: Performing Lab:[address] [address] Notes/Report: Sodium 141 135-145 mmol/L Potassium 4.1 [...] (Free>4and<10) Reviewed date:03/25/2024 06:29:05 AM Interpretation: Performing Lab:[facility], [address] [place] [address] Notes/Report: PSA,Total (Free>4and<10) 0.27 0.00-4.00 ng/mL A [...] ff Reviewed date:03/25/2024 06:29:04 AM Interpretation: Performing Lab:[facility], [address] [place] [address] Notes/Report: White Blood Count 8.1 4.8-10.8 X10*3/uL [...] 0.0 0.0-0.2 /100WBC Neutrophils Absolute Auto 6.7 2.0-8.3 x10*3/u L Imm Gran Abs Auto 0.08 0.00-0.03 X10*3/uL Lymphocytes Absolute Auto 0.5 1.2-4.9 X10*3/u L Monocytes Absolute Auto 0.6 0.1-1.2 X10*3/uL Eosinophils Absolute Auto 0.2 0.0-0.4 X10*3/u L Basophils Absolute Auto 0.0 0.0-0.2 X10*3/uL NRBC Abs Auto 0.000 0.0-0.012 X10*3/uL Erythrocyte Sedimentation Ra te Reviewed date:03/25/2024 06:29:04 AM Interpretation: Performing Lab:[address] [address] Notes/Report: Erythrocyte Sedimentation Rate 22 0-15 MM/HR Patients with polycythemia and many hemoglobin abnormalities may have depressed sed rates whereas patients with anemia may have elevated sed rates. Comprehensive Met. Panel Reviewed date:03/25/2024 06:29:04 AM Interpretation: Performing Lab:[address] [address] Notes/Report: Sodium 141 135-145 mmol/L Potassium 4.5 [...] Acid Reviewed date:03/25/2024 06:29:04 AM Interpretation: Performing Lab:[address] [address] Notes/Report: Uric Acid 7.3 3.4-7.0 mg/dL C Reactive Protein Reviewed date:03/25/2024 06:29:04 AM Interpretation: Performing Lab:[facility], [address] [place] [address] Notes/Report: C Reactive Protein 0.72 < or = 0.50 mg/dL SARS-CoV2/FLU/RSV Reviewed date:03/25/2024 06:29:04 AM Interpretation: Performing Lab:[facility], [address] [place] [phone] Notes/Report: Influenza A PCR NEGATIVE Negative Influenza [...] by authorized laboratories. Testing performed on the [email or web address] GeneXpert utilizing real-time RT-PCR. All SARS CoV2 and positive influenza A/B results are reported to [facility]. XR hip RT w PEL1V Reviewed date:03/25/2024 06:29:04 AM Interpretation: Performing Lab: Notes/Report: [address] [address] XRay Report Signed Patient: Cholo Simmons MR#: [id number] : 1940 Acct:[id number] Age/Sex: 83 / M ADM Date: 03/22/24 Loc: HO.ED Attending Dr: Ordering Physician: Sagrario Jiang NP Date of Service: 03/22/24 Procedure(s): XR hip RT w PEL 1V Accession Number(s): [id number] cc: Iggy Bear MD; Sagrario Jiang NP [...] 03/22/24 1116 DD/ 1040 TD/TT: 03/22/24 1050 Gluten Settling Tender: [address] [address] XRay Report Signed Patient: Cholo Simmons MR#: [id number] : 1940 Acct:[id number] Age/Sex: 83 / M ADM Date: 03/22/24 Loc: HO.ED Attending Dr: Ordering Physician: Sagrario Jiang NP Date of Service: 03/22/24 Procedure(s): XR hip RT w PEL 1V Accession Number(s): [id number] cc: Iggy Bear MD; Sagrario Jiang NP [...] 03/22/24 1116 DD/ 1040 TD/TT: 03/22/24 1050 Gluten Settling Tender: XR knee RT 4V Reviewed date:03/25/2024 06:29:04 AM Interpretation: Performing Lab: Notes/Report: [address] [address] XRay Report Signed Patient: Cholo Simmons MR#: [id number] : 1940 Acct:[id number] Age/Sex: 83 / M ADM Date: 03/22/24 Loc: HO.ED Attending Dr: Ordering Physician: Sagrario Jiang NP Date of Service: 03/22/24 Procedure(s): XR knee RT 4V Accession Number(s): [id number] cc: Iggy Bear MD; Sagrario Jiang NP [...] by: Iggy Gupta MD 03/22/2024 11:17 AM [facility] Dictated By: Iggy Gupta MD Signed By: <Electronically signed by Iggy Gupta MD in OV> 03/22/24 1117 DD/ 1040 TD/TT: 03/22/24 1050 Gluten Settling Tender: [address] [address] XRay Report Signed Patient: Cholo Simmons MR#: [id number] : 1940 Acct:[id number] Age/Sex: 83 / M ADM Date: 03/22/24 Loc: HO.ED Attending Dr: Ordering Physician: Sagrario Jiang NP Date of Service: 03/22/24 Procedure(s): XR kne e RT 4V Accession Number(s): [id number] cc: Iggy Bear MD; Sagrario Jiang NP EXAMINATION: XR KNEE 4 OR MORE VIEWS RIGHT HISTORY: pain, redne ss, swelling COMPARISON: There ar e no prior studies available for comparison. FINDINGS: Four views of the ri t knee are submitted. Osseous mineralization is normal. [...] by: Iggy Gupta MD 03/22/2024 11:17 AM [facility] Dictated By: Iggy Gupta MD Signed By: <Electronically signed by Iggy Gupta MD in OV> 03/22/24 1117 DD/ 1040 TD/TT: 03/22/24 1050 Gluten Settling Tender: EARL GONZALES w/rflx Micro + Cult Reviewed date:04/09/2024 09:15:21 AM Interpretation: Performing Lab:[facility], [address] [place] [address] Notes/Report: [id number] Urine, Clean Catch Color Urine Yellow Appearance Urine Clear PH 6.0 5.0-9.0 Glucose Urine UA Negative Negative mg/dL Urine Blood Negative Negative Specific [place] - Urine 1.025 1.005-1.025 Urine Protein Trace Neg-Trace mg/dL Urine Ketones 15 Negative mg/dL Nitrite Urine Negative Negative Leukocyte Esterase Urine Negative Negative CT cervical spine wo con Reviewed date:04/09/2024 09:15:21 AM Interpretation: Performing Lab: Notes/Report: [address] [address] [address] Scan Report Signed Patient: Cholo Simmons MR#: [id number] : 1940 Acct:[id number] Age/Sex: 83 / M ADM Date: 04/05/24 Loc: HO.ED Attending Dr: Ordering Physician: Elda Gates Date of Service: 04/05/24 Procedure(s): CT cervical spine wo IV con Accession Number(s): [id number] cc: Iggy Bear MD; Elda Gates Report Number: [id number]: Total DLP = 588.00 mGy-cm EXAMINATION: CT [...] guidelines were followed. Electronically signed by: Steve uGtiérrez MD 04/05/2024 10:58 AM [facility] Dictated By: Steve Gutiérrez MD Signed By: <Electronically signed by Steve Gutiérrez MD in OV> 04/05/24 1058 DD/ 0957 TD/TT: 04/05/24 1022 Gluten Settling Tender: [address] [address] [address] Scan Report Signed Patient: Cholo Simmons MR#: [id number] : 1940 Acct:[id number] Age/Sex: 83 / M ADM Date: 04/05/24 Loc: HO.ED Attending Dr: Ordering Physician: Elda Gates Date of Service: 04/05/24 Procedure(s): CT cervical spine wo IV con Accession Number(s): [id number] cc: Iggy Bear MD; Elda Gates Report Number: [id number]: Total DLP = 588.00 mGy-cm EXAMINATION: CT [...] by: Steve Gutiérrez MD 04/05/2024 10:58 AM [facility] Dictated By: Mr bruce Gutiérrez MD Signed By: <Electronically signed by Steve Gutiérrez MD in OV> 04/05/24 1058 DD/ 0957 TD/TT: 04/05/24 1022 Gluten Settling Tender: IRMA CT head/brain wo con Reviewed date:04/09/2024 09:15:21 AM Interpretation: Performing Lab: Notes/Report: [address] [address] [address] Scan Report Signed Patient: Cholo Simmons MR#: [id number] : 1940 Acct:[id number] Age/Sex: 83 / M ADM Date: 04/05/24 Loc: HO.ED Attending Dr: Ordering Physician: Elda Gates Date of Service: 04/05/24 Procedure(s): CT head/brain wo IV con Accession Number(s): [id number] cc: Iggy Bear MD; Elda Gates Report Number: [id number]: Total DLP = 776.00 mGy-cm EXAMINATION: CT [...] King Craig MD 04/05/2024 10:43 AM EST Dictated By: King Keenan MD Signed By: <Electronically signed by King Tejeda MD in OV> 04/05/24 1043 DD/ 0933 TD/TT: 04/05/24 1022 Gluten Settling Tender: [address] [address] [address] Scan Report Signed Patient: Cholo Simmons MR#: [id number] : 1940 Acct:[id number] Age/Sex: 83 / M ADM Date: 04/05/24 Loc: HO.ED Attending Dr: Ordering Physician: Elda Gates Date of Service: 04/05/24 Procedure(s): CT head/brain wo IV con Accession Number(s): [id number] cc: Iggy Bear MD; Elda Gates Report Number: [id number]: Total DLP = 776.00 mGy-cm EXAMINATION: CT [...] 04/05/24 1043 DD/ 0933 TD/TT: 04/05/24 1022 Gluten Settling Tender: XR chest 1V Reviewed date:04/09/2024 09:15:21 AM Interpretation: Performing Lab: Notes/Report: [address] [address] XRay Report Signed Patient: Cholo Simmons MR#: [id number] : 1940 Acct:[id number] Age/Sex: 83 / M ADM Date: 04/05/24 Loc: HO.ED Attending Dr: Ordering Physician: Elda Gates Date of Service: 04/05/24 Procedure(s): XR chest 1V Accession Number(s): [id number] cc: Iggy Bear MD; Elda Gates EXAMINATION: [...] by Iggy Gupta MD in OV> 04/05/24 105 DD/ 103 TD/TT: 04/05/241034 Gluten Settling Tender: [address] [address] XRay Report Signed Patient: Cholo Simmons MR#: [id number] : 1940 Acct:[id number] Age/Sex: 83 / M ADM Date: 04/05/24 Loc: HO.ED Attending Dr: Ordering Physician: Elda Gates Date of Service: 04/05/24 Procedure(s): XR renata st 1V Accession Number(s): [id number] cc: Iggy Bear MD; Elda Gates EXAMINATION: [...] is degenerative disc disease of the spine. X R/XR chest 1V IMPRESSION: Probable small hiata l hernia. No acute cardiopulmonary abnormality. Electronically gwendolyn d by: Iggy Gupta MD 04/05/2024 10:54 AM EST RP Dictated By: Iggy Gupta MD Signed By: <Electronically signed by Iggy Gupta MD in OV> 04/05/24 1054 DD/ 1030 TD/TT: 04/05/241034 Gluten Settling Tender: Complete Blood Count Auto Di ff Reviewed date:04/09/2024 09:15:21 AM Interpretation: Performing Lab:[facility], [address] [place] [address] Notes/Report: White Blood Count 7.2 4.8-10.8 X10*3/uL [...] 0.0 0.0-0.2 /100WBC Neutrophils Absolute Auto 5.4 2.0-8.3 x10*3/u L Imm Gran Abs Auto 0.03 0.00-0.03 X10*3/uL Lymphocytes Absolute Auto 0.9 1.2-4.9 X10*3/u L Monocytes Absolute Auto 0.7 0.1-1.2 X10*3/uL Eosinophils Absolute Auto 0.2 0.0-0.4 X10*3/u L Basophils Absolute Auto 0.0 0.0-0.2 X10*3/uL NRBC Abs Auto 0.000 0.0-0.012 X10*3/uL Comprehensive Met. Panel Reviewed date:04/09/2024 09:15:21 AM Interpretation: Performing Lab:[facility], [address] [place] [address] Notes/Report: Sodium 141 135-145 mmol/L Potassium 4.3 [...] Lipase Reviewed date:04/09/2024 09:15:21 AM Interpretation: Performing Lab:[facility], [address] [place] [address] Notes/Report: Lipase 16 8-78 U/L SARS-CoV2/FLU/RSV Reviewed date:04/09/2024 09:15:20 AM Interpretation: Performing Lab:[facility], [address] [place] [address] Notes/Report: Influenza A PCR POSITIVE Negative Influenza [...] by authorized laboratories. Testing performed on the [email or web address] GeneXpert utilizing real-time RT-PCR. All SARS CoV2 and positive influenza A/B results are reported to [facility]. Complete Blood Count Auto Di ff Reviewed date:10/01/2024 02:13:32 PM Interpretation: Performing Lab:[address] [address] Notes/Report: White Blood Count 6.7 4.8-10.8 X10*3/uL [...] 0.0 0.0-0.2 /100WBC Neutrophils Absolute Auto 4.6 2.0-8.3 x10*3/u L Imm Gran Abs Auto 0.05 0.00-0.03 X10*3/uL Lymphocytes Absolute Auto 0.9 1.2-4.9 X10*3/u L Monocytes Absolute Auto 0.5 0.1-1.2 X10*3/uL Eosinophils Absolute Auto 0.5 0.0-0.4 X10*3/u L Basophils Absolute Auto 0.0 0.0-0.2 X10*3/uL NRBC Abs Auto 0.000 0.0-0.012 X10*3/uL Comprehensive Ridge. Panel Fa st Reviewed date:10/01/2024 02:13:32 PM Interpretation: Performing Lab:[facility], [address] [place] [address] Notes/Report: Sodium 140 135-145 mmol/L Potassium 3.9 [...] Peptide Reviewed date:10/01/2024 02:13:32 PM Interpretation: Performing Lab:[address] [address] Notes/Report: B Type Natriuretic Peptide 110 <100 pg/mL Lipid Panel Reviewed date:10/01/2024 02:13:32 PM Interpretation: Performing Lab:[address] [address] Notes/Report: Triglycerides 94 <150 mg/dL Desirable Triglyceride: [...] Antigen Reviewed date:10/01/2024 02:13:32 PM Interpretation: Performing Lab:[address] [address] Notes/Report: Prostate Specific Antigen 0.10 <0.05-4.0 ng/mL PSA methodology: Almaraz Alinity i Chemiluminescent Microparticle Immunoassay (CMIA) XR shoulder RT min 2V Reviewed date:01/02/2025 07:35:50 AM Interpretation: Performing Lab: Notes/Report: [address] [address] XRay Report Signed Patient: Cholo Simmons MR#: [id number] : 1940 Acct:[id number] Age/Sex: 84 / M ADM Date: 10/08/24 Loc: [facility] Attending Dr: Iggy Bear MD Ordering Physician: Iggy Bear MD Date of Service: 10/08/24 Procedure(s): XR shoulder RT min 2V Accession Number(s): [id number] cc: Iggy Bear MD EXAMINATION: XR SHOULDER [...] 10/08/24 1329 DD/ 1155 TD/TT: 10/08/24 1205 Gluten Settling Tender: [address] [address] XRay Report Signed Patient: Cholo Simmons MR#: [id number] : 1940 Acct:[id number] Age/Sex: 84 / M ADM Date: 10/08/24 Loc: [facility] Attending Dr: Iggy Bear MD Ordering Physician: Iggy Bear MD Date of Service: 10/08/24 Procedure(s): XR shoulder RT min 2V Accession Number(s): [id number] cc: Iggy Bear MD EXAMINATION: XR SHOU [...] 10/08/24 1329 DD/ 1155 TD/TT: 10/08/24 1205 Gluten Settling Tender: Complete Blood Count Auto Di ff Reviewed date:01/02/2025 07:35:50 AM Interpretation: Performing Lab:[facility], [address] [place] [address] Notes/Report: White Blood Count 7.1 4.8-10.8 X10*3/uL Red Blood Count 4.59 4.60-5.80 X10*6/uL Hemoglobin 13.7 14.0-18.0 g/dl Hematocrit 41.5 42.0-52.0 % Mean Corpuscular Volume 90.4 80.0-98.0 fL Mean Corpuscular Hemoglobin 29.8 27.0-33.0 pg Mean Corpuscular HGB Conc 33.0 31.0-36.0 g/dl Red Cell Distribution Width 14.0 11.0-16.0 % Platelet Count 147 160-400 X10*3/uL Mean Platelet Volume 9.0 9.4-12.4 fL Neutrophils Percent Auto 69.4 45-73 % Imm Gran Pct Auto 0.6 0.0-0.4 % Lymphocytes Percent Auto 13.9 20-40 % Monocytes Percent Auto 8.9 2-11 % Eosinophils Percent Auto 6.8 0-4 % Basophils Percent Auto 0.4 0-2 % NRBC Pct Auto 0.0 0.0-0.2 /100WBC Neutrophils Absolute Auto 4.9 2.0-8.3 x10*3/u L Imm Gran Abs Auto 0.04 0.00-0.03 X10*3/uL Lymphocytes Absolute Auto 1.0 1.2-4.9 X10*3/u L Monocytes Absolute Auto 0.6 0.1-1.2 X10*3/uL Eosinophils Absolute Auto 0.5 0.0-0.4 X10*3/u L Basophils Absolute Auto 0.0 0.0-0.2 X10*3/uL NRBC Abs Auto 0.000 0.0-0.012 X10*3/uL Comprehensive Ridge. Panel Fa st Reviewed date:01/02/2025 07:35:50 AM Interpretation: Performing Lab:[address] [address] Notes/Report: Sodium 139 135-145 mmol/L Potassium 4.5 3.3-5.1 mmol/L Chloride 103 96-108 mmol/L Carbon Dioxide 29 22-29 mmol/L Anion Gap 12 12-20 Blood Urea Nitrogen 16 9-16 mg/dL Creatinine 0.85 0.5-1.4 mg/dL Estimated Glomerular Filt Rate > 60 Chronic Kidney Disease: Estimated GFR < 60 mL/min/1.73m2 Severe Kidney Disease: Estimated GFR < 15 mL/min/1.73m2 Glucose Fasting 87 60-99 mg/dL Calcium 9.0 8.4-10.2 mg/dL Bilirubin Total 0.5 0.0-1.0 mg/dL Aspartate Amino Transferase 20 5-37 U/L Alanine Aminotransferase 13 0-40 U/L Total Protein 7.1 6.5-8.0 g/dL Albumin Level 4.5 3.5-5.0 g/dL Alkaline Phosphatase 85 39-117 U/L Lipid Panel Reviewed date:01/02/2025 07:35:50 AM Interpretation: Performing Lab:[address] [address] Notes/Report: Triglycerides 58 <150 mg/dL Desirable Triglyceride: less than 150 mg/dL Borderline High Triglyceride 150-199 mg/dL High Triglyceride: 200-499 mg/dL Very High Triglyceride: greater than or equal to 5OO mg/dL Cholesterol 116 <200 mg/dL Desirable Cholesterol: less than 200 mg/dL Borderline High Cholesterol: 200-239 mg/dL High Cholesterol: greater than 239 mg/dL LDL Cholesterol Calculated 73 <100 mg/dL Desirable LDL: less than 100 mg/dL Near Optimal/Above Optimal LDL: 110-129 mg/dL Borderline High LDL: 130-159 mg/dL High LDL: 160-189 mg/dL Very High LDL: greater than or equal to 190 mg/dL HDL Cholesterol 32 >40 mg/dL Desirable HDL: greater than 40 mg/dL Note: This HDL assay may give artificially low results in patients with liver disease. NT Pro B Type Natriuretic Pe pt Reviewed date:01/02/2025 07:35:50 AM Interpretation: Performing Lab:[facility], [address] [place] [address] Notes/Report: NT Pro B Type Natriuretic Pept 980.2 <300 pg/mL Reference Range: Age Group (years) NT-proBNP (pg/ml) Interpretation All <300 Negative: HF unlikely For patients presenting to the ED with clinical suspicion of new onset or worsening HF, see below: 18 to <50 >299.9 to <450.0 Grayzone: Consider 50 to 75 >299.9 to <900.0 other causes of >75 >299.9 to <1800.0 NT-proBNP elevation 18 to <50 >449.9 Positive: HF likely 50-75 >899.9 >75 >1799.9 Note: Elevated NT-proBNP levels should be interpreted in the context of other clinical information. Reason For Referral Reason Consult and Treat [...] Provider Speciality Internal M edicine Referred Provider [facility] Referred Provider Specialty Rheumatology General Notes DKelley 03/29/2024 11:37:45 AM > Referral and last progress notes were faxed Referral Priority Routine Referral Appointment Date 06/21/2024 Reason Consult and Treat Diagnosis 1 Pain in right should er (M25.511) Referral Organization Iggy Bear III, MD Referring Provider First Name Iggy Referring Provider Last Name Chema Referring Provider Speciality Internal M edicine Referred Provider [facility] Referred Provider [facility] General Notes LornaMiguel 10/2024 04:16:57 PM > Referral FredericxMaggy bell Kelley 10/13/2024 02:17:20 PM > Refaxed referral Referral Priority Routine Medications Medication SIG (Take, Route, Frequency, Duration) Notes Start Date End Date Status Stool Softener Activ e Lisinopril 5 MG 1 tablet Orally Once a day Active Finasteride 5 MG TAKE 1 TABLET BY KEAGAN TH EVERY DAY Active Metoprolol Succinate 100 MG Orally Active Fish Oil 1200 MG 1 capsule Orally Onc e a day Active predniSONE 20 MG 1 tablet Orally Once a day 02/27/2024 Active Lumigan 0.01 % 1 drop into affected eye in the evening Ophthalmic Once a day Active Brimonidine Tartrate 0.2 % 1 drop into a ffected eye Ophthalmic every 8 hrs Active Escitalopram Oxalate 10 MG TAKE 1 TABLET BY MOUTH DAILY Active Rhopressa 0.02 % 1 drop into affected eye in the evening Ophthalmic Once a day Active Wixela Inhub 250-50 MCG/ACT Inhalation Active Furosemide 20 MG 1 tablet Orally Once a day Active Dorzolamide HCl-Timolol Mal 22.3-6.8 MG/ML 1 drop into affected eye Ophthalmic Twice a day Active Pradaxa 150 MG 1 capsule Orally Twi ce a day Active Allopurinol 100 MG TAKE 1 TABLET BY KEAGAN TH ONCE DAILY for 90 Active Immunizations Vaccine Route Administration Date Status [...] has it been since you last smoked? Ita ter than 10 years Additional Findings: Tobacco non-user Ex-cigaret te smoker AUDIT-C (Standard) Question Answer Notes Did you have a drink containing alcohol in the p ast year? No Points 0 Interpretation Negative Problems Problem Type SNOMED Code ICD Code Onset Dates Problem Status W/U Status Risk Notes Problem 1396622 Former smoker (Z87.891) Active confirmed He is highly motivated not to smoke and has a plan to prevent relapse in times of stress. Problem 540273787582109 Obesity (BMI 30.0-34.9) (E66.9) Active confirmed His body mass index is now 30. We have discussed diet and nutrition. We made a plan to stabilize his weight during the upcoming holidays and then lose weight at a rate of one half of a pound per week. Problem 768256082 Thrombocytopenia (D69.6) Active confirmed His current platelet count is 147,000. He remains fully anticoagulated without bleeding. He is wearing his seatbelt. Problem Hypothyroidism (11996864) Hypothyroidism, unspecified (E03.9) Active confirmed No change in hi s medications was made. Comprehensive blood work has been ordered. Problem 520929511 Mixed hyperlipidemia (E78.2) Active confirmed His lipid value s are currently in their target range. No change in his regimen was needed today. Problem Gout (51410498) Gout (M10.9) Active confirmed Problem Benign prostatic hyperplasia (021131662) BPH (benign prostatic hyperplasia) (N40.0) Active confirmed He rises only once a night which is an improvement. We have put in place lifestyle modifications and reduce nocturnal. No change his medication was made. Problem 51170567 Chronic obstructive pulmonary disease, unspecified COPD type (J44.9) Active confirmed He is not smoking. He is breathing room air comfortably today with a satisfactory oxygen saturation of 97% Problem 419035361 Erectile dysfunction, unspecified erectile dysfunction type (N52.9) Active confirmed He has medication for this problem which is effective. He has had no side effects. Problem 133751021 Anticoagulated (Z79.01) Active confirmed He continues on anticoagulant with no bruising or bleeding. I have advised him to avoid aspirin. Problem 85351754 Essential hypertension (I10) Active confirmed His blood pressure is currently stable and no change in his regimen was made. Problem 64652773 Obstructive sleep apnea (G47.33) Active confirmed He says he does not have a CPAP machine at this time. I have discussed trying to obtain one. Problem 31618416 Nephrolithiasis (N20.0) Active confirmed He has had no episodes of renal colic recently. Problem 6568983 Umbilical hernia without obstruction and without gangrene (K42.9) Active confirmed This is an asymptomatic problem at this time will be observed. There has been no change in this lesion. Problem 508433776 Left inguinal hernia (K40.90) Active confirmed The large le ft umbilical hernia was repaired in 2019 at [facility] by Dr. Smith. It has not relapsed.A remains asymptomatic. Problem 934972670 Benign prostatic hyperplasia without lower urinary tract symptoms (N40.0) Active confirmed He has been rising from sleep twice a night to urinate. We discussed lifestyle modifications that could be made to reduce nocturia. 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 He will be seen prior to that. Problem 543006425 Adenomatous polyp (D36.9) Active confirmed I recommend th at he have the colonoscopy every 5 years. Problem 52246566 Chronic congestive heart failure, unspecified heart failure type (I50.9) Active confirmed His congestive failure is compensated and he is compliant with his medications. He will continue them without change. His daughter will weigh him weekly and notify me if he gains more than 5 pounds. 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 If necessary he will return to see an ear, nose and throat physician. Problem 656885362 Permanent atrial fibrillation (I48.21) Active confirmed He is in a slow controlled atrial fibrillation a day. No change in his medication was necessary. Vital Signs Heart Rate 61 /min 01/12/2025 Temperature 96.6 degrees Fahrenheit 01/12/2025 Respiratory Rate 15 /min 10/07/2024 Oximetry 98 % 10/07/2024 Blood pressure diastolic 72 mm Hg 01/12/2025 Height 70 in 01/12/2025 Blood pressure systolic 124 mm Hg 01/12/2025 Weight 213 lbs 01/12/2025 BMI 30.56 kg/m2 01/12/2025 Encounters Encounter Location Date Provider Diagnosis Iggy Bear III, MD [address] [place] [address] [place] [address] 03/01/2024 Iggy Bear Obesity (BMI 30.0-34 .9) E66.9 ; Acute idiopathic gout of right hand M10.041 ; Chronic obstructive pulmonary disease, unspecified COPD type J44.9 ; Nephrolithiasis N20.0 ; Left inguinal hernia K40.90 ; Permanent atrial fibrillation I48.21 and Chronic congestive heart failure, unspecified heart failure type I50.9 Iggy Bear III, MD [address] [place] [address] [place] [address] 03/22/2024 Iggy Bear Obesity (BMI 30.0-34 .9) E66.9 ; Cellulitis of left knee L03.116 ; Essential hypertension I10 and Former smoker Z87.891 Iggy Bear III, MD [address] [place] [address] [place] [address] 07/07/2024 Iggy Bear Chronic obstructive pulmonary disease, [...] Hypothyroidism, unspecified E03.9 Iggy Bear III, MD [address] [place] [address] [place] [address] 10/07/2024 Iggy Bear Pain in right should [...] and 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 Iggy Bear III, MD [address] [place] [address] [place] [address] 01/12/2025 Iggy Bear Permanent atrial fibrillation I48.21 ; Chronic congestive heart failure, unspecified heart failure type I50.9 ; Thrombocytopenia D69.6 ; Mixed hyperlipidemia E78.2 ; Obesity (BMI 30.0-34.9) E66.9 ; Chronic obstructive pulmonary disease, unspecified COPD type J44.9 ; Essential hypertension I10 ; 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 and Former smoker Z87.891 Iggy Bear III, MD [address] [place] [address] [place] [address] 03/19/2024 Iggy Bear III, MD [address] [place] [address] [place] [address] 03/23/2024 Iggy Bear III, MD [address] [place] [address] [place] [address] 03/26/2024 Iggy Bear III, MD [address] [place] [address] [place] [address] 04/06/2024 Iggy Bear III, MD [address] [place] [address] [place] [address] 04/09/2024 Iggy Bear III, MD [address] [place] [address] [place] [address] 04/09/2024 Iggy Bear III, MD [address] [place] [address] [place] [address] 04/12/2024 Iggy Bear III, MD [address] [place] [address] [place] [address] 04/12/2024 Iggy Bear III, MD [address] [place] [address] [place] [address] 04/16/2024 Iggy Bear III, MD [address] [place] [address] [place] [address] 04/22/2024 Iggy Bear III, MD [address] [place] [address] [place] [address] 10/13/2024 Iggy Chema Assessments Encounter Date Diagnosis (ICD Code) Assessment Notes T reatment Notes Treatment Clinical Notes 03/01/2024 Obesity (BMI 30.0-34 .9) (ICD-10 - [...] he was referred back to his orthopedist 01/12/2025 Chronic congestive h eart failure, unspecified heart failure type (ICD-10 - I50.9) His congestive failure is compensated and he is compliant with his medications. He will continue them without change. His daughter will weigh him weekly and notify me if he gains more than 5 pounds. 01/12/2025 Permanent atrial fibrillation (ICD-10 - I48.21) He is in a slow controlled atrial fibrillation a day. No change in his medication was necessary. 03/01/2024 Chronic obstructive pulmonary disease, unspecified COPD type (ICD-10 - J44.9) He saw a video production specialist recently and was placed on a [...] to prevent relapse in times of stress. 01/12/2025 Thrombocytopenia (IC D-10 - D69.6) His current platelet count is 147,000. He remains fully anticoagulated without bleeding. He is wearing his seatbelt. 03/01/2024 Nephrolithiasis (ICD -10 - N20.0) He [...] his regimen was made.The value was 118/60. 01/12/2025 Mixed hyperlipidemia (ICD-10 - E78.2) His lipid values are currently in their target range. No change in his regimen was needed today. 03/01/2024 Left inguinal hernia (ICD-10 - K40.90) The large left umbilical hernia was repaired in 2019 at [facility] by Dr. Smith. It has not [...] I have discussed trying to obtain one. 01/12/2025 Obesity (BMI 30.0-34 .9) (ICD-10 - E66.9) His body mass index is now 30. We have discussed diet and nutrition. We made a plan to stabilize his weight during the upcoming holidays and then lose weight at a rate of one half of a pound per week. 03/01/2024 Permanent atrial fibrillation (ICD-10 - I48.21) He saw the mail examiner in April 2022. No change in his [...] that could be made to reduce nocturia. 01/12/2025 Chronic obstructive pulmonary disease, unspecified COPD type (ICD-10 - J44.9) He is not smoking. He is breathing room air comfortably today with a satisfactory oxygen saturation of 97% 03/01/2024 Chronic congestive h eart failure, unspecified [...] I have advised him to avoid aspirin. 01/12/2025 Essential hypertensi on (ICD-10 - I10) His blood pressure is currently stable and no change in his regimen was made. 07/07/2024 Umbilical hernia wit hout obstruction and without gangrene (ICD-10 - K42.9) This is an asymptomatic problem at this time will be observed. There has been no change in this lesion. 10/07/2024 Umbilical hernia wit hout obstruction and without gangrene (ICD-10 - K42.9) This is an asymptomatic problem at this time will be observed. There has been no change in this lesion. 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 If necessary he will return to see an ear, nose and throat physician. 07/07/2024 Hypothyroidism, unspecified (ICD-10 - E03.9) No change in his medications was made. Comprehensive blood work has been ordered. 10/07/2024 Thrombocytopenia (IC D-10 - D69.6) His platelet count is slightly low at 135,000. He has had no bleeding. He remains anticoagulated. 01/12/2025 Former smoker (ICD-1 0 - Z87.891) He is highly motivated not to smoke and has a plan to prevent relapse in times of stress. 10/07/2024 Overweight (ICD-10 - E66.3) His body [...] 12/17/2023 PROFILE, RANDOM (COMPREHENSIVE METABOLIC ) 02/07/2020 PROFILE, RANDOM (COMPREHENSIVE METABOLIC ) 01/12/2025 GLUCOSE,RANDOM 01/19/2019 LIPID PANEL 06/12/2020 LIPID PANEL [...] CBC w DIFF 06/01/2021 CBC w DIFF 01/12/2025 CBC w DIFF 09/17/2023 CBC w DIFF [...] 09/17/2023 Vitamin B12 06/17/2023 Vitamin B12 12/16/2022 NT-proBNP 01/12/2025 XR shoulder RT min 2V 10/07/2024 Next Appt Details Provider Name:Iggy Bear , 03/30/2025 04:00:00 PM, [address] [place] [address] [address], [place], [address], Provider Name:Iggy Bear , 07/13/2025 04:00:00 PM, [address] [facility] [address], [place], [address], Insurance Providers Payer Name Payer Address Payer Phone Subscriber Number Group Number Insured Name Patient Relationship to Insured Coverage Start Date Coverage End Date MEDICARE NGS [address] [facility] IVAN Morales [address] [phone] [id number] [place] Self - patient is the insured [facility] [address] [place], [place] [id number] [place] Self - patient is [...] nd incarcerated left inguinal hernia, Dr. Smith, [facility] 01/2019 double hernia surgery 01/2019 tonsillectomy colonoscopy, , rectal tubular adenoma 2014 colonoscopy, 2009 colonoscopy, , rectal polyp 20 05 colonoscopy, 1999 colonoscopy 1980 right ureter lithotripsy 2011 right total hip replacement, Dr RAJAN K ruschel 09/2011 POLYPECTOMY [id number] RIGHT ESWL 03/13/2011 Hospitalization History Reason Date(Month/Year) gout, knee, [facility]
== END 2025-02-27 17:14 | disposition home or self-care (01) ==
LOC: HO.MRI 17:13
PROVIDERS: PCP Internal Medicine Medical Oncology; Visit Provider Orthopaedic Surgery
DX: M25.311 Other instability, right shoulder (principal)
CPT/HCPCS: 73221

== ENCOUNTER 2025-02-28 14:43 | Outpatient (AMB) | payer MEDICARE, SELFPAY ==
--- OUTSIDE RECORDS SUMMARY | 2023-10-23 04:00 | XMS_ITS ---
Author Organization [facility] Address [address] [place] [address] Care Team Providers Care Filter Tank Operator Name Role Phone Iggy Bear MD Primary Care Provider Unavailab Manda Cherry Unavailable [phone] Alexi Moffett Unavailable [phone] REASON FOR VISIT Painful nail(s) aggrevated by shoes and causing difficulty standing/walking. Medications Medication SIG (Take, Route, Frequency, Duration) Notes Start Date End Date Status Voltaren 1 % as directed Externally Active Ciclopirox Olamine 0.77 % 1 application to affected area Externally Twice a day to effected areas on feet; Duration: 30 days Active Encounters Encounter Location Date Provider Diagnosis [facility] [address] [place] [address] 10/23/2023 Alexi Moffett Tinea unguium B35.1 ; Pain in right toe(s) M79.674 ; Pain in left toe(s) M79.675 ; Skin disease L98.9 ; Unspecified atherosclerosis of [place] arteries of extremities, bilateral legs I70.203 ; [...] (ICD-10 - L98.9) 10/23/2023 Unspecified atherosclerosis of [place] arteries of extremities, bilateral legs (ICD-10 - [...] Reason: Provider Name:Manda ramirez, 04/11/2025 09:15:00 AM, [address] [place] [address], [phone], Procedure Notes * Category Sub-Category Detail Notes [...] as necessary. Patient chooses, no pharmaceutical tx (25151) Keratoma Treatment Parring or Cutting o f Benign Hyperkeratotic Lesion(s) 38935 ( More than 4 Lesions ) - The Benign hyperkeratotic lesions, as described above were pared, and/or cut utilizing a sterile 15 blade, tissue nippers, and/or dremel, Q8 Progress Notes * Cholo OVALLEDOB:[birth year] (84 yo M)Acc No.[id number]:10/23/2023 Progress Note Patient: Cholo BUTLER Provider: Nicci Zuñiga DPM :1940 A ge:83 Y S ex:Male Date:10/23/2023 Address:[address] [place], [place] [id number] Pcp:Iggy Bear MD Subjective: * Chief Complaints: [...] dmits. C ardiovascular: Pacemaker d enies. M REAL ESTATE ASSESSOR d enies. W PW d enies. C [...] - L98.9? 5. U nspecified atherosclerosis of [place] arteries of extremities, bilateral legs - I70.203 [...] as necessary. Patient chooses, no pharmaceutical tx (31157). K eratoma Treatment: Parring or Cutting of Benign Hyperkeratotic Lesion(s) 1 1057 ( More than 4 Lesions ) - The Benign hyperkeratotic lesions, as described above were pared, and/or cut utilizing a sterile 15 blade, tissue nippers, and/or dremel, Q8. * Procedure Codes: 1 1721 DEBRIDE NAIL, 6 OR MORE, Modifiers: XS , 13462 TRIM SKIN LESIONS, OVER 4, Modifiers: XS * Follow Up: 3 Months * Images: * The named appointment provid er may or may not be the originator of this progress note, and it is not deemed complete until electronically signed by the appointment provider. Sign off status: Pending * Provider: Nicci Zuñiga DPM Date: 0 10/23/2023 Generated for Deena lujan/Concepción/Krystal on: 1 05:04 PM EST History and Physical Notes * [...]
--- OUTSIDE RECORDS SUMMARY | 2024-04-09 10:43 | XMS_ITS ---
Author Organization Iggy Bear III, MD Address [address] [address] Care Team Providers Care Front End Web Developer Name Role Phone Dr. Iggy Bear III Primary Care Provider [phone] REASON FOR VISIT ? Medication Social History Sex Assigned At : Social History Observation Description Sex Assigned At Male Encounters Encounter Location Date Provider Diagnosis Iggy Bear III, MD [address] [place] [address] [place] [address] 04/09/2024 Iggy Bear Plan Of Treatment Next Appt Details Provider Name:Iggy Bear , 03/30/2025 04:00:00 PM, [address] [place] [address] [place], [address], Provider Name:Iggy Bear , 07/13/2025 04:00:00 PM, [address] [place] [address] [place], [address], Progress Notes * TORI Cholo Maria MDOB:[birth year] (83 yo M)Acc No.[id number]:04/09/2024 Patient: Cholo MORENO :1940 A ge:83 Y S ex:Male Phone: Address:[place], [address] * true * Date: Generated for Printi ng/Faxing/eTransmitting on: 05:03 PM EST
--- OUTSIDE RECORDS SUMMARY | 2024-04-12 04:09 | XMS_ITS ---
Author Organization Iggy Bear III, MD Address [address] [place] [address] Care Team Providers Care Coating Line Worker Name Role Phone Dr. Iggy Bear III Primary Care Provider [phone] REASON FOR VISIT Message Social History Sex Assigned At : Social History Observation Description Sex Assigned At Male Encounters Encounter Location Date Provider Diagnosis Iggy Bear III, MD [address] [place] [address] [place] [address] 04/12/2024 Iggy Bear Plan Of Treatment Next Appt Details Provider Name:Iggy Bear , 03/30/2025 04:00:00 PM, [address] [place] [address] [place], [address], Provider Name:Iggy Bear , 07/13/2025 04:00:00 PM, [address] [place] [address] [place], [address], Progress Notes * Cholo VALLEDOB:[birth year] (83 yo M)Acc No.[id number]:04/12/2024 Patient: Cholo MORENO :1940 A ge:83 Y S ex:Male Phone: Address:[place], [address] * true * Date: Generated for Printi ng/Faxochitlg/eTransmitting on: 05:03 PM EST
--- OUTSIDE RECORDS SUMMARY | 2024-04-12 09:11 | XMS_ITS ---
Author Organization Iggy Bear III, MD Address [address] [place] [address] Care Team Providers Care Assistant Women'S Tennis Coach Name Role Phone Dr. Iggy Bear III Primary Care Provider [phone] REASON FOR VISIT Message Social History Sex Assigned At : Social History Observation Description Sex Assigned At Male Encounters Encounter Location Date Provider Diagnosis Iggy Bear III, MD [address] [place] [address] [place] [address] 04/12/2024 Iggy Bear Plan Of Treatment Next Appt Details Provider Name:Iggy Bear , 03/30/2025 04:00:00 PM, [address] [place] [address] [place], [address], Provider Name:Iggy Bear , 07/13/2025 04:00:00 PM, [address] [place] [address] [place], [address], Progress Notes * Cholo VALLEDOB:[birth year] (83 yo M)Acc No.[id number]:04/12/2024 Patient: Cholo MORENO :1940 A ge:83 Y S ex:Male Phone: Address:[place], [address] * true * Date: Generated for Printi ng/Faxochitlg/eTransmitting on: 05:04 PM EST
--- OUTSIDE RECORDS SUMMARY | 2024-04-16 04:04 | XMS_ITS ---
Author Organization Iggy Bear III, MD Address [address] [place] [address] Care Team Providers Care Stockroom Selector Name Role Phone Dr. Iggy Bear III Primary Care Provider REASON FOR VISIT Needs call back from Social History Sex Assigned At : Social History Observation Description Sex Assigned At Male Encounters Encounter Location Date Provider Diagnosis Iggy Bear III, MD [address] [place] [address] [place] [address] 04/16/2024 Iggy Bear Plan Of Treatment Next Appt Details Provider Name:Iggy Bear , 03/30/2025 04:00:00 PM, [address] [place] [address] [place], [address], Provider Name:Iggy Bear , 07/13/2025 04:00:00 PM, [address] [place] [address] [place], [address], Progress Notes * Cholo ROCK Maria MDOB:[birth year] (83 yo M)Acc No.[id number]:04/16/2024 Patient: Cholo MORENO :1940 A ge:83 Y S ex:Male Phone: Address:[place], [address] * true * Date: Generated for Printi ng/Faxing/eTransmitting on: 05:03 PM EST
--- OUTSIDE RECORDS SUMMARY | 2024-04-22 04:55 | XMS_ITS ---
Author Organization Iggy Bear III, MD Address [address] [place] [address] Care Team Providers Care Factory Machine Computer Operator Name Role Phone Dr. Iggy Bear III Primary Care Provider [phone] REASON FOR VISIT Message Social History Sex Assigned At : Social History Observation Description Sex Assigned At Male Encounters Encounter Location Date Provider Diagnosis Iggy Bear III, MD [address] [place] [address] [place] [address] 04/22/2024 Iggy Bear Plan Of Treatment Next Appt Details Provider Name:Iggy Bear , 03/30/2025 04:00:00 PM, [address] [place] [address] [place], [address], Provider Name:Iggy Bear , 07/13/2025 04:00:00 PM, [address] [place] [address] [place], [address], Progress Notes * Cholo VALLEDOB:[birth year] (83 yo M)Acc No.[id number]:04/22/2024 Patient: Chloo MORENO :1940 A ge:83 Y S ex:Male Phone: Address:[place], [address] * true * Date: Generated for Printi ng/Faxing/eTransmitting on: 05:04 PM EST
--- OUTSIDE RECORDS SUMMARY | 2024-06-21 12:30 | XMS_ITS ---
Author Organization Iggy Bear III, MD Address [address] [place] [address] Care Team Providers Care Sheep And Wheat Farmer Name Role Phone Dr. Iggy Bear III Primary Care Provider REASON FOR VISIT Annual Exam Social History Sex Assigned At : Social History Observation Description Sex Assigned At Male Encounters Encounter Location Date Provider Diagnosis Iggy Bear III, MD [address] [place] [address] [place] [address] 06/21/2024 Iggy Bear Plan Of Treatment Next Appt Details Provider Name:Iggy Bear , 03/30/2025 04:00:00 PM, [address] [place] [address] [place], [address], Provider Name:Iggy Bear , 07/13/2025 04:00:00 PM, [address] [place] [address] [place], [address], Progress Notes * Cholo ROCK Maria MDOB:[birth year] (84 yo M)Acc No.[id number]:06/21/2024 Progress Notes Patient: Cholo MORENO Provider: Loc Bear MD :1940 A ge:83 Y S ex:Male Date:06/21/2024 Phone: Address:[phone] Subjective: * Chief Complaints: * 1 . Annual Exam. * Medical History: Objective: * Vitals: Assessment: Plan: * Treatment: * Images: * The named appointment provid er may or may not be the originator of this progress note, and it is not deemed complete until electronically signed by the appointment provider. Sign off status: Pending * Provider: Loc Bear MD Date: 0 06/21/2024 Generated for Deena lujan/Concepción/Krystal on: 1 05:03 PM EST
--- OUTSIDE RECORDS SUMMARY | 2024-07-07 11:00 | XMS_ITS ---
Author Organization Iggy Bear III, MD Address [address] [place] [address] Care Team Providers Care Mechanic Insulator Name Role Phone Dr. Iggy Bear III Primary Care Provider Allergies Allergen (clinical drug ingredient) Drug/Non Drug Allergy documented on EMR Reaction Allergy Type Onset Date Status No Known Food Allergy Unknown Drug Allergy Active Iodinated contrast media (substance) Iodinated Diagnostic Agents Unknown Drug Allergy Active REASON FOR VISIT Annual Exam Medications Medication SIG (Take, Route, Frequency, Duration) Notes Start Date End Date Status Lisinopril 5 MG 1 tablet Orally Once a day Active Stool Softener Activ e predniSONE 20 MG 1 tablet Orally Once a day 02/27/2024 Active Rhopressa 0.02 % 1 drop into affected eye in the evening Ophthalmic Once a day Active Brimonidine Tartrate 0.2 % 1 drop into a ffected eye Ophthalmic every 8 hrs Active Wixela Inhub 250-50 MCG/ACT Inhalation Active Finasteride 5 MG TAKE 1 TABLET BY KEAGAN TH EVERY DAY Active Furosemide 20 MG 1 tablet Orally Once a day Active Pradaxa 150 MG 1 capsule Orally Twi ce a day Active Dorzolamide HCl-Timolol Mal 22.3-6.8 MG/ML 1 drop into affected eye Ophthalmic Twice a day Active Allopurinol 100 MG 1 tablet Orally Once a day 04/06/2024 Active Fish Oil 1200 MG 1 capsule Orally Onc e a day Active Metoprolol Succinate 100 MG Orally Active Escitalopram Oxalate 10 MG TAKE 1 TABLET BY MOUTH DAILY Active Lumigan 0.01 % 1 drop into affected eye in the evening Ophthalmic Once a day Active Social History Tobacco Use: Social History Observation Description Date Details (start date - stop date) Former Smoker NA - NA Sex Assigned At : Social History Observation Description Sex Assigned At Male Tobacco Control (Standard) Question Answer Notes Tobacco use: Former smoker How long has it been since you last smoked? Grea ter than 10 years Additional Findings: Tobacco non-user Ex-cigaret te smoker AUDIT-C (Standard) Question Answer Notes Did you have a drink containing alcohol in the p ast year? No Points 0 Interpretation Negative Vital Signs Temperature 97.0 degrees Fahrenheit 07/08/19 25 Blood pressure systolic 117 mm Hg 07/08/19 25 Blood pressure diastolic 65 mm Hg 025 Heart Rate 67 /min 07/07/2024 Height 70 in 07/07/2024 Weight 208 lbs 07/07/2024 BMI 29.84 kg/m2 07/07/2024 Encounters Encounter Location Date Provider Diagnosis Iggy Bear III, MD [address] [place] [address] [place] [address] 07/07/2024 Iggy Bear Chronic obstructive pulmonary disease, unspecified COPD type J44.9 ; Permanent atrial fibrillation I48.21 ; Chronic congestive heart failure, unspecified heart failure type I50.9 ; Thrombocytopenia D69.6 ; Benign prostatic hyperplasia without lower urinary tract symptoms N40.0 ; Former smoker Z87.891 ; Obstructive sleep apnea G47.33 ; Umbilical hernia without obstruction and without gangrene K42.9 and Hypothyroidism, unspecified E03.9 Assessments Encounter Date Diagnosis (ICD Code) Assessment Notes T reatment Notes Treatment Clinical Notes 07/07/2024 Chronic obstructive pulmonary disease, unspecified COPD type (ICD-10 - J44.9) He is not smoking. He is breathing room air comfortably today with a satisfactory oxygen saturation of 97% 07/07/2024 Permanent atrial fibrillation (ICD-10 - I48.21) His heart rate was irregularly irregular but at a controlled rate. He was not dyspneic at rest. He is taking his anticoagulant. 07/07/2024 Chronic congestive heart failure, unspecified heart failure type (ICD-10 - I50.9) His lung sounds were decreased today but today were clear. There was no wheezing or rales. He had no peripheral edema. The CHF is well compensated at this point. No change in his regimen as needed. 07/07/2024 Thrombocytopenia (ICD-10 - D69.6) Comprehensive blood work will be done in the near future. He has had no bleeding. He has had mild thrombocytopenia chronically in the past without bleeding. He remains anticoagulated. 07/07/2024 Benign prostatic hyperplasia without lower urinary tract symptoms (ICD-10 - N40.0) He has been rising from sleep twice a night to urinate. We discussed lifestyle modifications that could be made to reduce nocturia. 07/07/2024 Former smoker (ICD-1 0 - Z87.891) He is highly motivated not to smoke and has a plan to prevent relapse in times of stress. 07/07/2024 Obstructive sleep apnea (ICD-10 - G47.33) He says he does not have a CPAP machine at this time. I have discussed trying to obtain one. 07/07/2024 Umbilical hernia without obstruction and without gangrene (ICD-10 - K42.9) This is an asymptomatic problem at this time will be observed. There has been no change in this lesion. 07/07/2024 Hypothyroidism, unspecified (ICD-10 - E03.9) No change in his medications was made. Comprehensive blood work has been ordered. Plan Of Treatment Medication Medication Name Sig Start Date Stop Date Notes Lisinopril 5 MG 1 tablet Orally Once a day Stool Softener predniSONE 20 MG 1 tablet Orally Once a day 02/27/2024 Rhopressa 0.02 % 1 drop into affected eye in the evening Ophthalmic Once a day Brimonidine Tartrate 0.2 % 1 drop into a ffected eye Ophthalmic every 8 hrs Wixela Inhub 250-50 MCG/ACT Inhalation Finasteride 5 MG TAKE 1 TABLET BY KEAGAN TH EVERY DAY Furosemide 20 MG 1 tablet Orally Once a day Pradaxa 150 MG 1 capsule Orally Twice a day Dorzolamide HCl-Timolol Mal 22.3-6.8 MG/ML 1 drop into affected eye Ophthalmic Twice a day Allopurinol 100 MG 1 tablet Orally Once a day 04/06/2024 Fish Oil 1200 MG 1 capsule Orally Once a day Metoprolol Succinate 100 MG Orally Escitalopram Oxalate 10 MG TAKE 1 TABLET BY MOUTH DAILY Lumigan 0.01 % 1 drop into affected eye in the evening Ophthalmic Once a day Pending Test Test Name Order Date PROFILE, FASTING (COMPREHENSIVE METABOLI C) 07/07/2024 BRAIN NATRIURETIC PEPTIDE (BNP) 07/08/19 25 PSA, TOTAL 07/07/2024 CBC w DIFF 07/07/2024 Lipid Panel 07/07/2024 Next Appt Details Follow Up: 3 Months, Reason: ov review labs Provider Name:Iggy Bear , 03/30/2025 04:00:00 PM, [address] [facility] [address], [place], [address], Provider Name:Iggy Bear , 07/13/2025 04:00:00 PM, [address] [facility] [address], [place], [address], Progress Notes * Chloo ROCKDOB:[birth year] (83 yo M)Acc No.[id number]:07/07/2024 Progress Notes Patient: Cholo MORENO Provider: Loc Bear MD :1940 A ge:83 Y S ex:Male Date:07/07/2024 Phone: Address:[address] [place] [address] [place], [place] Subjective: * Chief Complaints: * A nnual Exam * HPI: D epression Screening: He returns to the office at the age of a 3 for his annual physical examination. He was accompanied by his daughter who cares for him. His skin he was very unsteady and he required the use of a wheeled walker. He was able to ascend the examining table with some difficulty and with help.He is followed here for CDL PT, atrial fibrillation, congestive heart failure, thrombocytopenia, hypertension, obstructive sleep apnea, benign prostatic hypertrophy and cognitive dysfunction. He is taking no new medications. He has had no hospitalizations he says he feels the same as always. PHQ-9 L ittle interest or pleasure in doing things?Not at all F eeling down, depressed, or hopeless N ot at all T rouble falling or staying asleep, or sleeping too much N ot at all F eeling tired or having little energy S everal days P oor appetite or overeating N ot at all F eeling bad about yourself or that you are a failure, or have let yourself or your family down N ot at all T rouble concentrating on things, such as reading the newspaper or watching television N ot at all M oving or speaking so slowly that other people could have noticed; or the opposite, being so fidgety or restless that you have been moving around a lot more than usual S everal days T houghts that you would be better off or of hurting yourself in some way N ot at all T otal Score 2 I nterpretation M inimal Depression C OVID-19 Screening: apr [facility] [place] fell out of bed. Questions H ave you had any new onset fever, chills, cough, congestion, sore throat, shortness of breath, muscle aches? N o F all Risk Screening: Fall History H ave you had any falls with injury in the past year? Y es H ave you had two or more falls in the past year? N o F all Risk Assessment: O ne fall with injury in the past year S PETRA Questions: SDOH Questions I n the past year have you been worried about losing your housing? N o I n the past year have you or any family members you live with been unable to get any of the following when it was really needed? Check all that apply: N one * ROS: G eneral/Constitutional: pain o nly normal aches and pains. C hills d enies.?Fatigue a dmits. F ever d enies. E NT: Decreased hearing m ild. R espiratory: Cough d enies. C ardiovascular: Chest pain with exertion d enies. D yspnea on exertion?with moderate activity. S hortness of breath w ith exertion. G astrointestinal: Constipation d enies. D ecreased appetite d enies.?Diarrhea d enies. H eartburn d enies. N ausea d enies. R ectal bleeding?denies. V omiting d enies. H ematology: bruising d enies. p etechiae d enies. S wollen glands n one have been noted. G enitourinary: Frequent urination o nce a night. M usculoskeletal: Muscle aches d enies. P ainful joints d enies. S ciatica d enies. W eakness d enies. S kin: Itching d enies. R ernesto d enies. S kin lesion(s)?denies. N eurologic: Difficulty speaking d enies. D izziness d enies.?Headache d enies. L ow back pain d enies. P sychiatric: Depressed mood d enies. * Medical History: * Surgical History: R IGHT ESWL 03/13/2011POLYPECTOMY 1980-2004right total hip replacement, Dr RAJAN Kruschel 09/2011right ureter lithotripsy 2011colonoscopy 1980colonoscopy, 1999colonoscopy, , rectal polyp 2004colonoscopy, 2009colonoscopy, , rectal tubular adenoma 2015tonsillectomy double hernia surgery 01/2019repair of umbilical hernia and incarcerated left inguinal hernia, Dr. Smith, [facility] 01/2019double cataract surgery 01/2019glaucoma surgery 03/05/2022Trabeculectomy with Mitomycin and +/- 5FU 03/2022 * Hospitalization/Major Diagno stic Procedure: g out, knee, C * Family History: F ather: 73 yrs, Multiple myocardial infarctions, stroke, coronary artery disease, emphysema, atrial fibrillation, worked at [employer]. M other: 86 yrs, Alzheimer's disease. C barrera: alive. S cami: alive. 1 brother(s) - healthy. 1 son(s) , 1 daughter(s) - healthy. . His brother is alive and well. His 2 children are alive and well. There is no family history of malignancy. He is not aware of any family history of mental illness or substance use disorder or injections. * Social History: T obacco Use: T obacco Control (Standard) T obacco use: F ormer smoker H ow long has it been since you last smoked??Greater than 10 years A dditional Findings: Tobacco non-user E x-cigarette smoker D rugs/Alcohol: D rugs H ave you used drugs other than those for medical reasons in the past 12 months? N o D rug/Alcohol: A TACO-C (Standard) D id you have a drink containing alcohol in the past year? N o P oints 0 I nterpretation N egative H e is and has 2 children, Dontae and Sarah, who are in good health. He has no grandchildren. He retired in 2008. 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 * Medications: T akingLumigan 0.01 % Solution 1 drop into affected eye in the evening Ophthalmic Once a day Fish Oil 1200 MG Capsule 1 capsule Orally Once a day Metoprolol Succinate 100 MG Capsule ER 24 Hour Sprinkle Orally Pradaxa 150 MG Capsule 1 capsule Orally Twice a day Dorzolamide HCl-Timolol Mal 22.3-6.8 MG/ML Solution 1 drop into affected eye Ophthalmic Twice a day Furosemide 20 MG Tablet 1 tablet Orally Once a day Wixela Inhub 250-50 MCG/ACT Aerosol Powder Breath Activated Inhalation Finasteride 5 MG Tablet TAKE 1 TABLET BY MOUTH EVERY DAY Lisinopril 5 MG Tablet 1 tablet Orally Once a day Stool Softener Rhopressa 0.02 % Solution 1 drop into affected eye in the evening Ophthalmic Once a day Brimonidine Tartrate 0.2 % Solution 1 drop into affected eye Ophthalmic every 8 hrs predniSONE 20 MG Tablet 1 tablet Orally Once a day Escitalopram Oxalate 10 MG Tablet TAKE 1 TABLET BY MOUTH DAILY Allopurinol 100 MG Tablet 1 tablet Orally Once a day , stop date 04/01/2025Medication List reviewed and reconciled with the patientTaking Lumigan 0.01 % Solution 1 drop into affected eye in the evening Ophthalmic Once a day Taking Fish Oil 1200 MG Capsule 1 capsule Orally Once a day Taking Metoprolol Succinate 100 MG Capsule ER 24 Hour Sprinkle Orally Taking Pradaxa 150 MG Capsule 1 capsule Orally Twice a day Taking Dorzolamide HCl-Timolol Mal 22.3-6.8 MG/ML Solution 1 drop into affected eye Ophthalmic Twice a day Taking Furosemide 20 MG Tablet 1 tablet Orally Once a day Taking Wixela Inhub 250-50 MCG/ACT Aerosol Powder Breath Activated Inhalation Taking Finasteride 5 MG Tablet TAKE 1 TABLET BY MOUTH EVERY DAY Taking Lisinopril 5 MG Tablet 1 tablet Orally Once a day Taking Stool Softener Taking Rhopressa 0.02 % Solution 1 drop into affected eye in the evening Ophthalmic Once a day Taking Brimonidine Tartrate 0.2 % Solution 1 drop into affected eye Ophthalmic every 8 hrs Taking predniSONE 20 MG Tablet 1 tablet Orally Once a day Taking Escitalopram Oxalate 10 MG Tablet TAKE 1 TABLET BY MOUTH DAILY Taking Allopurinol 100 MG Tablet 1 tablet Orally Once a day , stop date 04/01/2025Medication List reviewed and reconciled with the patient * Allergies: I odinated Diagnostic Agents: AllergyNo Known Food Allergyno[Allergies Verified] Objective: * Vitals: H t: 70, Wt:208, BMI:29.84, BP:117/65, HR:67, Temp:97.0, Wt-k.35. * Examination: G eneral Examination: GENERAL APPEARANCE: p leasant, well nourished, well developed, in no acute distress, calm and relaxed, overweight, elderly man. HEAD: a traumatic, normocephalic. EYES: e keshawn, perrla, anicteric, conjugate. EARS: N ormal with mild hearing loss. NOSE: s eptum intact. ORAL CAVITY: n ormal, unremarkable. NECK/THYROID: n o jugular venous distention, no carotid bruit, thyroid normal. LYMPH NODES: n o enlarged lymph nodes,spleen normal. SKIN: n o suspicious lesions, anicteric. HEART: n o clicks, gallops, murmurs, or rubs, irregular rhythm, S1, S2 normal, no s3, or vascular bruits. LUNGS: c lear to auscultation . BREASTS: no masses palpable bilaterally. ABDOMEN: b owel sounds normal, no ascites, no organomegaly, no mass, overweight, Left inguinal herniorrhaphy scar, umbilical herniorrhaphy scar. RECTAL EXAM: n ot examined. MUSCULOSKELETAL: e xtremities unremarkable, no clubbing, cyanosis or edema. PERIPHERAL PULSES: n ormal. NEUROLOGIC: a lert and oriented, cranial nerves 2-12 grossly intact, deep tendon reflexes 2+ symmetrical, motor strength normal upper and decreased in the lower extremities, sensory exam intact, Very unsteady and weak unable to stand unaided, H cane or walker. PSYCH: a lert, oriented, Forgetful, hard of hearing. ? Assessment: * Assessment: 1. C hronic obstructive pulmonary disease, unspecified COPD type - J44.9 (Primary) ?Notes :He is not smoking. He is breathing room air comfortably today with a satisfactory oxygen saturation of 97% 2 . P ermanent atrial fibrillation - I48.21 N otes :His heart rate was irregularly irregular but at a controlled rate. He was not dyspneic at rest. He is taking his anticoagulant. 3 . C hronic congestive heart failure, unspecified heart failure type - I50.9? Notes :His lung sounds were decreased today but today were clear. There was no wheezing or rales.? He had no peripheral edema. The CHF is well compensated at this point. No change in his regimen as needed. 4 . T hrombocytopenia - D69.6 N otes :Comprehensive blood work will be done in the near future. He has had no bleeding. He has had mild thrombocytopenia chronically in the past without bleeding. He remains anticoagulated. 5 . B enign prostatic hyperplasia without lower urinary tract symptoms - N40.0? Notes :He has been rising from sleep twice a night to urinate. We discussed lifestyle modifications that could be made to reduce nocturia. 6 . F ormer smoker - Z87.891 N otes :He is highly motivated not to smoke and has a plan to prevent relapse in times of stress. 7 . O bstructive sleep apnea - G47.33 N otes :He says he does not have a CPAP machine at this time. I have discussed trying to obtain one. 8 . U mbilical hernia without obstruction and without gangrene - K42.9 ? N otes :This is an asymptomatic problem at this time will be observed. There has been no change in this lesion. 9 . H ypothyroidism, unspecified - E03.9 N otes :No change in his medications was made. Comprehensive blood work has been ordered. Plan: * Treatment: 2. P ermanent atrial fibrillation L AB: PROFILE, FASTING (COMPREHENSIVE METABOLIC) L AB: BRAIN NATRIURETIC PEPTIDE (BNP) L AB: PSA, TOTAL L AB: CBC w DIFF L AB: Lipid Panel 3. C hronic congestive heart failure, unspecified heart failure type L AB: PROFILE, FASTING (COMPREHENSIVE METABOLIC) L AB: BRAIN NATRIURETIC PEPTIDE (BNP) L AB: PSA, TOTAL L AB: CBC w DIFF L AB: Lipid Panel 4. T hrombocytopenia L AB: PROFILE, FASTING (COMPREHENSIVE METABOLIC) L AB: BRAIN NATRIURETIC PEPTIDE (BNP) L AB: PSA, TOTAL L AB: CBC w DIFF L AB: Lipid Panel 5. B enign prostatic hyperplasia without lower urinary tract symptoms L AB: PROFILE, FASTING (COMPREHENSIVE METABOLIC) L AB: BRAIN NATRIURETIC PEPTIDE (BNP) L AB: PSA, TOTAL L AB: CBC w DIFF L AB: Lipid Panel 6. O thers Continue Allopurinol Tablet, 100 MG, 1 tablet, Orally, Once a day; C ontinue Escitalopram Oxalate Tablet, 10 MG, TAKE 1 TABLET BY MOUTH DAILY; C ontinue Lumigan Solution, 0.01 %, 1 drop into affected eye in the evening, Ophthalmic, Once a day; C ontinue Fish Oil Capsule, 1200 MG, 1 capsule, Orally, Once a day; C ontinue Metoprolol Succinate Capsule ER 24 Hour Sprinkle, 100 MG, Orally; C ontinue Pradaxa Capsule, 150 MG, 1 capsule, Orally, Twice a day; C ontinue Dorzolamide HCl-Timolol Mal Solution, 22.3-6.8 MG/ML, 1 drop into affected eye, Ophthalmic, Twice a day; C ontinue Furosemide Tablet, 20 MG, 1 tablet, Orally, Once a day; C ontinue Wixela Inhub Aerosol Powder Breath Activated, 250-50 MCG/ACT, Inhalation; C ontinue Finasteride Tablet, 5 MG, TAKE 1 TABLET BY MOUTH EVERY DAY; C ontinue Lisinopril Tablet, 5 MG, 1 tablet, Orally, Once a day; C ontinue Stool Softener; C ontinue Rhopressa Solution, 0.02 %, 1 drop into affected eye in the evening, Ophthalmic, Once a day; C ontinue Brimonidine Tartrate Solution, 0.2 %, 1 drop into affected eye, Ophthalmic, every 8 hrs; C ontinue predniSONE Tablet, 20 MG, 1 tablet, Orally, Once a day. * Procedure Codes: * Preventive Medicine: Counseling: C are goal follow-up plan: Counseling for abnormal BMI given Y es Above Normal BMI Follow-up D ietary management education, guidance, and counseling S moking/Tobacco Use Patient counseled on the dangers of tobacco use and urged to quit. 0 07/07/2024 COPD Care Plan: P atient Lifestyle Goals B e able to be more active with friends and family, Reduce number of ED and hospitalizations. T reatment Goals E xercise to help whole body, including lungs, Eat a nutritious diet and increase water consumption to 6-8 glasses a day. B arriers n o barriers. S elf-Managment Goals G et an air purifier for the rooms you are in the most, Eat a healthy diet. * Follow Up: 3 Months (Reason: ov review labs) * Images: * Sign off status: Completed true * Provider: Loc Bear MD Date: 0 07/07/2024 Generated for Printi le/Concepción/eTransmitting on: 1 05:03 PM EST History and Physical Notes * HPI (History of Present Illness) Category Sub-Category Detail Notes Depression Screening PHQ-9 Little inte rest or pleasure in doing things: Not at all Feeling down, depressed, or hopeless: No t at all Trouble falling or staying asleep, or sl eeping too much: Not at all Feeling tired or having little energy: S everal days Poor appetite or overeating: Not at all Feeling bad about yourself o r that you are a failure, or have let yourself or your family down: Not at all Trouble concentrating on thi ngs, such as reading the newspaper or watching television: Not at all Moving or speaking so slowly that other people could have noticed; or the opposite, being so fidgety or restless that you have been moving around a lot more than usual: Several days Thoughts that you would be b raul off or of hurting yourself in some way: Not at all Total Score: 2 Interpretation: Minimal Depression Fall Risk Screening Fall History Have you had any falls with injury in the past year?: Yes Have you had two or more falls in the st year?: No Fall Risk Assessment:: One fall with inj ury in the past year COVID-19 Screening Questions Have you had any new onset fever, chills, cough, congestion, sore throat, shortness of breath, muscle aches?: No SDOH Questions SDOH Questions In the past year have you been worried about losing your housing?: No In the past year have you or any family members you live with been unable to get any of the following when it was really needed? Check all that apply:: None Examination Category Sub-Category Detail Notes General Examination GENERAL APPEARANCE: pleasant , well nourished, well developed, in no acute distress, calm and relaxed, overweight, elderly man HEAD: atraumatic, normocep halic EYES: eomi, perrla, anicte cheryl, conjugate EARS: Normal with mild hea ring loss NOSE: septum intact NECK/THYROID: no jugular venous di stention, no carotid bruit, thyroid normal HEART: no clicks, gallops, murmurs, or rubs, irregular rhythm, S1, S2 normal, no s3, or vascular bruits LUNGS: clear to auscultatio n ABDOMEN: bowel sounds normal, no ascites, no organomegaly, no mass, overweight, Left inguinal herniorrhaphy scar, umbilical herniorrhaphy scar NEUROLOGIC: alert and oriented, cranial nerves 2-12 grossly intact, deep tendon reflexes 2+ symmetrical, motor strength normal upper and decreased in the lower extremities, sensory exam intact, Very unsteady and weak unable to stand unaided, H cane or walker SKIN: no suspicious lesion s, anicteric PERIPHERAL PULSES: normal BREASTS: no masses palpable b ilaterally MUSCULOSKELETAL: extremities unremark able, no clubbing, cyanosis or edema LYMPH NODES: no enlarged lymph no gray,spleen normal RECTAL EXAM: not examined PSYCH: alert, oriented, For getful, hard of hearing ORAL CAVITY: normal, unremarkable
--- OUTSIDE RECORDS SUMMARY | 2024-10-07 05:30 | XMS_ITS ---
Author Organization Iggy Bear III, MD Address [address] [place] [address] Care Team Providers Care Manager Etl Name Role Phone Dr. Iggy Bear III Primary Care Provider [phone] Allergies Allergen (clinical drug ingredient) Drug/Non Drug [...] Provider Speciality Internal M edicine Referred Provider [facility], Orthopedic Surgeons Referred Provider [facility]ty [facility] General Notes Miguel Rothman 10/2024 04:16:57 PM [...] Problem Status W/U Status Risk Notes Problem [id number] Umbilical hernia without obstruction and without gangrene [...] Date Provider Diagnosis Iggy Bear III, MD [address] [place] [address] DR S[place], [place] [address] 10/07/2024 Iggy Bear Pain in right should [...] 10/07/2024 10/07/2024, Consult and Treat, Orthopedic Surgeons [facility] Next Appt Details Follow Up: 3 Months, Reason: ov Provider Name:Iggy Bear , 03/30/2025 04:00:00 PM, [address] [place] [address] DR, [address], [place], [address], Provider Name:Iggy Bear , 07/13/2025 04:00:00 PM, [address], [place], [address], Progress Notes * Cholo ROCKDOB:[birth year] (84 yo M)Acc No.[id number]:10/07/2024 Progress Notes Patient: Cholo MORENO Provider: Loc Bear MD :1940 A ge:84 Y S ex:Male Date:10/07/2024 Phone: Address: [place], [place] Subjective: * Chief Complaints: * N ephrolithiasisCOPDChronic [...] and incarcerated left inguinal hernia, Dr. Smith, [facility] 01/2019double cataract surgery 01/2019glaucoma surgery 03/05/2022Trabeculectomy with Mitomycin and +/- 5FU 03/2022 * Hospitalization/Major Diagno stic Procedure: g out, knee, [facility] * Family History: F ather: 73 yrs, Multiple myocardial infarctions, stroke, coronary artery disease, emphysema, atrial fibrillation, worked at [employer]. M other: 88 yrs, Alzheimer's [...] 76 (Ref Range: <100 pg/mL) * Lab:[facility] [place]. Pane l Fast * Collection Date 09/30/2024 [...] 0 10/07/2024 Generated for Deena lujan/Concepción/Nedsmitting on: 05:03 PM EST History and Physical Notes [...] Referred Provider Not es 10/07/2024 Iggy Bear [facility], Orthopedic Surgeons Consult and Treat
--- OUTSIDE RECORDS SUMMARY | 2024-10-13 08:37 | XMS_ITS ---
Author Organization Iggy Bear III, MD Address [address] [place] [address] Care Team Providers Care Professional Advisor Name Role Phone Dr. Iggy Bear III Primary Care Provider REASON FOR VISIT told patient to call Social History Sex Assigned At : Social History Observation Description Sex Assigned At Male Encounters Encounter Location Date Provider Diagnosis Iggy Bear III, MD [address] [place] [address] [place] [address] 10/13/2024 Iggy Bear Plan Of Treatment Next Appt Details Provider Name:Iggy Bear , 03/30/2025 04:00:00 PM, [address] [place] [address] [place], [address], Provider Name:Iggy Bear , 07/13/2025 04:00:00 PM, [address] [place] [address] [place], [address], Progress Notes * Cholo ROCK JDOB:[birth year] (84 yo M)Acc No.[id number]:10/13/2024 Patient: Cholo MORENO :1940 A ge:84 Y S ex:Male Phone: Address: [place], [address] Subjective: * Chief Complaints: * D rAbel told patient to call * Medical History: * Surgical History: * Hospitalization/Major Diagno stic Procedure: * Medications: Objective: * Vitals: * Physical Examination: Assessment: Plan: * Treatment: * Procedure Codes: * true * Date: Generated for Deena lujan/Concepción/Krystal on: 05:04 PM EST
--- OUTSIDE RECORDS SUMMARY | 2025-01-12 11:00 | XMS_ITS ---
Author Organization Iggy Bear III, MD Address [address] [address] Care Team Providers Care Registered Dietitian Name Role Phone Dr. Iggy Bear III Primary Care Provider Allergies Allergen (clinical drug ingredient) Drug/Non Drug Allergy documented on EMR Reaction Allergy Type Onset Date Status No Known Food Allergy Unknown Drug Allergy Active Iodinated contrast media (substance) Iodinated Diagnostic Agents Unknown Drug Allergy Active REASON FOR VISIT COPD, Atrial fibrillation, Congestive heart failure, Thrombocytopenia, Hypertension, Hyperlipidemia, Hypothyroidism, Anticoagulated, Benign prostatic hypertrophy Medications Medication SIG (Take, Route, Frequency, Duration) Notes Start Date End Date Status Finasteride 5 MG TAKE 1 TABLET BY KEAGAN TH EVERY DAY Active Wixela Inhub 250-50 MCG/ACT Inhalation Active Furosemide 20 MG 1 tablet Orally Once a day Active Dorzolamide HCl-Timolol Mal 22.3-6.8 MG/ML 1 drop into affected eye Ophthalmic Twice a day Active Pradaxa 150 MG 1 capsule Orally Twi ce a day Active Allopurinol 100 MG 1 tablet Orally Once a day 04/06/2024 Active Metoprolol Succinate 100 MG Orally Active Fish Oil 1200 MG 1 capsule Orally Onc e a day Active Lumigan 0.01 % 1 drop into affected eye in the evening Ophthalmic Once a day Active Escitalopram Oxalate 10 MG TAKE 1 TABLET BY MOUTH DAILY Active Stool Softener Activ e Lisinopril 5 MG 1 tablet Orally Once a day Active predniSONE 20 MG 1 tablet Orally Once a day 02/27/2024 Active Brimonidine Tartrate 0.2 % 1 drop into a ffected eye Ophthalmic every 8 hrs Active Rhopressa 0.02 % 1 drop into [...] has it been since you last smoked? [facility] ter than 10 years Additional Findings: Tobacco non-user Ex-cigaret te smoker Vital Signs Temperature 96.6 degrees Fahrenheit 01/13/20 25 Blood pressure systolic 124 mm Hg 01/13/20 25 Blood pressure diastolic 72 mm Hg 025 Heart Rate 61 /min 01/12/2025 Height 70 in 01/12/2025 Weight 213 lbs 01/12/2025 BMI 30.56 kg/m2 01/12/2025 Encounters Encounter Location Date Provider Diagnosis Iggy Bear III, MD [address] [place] [address] [place] [address] 01/12/2025 Iggy Bear Permanent atrial fibrillation I48.21 ; Chronic congestive heart failure, unspecified heart failure type I50.9 ; Thrombocytopenia D69.6 ; Mixed hyperlipidemia E78.2 ; Obesity (BMI 30.0-34.9) E66.9 ; Chronic obstructive pulmonary disease, unspecified COPD type J44.9 ; Essential hypertension I10 ; 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 No change in his medication was necessary. 01/12/2025 Chronic congestive h eart failure, unspecified heart failure type (ICD-10 - I50.9) His congestive failure is compensated and he is compliant with his medications. He will continue them without change. His daughter will weigh him weekly and notify me if he gains more than 5 pounds. 01/12/2025 Thrombocytopenia (IC D-10 - D69.6) His current platelet count is 147,000. He remains fully anticoagulated without bleeding. He is wearing his seatbelt. 01/12/2025 Mixed hyperlipidemia (ICD-10 - E78.2) His lipid values are currently in their target range. No change in his regimen was needed today. 01/12/2025 Obesity (BMI 30.0-34 .9) (ICD-10 - E66.9) His body mass index is now 30. We have discussed diet and nutrition. We made a plan to stabilize his weight during the upcoming holidays and then lose weight at a rate of one half of a pound per week. 01/12/2025 Chronic obstructive pulmonary disease, unspecified COPD type (ICD-10 - J44.9) He is not smoking. He is breathing room air comfortably today with a satisfactory oxygen saturation of 97% 01/12/2025 Essential hypertensi on (ICD-10 - I10) His blood pressure is currently stable and no change in his regimen was made. 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 If necessary he will return to see an ear, nose and throat physician. 01/12/2025 Former smoker (ICD-1 0 - Z87.891) He is highly motivated not to smoke and has a plan to prevent relapse in times of stress. Plan Of Treatment Medication Medication Name Sig Start Date Stop Date Notes Finasteride 5 MG TAKE 1 TABLET BY KEAGAN TH EVERY DAY Wixela Inhub 250-50 MCG/ACT Inhalation Furosemide 20 MG 1 tablet Orally Once a day Dorzolamide HCl-Timolol Mal 22.3-6.8 MG/ML 1 drop into affected eye Ophthalmic Twice a day Pradaxa 150 MG 1 capsule Orally Twice a day Allopurinol 100 MG 1 tablet Orally Once a day 04/06/2024 Metoprolol Succinate 100 MG Orally Fish Oil 1200 MG 1 capsule Orally Once a day Lumigan 0.01 % 1 drop into affected eye in the evening Ophthalmic Once a day Escitalopram Oxalate 10 MG TAKE 1 TABLET BY MOUTH DAILY Stool Softener Lisinopril 5 MG 1 tablet Orally Once a day predniSONE 20 MG 1 tablet Orally Once a day 02/27/2024 Brimonidine Tartrate 0.2 % 1 drop into a ffected eye Ophthalmic every 8 hrs Rhopressa 0.02 % 1 drop into affected eye in the evening Ophthalmic Once a day Pending Test Test Name Order Date PROFILE, RANDOM (COMPREHENSIVE METABOLIC ) 01/12/2025 CBC w DIFF 01/12/2025 NT-proBNP 01/12/2025 Next Appt Details Follow Up: 2 Months, Reason: OV Provider Name:Iggy Bear , 03/30/2025 04:00:00 PM, [address] [facility] [address], [place], [address], Provider Name:Iggy Bear , 07/13/2025 04:00:00 PM, [address] [facility] [address], [place], [address], Progress Notes * Cholo ROCKDOB:[birth year] (84 yo M)Acc No.[id number]:01/12/2025 Progress Notes Patient: Cholo MORENO Provider: Loc Bear MD :1940 A ge:84 Y S ex:Male Date:01/12/2025 Phone: Address:[address] [place] [address], [phone] Subjective: * Chief Complaints: * C OPDAtrial fibrillationCongestive heart failureThrombocytopeniaHypertensionHyperlipidemiaHypothyroidismAnticoagulatedBen ign prostatic hypertrophy * HPI: C OVID-19 Screening: Francia matt returns to the office brought in by his daughter for medical management. He has recently been vaccinated for influenza and chow virus. His only complication recently was an upper respiratory infection in November 2024 which is now resolved. His examination today showed mild ankle edema and pain in the right shoulder with elevation. He was in controlled atrial fibrillation with clear lungs today. He denied any pain or bleeding nausea vomiting or diarrhea. He has been compliant with his medications. His cognitive impairment is unchanged.? He was awake and alert and verbal with clear speech. Questions H ave you had any new [...] exertion d enies. D yspnea on exertion?with prolonged activity. S hortness of breath w ith [...] and incarcerated left inguinal hernia, Dr. Smith, [facility] 01/2019double cataract surgery 01/2019glaucoma surgery 03/05/2022Trabeculectomy with Mitomycin and +/- 5FU 03/2022 * Hospitalization/Major Diagno stic Procedure: g out, knee, [facility] * Family History: F ather: 73 yrs, Multiple myocardial infarctions, stroke, coronary artery disease, emphysema, atrial fibrillation, worked at [employer]. M other: 86 yrs, Alzheimer's disease. C [...] Findings: Tobacco non-user E x-cigarette smoker H e is and has 2 children, Dontae and Sarah, who are in good health. He has no grandchildren. He retired in 2008. 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 * Medications: T [...] Verified] Objective: * Vitals: H t: 70, Wt:213, BMI:30.56, BP:124/72, HR:61, Temp:96.6, Wt-k.62. * P ast Orders: Lab:Complete Blood Count Aut o Diff * Collection Date 12/29/2024 09/30/2024 04/06/2024 Collection Time 11:43 AM 08:33 AM 05:03 PM Order Date 12/29/2024 09/30/2024 04/06/2024 White Blood Count 7.1 (Ref Range: 4.8-10.8 X10*3/uL) 6.7 (Ref Range: 4.8-10.8 X10*3/uL) 7.2 (Ref Range: 4.8-10.8 X10*3/uL) Red Blood Count 4.59 L (Ref Range: 4.60-5.80 X10*6/uL) 4.69 (Ref Range: 4.60-5.80 X10*6/uL) 4.31 L (Ref Range: 4.60-5.80 X10*6/uL) Hemoglobin 13.7 L (Ref Range: 14.0-18.0 g/dl) 13.8 L (Ref Range: 14.0-18.0 g/dl) 12.9 L (Ref Range: 14.0-18.0 g/dl) Hematocrit 41.5 L (Ref Range: 42.0-52.0 %) 40.6 L (Ref Range: 42.0-52.0 %) 38.6 L (Ref Range: 42.0-52.0 %) Mean Corpuscular Volume 90.4 (Ref Range: 80.0-98.0 fL) 86.6 (Ref Range: 80.0-98.0 fL) 89.6 (Ref Range: 80.0-98.0 fL) Mean Corpuscular Hemoglobin 29.8 (Ref Range: 27.0-33.0 pg) 29.4 (Ref Range: 27.0-33.0 pg) 29.9 (Ref Range: 27.0-33.0 pg) Mean Corpuscular HGB Conc 33.0 (Ref Range: 31.0-36.0 g/dl) 34.0 (Ref Range: 31.0-36.0 g/dl) 33.4 (Ref Range: 31.0-36.0 g/dl) Red Cell Distribution Width 14.0 (Ref Range: 11.0-16.0 %) 13.9 (Ref Range: 11.0-16.0 %) 13.6 (Ref Range: 11.0-16.0 %) Platelet Count 147 L (Ref Range: 160-400 X10*3/uL) 135 L (Ref Range: 160-400 X10*3/uL) 138 L (Ref Range: 160-400 X10*3/uL) Mean Platelet Volume 9.0 L (Ref Range: 9.4-12.4 fL) 9.5 (Ref Range: 9.4-12.4 fL) 9.2 L (Ref Range: 9.4-12.4 fL) Neutrophils Percent Auto 69.4 (Ref Range: 45-73 %) 69.4 (Ref Range: 45-73 %) 75.1 H (Ref Range: 45-73 %) Imm Gran Pct Auto 0.6 H (Ref Range: 0.0-0.4 %) 0.7 H (Ref Range: 0.0-0.4 %) 0.4 (Ref Range: 0.0-0.4 %) Lymphocytes Percent Auto 13.9 L (Ref Range: 20-40 %) 14.1 L (Ref Range: 20-40 %) 11.9 L (Ref Range: 20-40 %) Monocytes Percent Auto 8.9 (Ref Range: 2-11 %) 7.3 (Ref Range: 2-11 %) 9.3 (Ref Range: 2-11 %) Eosinophils Percent Auto 6.8 H (Ref Range: 0-4 %) 8.1 H (Ref Range: 0-4 %) 3.0 (Ref Range: 0-4 %) Basophils Percent Auto 0.4 (Ref Range: 0-2 %) 0.4 (Ref Range: 0-2 %) 0.3 (Ref Range: 0-2 %) NRBC Pct Auto 0.0 (Ref Range: 0.0-0.2 /100WBC) 0.0 (Ref Range: 0.0-0.2 /100WBC) 0.0 (Ref Range: 0.0-0.2 /100WBC) Neutrophils Absolute Auto 4.9 (Ref Range: 2.0-8.3 x10*3/uL) 4.6 (Ref Range: 2.0-8.3 x10*3/uL) 5.4 (Ref Range: 2.0-8.3 x10*3/uL) Imm Gran Abs Auto 0.04 H (Ref Range: 0.00-0.03 X10*3/uL) 0.05 H (Ref Range: 0.00-0.03 X10*3/uL) 0.03 (Ref Range: 0.00-0.03 X10*3/uL) Lymphocytes Absolute Auto 1.0 L (Ref Range: 1.2-4.9 X10*3/uL) 0.9 L (Ref Range: 1.2-4.9 X10*3/uL) 0.9 L (Ref Range: 1.2-4.9 X10*3/uL) Monocytes Absolute Auto 0.6 (Ref Range: 0.1-1.2 X10*3/uL) 0.5 (Ref Range: 0.1-1.2 X10*3/uL) 0.7 (Ref Range: 0.1-1.2 X10*3/uL) Eosinophils Absolute Auto 0.5 H (Ref Range: 0.0-0.4 X10*3/uL) 0.5 H (Ref Range: 0.0-0.4 X10*3/uL) 0.2 (Ref Range: 0.0-0.4 X10*3/uL) Basophils Absolute Auto 0.0 (Ref Range: 0.0-0.2 X10*3/uL) 0.0 (Ref Range: 0.0-0.2 X10*3/uL) 0.0 (Ref Range: 0.0-0.2 X10*3/uL) NRBC Abs Auto 0.000 (Ref Range: 0.0-0.012 X10*3/uL) 0.000 (Ref Range: 0.0-0.012 X10*3/uL) 0.000 (Ref Range: 0.0-0.012 X10*3/uL) * Lab:[facility] [place]. [place] l Fast * Collection Date 12/29/2024 09/30/2024 09/09/2023 Collection Time 11:43 AM 08:33 AM 08:55 AM Order Date 12/29/2024 09/30/2024 09/09/2023 Sodium 139 (Ref Range: 135-145 mmol/L) 140 (Ref Range: 135-145 mmol/L) 142 (Ref Range: 135-145 mmol/L) Bilirubin Total 0.5 (Ref Range: 0.0-1.0 mg/dL) 0.6 (Ref Range: 0.0-1.0 mg/dL) 0.7 (Ref Range: 0.0-1.0 mg/dL) Aspartate Amino Transferase 20 (Ref Range: 5-37 U/L) 17 (Ref Range: 5-37 U/L) 14 (Ref Range: 5-37 U/L) Alanine Aminotransferase 13 (Ref Range: 0-40 U/L) 17 (Ref Range: 0-40 U/L) 10 (Ref Range: 0-40 U/L) Total Protein 7.1 (Ref Range: 6.5-8.0 g/dL) 6.8 (Ref Range: 6.5-8.0 g/dL) 6.6 (Ref Range: 6.5-8.0 g/dL) Albumin Level 4.5 (Ref Range: 3.5-5.0 g/dL) 4.2 (Ref Range: 3.5-5.0 g/dL) 4.1 (Ref Range: 3.5-5.0 g/dL) Alkaline Phosphatase 85 (Ref Range: 39-117 U/L) 86 (Ref Range: 39-117 U/L) 67 (Ref Range: 39-117 U/L) Potassium 4.5 (Ref Range: 3.3-5.1 mmol/L) 3.9 (Ref Range: 3.3-5.1 mmol/L) 3.9 (Ref Range: 3.3-5.1 mmol/L) Chloride 103 (Ref Range: 96-108 mmol/L) 106 (Ref Range: 96-108 mmol/L) 108 (Ref Range: 96-108 mmol/L) Carbon Dioxide 29 (Ref Range: 22-29 mmol/L) 27 (Ref Range: 22-29 mmol/L) 27 (Ref Range: 22-29 mmol/L) Anion Gap 12 (Ref Range: 12-20) 11 L (Ref Range: 12-20) 11 L (Ref Range: 12-20) Blood Urea Nitrogen 16 (Ref Range: 9-16 mg/dL) 18 H (Ref Range: 9-16 mg/dL) 23 H (Ref Range: 9-16 mg/dL) Creatinine 0.85 (Ref Range: 0.5-1.4 mg/dL) 1.05 (Ref Range: 0.5-1.4 mg/dL) 1.01 (Ref Range: 0.5-1.4 mg/dL) Estimated Glomerular Filt Rate > 60 > 60 > 60 Glucose Fasting 87 (Ref Range: 60-99 mg/dL) 96 (Ref Range: 60-99 mg/dL) 103 H (Ref Range: 60-99 mg/dL) Calcium 9.0 (Ref Range: 8.4-10.2 mg/dL) 8.7 (Ref Range: 8.4-10.2 mg/dL) 8.9 (Ref Range: 8.4-10.2 mg/dL) * Lab:Lipid Panel * Collection Date 12/29/2024 09/30/2024 09/09/2023 Collection Time 11:43 AM 08:33 AM 08:55 AM Order Date 12/29/2024 09/30/2024 09/09/2023 Triglycerides 58 (Ref Range: <150 mg/dL) 94 (Ref Range: <150 mg/dL) 86 (Ref Range: <150 mg/dL) Cholesterol 116 (Ref Range: <200 mg/dL) 105 (Ref Range: <200 mg/dL) 115 (Ref Range: <200 mg/dL) LDL Cholesterol Calculated 73 (Ref Range: <100 mg/dL) 60 (Ref Range: <100 mg/dL) 71 (Ref Range: <100 mg/dL) HDL Cholesterol 32 L (Ref Range: >40 mg/dL) 27 L (Ref Range: >40 mg/dL) 27 L (Ref Range: >40 mg/dL) ???Lab:NT Pro B Type Natriuretic Pept (Order Date - 12/29/2024) (Collection Date & Time - 12/29/2024 11:43 AM)?ValueReference Range?NT Pro B Type Natriuretic Cznr148.2H<300 - pg/mL * Examination: G eneral Examination: GENERAL APPEARANCE: p edith, well nourished, well developed, in no acute distress, calm and relaxed: obese: elderly man. HEAD: a traumatic, normocephalic. EYES: e keshawn, perrla, anicteric, conjugate. EARS: : Normal anatomy with bilateral hearing loss. NOSE: s eptum intact. ORAL CAVITY: n ormal, unremarkable. NECK/THYROID: n o jugular venous distention, no carotid bruit, thyroid normal. LYMPH NODES: n o enlarged lymph nodes,spleen normal. SKIN: n o suspicious lesions, anicteric. HEART: n o clicks, gallops, murmurs, or rubs, irregular rhythm, S1, S2 normal, no s3, or vascular bruits. LUNGS: : diminished breath sounds throughout: no wheezes, rales, rhonchi. BREASTS: no masses palpable bilaterally. ABDOMEN: b owel sounds normal, no ascites, no organomegaly, no mass. RECTAL EXAM: n ot examined. MUSCULOSKELETAL: e xtremities unremarkable, no clubbing, cyanosis, mild peripheral edema around the ankles. PERIPHERAL PULSES: n ormal. NEUROLOGIC: A wake and oriented to person and place, cranial nerves 2-12 grossly intact, deep tendon reflexes 2+ symmetrical, motor strength normal upper and lower extremities, sensory exam intact, Unchanged cognitive impairment. PSYCH: a lert, oriented. Assessment: * Assessment: 1. P ermanent atrial fibrillation - I48.21 (Primary) N otes :He is in a slow controlled atrial fibrillation a day. No change in his medication was necessary. 2 . C hronic congestive heart failure, unspecified heart failure type - I50.9? Notes :His congestive failure is compensated and he is compliant with his medications. He will continue them without change. His daughter will weigh him weekly and notify me if he gains more than 5 pounds. 3 . T hrombocytopenia - D69.6 N otes :His current platelet count is 147,000. He remains fully anticoagulated without bleeding. He is wearing his seatbelt. 4 . M ixed hyperlipidemia - E78.2 N otes :His lipid values are currently in their target range. No change in his regimen was needed today. 5 . O besity (BMI 30.0-34.9) - E66.9 N otes :His body mass index is now 30. We have discussed diet and nutrition. We made a plan to stabilize his weight during the upcoming holidays and then lose weight at a rate of one half of a pound per week. 6 . C hronic obstructive pulmonary disease, unspecified COPD type - J44.9 N otes :He is not smoking. He is breathing room air comfortably today with a satisfactory oxygen saturation of 97% 7 . E ssential hypertension - I10 N otes :His blood pressure is currently stable and no change in his regimen was made. 8 . 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 If necessary he will return to see an ear, nose and throat physician. 9 . F ormer smoker - Z87.891 N otes :He is highly motivated not to smoke and has a plan to prevent relapse in times of stress. Plan: * Treatment: 2. C hronic congestive heart failure, unspecified heart failure type L AB: PROFILE, RANDOM (COMPREHENSIVE METABOLIC) L AB: CBC w DIFF L AB: NT-proBNP 3. T hrombocytopenia L AB: PROFILE, RANDOM (COMPREHENSIVE METABOLIC) L AB: CBC w DIFF L AB: NT-proBNP 4. M ixed hyperlipidemia L AB: PROFILE, RANDOM (COMPREHENSIVE METABOLIC) L AB: CBC w DIFF L AB: NT-proBNP 5. O besity (BMI 30.0-34.9) L AB: PROFILE, RANDOM (COMPREHENSIVE METABOLIC) L AB: CBC w DIFF L AB: NT-proBNP 6. O thers Continue Allopurinol Tablet, 100 [...] management education, guidance, and counseling, Dietary needs education, Exercise promotion: strength training, Exercise promotion: stretching, Feeding regime, Giving encouragement to exercise, Lifestyle education regarding diet, Nutrition / feeding management, Nutrition therapy, Prescribed activity/exercise education, Prescribed diet education, Prescribed dietary intake, Special diet education, Weight monitoring , Intervention, Order not done: Medical or Other reason not done S moking/Tobacco Use Patient counseled on the dangers of tobacco use and urged to quit. 1 03/14/2024 COPD Care Plan: P atient Lifestyle Goals R educe number of ED and hospitalizations, Be able to be more active with friends and family. T reatment Goals E xercise to help whole body, including lungs, Eat a nutritious diet and increase water consumption to 6-8 glasses a day. B arriers n o barriers. S elf-Managment Goals G et an air purifier for the rooms you are in the most, Eat a healthy diet. * Follow Up: 2 Months (Reason: OV) * Images: * Sign off status: Completed true * Provider: Loc Bear MD Date: 03/14/2024 Generated for Memei le/Concepción/eTransmitting on: 05:03 PM EST History and Physical Notes * HPI (History of Present Illness) Category Sub-Category Detail Notes COVID-19 Screening Questions Have you had any new onset fever, chills, cough, congestion, sore throat, shortness of breath, muscle aches?: No Examination Category Sub-Category Detail Notes General Examination GENERAL APPEARANCE: pleasant , well nourished, well developed, in no acute distress, calm and relaxed: obese: elderly man HEAD: atraumatic, normocep halic EYES: eomi, perrla, anicte cheryl, conjugate EARS: : Normal anatomy wit h bilateral hearing loss NOSE: septum intact NECK/THYROID: no jugular venous di stention, no carotid bruit, thyroid normal HEART: no clicks, gallops, murmurs, or rubs, irregular rhythm, S1, S2 normal, no s3, or vascular bruits LUNGS: : diminished breath sounds throughout: no wheezes, rales, rhonchi ABDOMEN: bowel sounds normal, no ascites, no organomegaly, no mass NEUROLOGIC: Awake and oriented t o person and place, cranial nerves 2-12 grossly intact, deep tendon reflexes 2+ symmetrical, motor strength normal upper and lower extremities, sensory exam intact, Unchanged cognitive impairment SKIN: no suspicious lesion s, anicteric PERIPHERAL PULSES: normal BREASTS: no masses palpable b ilaterally MUSCULOSKELETAL: extremities unremark able, no clubbing, cyanosis, mild peripheral edema around the ankles LYMPH NODES: no enlarged lymph no gray,spleen normal RECTAL EXAM: not examined PSYCH: alert, oriented ORAL CAVITY: normal, unremarkable
[2025-02-28 14:56] VITALS: BP 126/72; PULSE 56; BMI 31.0
--- NOTE | 2025-02-28 14:56 | MHC.OFFVIS ---
Vital Signs 02/28/25 14:56 Height 5 ft 10 in Weight 216 lb 0.848 oz BMI 31.0 BP 126/72 Blood Pressure Location Lt brachial Position Sitting Pulse 56 Intake Visit Reasons: follow up per daughter Intake Note: Follow-up per Daughter his doing ok but has been declining Forest Fire Prevention Manager Required: No Biomedical Instrument Technician: Biomedical Instrument Technician Present Accompanied by: Daughter Allergies Iodinated Contrast Media (IV Dye, Iodine Containing) Allergy (Severe, Verified 02/03/25 15:07) HIVES IVP dye Allergy (Unknown, Uncoded 02/03/25 15:07) hives Medication List - Last Reconciled 02/28/25 by Milan Mccoy MD allopurinol 100 mg PO DAILY bimatoprost 0.01% (Lumigan) 1 drp ophthalmic-Right DAILY brimonidine 0.2% 1 drp ophthalmic-Right BID dabigatran etexilate 150 mg PO BID docusate sodium 100 mg PO DAILY PRN dorzolamide-timolol 22.3-6.8 mg/mL 1 drp ophthalmic (eye) BID escitalopram oxalate 10 mg PO DAILY finasteride 5 mg PO DAILY fluticasone propion-salmeterol 250-50 mcg/dose (Wixela Inhub) 1 inh inhalation Q12H 90 days furosemide 20 mg PO DAILY lisinopril 5 mg PO DAILY metoprolol succinate ER 100 mg PO DAILY netarsudil 0.02% (Rhopressa) 1 drp ophthalmic-Right DAILY omega-3 fatty acids (Fish Oil Concentrate) 1,000 mg PO DAILY vit C,V-Zp-dngwj-lutein-zeaxan 250-90-40-1 mg (PreserVision AREDS-2) 1 tab PO BID HPI Comments Details: Narciso comes for follow-up, accompanied by the daughter. Daughter is worried about his reducing exercise capacity. Patient does not do much exercise. He said he has decreased vision and walks with the help of a walker. As per the daughter he does well when he is walking with help and able to walk more. However he has had reducing exercise capacity and fatigue. Increase daytime sleeping. He has not had any orthopnea, PND. Does have leg edema mostly on the right side. Taking all his medications. Recent blood work showed NT pro BNP in the 900 range. He is not anemic. He was suggested to undergo myocardial perfusion imaging although he is not too inclined to do that. [facility] Medical History Dyspnea COPD (chronic obstructive pulmonary disease) HTN (hypertension) Chronic atrial fibrillation Surgical History History of eye surgery History of right hip replacement History of hernia repair Social History Alcohol intake: never Patient Tobacco Use Status: Former Tobacco user Years Smoked: 10 +/- Current occupational status: retired Current occupation: right hand dominant Review of Systems Const Denies chills, Denies fatigue, Denies fever(s), Denies frequent falls, Denies weakness, Denies weight gain and Denies weight loss ENT Denies dizziness Card Denies chest pain, Denies leg edema, Denies lightheadedness, Denies palpitations, Denies dyspnea, Denies dyspnea on exertion, Denies orthopnea and Denies other (loss of consciousness) Resp Denies cough, Denies dyspnea and Denies dyspnea on exertion GI Denies hematochezia and Denies change in stool character Musc Denies abnormal gait, Denies muscle weakness, Denies numbness, Denies radiating pain into limb and Denies tingling Neuro Denies abnormal gait, Denies dizziness, Denies frequent falls, Denies numbness, Denies tingling and Denies weakness Endo Denies fatigue and Denies palpitations Physical Exam Vital Signs: Last Vital Signs Pulse 56 02/28/25 14:56 BP 126/72 02/28/25 14:56 BMI result Body Mass Index 31.0 Const General: cooperative, comfortable, no acute distress, alert and awake Nutritional Appearance: obese Orientation/consciousness: patient oriented x3 Limitations: no limitations Neck Neck: Yes trachea midline, Yes supple and Yes no JVD Resp Effort & Inspection: normal respiratory effort Auscultation: clear to auscultation bilaterally and crackles bilateral (Bases, clears with coughing) Cardio Jugular venous distension: no JVD Palpation: normal PMI Rate: regular rate Rhythm: abnormal rhythm irregularly irregular Heart sounds: S1 normal heart sound present, S2 normal heart sound present, no click, no gallops and no murmurs GI Inspection: Yes obesity Auscultation: normal bowel sounds Skin General skin exam: no rashes or lesions noted and ecchymosis Neuro General: patient oriented x3 and no focal motor deficits Extrem General: No clubbing, No cyanosis and Yes edema Psych Appearance: grossly normal Assessment & Plan Assessment & Plan (1) (HFpEF) heart failure with preserved ejection fraction: Code(s): I50.30 - Unspecified diastolic (congestive) heart failure Category: Medical Plan: Heart failure with preserved ejection fraction this elderly gentleman with reducing exercise capacity most likely due to deconditioning with lack of exercise and probably weight gain. Clinically does not appear to be in overt heart failure of fluid overload syndrome. He is antiplatelet BNP is elevated which is expected in his cardiac status. Can consider addition of Jardiance and the role of Jardiance therapy in this situation was discussed with the daughter. Want to defer it at this point time. Management of heart failure was discussed. Daily weight monitoring avoidance salt loading was discussed. Additional diuretics as need be. Advised to call me with worsening symptoms. We discussed the role of myocardial perfusion imaging in the setting to assess for progressive coronary artery disease that could guide therapy and treatment. If negative could also help us holding out significant coronary disease as a cause of his symptoms. However they want to defer it at this point time which is appropriate I think (2) Chronic atrial fibrillation: Code(s): I48.20 - Chronic atrial fibrillation, unspecified Category: Medical Plan: Chronic atrial fibrillation, currently rate controlled. Continue current rate control strategy. Continue full oral anticoagulation, currently on dabigatran 150 mg b.i.d.. Quarterly renal function test and semi annual CBC should be checked. Has failed rhythm control approach. Will follow up in the clinic in 6 months time, sooner PRN. Thank you for allowing me to partake in his care Coding Level of Care Code Est Pt Level 4 (40110) Diagnoses (HFpEF) heart failure with preserved ejection fraction I50.30 Chronic atrial fibrillation I48.20
--- OUTSIDE RECORDS SUMMARY | 2025-02-28 17:04 | XMS_ITS | Patient Health Record ---
Author Organization [facility] Address [address] [facility] [place] [address] Care Team Providers Care Occupational Therapy Program Director Name Role Phone Iggy Bear MD Primary Care Provider UnavailManda Metcalf Unavailable [phone] Main Kirkpatrick Unavailable [phone] Allergies Allergen (clinical drug ingredient) Drug/Non Drug [...] atherosclerosis of arteries of lower limbs (disorder) ([id number] ) Atherosclerosis of [place] artery of both lower extremities, with unspecified presence of clinical manifestation (I70.203) Active confirmed Q7(A), Q8(2B), Q9(1B,2 C) Vital Signs Blood pressure diastolic 65 mm Hg 01/03/2025 Height 5 ft 10 in in 01/03/2025 Blood pressure systolic 128 mm Hg 01/03/2025 Weight 204 lbs 01/03/2025 BMI 29.27 kg/m2 01/03/2025 Procedures Procedure Date Ordered Date Performed Result Body Sit e 71847-IBRVTSO NAIL, 6 OR MORE 04/27/2024 N/A 24020-EWAK SKIN LESIONS, OVER 4 04/27/2024 N/A 71987-RVEFLIT NAIL, 6 OR MORE 08/04/2024 N/A 44376-CULG SKIN LESIONS, OVER 4 08/04/2024 N/A 92955-RHRJVQN NAIL, 6 OR MORE 01/03/2025 N/A 14489-ZGSH SKIN LESIONS, OVER 4 01/03/2025 N/A Encounters Encounter Location Date Provider Diagnosis [facility] [address] [place] [address] 04/27/2024 Main Kirkpatrick Atherosclerosis of [place] artery of both lower extremities, with unspecified presence of clinical manifestation I70.203 ; Tinea unguium B35.1 ; Pain in right toe(s) M79.674 ; Pain in left toe(s) M79.675 and Tinea pedis of both feet B35.[address] [address] 08/04/2024 Manda White Atherosclerosis of [place] artery of both lower extremities, with unspecified presence of clinical manifestation I70.203 ; Tinea unguium B35.1 ; Pain in right toe(s) M79.674 ; Pain in left toe(s) M79.675 and Tinea pedis of both feet B35.[address] [address] 01/03/2025 Manda White Atherosclerosis of [place] artery of both lower extremities, with unspecified presence of clinical manifestation I70.203 ; Tinea unguium B35.1 ; Pain in right toe(s) M79.674 ; Pain in left toe(s) M79.675 and Tinea pedis of both feet B35.[address] [address] 01/03/2025 Amnda Christopher Assessments Encounter Date Diagnosis (ICD Code) Assessment Notes Treatment Notes Treatment Clinical Notes Section Notes 04/27/2024 Atherosclerosis of [place] artery of both lower extremities, with unspecified presence of clinical manifestation (ICD-10 - I70.203) Q7(A), Q8(2B), Q9(1B,2C) 08/04/2024 Atherosclerosis of [place] artery of both lower extremities, with unspecified presence of clinical manifestation (ICD-10 - I70.203) Q7(A), Q8(2B), Q9(1B,2C) 01/03/2025 Atherosclerosis of [place] artery of both lower extremities, with unspecified [...] Treatment Pending Test Test Name Order Date [id number] NAIL, 6 OR MORE 01/26/2024 02295-IONXDQZ NAIL, 6 OR MORE 04/27/2024 21760-QYKKVEY NAIL, 6 OR MORE 08/04/2024 89282-DCSAVEX NAIL, 6 OR MORE 01/03/2025 37757-LGCW SKIN LESIONS, OVER 4 01/04/20 25 55329-DHQW SKIN LESIONS, OVER 4 08/05/19 30263-MJCF SKIN LESIONS, OVER 4 04/27/19 34815-IAIS SKIN LESIONS, OVER 4 01/26/20 24 11327-GIRH SKIN LESIONS, OVER 4 04/23/19 24 07569-YDLO SKIN LESIONS, OVER 4 07/24/19 24 Next Appt Details Provider Name:Manda Lewis james, 04/11/2025 09:15:00 AM, [address] [facility], [place], [address], Insurance Providers Payer Name Payer Address Payer Phone Subscriber Number Group Number Insured Name Patient Relationship to Insured Coverage Start Date Coverage End Date Medicare National [employer]t [employer] [address] [facility] [place] [address] [id number] Ch[place] Self - patient is the insured [employer] [facility] [address] [place] [address] [id number] Lokesh [place] Self - patient is the insured Medical (General) History Medical History History ICD Code Arthritis Back,Hip,and Knee pain Broken bones Cataracts Glaucoma Heart disease Macular degeneration Numbness Measles Mumps Chicken pox Joint implants/screws Surgical History Surgery Date(Month/Year) hip replacement laser eye surgery
--- OUTSIDE RECORDS SUMMARY | 2025-02-28 17:05 | XMS_ITS | Patient Health Record ---
Author Organization Iggy Bear III, MD Address [address] [place] [address] Care Team Providers Care Professor Criminal Justice Name Role Phone Dr. Iggy Bear III Primary Care Provider [phone] Allergies Allergen (clinical drug ingredient) Drug/Non Drug Allergy documented on EMR Reaction Allergy Type Onset Date Status No Known Food Allergy Unknown Drug Allergy Active Iodinated contrast media (substance) Iodinated Diagnostic Agents Unknown Drug Allergy Active Results Component Value Reference Range Notes Complete Blood Count Auto Di ff Reviewed date:03/25/2024 06:29:04 AM Interpretation: Performing Lab:[facility], [address] [place] [address] Notes/Report: White Blood Count 8.2 4.8-10.8 X10*3/uL [...] Panel Reviewed date:03/25/2024 06:29:05 AM Interpretation: Performing Lab:[address] [address] Notes/Report: Sodium 141 135-145 mmol/L Potassium 4.1 [...] (Free>4and<10) Reviewed date:03/25/2024 06:29:05 AM Interpretation: Performing Lab:[facility], [address] [place] [address] Notes/Report: PSA,Total (Free>4and<10) 0.27 0.00-4.00 ng/mL A [...] 06:29:04 AM Interpretation: Performing Lab:[facility], [address] [place] [address] Notes/Report: White Blood Count 8.1 4.8-10.8 X10*3/uL [...] te Reviewed date:03/25/2024 06:29:04 AM Interpretation: Performing Lab:[address] [address] Notes/Report: Erythrocyte Sedimentation Rate 22 0-15 MM/HR Patients with polycythemia and many hemoglobin abnormalities may have depressed sed rates whereas patients with anemia may have elevated sed rates. Comprehensive Met. Panel Reviewed date:03/25/2024 06:29:04 AM Interpretation: Performing Lab:[address] [address] Notes/Report: Sodium 141 135-145 mmol/L Potassium 4.5 [...] Acid Reviewed date:03/25/2024 06:29:04 AM Interpretation: Performing Lab:[address] [address] Notes/Report: Uric Acid 7.3 3.4-7.0 mg/dL C Reactive Protein Reviewed date:03/25/2024 06:29:04 AM Interpretation: Performing Lab:[facility], [address] [place] [address] Notes/Report: C Reactive Protein 0.72 < or = 0.50 mg/dL SARS-CoV2/FLU/RSV Reviewed date:03/25/2024 06:29:04 AM Interpretation: Performing Lab:[facility], [address] [place] [address] Notes/Report: Influenza A PCR NEGATIVE Negative Influenza [...] by authorized laboratories. Testing performed on the [employer] GeneXpert utilizing real-time RT-PCR. All SARS CoV2 and positive influenza A/B results are reported to [facility]. XR hip RT w PEL1V Reviewed date:03/25/2024 06:29:04 AM Interpretation: Performing Lab: Notes/Report: [address] [address] XRay Report Signed Patient: Cholo Simmons MR#: [id number] : 1940 Acct:[id number] Age/Sex: 83 / M ADM Date: 03/22/24 Loc: HO.ED Attending Dr: Ordering Physician: Sagrario Jiang NP Date of Service: 03/22/24 Procedure(s): XR hip RT w PEL 1V Accession Number(s): [id number] cc: Iggy Bear MD; Sagrario Jiang NP [...] 03/22/24 1116 DD/ 1040 TD/TT: 03/22/24 1050 Foot Drill Operator: [address] [address] XRay Report Signed Patient: Cholo Simmons MR#: [id number] : 1940 Acct:[id number] Age/Sex: 83 / M ADM Date: 03/22/24 Loc: HO.ED Attending Dr: Ordering Physician: Sagrario Jiang NP Date of Service: 03/22/24 Procedure(s): XR hip RT w PEL 1V Accession Number(s): [id number] cc: Iggy Bear MD; Sagrario Jiang NP [...] 03/22/24 1116 DD/ 1040 TD/TT: 03/22/24 1050 Foot Drill Operator: XR knee RT 4V Reviewed date:03/25/2024 06:29:04 AM Interpretation: Performing Lab: Notes/Report: [address] [address] XRay Report Signed Patient: Cholo Simmons MR#: [id number] : 1940 Acct:[id number] Age/Sex: 83 / M ADM Date: 03/22/24 Loc: HO.ED Attending Dr: Ordering Physician: Sagrario Jiang NP Date of Service: 03/22/24 Procedure(s): XR knee RT 4V Accession Number(s): [id number] cc: Iggy Bear MD; Sagrario Jiang NP [...] by: Iggy Gupta MD 03/22/2024 11:17 AM [facility] Dictated By: Iggy Gupta MD Signed By: <Electronically signed by Iggy Gupta MD in OV> 03/22/24 1117 DD/ 1040 TD/TT: 03/22/24 1050 Foot Drill Operator: [address] [address] XRay Report Signed Patient: Cholo Simmons MR#: [id number] : 1940 Acct:[id number] Age/Sex: 83 / M ADM Date: 03/22/24 Loc: HO.ED Attending Dr: Ordering Physician: Sagrario Jiang NP Date of Service: 03/22/24 Procedure(s): XR kne e RT 4V Accession Number(s): [id number] cc: Iggy Bear MD; Sagrario Jiang NP [...] by: Iggy Gupta MD 03/22/2024 11:17 AM [facility] Dictated By: Iggy Gupta MD Signed By: <Electronically signed by Iggy Gupta MD in OV> 03/22/24 1117 DD/ 1040 TD/TT: 03/22/24 1050 Foot Drill Operator: EARL GONZALES w/rflx Micro + Cult Reviewed date:04/09/2024 09:15:21 AM Interpretation: Performing Lab:[facility], [address] [place] [address] Notes/Report: [id number] Urine, Clean Catch Color Urine Yellow Appearance Urine Clear PH 6.0 5.0-9.0 Glucose Urine UA Negative Negative mg/dL Urine Blood Negative Negative Specific [place] - Urine 1.025 1.005-1.025 Urine Protein Trace Neg-Trace mg/dL Urine Ketones 15 Negative mg/dL Nitrite Urine Negative Negative Leukocyte Esterase Urine Negative Negative CT cervical spine wo con Reviewed date:04/09/2024 09:15:21 AM Interpretation: Performing Lab: Notes/Report: [address] [address] [address] Scan Report Signed Patient: Cholo Simmons MR#: [id number] : 1940 Acct:[id number] Age/Sex: 83 / M ADM Date: 04/05/24 Loc: HO.ED Attending Dr: Ordering Physician: Elda Gates Date of Service: 04/05/24 Procedure(s): CT cervical spine wo IV con Accession Number(s): [id number] cc: Iggy Bear MD; Elda Gates Report Number: [id number]: Total DLP = 588.00 mGy-cm EXAMINATION: CT [...] by: Steve Gutiérrez MD 04/05/2024 10:58 AM [facility] Dictated By: Steve Gutiérrez MD Signed By: <Electronically signed by Steve Gutiérrez MD in OV> 04/05/24 1058 DD/ 0957 TD/TT: 04/05/24 1022 Foot Drill Operator: [address] [address] [address] Scan Report Signed Patient: Cholo Simmons MR#: [id number] : 1940 Acct:[id number] Age/Sex: 83 / M ADM Date: 04/05/24 Loc: HO.ED Attending Dr: Ordering Physician: Elda Gates Date of Service: 04/05/24 Procedure(s): CT cervical spine wo IV con Accession Number(s): [id number] cc: Iggy Bear MD; Elda Gates Report Number: [id number]: Total DLP = 588.00 mGy-cm EXAMINATION: CT [...] by: Steve Gutiérrez MD 04/05/2024 10:58 AM [facility] Dictated By: Mr bruce Gutiérrez MD Signed By: <Electronically signed by Steve Gutiérrez MD in OV> 04/05/24 1058 DD/ 0957 TD/TT: 04/05/24 1022 Foot Drill Operator: IRMA CT head/brain wo con Reviewed date:04/09/2024 09:15:21 AM Interpretation: Performing Lab: Notes/Report: [address] [address] [address] Scan Report Signed Patient: Cholo Simmons MR#: [id number] : 1940 Acct:[id number] Age/Sex: 83 / M ADM Date: 04/05/24 Loc: HO.ED Attending Dr: Ordering Physician: Elda Gates Date of Service: 04/05/24 Procedure(s): CT head/brain wo IV con Accession Number(s): [id number] cc: Iggy Bear MD; Elda Gates Report Number: [id number]: Total DLP = 776.00 mGy-cm EXAMINATION: CT [...] 04/05/24 1043 DD/ 0933 TD/TT: 04/05/24 1022 Foot Drill Operator: [address] [address] [address] Scan Report Signed Patient: Cholo Simmons MR#: [id number] : 1940 Acct:[id number] Age/Sex: 83 / M ADM Date: 04/05/24 Loc: HO.ED Attending Dr: Ordering Physician: Elda Gates Date of Service: 04/05/24 Procedure(s): CT head/brain wo IV con Accession Number(s): [id number] cc: Iggy Bear MD; Elda Gates Report Number: [id number]: Total DLP = 776.00 mGy-cm EXAMINATION: CT [...] 04/05/24 1043 DD/ 0933 TD/TT: 04/05/24 1022 Foot Drill Operator: XR chest 1V Reviewed date:04/09/2024 09:15:21 AM Interpretation: Performing Lab: Notes/Report: [address] [address] XRay Report Signed Patient: Cholo Simmons MR#: [id number] : 1940 Acct:[id number] Age/Sex: 83 / M ADM Date: 04/05/24 Loc: HO.ED Attending Dr: Ordering Physician: Elda Gates Date of Service: 04/05/24 Procedure(s): XR chest 1V Accession Number(s): [id number] cc: Iggy eBar MD; Elda Gates EXAMINATION: XR CHEST 1 [...] OV> 04/05/24 105 DD/ 103 TD/TT: 04/05/241034 Foot Drill Operator: [address] [address] XRay Report Signed Patient: Cholo Simmons MR#: [id number] : 1940 Acct:[id number] Age/Sex: 83 / M ADM Date: 04/05/24 Loc: HO.ED Attending Dr: Ordering Physician: Elda Gates Date of Service: 04/05/24 Procedure(s): XR renata st 1V Accession Number(s): [id number] cc: Iggy Bear MD; Elda Gates EXAMINATION: [...] OV> 04/05/24 1054 DD/ 1030 TD/TT: 04/05/241034 Foot Drill Operator: Complete Blood Count Auto Di ff Reviewed date:04/09/2024 09:15:21 AM Interpretation: Performing Lab:[facility], [address] [place] [address] Notes/Report: White Blood Count 7.2 4.8-10.8 X10*3/uL [...] 09:15:21 AM Interpretation: Performing Lab:[facility], [address] [place] [address] Notes/Report: Sodium 141 135-145 mmol/L Potassium 4.3 [...] Lipase Reviewed date:04/09/2024 09:15:21 AM Interpretation: Performing Lab:[facility], [address] [place] [address] Notes/Report: Lipase 16 8-78 U/L SARS-CoV2/FLU/RSV Reviewed date:04/09/2024 09:15:20 AM Interpretation: Performing Lab:[facility], [address] [place] [address] Notes/Report: Influenza A PCR POSITIVE Negative Influenza [...] by authorized laboratories. Testing performed on the [employer] GeneXpert utilizing real-time RT-PCR. All SARS CoV2 and positive influenza A/B results are reported to [facility]. Complete Blood Count Auto Di ff Reviewed date:10/01/2024 02:13:32 PM Interpretation: Performing Lab:[address] [address] Notes/Report: White Blood Count 6.7 4.8-10.8 X10*3/uL [...] NRBC Abs Auto 0.000 0.0-0.012 X10*3/uL Comprehensive [place]. Panel Fa st Reviewed date:10/01/2024 02:13:32 PM Interpretation: Performing Lab:[facility], [address] [place] [address] Notes/Report: Sodium 140 135-145 mmol/L Potassium 3.9 [...] Peptide Reviewed date:10/01/2024 02:13:32 PM Interpretation: Performing Lab:[address] [address] Notes/Report: B Type Natriuretic Peptide 110 <100 pg/mL Lipid Panel Reviewed date:10/01/2024 02:13:32 PM Interpretation: Performing Lab:[address] [address] Notes/Report: Triglycerides 94 <150 mg/dL Desirable Triglyceride: [...] Antigen Reviewed date:10/01/2024 02:13:32 PM Interpretation: Performing Lab:[address] [address] Notes/Report: Prostate Specific Antigen 0.10 <0.05-4.0 ng/mL PSA methodology: Almaraz Alinity i Chemiluminescent Microparticle Immunoassay (CMIA) XR shoulder RT min 2V Reviewed date:01/02/2025 07:35:50 AM Interpretation: Performing Lab: Notes/Report: [address] [address] XRay Report Signed Patient: Cholo Simmons MR#: [id number] : 1940 Acct:[id number] Age/Sex: 84 / M ADM Date: 10/08/24 Loc: H[place]AM[place] Attending Dr: Iggy Bear MD Ordering Physician: Iggy Bear MD Date of Service: 10/08/24 Procedure(s): XR shoulder RT min 2V Accession Number(s): [id number] cc: Iggy Bear MD EXAMINATION: XR SHOULDER [...] 10/08/24 1329 DD/ 1155 TD/TT: 10/08/24 1205 Foot Drill Operator: [address] [address] XRay Report Signed Patient: Cholo Simmons MR#: [id number] : 1940 Acct:[id number] Age/Sex: 84 / M ADM Date: 10/08/24 Loc: [place] Attending Dr: Iggy Bear MD Ordering Physician: Iggy Bear MD Date of Service: 10/08/24 Procedure(s): XR shoulder RT min 2V Accession Number(s): [id number] cc: Iggy Bear MD EXAMINATION: XR SHOU [...] 10/08/24 1329 DD/ 1155 TD/TT: 10/08/24 1205 Foot Drill Operator: Complete Blood Count Auto Di ff Reviewed date:01/02/2025 07:35:50 AM Interpretation: Performing Lab:[facility], [address] [place] [address] Notes/Report: White Blood Count 7.1 4.8-10.8 X10*3/uL [...] NRBC Abs Auto 0.000 0.0-0.012 X10*3/uL Comprehensive [place]. Panel Fa st Reviewed date:01/02/2025 07:35:50 AM Interpretation: Performing Lab:[address] [address] Notes/Report: Sodium 139 135-145 mmol/L Potassium 4.5 [...] Panel Reviewed date:01/02/2025 07:35:50 AM Interpretation: Performing Lab:[address] [address] Notes/Report: Triglycerides 58 <150 mg/dL Desirable Triglyceride: [...] pt Reviewed date:01/02/2025 07:35:50 AM Interpretation: Performing Lab:[facility], [address] [place] [address] Notes/Report: NT Pro B Type Natriuretic Pept [...] Provider Speciality Internal M edicine Referred Provider [facility] er, Orthopedic Surgeons Referred Provider Specialty Orthopedic S [facility] General Notes LornaMiguel 10/2024 04:16:57 PM > [...] Problem Status W/U Status Risk Notes Problem 6759092 Former smoker (Z87.891) Active confirmed He is highly motivated not to smoke and has a plan to prevent relapse in times of stress. Problem 697019136616134 Obesity (BMI 30.0-34.9) (E66.9) Active confirmed His body mass index is now 30. We have discussed diet and nutrition. We made a plan to stabilize his weight during the upcoming holidays and then lose weight at a rate of one half of a pound per week. Problem 116135624 Thrombocytopenia (D69.6) Active confirmed His current platelet count is 147,000. He remains fully anticoagulated without bleeding. He is wearing his seatbelt. Problem Hypothyroidism (46759876) Hypothyroidism, unspecified (E03.9) Active confirmed No change in hi s medications was made. Comprehensive blood work has been ordered. Problem 369660252 Mixed hyperlipidemia (E78.2) Active confirmed His lipid value s are currently in their target range. No change in his regimen was needed today. Problem Gout (85461268) Gout (M10.9) Active confirmed Problem Benign prostatic hyperplasia (604709279) BPH (benign prostatic hyperplasia) (N40.0) Active confirmed He rises only once a night which is an improvement. We have put in place lifestyle modifications and reduce nocturnal. No change his medication was made. Problem 96202730 Chronic obstructive pulmonary disease, unspecified COPD type (J44.9) Active confirmed He is not smoking. He is breathing room air comfortably today with a satisfactory oxygen saturation of 97% Problem 521032790 Erectile dysfunction, unspecified erectile dysfunction type (N52.9) Active confirmed He has medication for this problem which is effective. He has had no side effects. Problem 244790121 Anticoagulated (Z79.01) Active confirmed He continues on anticoagulant with no bruising or bleeding. I have advised him to avoid aspirin. Problem 03244697 Essential hypertension (I10) Active confirmed His blood pressure is currently stable and no change in his regimen was made. Problem 16750357 Obstructive sleep apnea (G47.33) Active confirmed He says he does not have a CPAP machine at this time. I have discussed trying to obtain one. Problem 45392154 Nephrolithiasis (N20.0) Active confirmed He has had no episodes of renal colic recently. Problem 5739458 Umbilical hernia without obstruction and without gangrene (K42.9) Active confirmed This is an asymptomatic problem at this time will be observed. There has been no change in this lesion. Problem 287955125 Left inguinal hernia (K40.90) Active confirmed The large le ft umbilical hernia was repaired in 2019 at [facility] by Dr. Smith. It has not relapsed.A remains asymptomatic. Problem 301433916 Benign prostatic hyperplasia without lower urinary tract symptoms (N40.0) Active confirmed He has been rising from sleep twice a night to urinate. We discussed lifestyle modifications that could be made to reduce nocturia. 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 He will be seen prior to that. Problem 282320213 Adenomatous polyp (D36.9) Active confirmed I recommend th at he have the colonoscopy every 5 years. Problem 23895023 Chronic congestive heart failure, unspecified heart failure type (I50.9) Active confirmed His congestive failure is compensated and he is compliant with his medications. He will continue them without change. His daughter will weigh him weekly and notify me if he gains more than 5 pounds. 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 If necessary he will return to see an ear, nose and throat physician. Problem 331867503 Permanent atrial fibrillation (I48.21) Active confirmed He [...] Date Provider Diagnosis Iggy Bear III, MD [address] [place] [address] [place] [address] 03/01/2024 Iggy Bear Obesity (BMI 30.0-34 .9) E66.9 ; Acute idiopathic gout of right hand M10.041 ; Chronic obstructive pulmonary disease, unspecified COPD type J44.9 ; Nephrolithiasis N20.0 ; Left inguinal hernia K40.90 ; Permanent atrial fibrillation I48.21 and Chronic congestive heart failure, unspecified heart failure type I50.9 Iggy Bear III, MD [address] [place] [address] [place] [address] 03/22/2024 Iggy Bear Obesity (BMI 30.0-34 .9) E66.9 ; Cellulitis of left knee L03.116 ; Essential hypertension I10 and Former smoker Z87.891 Iggy Bear III, MD [address] [place] [address] [place] [address] 07/07/2024 Iggy Bear Chronic obstructive pulmonary disease, [...] Hypothyroidism, unspecified E03.9 Iggy Bear III, MD [address] [place] [address] [place] [address] 10/07/2024 Iggy Bear Pain in right should [...] and 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 Iggy Bear III, MD [address] [place] [address] [place] [address] 01/12/2025 Iggy Bear Permanent atrial fibrillation I48.21 ; Chronic congestive heart failure, unspecified heart failure type I50.9 ; Thrombocytopenia D69.6 ; Mixed hyperlipidemia E78.2 ; Obesity (BMI 30.0-34.9) E66.9 ; Chronic obstructive pulmonary disease, unspecified COPD type J44.9 ; Essential hypertension I10 ; 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 and Former smoker Z87.891 Iggy Bear III, MD [address] [place] [address] [place] [address] 03/19/2024 Iggy Bear III, MD [address] [place] [address] [place] [address] 03/23/2024 Iggy Bear III, MD [address] [place] [address] [place] [address] 03/26/2024 Iggy Bear III, MD [address] [place] [address] [place] [address] 04/06/2024 Iggy Bear III, MD [address] [place] [address] [place] [address] 04/09/2024 Iggy Bear III, MD [address] [place] [address] [place] [address] 04/09/2024 Iggy Bear III, MD [address] [place] [address] [place] [address] 04/12/2024 Iggy Bear III, MD [address] [place] [address] [place] [address] 04/12/2024 Iggy Bear III, MD [address] [place] [address] [place] [address] 04/16/2024 Iggy Bear III, MD [address] [place] [address] [place] [address] 04/22/2024 Iggy Bear III, MD [address] [place] [address] [place] [address] 10/13/2024 Iggy Chema Assessments Encounter Date Diagnosis [...] type (ICD-10 - J44.9) He saw a non destructive testing specialist recently and was placed on a [...] umbilical hernia was repaired in 2019 at [facility] by Dr. Smith. It has not [...] fibrillation (ICD-10 - I48.21) He saw the cylindrical mixer in April 2022. No change in his [...] C) 03/31/2018 PROFILE, FASTING (COMPREHENSIVE METABOLI C) 09/11/2022 PROFILE, FASTING (COMPREHENSIVE METABOLI C) 09/11/2020 PROFILE, FASTING (COMPREHENSIVE METABOLI C) 06/01/2021 PROFILE, [...] METABOLIC ) 01/12/2025 GLUCOSE,RANDOM 01/19/2019 LIPID PANEL 01/12/2021 LIPID PANEL 10/01/2021 LIPID PANEL 06/03/2019 LIPID PANEL 09/01/2018 LIPID PANEL 03/31/2018 LIPID PANEL 02/07/2020 LIPID PANEL 09/11/2022 LIPID PANEL 10/04/2019 LIPID PANEL 06/12/2020 FREE T4 (FT4) 06/17/2023 TSH (THYROID STIMULATING HORMONE) 2022 TSH (THYROID STIMULATING HORMONE) 2023 BRAIN NATRIURETIC PEPTIDE (BNP) 10/08/19 25 BRAIN NATRIURETIC PEPTIDE (BNP) 07/08/19 25 PSA, TOTAL 07/07/2024 PSA, TOTAL 12/17/2023 PSA, TOTAL 06/17/2023 PSA, TOTAL 03/31/2018 PSA, TOTAL 09/11/2022 PSA, TOTAL 02/08/2022 CBC w DIFF 10/04/2019 CBC w DIFF 06/12/2020 CBC w DIFF 07/07/2024 CBC w DIFF 01/12/2021 CBC w DIFF 10/01/2021 CBC w DIFF 12/16/2022 CBC w DIFF 06/03/2019 CBC w DIFF 09/01/2018 CBC w DIFF 09/11/2020 CBC w DIFF 02/07/2020 CBC w DIFF 06/01/2021 CBC w DIFF 09/17/2023 CBC w DIFF 01/12/2025 CBC w DIFF 03/31/2018 CBC w DIFF 09/11/2022 CBC w DIFF 01/19/2019 CBC w DIFF 02/08/2022 CBC w DIFF 10/07/2024 SED RATE (ESR) 06/17/2023 VITAMIN D 25-OH TOTAL 03/31/2018 CBC WITH AUTO DIFF 12/17/2023 CBC WITH AUTO DIFF 06/17/2023 Lipid Panel 02/08/2022 Lipid Panel 06/17/2023 Lipid Panel 10/07/2024 Lipid Panel 07/07/2024 Lipid Panel 12/16/2022 Lipid Panel 09/11/2020 Lipid Panel 06/01/2021 Lipid Panel 09/17/2023 Vitamin B12 06/17/2023 Vitamin B12 12/16/2022 NT-proBNP 01/12/2025 XR shoulder RT min 2V 10/07/2024 Next Appt Details Provider Name:Iggy Bear , 03/30/2025 04:00:00 PM, [address] [facility] [address], [place], [address], Provider Name:Iggy Bear , 07/13/2025 04:00:00 PM, [address] [facility] [address] [place], [address], Insurance Providers Payer Name Payer Address Payer Phone Subscriber Number Group Number Insured Name Patient Relationship to Insured Coverage Start Date Coverage End Date MEDICARE NGS [address] [facility] [phone] [id number] [place] Self - patient is the insured [facility] [address] [place], [place] [id number] [phone] [id number] [place] Self - patient is [...] nd incarcerated left inguinal hernia, Dr. Smith, [facility] 01/2019 double hernia surgery 01/2019 tonsillectomy colonoscopy, , rectal tubular adenoma 2014 colonoscopy, 2009 colonoscopy, , rectal polyp 20 05 colonoscopy, 1999 colonoscopy 1980 right ureter lithotripsy 2011 right total hip replacement, Dr RAJAN K ruschel 09/2011 POLYPECTOMY [phone] RIGHT ESWL 03/13/2011 Hospitalization History Reason Date(Month/Year) gout, knee, [facility]
== END 2025-02-28 15:23 | disposition home or self-care (01) ==
LOC: HO.HCS 14:44
PROVIDERS: PCP Internal Medicine Medical Oncology; Visit Provider Internal Medicine Cardiovascular Disease
DX: I50.30 Unspecified diastolic (congestive) heart failure (principal); I48.20 Chronic atrial fibrillation, unspecified
CPT/HCPCS: 99214

== ENCOUNTER → 2025-02-28 14:43 | Outpatient (BNVA) | payer MEDICARE, SELFPAY | PROVIDERS: PCP Internal Medicine Medical Oncology; Visit Provider Internal Medicine Cardiovascular Disease | DX: I11.0 Hypertensive heart disease with heart failure (principal); I50.30 Unspecified diastolic (congestive) heart failure; I48.20 Chronic atrial fibrillation, unspecified | CPT/HCPCS: 99212 ==